=== PATIENT | female | born 1995 | race Caucasian/White ===

== ENCOUNTER 2020-06-03 01:57 | Emergency (ER) | payer MEDICAID, SELFPAY ==
[2020-06-03 01:59] VITALS: BP 132/92; PULSE 113; RESP 16; TEMP 37.1; O2SAT 98; BMI 24.4
[2020-06-03 02:25] LABS: Microscopic, Urine URINE MICROSCOPIC (MICROSCOPIC)
--- NOTE | 2020-06-03 02:26 | ECG_ITS ---
APPROVED REPORT Exam: Resting ECG HR:103 bpm ECG Measurements Heart Rate 103 AXES VA 128 P 81 QRSd 66 QRS 79 QT 334 T 45 QTc 437 <Conclusion> Sinus tachycardia Right atrial enlargement Borderline ECG Electronically signed by : Armand Louis, 06/05/2020 07:05:37
--- NOTE | 2020-06-03 02:27 | HMH.EDGENADL ---
ED Disposition Clinical Impression: Gastroenteritis, Dehydration Disposition: Home, Self-Care Condition on Discharge: Good Instructions: DI for Diarrhea and Traveler's Diarrhea -- Adult, DI for Dehydration -- Adult Additional Instructions: You may continue to take Imodium for diarrhea. Drink plenty of fluids. Follow-up with your primary care provider if not improving in 2 to 3 days. Referrals: Ravi Lynch MD [Primary Care Provider] - - Critical Care Critical Care Time: No Attestation: On 06/03/20, the high probability of a clinically significant, sudden or life threatening deterioration of the following system(s) required my full and direct attention, intervention and personal management. The time I documented below is in addition to time spent performing reported procedures but includes the following listed in this critical care notation. Medical Decision Making - Will Inquiry Pt receiving controlled substance: No Vital Signs: 06/03/20 01:59 06/03/20 02:29 06/03/20 03:34 Temperature 98.7 F Temperature Source Oral Pulse Rate [Left Radial] 113 H 111 H 90 Respiratory Rate 16 18 18 Blood Pressure [Right Arm] 132/92 H 137/92 H 111/76 Blood Pressure Mean [Right Arm] 105 107 87 Blood Pressure Source [Right Arm] Automatic Cuff Blood Pressure Position [Right Arm] Sitting 02 Sat by Pulse Oximetry 98 98 100 Oxygen Delivery Method Room Air Room Air Room Air - Lab Data Lab Results 06/03/20 02:16: Urine Color Yellow, Urine Appearance Clear, Urine pH 6.0, Ur Specific [place] >= 1.030, Urine Protein Negative, Urine Glucose (UA) Negative, Urine Ketones 2+, Urine Blood Negative, Urine Nitrate Negative, Urine Bilirubin Negative, Urine Urobilinogen 0.2, Ur Leukocyte Esterase Negative, Urine RBC 3-5, Urine WBC 5-10, Ur Squamous Epith Cells 5-10, Urine Bacteria 2+ 06/03/20 02:16: Urine HCG, Qual Negative 06/03/20 02:20: WBC 12.6 H, RBC 4.79, Hgb 14.8, Hct 41.1, MCV 85.8, MCH 30.9, MCHC 36.0 H, RDW 12.3, Plt Count 298, MPV 8.0, Neut % (Auto) 64.5, Lymph % (Auto) 30.5, [place] % (Auto) 3.6, Eos % (Auto) 0.9, Baso % (Auto) 0.5, Neut # (Auto) 8.2 H, Lymph # (Auto) 3.9, [place] # (Auto) 0.5, Eos # (Auto) 0.1, Baso # (Auto) 0.1 06/03/20 02:20: Sodium 139, Potassium 3.5, Chloride 105, Carbon Dioxide 20 L, Anion Gap 17.5 H, BUN 10, Creatinine 0.50 L, Estimated Creat Clear 153, Estimated GFR 149, Est GFR ( Amer) 180, Glucose 100, Calcium 9.2, Total Bilirubin 0.5, AST 34, ALT 25, Alkaline Phosphatase 70, Total Protein 8.1, Albumin 4.6, Globulin 3.5 H, Albumin/Globulin Ratio 1.3 Result diagrams: 06/03/20 02:20 06/03/20 02:20 Orders (Tests/Meds): ED MEDICATIONS Discontinued Medications Generic Name Dose Route Start Last Admin Trade Name Freq PRN Reason Stop Dose Admin Sodium Chloride 1,000 ml 06/03/20 02:30 06/03/20 03:16 Sod Chlor 0.9% 1000ml Bag IV 06/03/20 02:31 1,000 ml BOLUS ONE Administration ORDERS Category Date Time Status Urine Culture Stat Micro 06/03/20 02:16 Received - ECG Data Tracing #1 EKG interpreted by Alphonso Dai MD: Rhythm: sinus tachycardia Rate: 103 [place]: normal Ectopy: none Conduction: normal ST Segment Changes: none T Wave Changes: none Q Waves: none No evidence of acute ischemia or injury General Adult HPI - General Chief complaint: Nausea/Vomiting/Diarrhea Stated complaint: Accelerated heart rate Time Seen by Provider: 06/03/20 02:27 Mode of Arrival: Ambulatory Limitations: No Limitations Description of Symptoms (Recalled from ER Triage Doc. by RN): pt stated she has had diarrhea since yesterday as well as an elevated HR greater than 90 throughout the day today. pt denies any chest pain, nausea, vomiting or abd. pain at this time. - History of Present Illness HPI narrative: States she has had diarrhea for 2 days, 4-5 episodes. No blood in diarrhea, vomiting, fever, or abdominal pain. Abdomen just feels a little tight across th
[2020-06-03 02:28] LABS: Appearance,Urine CLEAR (Clear); Bilirubin,Urine Negative (Negative); Blood, Urine Negative (Negative); Color,Urine YELLOW (Yellow); Glucose,Urine (UA) Negative (Negative); Ketones,Urine 2+ (Negative); Leukocyte Esterase,Urine Negative (Negative); Nitrate,Urine Negative (Negative); Protein,Urine Negative (Negative); Specific Gravity, Urine >= 1.030 (1.005-1.030); Urobilinogen,Urine 0.2 EU/dl (0.2)
[2020-06-03 02:29] VITALS: BP 137/92; PULSE 111; RESP 18; O2SAT 98
[2020-06-03 02:30] LABS: Urine Pregnancy, HCG Qual. Negative (Negative)
[2020-06-03 02:36] LABS: Chloride 105 mmol/L (98-107); Sodium 139 mmol/L (136-145)
[2020-06-03 02:37] LABS: Basophils # 0.1 K/mm3 (0-0.2); Basophils % 0.5 % (0.1-2.0); Eosinophils # 0.1 K/mm3 (0.0-0.4); Eosinophils % 0.9 % (0.1-12.0); Hematocrit 41.1 % (37.0-47.0); Hemoglobin 14.8 g/dL (12.2-16.2); Lymphocytes # 3.9 K/mm3 (0.7-4.5); Lymphocytes % 30.5 % (10-50); Mean Corpuscular Hemoglobin 30.9 pg (27.0-31.2); Mean Corpuscular Volume 85.8 fl (81-99); Monocytes # 0.5 K/mm3 (0.1-1.0); Monocytes % 3.6 % (1.7-9.3); Neutrophils # 8.2 K/mm3 (1.8-7.8); Neutrophils % 64.5 % (37.0-80.0); Platelet Count 298 K/mm3 (142-424); Potassium 3.5 mmoL/L (3.5-5.1); Red Blood Count 4.79 M/mm3 (4.20-5.40); Red Cell Distribution Width 12.3 % (11.5-17.5); White Blood Count 12.6 K/mm3 (4.8-10.8)
[2020-06-03 02:39] LABS: Alanine Aminotransferase 25 U/L (12-78); Albumin Level 4.6 g/dl (3.5-5.0); Albumin/Globulin Ratio 1.3 (1.1-1.8); Alkaline Phosphatase 70 U/L (38-126); Anion Gap 17.5 mEq/L (5-15); Aspartate Amino Transferase 34 U/L (14-36); Bilirubin,Total 0.5 mg/dl (0.2-1.3); Blood Urea Nitrogen 10 mg/dl (7-17); Carbon Dioxide 20 mmol/L (22.0-30.0); Creatinine Clearance Estimated 153 mL/min (50-200); Estimated Glomerular Filt Rate 149 ml/min (>60); GFR (African American) 180 ML/MIN (>60); Globulin 3.5 g/dL (1.3-3.2); Total Protein,Serum 8.1 g/dl (6.3-8.2)
[2020-06-03 02:40] LABS: Calcium 9.2 mg/dl (8.4-10.2); Glucose 100 mg/dl (74-100)
[2020-06-03 03:04] LABS: Bacteria,Urine 2+ /lpf
[2020-06-03 03:34] VITALS: BP 111/76; PULSE 90; RESP 18; O2SAT 100
[2020-06-03 04:31] VITALS: BP 127/87; PULSE 90; RESP 14; TEMP 37.1; O2SAT 100
== END 2020-06-03 04:39 | disposition home or self-care (01) ==
PROVIDERS: Emergency Provider Emergency Medicine; PCP Family Medicine
DX: K52.9 Noninfective gastroenteritis and colitis, unspecified (principal); E86.0 Dehydration; R00.2 Palpitations; Z88.0 Allergy status to penicillin; Z79.899 Other long term (current) drug therapy
CPT/HCPCS: 80053; 81001; 81025; 85025; 87086; 87088; 93005; 96365; 99283

== ENCOUNTER → 2020-07-07 12:49 | Outpatient (CLI) | payer MEDICAID, SELFPAY ==
--- NOTE | 2020-07-07 12:49 | US_ITS ---
PROCEDURE: US TRANSVAGINAL CLINICAL INDICATION: US t/v- RLQP COMPARISON: US PTV US PELVIS-TRANSVAGINAL ONLY from 12/31/2015 FINDINGS: UTERUS: 7cm x 6cmx 3cm with a combined endometrial thickness of 10.3mm LEFT OVARY: [id number] with a volume of 6.2ml. RIGHT OVARY: [id number] with a volume of 11.7ml. The uterus is retroverted is bicornuate. Endometrial thickness is upper normal at 10 mm. Right ovary is mildly prominent with several small follicles. There is a small amount fluid in the cul-de-sac. IMPRESSION: Bicornuate retroverted uterus with minimal amount of fluid in the cul-de-sac Dictated by: Jean Pierre Carrillo MD 07/07/2020 15:54 Jean Pierre Carrillo MD in OV 07/07/2020 15:54
== END ==
PROVIDERS: PCP Family Medicine; Visit Provider Obstetrics & Gynecology
DX: R10.2 Pelvic and perineal pain (principal); R10.31 Right lower quadrant pain
CPT/HCPCS: 76830

== ENCOUNTER → 2020-07-26 17:35 | Outpatient (CLI) | payer MEDICAID, SELFPAY ==
[2020-07-28 09:23] LABS: Progesterone 0.3 ng/mL (.)
== END ==
PROVIDERS: Visit Provider Obstetrics & Gynecology
DX: R10.2 Pelvic and perineal pain (principal); N80.9 Endometriosis, unspecified
CPT/HCPCS: 36415; 84144

== ENCOUNTER → 2020-08-18 17:22 | Outpatient (CLI) | payer BC, SELFPAY ==
[2020-08-18 18:57] LABS: Basophils # 0.1 K/mm3 (0-0.2); Basophils % 1.4 % (0.1-2.0); Eosinophils # 0.1 K/mm3 (0.0-0.4); Eosinophils % 2.2 % (0.1-12.0); Hematocrit 42.8 % (37.0-47.0); Hemoglobin 13.8 g/dL (12.2-16.2); Lymphocytes # 2.9 K/mm3 (0.7-4.5); Lymphocytes % 46.5 % (10-50); Mean Corpuscular HGB Conc 32.3 g/dL (31.8-35.4); Mean Corpuscular Hemoglobin 29.6 pg (27.0-31.2); Mean Corpuscular Volume 91.5 fl (81-99); Mean Platelet Volume 7.6 fl (7.4-10.4); Monocytes # 0.3 K/mm3 (0.1-1.0); Monocytes % 4.6 % (1.7-9.3); Neutrophils # 2.8 K/mm3 (1.8-7.8); Neutrophils % 45.2 % (37.0-80.0); Platelet Count 311 K/mm3 (142-424); Red Blood Count 4.68 M/mm3 (4.20-5.40); Red Cell Distribution Width 12.3 % (11.5-17.5); White Blood Count 6.2 K/mm3 (4.8-10.8)
[2020-08-18 20:11] LABS: Barbiturates Screen,Urine Negative ng/ml (<200)
[2020-08-18 20:12] LABS: Cannabinoid Screen,Urine Negative ng/ml (<50)
[2020-08-18 20:14] LABS: Opiate Screen,Urine Negative ng/ml (<300)
[2020-08-18 20:15] LABS: Cocaine Screen,Urine Negative ng/ml (<300)
[2020-08-18 20:16] LABS: Phencyclidine Screen,Urine Negative ng/ml (<25)
[2020-08-18 20:51] LABS: HCG Qualitative, Serum Negative (Negative)
[2020-08-18 21:40] LABS: Chloride 102 mmol/L (98-107); Potassium 3.8 mmoL/L (3.5-5.1); Sodium 140 mmol/L (136-145)
[2020-08-18 21:42] LABS: Alanine Aminotransferase 25 U/L (12-78); Aspartate Amino Transferase 31 U/L (14-36); Blood Urea Nitrogen 9 mg/dl (7-17); Estimated Glomerular Filt Rate 121 ml/min (>60); GFR (African American) 146 ML/MIN (>60)
[2020-08-18 21:43] LABS: Albumin Level 4.9 g/dl (3.5-5.0); Albumin/Globulin Ratio 1.5 (1.1-1.8); Alkaline Phosphatase 62 U/L (38-126); Bilirubin,Total 0.3 mg/dl (0.2-1.3); Calcium 9.4 mg/dl (8.4-10.2); Globulin 3.3 g/dL (1.3-3.2); Glucose 89 mg/dl (74-100); Total Protein,Serum 8.2 g/dl (6.3-8.2)
[2020-08-18 22:17] LABS: Anion Gap 13.8 mEq/L (5-15); Carbon Dioxide 28 mmol/L (22.0-30.0)
[2020-08-18 22:50] LABS: Amphetamine/Metha Screen,Urine Negative ng/ml (<1000); Benzodiazepines Screen,Urine Negative ng/ml (<200); Methadone Screen,Urine Negative ng/ml (<300)
[2020-08-18 23:36] LABS: Coronavirus 19 IgG Antibody Negative (Negative); Coronavirus 19 IgM Antibody Negative (Negative)
== END ==
PROVIDERS: Visit Provider Obstetrics & Gynecology
DX: Z01.818 Encounter for other preprocedural examination (principal); R10.2 Pelvic and perineal pain; N80.9 Endometriosis, unspecified
CPT/HCPCS: 36415; 80053; 80305; 84703; 85025; 86328

== ENCOUNTER 2020-08-20 06:25 | Day surgery (SDC) | payer BC, SELFPAY ==
[2020-08-18 16:24] VITALS: BMI 24.0
[2020-08-20] VITALS (14 sets, daily range): BP systolic 103–123; BP diastolic 61–75; PULSE 77–94; RESP 12–18; TEMP 36.1–43; O2SAT 91–100
--- NOTE | 2020-08-20 07:50 | HMH.ANESCL ---
[facility] Anesthesia Checklist - Patient Identification Patient Identification: Arm Band - Structural Data Admitted From: Home Planned Operative Procedure/s: Diagnostic Laparoscopy with Chromotubation Consent for Planned Operative Procedure(s) Verified: Yes Verified Documents: Surgical Consent, History and Physical - NPO Status Verified Time NPO: 00:00 - Additional verifications Anesthesia Reactions: No Hx Blood Transfusions: No Blood Transfusion Reaction: No - Airway Assessment C-Spine Mobility Assessed: Yes (mp2) TMJ Mobility Assessed: Yes Dentition: Good Dentition - Neurological Assessment Level of Consciousness: Awake, Alert - Anesthesia Plan Anesthesia Risk discussed: Yes Anesthesia Plan: Verified ASA Class: II Anesthesia Type: General [facility] History I have reviewed the patient's past medical history: Yes 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: Reports:: Palpitations Denies:: Cancer, Diabetes Mellitus Type 1, Diabetes Mellitus Type 2, Hypertension, Internal Pacemaker, MRSA, Seizures *Have you ever received a pneumonia vaccine?: No *Have you received a flu vaccine this season?: Yes Other 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: Denies: Blood Transfusion Reaction Anesthesia experience/problems:: nac Other Surgeries: Yes: Diagnostic Lap, Other. No: Pacemaker Amputation: No Fractures: No - *Social History Last grade of school completed: High school graduate Smoking Status: Never smoker Tobacco Type: cigarettes # Packs/Day (cigarettes): 0 Alcohol Intake: never Substance Use Type: denies use *Occupational Status:: employed Housing: house Household Members: spouse *Travel in the last 8 weeks: None Family Hx:: Unable to obtain
--- NOTE | 2020-08-20 09:40 | HMH.ANESI ---
[facility] Anesthesia Record Part I Intake, IV Amount: 1,500 Estimated blood loss (mL): 0 Urine output (mL): 0 Blood Pressure: 109/65 SaO2: 93 Pulse Rate: 92 Respiratory Rate: 12 Temperature: 97.7 F Patient is:: Awake Stable to PACU at:: 09:40
--- NOTE | 2020-08-20 10:18 | P.OP_ITS ---
Date of procedure: 08/20/20 Pre-op Diagnosis:: 1. Pelvic pain 2. Endometriosis 3. Bicornuate uterus 4. Infertility Post-op Diagnosis:: 1. Pelvic pain 2. Endometriosis 3. Bicornuate uterus 4. Infertility 5. Pelvic adhesions 6. Bilateral occluded fallopian tubes Procedure performed:: Diagnostic laparoscopy Fulgaration of endometriosis Lysis of adhesions Chromotubation of fallopian tubes Surgeon:: Yi Christopher MD OFFSET ASSISTANT PRESS OPERATOR:: Gene Varela Anesthesia: GETA Estimated blood loss (mL): 5 Operative findings:: enlarged and wide uterus (previously identified as bicornuate) grossly normal ovaries bilateral occluded fallopian tubes endometriosis cul-de-sac pelvic adhesions Operative note:: The patient was taken to the operating room and general anesthesia was administered. She was prepped/draped in lithotomy position. A [employer] uterine manipulator was placed without difficulty. Gloves were changed and attention was turned to the abdomen. A 5mm skin incision was made in the umbilical fold and the verees needle was inserted through the peritoneum and into the abdominal cavity in standard fashion. The abdomen was insufflated with CO2 gas. A 5mm non-bladed trocar was inserted directly into the abdominal cavity and appropriate placement was confirmed with the laparoscope. No intra-abdominal injuries occurred during entry into the abdominal cavity, as confirmed visually with the laparoscope. The patient was placed in trendelenburg and a 5mm skin incision was made 2cm above the pubic symphysis. A 5mm non-bladed trocar was inserted under direct visualization, without complication. The uterus was elevated out of the pelvis in order to better visualize the anatomy. A survey of the pelvis and abdomen revealed a bulky/enlarged uterus, with an enlarged width. Previous evaluation had identified a bicornuate uterus, and the intra- operative findings today were consistent with that diagnosis. Both ovaries appeared normal, and no cysts or endometriotic lesions were visualized on either ovary. The pelvic sidewalls and anterior wall did not show any endometriotic lesions, but several powder burn lesions were noted in the cul-de-sac, along with some filmy adhesions. The ureters were identified and not of concern with regards to anatomic proximity for fulgaration of endometriosis, and the lesions were all fulgarated using monopolar cautery. The filmy adhesions were also taken down sharply and bluntly, without complication. At this time, a dilute solution of methylene blue was connected to the port of the Humi and 20cc was injected into the uterus. The fallopian tubes appeared anatomically normal, with no adhesions or obvious anatomic distortion. The dye, however, did not pass beyond the middle of either tube. A second syringe of 20cc of dyed fluid was injected with no successful results, and only increasing resistance to continued push of the solution. The abdomen was then evacuated of gas and all trocars removed. The skin incisions were closed with dermabond. All sponge/lap/needle/instrument counts correct for both abdominal and vaginal procedures. Total EBL: 5cc. The patient was taken out of lithotomy position, extubated and taken to the PACU in stable condition. Condition: stable Disposition: PACU Specimens:: none Complications:: none
--- NOTE | 2020-08-20 10:33 | P.PN_ITS ---
[facility] Anesthesia Record Part II Discharge Time: 10:10 Destination: [facility] PACU nurse assessment reviewed?: Yes Patient Condition:: Good Anesthesia Complications:: None Swallowing reflex intact?: Yes Cyanosis?: No Blood Pressure: 103/65 Pulse Rate: 83 Temperature: 97 F Mental Status: Alert & Oriented Pain level:: 0 Nausea and/or vomitting:: None Intake, IV Amount: 1,000
== END 2020-08-20 11:02 | disposition home or self-care (01) ==
LOC: OR 06:27
PROVIDERS: PCP Family Medicine; Visit Provider Obstetrics & Gynecology
PROC: (CPT 49320; principal; 2020-08-20 08:30)
DX: Z30.2 Encounter for sterilization (principal); N80.9 Endometriosis, unspecified; Q51.3 Bicornate uterus; N73.6 Female pelvic peritoneal adhesions (postinfective); N97.1 Female infertility of tubal origin
CPT/HCPCS: 58350; 58662; 96374; J2405; J2710

== ENCOUNTER → 2020-09-21 09:39 | Outpatient (CLI) | payer BC, SELFPAY ==
--- NOTE | 2020-09-21 | US_ITS ---
APPROVED REPORT Exam Type: Ankle to Brachial Index Qc Manager: Yojana Pfeiffer CRT Indications Claudication: Rest Pain: Risk Factors Hypertension Pressures/Indices Right Indices Left Indices Brachial 117.00 mmHg Brachial 107.00 mmHg Low Thigh 129.00 mmHg 1.10 Low Thigh 134.00 mmHg 1.15 Calf 145.00 mmHg 1.24 Calf 143.00 mmHg 1.22 Ankle(PT) 137.00 mmHg 1.17 Ankle(PT) 139.00 mmHg 1.19 Ankle(DP) 131.00 mmHg 1.12 Ankle(DP) 130.00 mmHg 1.11 Digit 99.00 mmHg 0.85 Digit 74.00 mmHg 0.63 Findings R DONG 1.2 L DONG 1.2 R TBI 0.9 L TBI 0.6 NORMAL PULSES NORMAL WAVEFORMS Conclusion R DONG 1.2 L DONG 1.2 R TBI 0.9 L TBI 0.6 NORMAL PULSES NORMAL WAVEFORMS Normal appearing resting noninvasive lower extremity arterial study. Electronically signed by : Jean Pierre Carrillo MD 09/21/2020 16:07:56
== END ==
PROVIDERS: PCP Family Medicine; Visit Provider Family Medicine
DX: M79.605 Pain in left leg (principal); M79.604 Pain in right leg
CPT/HCPCS: 93923

== ENCOUNTER 2020-10-09 12:30 | Emergency (ER) | payer BC, SELFPAY ==
[2020-10-09 13:15] VITALS: BP 126/74; PULSE 99; RESP 20; TEMP 36.7; O2SAT 100; BMI 25.4
--- NOTE | 2020-10-09 13:34 | HMH.EDUTC ---
[facility] [place] Disposition Clinical Impression: UTI (urinary tract infection) Qualifiers: Urinary tract infection type: site unspecified Hematuria presence: with hematuria Qualified Code(s): N39.0 - Urinary tract infection, site not specified Low back pain Qualifiers: Chronicity: unspecified Back pain laterality: right Sciatica presence: without sciatica Qualified Code(s): M54.5 - Low back pain Disposition: Home, Self-Care Condition on Discharge: Good Instructions: Urinary Tract Infection, DI for Urinary Tract Infection (UTI), Phenazopyridine Additional Instructions: Drink plenty of fluids. Take tylenol or ibuprofen for pain or fever. Take the medications as directed. Follow up with your regular doctor. GO TO THE ER FOR ANY WORSENING SYMPTOMS The pyridium will make your urine turn orange, this is an expected side effect. It will stain your clothes if it comes into contact with them. Prescriptions: Sulfamethoxazole/Trimethoprim [Bactrim DS tablet] 1 each PO BID 7 Days #14 tab Transmission Status: Received by [id number] Phenazopyridine HCl [Pyridium 200mg Tablet] 200 pow PO TID #6 tab Transmission Status: Received by [id number] Referrals: Ravi Lynch MD [Primary Care Provider] - Time of Disposition: 13:42 Medical Decision Making - Medical Records Medical records reviewed: No: I reviewed the patient's medical records. - Will Inquiry Pt receiving controlled substance: No Vital Signs: 10/09/20 13:15 10/09/20 13:50 Temperature 98.1 F 98.1 F Temperature Source Oral Pulse Rate 99 H Pulse Rate [Right Brachial] 99 H Respiratory Rate 20 20 Blood Pressure 126/74 Blood Pressure [Right Arm] 126/74 Blood Pressure Mean [Right Arm] 91 Blood Pressure Source [Right Arm] Automatic Cuff Blood Pressure Position [Right Arm] Sitting 02 Sat by Pulse Oximetry 100 Oxygen Delivery Method Room Air - Lab Data Lab results reviewed: Yes: I reviewed the patient's lab results. Lab Results 10/09/20 13:41: Urine Color Yellow, Urine Appearance Clear, Urine pH 6.0, Ur Specific [place] 1.025, Urine Protein Negative, Urine Glucose (UA) Negative, Urine Ketones Negative, Urine Blood 2+, Urine Nitrate Negative, Urine Bilirubin Negative, Urine Urobilinogen 0.2, Ur Leukocyte Esterase Negative Orders (Tests/Meds): ORDERS Category Date Time Status Urine Culture Stat Micro 10/09/20 13:30 Received [facility] [place] HPI - General Stated complaint: lower back and pelvic pain Time Seen by Provider: 10/09/20 13:34 Mode of Arrival: Ambulatory Source of Information: Patient Limitations: No Limitations Description of Symptoms (Recalled from Triage Doc. by RN): PATIENT C/O LEFT FLANK PAIN AND BLOOD IN URINE SINCE YESTERDAY HEENT Symptoms (Recalled from RN notes): No Resp Symptoms (Recalled from RN notes): No Skin Symptoms (Recalled from RN notes): No MS Symptoms (Recalled from RN notes): No Functional Status (Recalled from RN notes): WNL - History of Present Illness Provider Complaint: she c/o low back pain and burning while urinating since yesteday. She rates her pain as a 5/10. - Related Data Home Medications Medication Instructions Recorded Confirmed metoprolol tartrate 25 mg tablet 25 mg PO DAILY tab 02/16/20 08/20/20 clomiPHENE citrate [Clomiphene 50 mg PO DAILY 08/20/20 08/20/20 Citrate] Previous Rx's Medication Instructions Recorded Phenazopyridine HCl [Pyridium 200 pow PO TID #6 tab 10/09/20 200mg Tablet] Sulfamethoxazole/Trimethoprim 1 each PO BID 7 Days #14 tab 10/09/20 [Bactrim DS tablet] Allergies Allergy/AdvReac Type Severity Reaction Status Date / Time Penicillins Allergy Intermediate I-HIVES Verified 08/23/20 13:32 - Worker's Comp Is this a Worker's Comp case?: No [facility] History - Hepatitis A Screen Drug use history?: No High risk sexual behaviors?: No History of sexually transmitted infection?: No Currently employed?: No Childcar
[2020-10-09 13:50] VITALS: BP 126/74; PULSE 99; RESP 20; TEMP 36.7; O2SAT 100
[2020-10-09 16:04] LABS: Apearance,Urine Clear (Clear); Color,Urine Yellow (Yellow)
[2020-10-09 16:05] LABS: Bilirubin,Urine Negative (Negative); Blood, Urine 2+ (Negative); Glucose,Urine (UA) Negative (Negative); Ketones,Urine Negative (Negative); Protein,Urine Negative (Negative); Specific Gravity, Urine 1.025 (1.005-1.030); UTC Leukocyte Esterase,Urine Negative (Negative); UTC Nitrate,Urine Negative (Negative); Urobilinogen,Urine 0.2 EU/dl (0.2)
== END 2020-10-09 13:51 | disposition home or self-care (01) ==
PROVIDERS: Emergency Provider Nurse Practitioner Family; PCP Family Medicine
DX: N30.00 Acute cystitis without hematuria (principal); R00.2 Palpitations
CPT/HCPCS: 81003; 87086; 99202; G0463

== ENCOUNTER 2020-12-03 17:53 | Emergency (ER) | payer BC, SELFPAY ==
[2020-12-03 18:06] VITALS: BP 124/77; PULSE 82; RESP 19; TEMP 36.9; O2SAT 98; BMI 26.2
--- NOTE | 2020-12-03 18:15 | HMH.EDUTC ---
[facility] [place] Clinical Impression: UTI (urinary tract infection) Qualifiers: Urinary tract infection type: acute cystitis Hematuria presence: with hematuria Qualified Code(s): N30.01 - Acute cystitis with hematuria Disposition: Home, Self-Care Condition on Discharge: Good Instructions: DI for Urinary Tract Infection (UTI) Additional Instructions: Follow up with Dr Lynch next week. Your culture is pending. Return to ER if pain significantly worsens. Prescriptions: Ciprofloxacin HCl [Ciprofloxacin 500mg Tab] 500 mg PO BID 5 Days #10 tab Transmission Status: Pending to [id number] Referrals: Ravi Lynch MD [Primary Care Provider] - Time of Disposition: 18:18 Medical Decision Making - Will Inquiry Pt receiving controlled substance: No Vital Signs: 12/03/20 18:06 Temperature 98.4 F Temperature Source Oral Pulse Rate [Right Brachial] 82 Respiratory Rate 19 Blood Pressure [Right Arm] 124/77 Blood Pressure Mean [Right Arm] 92 Blood Pressure Source [Right Arm] Automatic Cuff Blood Pressure Position [Right Arm] Sitting 02 Sat by Pulse Oximetry 98 Oxygen Delivery Method Room Air - Lab Data Lab results reviewed: Yes: I reviewed the patient's lab results. Orders (Tests/Meds): ORDERS Category Date Time Status Urine Culture Stat Micro 12/03/20 18:13 [place]dered [facility] [place] - General Stated complaint: poss UTI Time Seen by Provider: 12/03/20 18:15 Mode of Arrival: Ambulatory Source of Information: Patient Limitations: No Limitations Description of Symptoms (Recalled from Triage Doc. by RN): Pain in back and painful urination x2 days HEENT Symptoms (Recalled from RN notes): No Resp Symptoms (Recalled from RN notes): No Skin Symptoms (Recalled from RN notes): No MS Symptoms (Recalled from RN notes): No Functional Status (Recalled from RN notes): wnl - History of Present Illness Provider Complaint: Dysuria, back pain, hematuria X 2 days. Seems better today than yesterday. No fever. No vomiting. Onset (ago): day(s) (2) Relieving factors: none Exacerbating factors: none Associated symptoms: denies other symptoms Treatments prior to arrival: none - Related Data Home Medications Medication Instructions Recorded Confirmed metoprolol tartrate 25 mg tablet 25 mg PO DAILY tab 02/16/20 08/20/20 clomiPHENE citrate [Clomiphene 50 mg PO DAILY 08/20/20 08/20/20 Citrate] Previous Rx's Medication Instructions Recorded Phenazopyridine HCl [Pyridium 200 pow PO TID #6 tab 10/09/20 200mg Tablet] Sulfamethoxazole/Trimethoprim 1 each PO BID 7 Days #14 tab 10/09/20 [Bactrim DS tablet] Ciprofloxacin HCl [Ciprofloxacin 500 mg PO BID 5 Days #10 tab 12/03/20 500mg Tab] Allergies Allergy/AdvReac Type Severity Reaction Status Date / Time Penicillins Allergy Intermediate I-HIVES Verified 12/03/20 18:09 - Worker's Comp Is this a Worker's Comp case?: No [facility] History - Hepatitis A Screen Drug use history?: No High risk sexual behaviors?: No History of sexually transmitted infection?: No Currently employed?: No Childcare worker?: No Do you have indoor plumbing?: Yes Do you have electricity?: Yes Attestation statement:: This patient has been screened for Hepatitis A risk factors. I have reviewed the patient's past medical history: Yes 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: Reports:: Palpitations Denies:: Cancer, Diabetes Mellitus Type 1, Diabetes Mellitus Type 2, Hypertension, Internal Pacemaker, MRSA, Seizures Other 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: Denies: Blood Transfusion Reaction Comment: Endometriosis. Chronic Heart Palpitations Other Surgeries: Yes: Diagnostic Lap, Other. No: Pacemaker Amputation: No Fractures: No Comment: Tooth Extraction--2008. Dx. LSC, w/ TAMMY--2015 - Social History Smoking Status: Never smoker Tobacco Type: cigarettes # Packs/Day (cigarettes): 0 Alcohol Intake: never Substance Use Type: denies use Occupational Status: other Housing: house Household Members:
[2020-12-03 18:21] VITALS: BP 124/77; PULSE 82; RESP 19; TEMP 36.9; O2SAT 98
[2020-12-03 18:23] LABS: Apearance,Urine Clear (Clear); Color,Urine Yellow (Yellow); PH,Urine 6.5 (5.0-8.5)
[2020-12-03 18:24] LABS: Bilirubin,Urine Negative (Negative); Blood, Urine Trace (Negative); Glucose,Urine (UA) Negative (Negative); Ketones,Urine Negative (Negative); Protein,Urine Negative (Negative); UTC Leukocyte Esterase,Urine Negative (Negative); UTC Nitrate,Urine Negative (Negative); Urobilinogen,Urine 0.2 EU/dl (0.2)
== END 2020-12-03 18:26 | disposition home or self-care (01) ==
PROVIDERS: Emergency Provider Physician Assistant; PCP Family Medicine
DX: N30.01 Acute cystitis with hematuria (principal); R00.2 Palpitations; Z79.899 Other long term (current) drug therapy
CPT/HCPCS: 81003; 87086; 99202; G0463

== ENCOUNTER → 2021-01-24 17:40 | Outpatient (CLI) | payer BC, SELFPAY ==
[2021-01-24 20:52] LABS: HCG,Quantitative 13 mIU/ml (0-5.42)
== END ==
PROVIDERS: Visit Provider Obstetrics & Gynecology
DX: Z34.90 Encounter for supervision of normal pregnancy, unspecified, unspecified trimester (principal)
CPT/HCPCS: 36415; 84702

== ENCOUNTER → 2021-01-26 17:38 | Outpatient (CLI) | payer BC, SELFPAY ==
[2021-01-26 19:47] LABS: HCG,Quantitative 38 mIU/ml (0-5.42)
== END ==
PROVIDERS: Visit Provider Obstetrics & Gynecology
DX: Z34.90 Encounter for supervision of normal pregnancy, unspecified, unspecified trimester (principal)
CPT/HCPCS: 36415; 84702

== ENCOUNTER → 2021-01-27 17:36 | Outpatient (CLI) | payer BC, SELFPAY ==
[2021-01-27 18:15] LABS: HCG,Quantitative 44 mIU/ml (0-5.42)
== END ==
PROVIDERS: Visit Provider Specialist
DX: Z32.00 Encounter for pregnancy test, result unknown (principal)
CPT/HCPCS: 36415; 84702

== ENCOUNTER → 2021-01-31 17:38 | Outpatient (CLI) | payer BC, SELFPAY ==
[2021-01-31 18:16] LABS: HCG,Quantitative 45 mIU/ml (0-5.42)
== END ==
PROVIDERS: Visit Provider Specialist
DX: Z32.00 Encounter for pregnancy test, result unknown (principal)
CPT/HCPCS: 36415; 84702

== ENCOUNTER → 2021-02-03 17:47 | Outpatient (CLI) | payer BC, SELFPAY ==
[2021-02-03 18:31] LABS: HCG,Quantitative 8 mIU/ml (0-5.42)
== END ==
PROVIDERS: Visit Provider Specialist
DX: Z32.00 Encounter for pregnancy test, result unknown (principal)
CPT/HCPCS: 36415; 84702

== ENCOUNTER → 2021-02-15 18:07 | Outpatient (CLI) | payer BC, SELFPAY ==
[2021-02-15 18:57] LABS: HCG,Quantitative < 2 mIU/ml (0-5.42)
== END ==
PROVIDERS: Visit Provider Specialist
DX: Z32.00 Encounter for pregnancy test, result unknown (principal)
CPT/HCPCS: 84702

== ENCOUNTER 2021-07-02 13:25 | Emergency (ER) | payer BC, SELFPAY ==
[2021-07-02 14:20] VITALS: BP 116/72; PULSE 85; RESP 18; TEMP 36.8; O2SAT 100; BMI 26.4
--- NOTE | 2021-07-02 14:36 | HMH.EDUTC ---
[facility] [place] Clinical Impression: Left otitis media Qualifiers: Otitis media type: suppurative Chronicity: acute Recurrence: non-recurrent Spontaneous tympanic membrane rupture: without spontaneous rupture Qualified Code(s): H66.002 - Acute suppurative otitis media without spontaneous rupture of ear drum, left ear Disposition: Home, Self-Care Condition on Discharge: Good Instructions: DI for Otitis Media (Middle Ear Infection)-Child Prescriptions: Cefdinir [Omnicef 300mg Capsule] 300 mg PO BID #20 cap Transmission Status: Pending to [id number] Referrals: Ravi Lynch MD [Primary Care Provider] - Time of Disposition: 14:40 Medical Decision Making - Will Inquiry Pt receiving controlled substance: No [facility] [place] HPI - General Stated complaint: ear pain X 3 days Time Seen by Provider: 07/02/21 14:36 - History of Present Illness Provider Complaint: Right ear pain X 3 days. No fever. Dayquil has helped a little. No runny nose, cough, sore throat. Onset (ago): day(s) (3) Relieving factors: none Exacerbating factors: none Associated symptoms: denies other symptoms Treatments prior to arrival: other (Dayquil) - Related Data Home Medications Medication Instructions Recorded Confirmed metoprolol tartrate 25 mg tablet 25 mg PO DAILY tab 02/16/20 08/20/20 clomiPHENE citrate [Clomiphene 50 mg PO DAILY 08/20/20 08/20/20 Citrate] Previous Rx's Medication Instructions Recorded Phenazopyridine HCl [Pyridium 200 pow PO TID #6 tab 10/09/20 200mg Tablet] Sulfamethoxazole/Trimethoprim 1 each PO BID 7 Days #14 tab 10/09/20 [Bactrim DS tablet] Ciprofloxacin HCl [Ciprofloxacin 500 mg PO BID 5 Days #10 tab 12/03/20 500mg Tab] Cefdinir [Omnicef 300mg Capsule] 300 mg PO BID #20 cap 07/02/21 Allergies Allergy/AdvReac Type Severity Reaction Status Date / Time Penicillins Allergy Intermediate I-HIVES Verified 12/03/20 18:09 [facility] History - Hepatitis A Screen Attestation statement:: This patient has been screened for Hepatitis A risk factors. I have reviewed the patient's past medical history: Yes 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: Reports:: Palpitations Denies:: Cancer, Diabetes Mellitus Type 1, Diabetes Mellitus Type 2, Hypertension, Internal Pacemaker, MRSA, Seizures Other 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: Denies: Blood Transfusion Reaction Comment: Endometriosis. Chronic Heart Palpitations Other Surgeries: Yes: Diagnostic Lap, Other. No: Pacemaker Amputation: No Fractures: No Comment: Tooth Extraction--2008. Dx. LSC, w/ TAMMY--2015 - Social History Smoking Status: Never smoker Tobacco Type: cigarettes # Packs/Day (cigarettes): 0 Alcohol Intake: never Substance Use Type: denies use Occupational Status: other Housing: house Household Members: spouse Family Hx:: Unable to obtain ROS Obtained: Yes All systems reviewed & no additional complaints - ENT Ears, Nose, Mouth, and Throat: Reports otalgia Physical Exam - General General appearance: alert, in no apparent distress - Head Head exam: normocephalic - Eye Eye exam: Present: PERRL - ENT ENT exam: Present: normal oropharynx - Expanded ENT Exam TM/Canal exam: Left TM: erythema, bulging Nose exam: Absent: sinus tenderness Throat exam: Present: normal inspection - Neck Neck exam: Present: normal inspection. Absent: lymphadenopathy - Chest Chest inspection: Present: normal inspection, symmetric chest wall rise - Respiratory Respiratory exam: Present: normal lung sounds bilaterally - Cardiovascular Cardiovascular exam: Present: regular rate, normal rhythm - Neurological Exam Neurological exam: Present: alert, oriented X3 - Psychiatric Psychiatric exam: Present: normal affect, normal mood - Skin Skin exam: Present: warm, dry, intact
[2021-07-02 14:44] VITALS: BP 116/72; PULSE 85; RESP 18; TEMP 36.8; O2SAT 100
== END 2021-07-02 14:50 | disposition home or self-care (01) ==
PROVIDERS: Emergency Provider Physician Assistant; PCP Family Medicine
DX: H66.002 Acute suppurative otitis media without spontaneous rupture of ear drum, left ear (principal); R00.2 Palpitations; Z88.0 Allergy status to penicillin
CPT/HCPCS: 99202; G0463

== ENCOUNTER 2021-10-24 15:42 | Emergency (ER) | payer BC, SELFPAY ==
[2021-10-24 15:45] VITALS: BP 134/88; PULSE 95; RESP 18; TEMP 36.9; O2SAT 96; BMI 26.4
--- NOTE | 2021-10-24 16:25 | HMH.EDUTC ---
[facility] [place]ression: Sinusitis Qualifiers: Sinusitis location: unspecified location Chronicity: unspecified Qualified Code(s): J32.9 - Chronic sinusitis, unspecified Disposition: Home, Self-Care Condition on Discharge: Good Instructions: Sinusitis, DI for Sinusitis Additional Instructions: *Monitor Temp, Over the counter Motrin or Tylenol as directed/as needed Tylenol every 4 hours and Motrin every 6 hours (as long as your family doctor has told you that you can take it) for fever or pain. and straight to ER if unable to lower temp less than 101.0 after medication given *Warm salt water gargles may help to soothe the throat *Throat Lozenges *Warm fluids like tea with honey may help to soothe the throat *Sleep elevated *Humidifier/Vaporizer Your throat swab was sent for culture. Those results are typically sent to your primary care. Be sure to follow up in 2-3 days with your family doctor/primary care physician if no improvement so they can review those result and treat if necessary. If you don?t have a primary care doctor, I recommend you get one but in the mean time, you will have to return to a walk in clinic Follow up IMMEDIATELY for new or worsening symptoms or no Noticeable improvement over the next 48-72 hours. 911 for difficulty breathing or swallowing You were tested for today for COVID19 your test result should be back in the next 24-48 hours, you check your results on the [facility] my health portal if you have trouble logging on you may call for assistance to help you set up an account to see your results You was given a handout with instructions for Self Quarantine and Self isolation for while you wait on test results and what to do if they are positive If you are positive the Health Dept will be contacting you also Make sure to take your Vitamins Vit. C Vit D and Zinc if you can take them Prescriptions: Fluticasone Propionate [Flonase 50mcg nasal spray 16gm] 1 spr NS DAILY #1 each Transmission Status: Pending to [facility] Cefdinir [Omnicef 300mg Capsule] 300 mg PO BID #20 cap Transmission Status: Pending to [facility] Referrals: Irena Driscoll APRN [Primary Care Provider] - As needed Forms: Work/School Release Time of Disposition: 16:37 Medical Decision Making - Will Inquiry Pt receiving controlled substance: No Will was queried for this patient: No Vital Signs: 10/24/21 15:45 10/24/21 16:28 Temperature 98.5 F 98.5 F Temperature Source Oral Pulse Rate 95 H Pulse Rate [Right Brachial] 95 H Respiratory Rate 18 18 Blood Pressure 134/88 Blood Pressure [Right Arm] 134/88 Blood Pressure Mean [Right Arm] 103 Blood Pressure Source [Right Arm] Automatic Cuff Blood Pressure Position [Right Arm] Sitting 02 Sat by Pulse Oximetry 96 Oxygen Delivery Method Room Air - Lab Data Lab results reviewed: Yes: I reviewed the patient's lab results. Lab Results 10/24/21 16:03: Influenza Type A Ag Negative, Influenza Type B Ag Negative 10/24/21 16:04: Group A Strep Rapid Negative Orders (Tests/Meds): ORDERS Category Date Time Status Covid-19 Nasal PCR ([facility]) Routine Lab 10/24/21 16:03 Received Strep Screen Confirmation Stat Micro 10/24/21 16:04 Received Medical Decision Narrative: Patient state that she is allergic to PCN but has taken Cefdinir in the past without reactions or complications Denies states that last menstrual period was 1 week ago [facility] [place] - General Stated complaint: fever,chillsHA,cough,diarrhea,congestion Time Seen by Provider: 10/24/21 16:25 Mode of Arrival: Ambulatory Source of Information: Patient Limitations: No Limitations Description of Symptoms (Recalled from Triage Doc. by RN): PATIENT C/O SINUS CONGESTION, BODY ACHES, SORE THROAT, AND EAR PAIN X 5 DAYS HEENT Symptoms (Recalled from RN notes): Yes Resp Symptoms (Recalled from RN notes): No Skin Symptoms (Recalled from RN notes): No MS Symptoms (Recalled fr
[2021-10-24 16:28] VITALS: BP 134/88; PULSE 95; RESP 18; TEMP 36.9; O2SAT 96
[2021-10-24 16:29] LABS: UTC Influenza A Antigen Negative (Negative); UTC Influenza B Antigen Negative (Negative)
[2021-10-24 16:31] LABS: Strep Scrn Group A (Rapid) Negative (Negative)
== END 2021-10-24 16:46 | disposition home or self-care (01) ==
PROVIDERS: Emergency Provider Nurse Practitioner; PCP Nurse Practitioner
DX: U07.1 COVID-19 (principal); J32.9 Chronic sinusitis, unspecified; R00.2 Palpitations
CPT/HCPCS: 87430; 87804; 99203; C9803; G0463; U0003; U0005

== ENCOUNTER 2022-02-24 17:37 | Emergency (ER) | payer BC, SELFPAY ==
[2022-02-24 18:30] VITALS: BP 111/76; PULSE 90; RESP 20; TEMP 36.7; O2SAT 98; BMI 18.3
--- NOTE | 2022-02-24 19:24 | HMH.EDUTC ---
[facility] [place] Clinical Impression: Left otitis media Qualifiers: Otitis media type: unspecified Qualified Code(s): H66.92 - Otitis media, unspecified, left ear Disposition: Home, Self-Care Condition on Discharge: Good Instructions: Middle Ear Infection, Cefdinir Additional Instructions: Take medications as prescribed Follow up with your Family Doctor if no improvement or any worsening of symptoms Return if needed Straight to ER if any life threatening symptoms Prescriptions: Cefdinir [Omnicef 300mg Capsule] 300 mg PO BID #20 cap Transmission Status: Pending to [id number] Referrals: Ravi Lynch MD [Primary Care Provider] - As needed Time of Disposition: 19:32 Medical Decision Making - Will Inquiry Pt receiving controlled substance: No Will was queried for this patient: No Vital Signs: 02/24/22 18:30 Temperature 98.1 F Temperature Source Oral Pulse Rate [Right Brachial] 90 Respiratory Rate 20 Blood Pressure [Right Arm] 111/76 Blood Pressure Mean [Right Arm] 87 Blood Pressure Source [Right Arm] Automatic Cuff Blood Pressure Position [Right Arm] Sitting 02 Sat by Pulse Oximetry 98 Oxygen Delivery Method Room Air Medical Decision Narrative: Patient states that she is allergic to PCN but has taken Cefdinir in the past without reactions [facility] [place] HPI - General Stated complaint: EAR PAIN Time Seen by Provider: 02/24/22 19:24 Mode of Arrival: Ambulatory Source of Information: Patient Limitations: No Limitations Description of Symptoms (Recalled from Triage Doc. by RN): PATIENT C/O LEFT EAR PAIN WITH SWOLLEN GLAND X 1 WEEK HEENT Symptoms (Recalled from RN notes): Yes Resp Symptoms (Recalled from RN notes): No Skin Symptoms (Recalled from RN notes): No MS Symptoms (Recalled from RN notes): No Functional Status (Recalled from RN notes): WNL - History of Present Illness Provider Complaint: Patient states that she has been having pain in her left ear with swollen lymph nodes that has continued to get worse over the last few days States that tonight the pain was worse in her ear so she came in to get it checked out - Related Data Home Medications Medication Instructions Recorded Confirmed metoprolol tartrate 25 mg tablet 25 mg PO DAILY tab 02/16/20 02/24/22 Previous Rx's Medication Instructions Recorded Cefdinir [Omnicef 300mg Capsule] 300 mg PO BID #20 cap 02/24/22 Allergies Allergy/AdvReac Type Severity Reaction Status Date / Time Penicillins Allergy Intermediate I-HIVES Verified 12/03/20 18:09 - Worker's Comp Is this a Worker's Comp case?: No [facility] History - Hepatitis A Screen Attestation statement:: This patient has been screened for Hepatitis A risk factors. I have reviewed the patient's past medical history: Yes 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: Reports:: Palpitations Denies:: Cancer, Diabetes Mellitus Type 1, Diabetes Mellitus Type 2, Hypertension, Internal Pacemaker, MRSA, Seizures Other 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: Denies: Blood Transfusion Reaction Comment: Endometriosis. Chronic Heart Palpitations Other Surgeries: Yes: Diagnostic Lap, Other. No: Pacemaker Amputation: No Fractures: No Comment: Tooth Extraction--2008. Dx. LSC, w/ TAMMY--2015 - Social History Smoking Status: Never smoker Tobacco Type: cigarettes # Packs/Day (cigarettes): 0 Alcohol Intake: never Substance Use Type: denies use Occupational Status: other Housing: house Household Members: spouse Family Hx:: Unable to obtain ROS Obtained: Yes All systems reviewed & no additional complaints, Yes Systems reviewed as appropriate & no additional complaints - Constitutional Constitutional: Reports system reviewed and no additional complaints, except as docu - ENT Ears, Nose, Mouth, and Throat: Reports system reviewed and no additional complaints, except as docu, Reports otalgia - Cardiovascular Cardiovascular: Reports system reviewed and no additional complaints, except as docu - Respiratory Resp
[2022-02-24 19:35] VITALS: BP 111/76; PULSE 90; RESP 20; TEMP 36.7; O2SAT 98
== END 2022-02-24 19:38 | disposition home or self-care (01) ==
PROVIDERS: Emergency Provider Nurse Practitioner; PCP Family Medicine
DX: H66.92 Otitis media, unspecified, left ear (principal); Z88.0 Allergy status to penicillin; R00.2 Palpitations
CPT/HCPCS: 99212; G0463

== ENCOUNTER 2022-03-25 12:35 | Emergency (ER) | payer BC, SELFPAY ==
[2022-03-25 13:21] VITALS: BP 129/81; PULSE 115; RESP 18; TEMP 37.5; O2SAT 99; BMI 26.4
[2022-03-25 13:24] LABS: UTC Influenza A Antigen Negative (Negative); UTC Influenza B Antigen Negative (Negative)
[2022-03-25 13:34] LABS: Strep Scrn Group A (Rapid) Negative (Negative)
--- NOTE | 2022-03-25 13:35 | HMH.EDUTC ---
[facility] [place] Clinical Impression: Viral syndrome Pharyngitis Qualifiers: Pharyngitis/tonsillitis etiology: unspecified etiology Qualified Code(s): J02.9 - Acute pharyngitis, unspecified Tick bite Qualifiers: Encounter type: initial encounter Site of tick bite: abdominal wall Qualified Code(s): S30.861A - Insect bite (nonvenomous) of abdominal wall, initial encounter Disposition: Home, Self-Care Condition on Discharge: Good Instructions: Protect Yourself from Tickborne Illnesses Additional Instructions: Drink plenty of fluids. Take tylenol or ibuprofen for pain or fever. Take the medications as directed. Follow up with your regular doctor. GO TO THE ER FOR ANY WORSENING SYMPTOMS Prescriptions: Mupirocin [Bactroban 2% Ointment 22gm tube] 1 applicatio TP TID 7 Days #1 gm Transmission Status: Received by [facility] clindamycin HCL [Cleocin HCl] 300 mg PO Q8H 10 Days #30 cap Transmission Status: Received by [facility] predniSONE [Deltasone 10mg tablet] 10 mg PO BID 3 Days #6 tab Transmission Status: Received by [facility] Referrals: Ravi Lynch MD [Primary Care Provider] - Time of Disposition: 13:47 Medical Decision Making - Medical Records Medical records reviewed: No: I reviewed the patient's medical records. - Will Inquiry Pt receiving controlled substance: No Vital Signs: 03/25/22 13:21 03/25/22 13:50 Temperature 99.5 F 99.5 F Temperature Source Oral Pulse Rate 115 H Pulse Rate [Left Radial] 115 H Respiratory Rate 18 18 Blood Pressure 129/81 Blood Pressure [Right Arm] 129/81 Blood Pressure Mean [Right Arm] 97 02 Sat by Pulse Oximetry 99 - Lab Data Lab results reviewed: Yes: I reviewed the patient's lab results. Lab Results 03/25/22 13:08: Chlamy pneumoniae PCR Not detected, Adenovirus (PCR) Not detected, B. pertussis DNA (PCR) Not detected, Coronavirus OC43 (PCR) Not detected, Coronavirus HKU1 (PCR) Not detected, Coronavirus 229E (PCR) Not detected, SARS-CoV-2 (PCR) Not detected, Coronavirus NL63 (PCR) Not detected, Human Metapneumovir PCR Detected A, Influenza A (H1) PCR Not detected, Influ A (H1N1/09) PCR Not detected, Influenza A (H3) PCR Not detected, Influenza Type A (PCR) Not detected, Influenza Type B (PCR) Not detected, M. pneumoniae (PCR) Not detected, Parainfluenza 1 (PCR) Not detected, Parainfluenza 2 (PCR) Not detected, Parainfluenza 3 (PCR) Not detected, Parainfluenza 4 (PCR) Not detected, RSV (PCR) Not detected, Entero/Rhino (PCR) Not detected 03/25/22 13:08: Group A Strep Rapid Negative 03/25/22 13:10: Influenza Type A Ag Negative, Influenza Type B Ag Negative Orders (Tests/Meds): ORDERS Category Date Time Status Strep Screen Confirmation Stat Micro 03/25/22 13:08 Received [facility] [place] - General Stated complaint: sore throat, cough Time Seen by Provider: 03/25/22 13:35 Description of Symptoms (Recalled from Triage Doc. by RN): patient comes in for cough, sore throat, congestion. symptoms have been going on since sunday. patient was also showering this morning and noticed a small tick on her abdomen. HEENT Symptoms (Recalled from RN notes): Yes Resp Symptoms (Recalled from RN notes): Yes Skin Symptoms (Recalled from RN notes): Yes MS Symptoms (Recalled from RN notes): No Functional Status (Recalled from RN notes): wnl - History of Present Illness Provider Complaint: She has had a sore throat and sinus congestion for the past 2 days. She also states that she found a small tick embedded in her skin on lower abdomen 2 days ago. It was removed easily, but she would like to have the site looked at too. - Related Data Home Medications Medication Instructions Recorded Confirmed metoprolol tartrate 25 mg tablet 25 mg PO DAILY tab 02/16/20 02/24/22 Previous Rx's Medication Instructions Recorded Cefdinir [Omnicef 300mg Capsule] 300 mg PO BID #20 cap 02/24/22 Mupirocin [Bactroba
[2022-03-25 13:50] VITALS: BP 129/81; PULSE 115; RESP 18; TEMP 37.5
[2022-03-25 13:53] LABS: Adenovirus,PCR Not Detected (NotDetected); Bordetella Pertussis Not Detected (NotDetected); Chlamydophila Pneumoniae, PCR Not Detected (NotDetected); Coronavirus 19, PCR Not Detected (NotDetected); Coronavirus 229E Not Detected (NotDetected); Coronavirus NL63 Not Detected (NotDetected); Coronavirus OC43 Not Detected (NotDetected); Coronovirus HKU1,PCR Not Detected (NotDetected); Influenza A, PCR Not Detected (NotDetected); Influenza AH1, 2009 Not Detected (NotDetected); Influenza AH1, PCR Not Detected (NotDetected); Influenza AH3,PCR Not Detected (NotDetected); Influenza B, PCR Not Detected (NotDetected); Mycoplasma Pneumoniae, PCR Not Detected (NotDetected); Parainfluenza 1, PCR Not Detected (NotDetected); Parainfluenza 2, PCR Not Detected (NotDetected); Parainfluenza 3, PCR Not Detected (NotDetected); Parainfluenza 4, PCR Not Detected (NotDetected); Respiratory Syncytial Virus Not Detected (NotDetected); Rhinovirus/Enterovirus Not Detected (NotDetected)
[2022-03-25 16:19] LABS: Human Metapneumovirus Detected (NotDetected)
== END 2022-03-25 13:51 | disposition home or self-care (01) ==
PROVIDERS: Emergency Provider Nurse Practitioner Family; PCP Family Medicine
DX: S30.861A Insect bite (nonvenomous) of abdominal wall, initial encounter (principal); J02.9 Acute pharyngitis, unspecified; B97.81 Human metapneumovirus as the cause of diseases classified elsewhere; R00.2 Palpitations; Z20.822 Contact with and (suspected) exposure to COVID-19; Z79.52 Long term (current) use of systemic steroids; Z88.0 Allergy status to penicillin; Z23 Encounter for immunization
CPT/HCPCS: 87430; 87581; 87632; 87798; 87804; 99213; C9803; G0463; U0003; U0005

== ENCOUNTER → 2022-11-11 11:35 | Outpatient (CLI) | payer BC, SELFPAY ==
[2022-11-17 21:05] LABS: Anti Mullerian Hormone (AMH) 6.04
== END ==
PROVIDERS: PCP Family Medicine; Visit Provider Obstetrics & Gynecology Reproductive Endocrinology
DX: Z31.69 Encounter for other general counseling and advice on procreation (principal)
CPT/HCPCS: 36415; 82397

== ENCOUNTER 2022-11-30 18:17 | Emergency (ER) | payer BC, SELFPAY ==
[2022-11-30 18:35] VITALS: BP 112/67; PULSE 90; RESP 20; TEMP 37.1; O2SAT 98; BMI 26.4
[2022-11-30 19:10] VITALS: BP 112/67; PULSE 90; RESP 20; TEMP 37.1; O2SAT 98
--- NOTE | 2022-11-30 19:23 | EXP.UTC ---
Discharge Plan Disposition Patient Disposition: Home, Self-Care Condition: Good Prescriptions Prescriptions: New cefdinir 300 mg capsule 300 mg PO BID Qty: 20 0RF No Action metoprolol tartrate 25 mg tablet 25 mg PO DAILY mupirocin 22 GM ointment 1 applicatio TP TID 7 Days Qty: 1 0RF prednisone 10 MG tablet 10 mg PO BID 3 Days Qty: 6 0RF clindamycin HCl 300 MG capsule 300 mg PO Q8H 10 Days Qty: 30 0RF cefdinir 300 MG capsule 300 mg PO BID Qty: 20 0RF Referrals Follow up/Referrals: Ravi Lynch MD [Primary Care Provider] - See instructions Activity Restrictions/Add. Instructions Additional Instructions/Restrictions: *Monitor Temp, Over the counter Motrin or Tylenol as directed/as needed Tylenol every 4 hours and Motrin every 6 hours (as long as your family doctor has told you that you can take it) for fever or pain. and straight to ER if unable to lower temp less than 101.0 after medication given *Warm salt water gargles may help to soothe the throat *Throat Lozenges? *Warm fluids like tea with honey may help to soothe the throat? *Sleep elevated *Humidifier/Vaporizer Take medication as presribed Follow up IMMEDIATELY for new or worsening symptoms or no Noticeable improvement over the next 48-72 hours. 911 for difficulty breathing or swallowing Clinical Impressions Clinical Impression: Left otitis media Instructions Patient Instructions: Cefdinir, Middle Ear Infection Discharge ED Provider: Irena Driscoll [facility] [place] General Stated complaint: earache Mode of Arrival: Ambulatory Source of Information: Patient Limitations: No Limitations Time Seen by Provider: 11/30/22 19:23 Description of Symptoms (Recalled from Triage Doc. by RN): PATIENT C/O EAR ACHE HEENT Symptoms (Recalled from RN notes): Yes Resp Symptoms (Recalled from RN notes): No Skin Symptoms (Recalled from RN notes): No MS Symptoms (Recalled from RN notes): No Functional Status (Recalled from RN notes): WNL History of Present Illness Provider Complaint: Patient states that she has been having pain in both ears for several days that has continued to get worse States that today her ear was throbbing so she came in to get it checked Related Data Home Medications Medication Instructions Recorded Confirmed metoprolol tartrate 25 mg tablet 25 mg PO DAILY tachycardia 02/16/20 02/24/22 Previous Rx's Medication Instructions Recorded cefdinir 300 mg capsule 300 mg PO BID #20 caps 02/24/22 clindamycin HCl 300 mg capsule 300 mg PO Q8H 10 days #30 caps 03/25/22 mupirocin 2 % topical ointment 1 applicatio topical TID 7 days ##1 03/25/22 prednisone 10 mg tablet 10 mg PO BID 3 days #6 tabs 03/25/22 cefdinir 300 mg capsule 300 mg PO BID #20 caps 11/30/22 Allergies Allergy/AdvReac Type Severity Reaction Status Date / Time Penicillins Allergy Intermediate I-HIVES Verified 03/25/22 13:24 Worker's Comp Is this a Worker's Comp case?: [facility] Disclaimer: The information contained in this section may have been updated after the patient was seen, as this information can be updated by other users. 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
== END 2022-11-30 19:45 | disposition home or self-care (01) ==
PROVIDERS: Emergency Provider Nurse Practitioner; PCP Family Medicine
DX: H66.92 Otitis media, unspecified, left ear (principal)
CPT/HCPCS: 99212; 99213; G0463

== ENCOUNTER → 2023-02-19 16:35 | Outpatient (CLI) | payer BC, SELFPAY ==
[2023-02-19 18:37] LABS: HCG,Quantitative 91 mIU/ml (0-5.42)
[2023-02-21 13:58] LABS: Progesterone 14.8 ng/mL (.)
== END ==
PROVIDERS: PCP Family Medicine; Visit Provider Obstetrics & Gynecology
DX: Z34.90 Encounter for supervision of normal pregnancy, unspecified, unspecified trimester (principal)
CPT/HCPCS: 36415; 84144; 84702

== ENCOUNTER → 2023-02-22 08:53 | Outpatient (CLI) | payer BC, SELFPAY ==
[2023-02-22 09:51] LABS: HCG,Quantitative 324 mIU/ml (0-5.42)
[2023-02-23 15:04] LABS: Progesterone 27.1 ng/mL (.)
== END ==
PROVIDERS: Obstetrics & Gynecology Reproductive Endocrinology; PCP Family Medicine
DX: Z32.00 Encounter for pregnancy test, result unknown (principal)
CPT/HCPCS: 36415; 84144; 84702

== ENCOUNTER → 2023-02-24 08:10 | Outpatient (CLI) | payer BC, SELFPAY ==
[2023-02-24 08:53] LABS: HCG,Quantitative 665 mIU/ml (0-5.42)
[2023-02-25 08:12] LABS: Progesterone 36.2 ng/mL (.)
== END ==
PROVIDERS: PCP Family Medicine; Visit Provider Obstetrics & Gynecology Reproductive Endocrinology
DX: Z32.01 Encounter for pregnancy test, result positive (principal)
CPT/HCPCS: 36415; 84144; 84702

== ENCOUNTER 2023-02-25 12:29 | Emergency (ER) | payer BC, SELFPAY ==
[2023-02-25 12:30] VITALS: BP 130/80; PULSE 103; RESP 18; TEMP 36.8; O2SAT 100; BMI 28.1
--- NOTE | 2023-02-25 12:42 | EXP.UTC ---
Discharge Plan Disposition Patient Disposition: Home, Self-Care Condition: Good Prescriptions Prescriptions: New cephalexin 500 mg capsule 500 mg PO QID Qty: 40 0RF No Action metoprolol tartrate 25 mg tablet 25 mg PO DAILY 1 mg Tablet 1 tab PO DAILY estradiol 2 mg tablet 2 mg PO DAILY Referrals Follow up/Referrals: Ravi Lynch MD [Primary Care Provider] - See instructions Activity Restrictions/Add. Instructions Additional Instructions/Restrictions: Drink plenty of fluids. Take tylenol or ibuprofen for pain or fever. Take the medications as directed. Follow up with your regular doctor. GO TO THE ER FOR ANY WORSENING SYMPTOMS We will culture the urine. That will tell what bacteria is causing your infection and which antibiotics will treat it best. Sometimes the first antibiotic we prescribe turns out to not work against different bacteria. So, make sure you follow up within 3 days if you are not getting better. Clinical Impressions Clinical Impression: UTI (urinary tract infection), Instructions Patient Instructions: Urinary Tract Infection, Urine Culture, DI for Urinary Tract Infection (UTI) Discharge ED Provider: Dre Rubi [facility] General Stated complaint: possible UTI Time Seen by Provider: 02/25/23 12:41 History of Present Illness Provider Complaint: She states that for the past 1 day she has had urinary frequency, dysuria and urgency. She denies any abdominal pain. She is apprx 4 weeks . She denies any vaginal bleeding and back pain also. Related Data Home Medications Medication Instructions Recorded Confirmed metoprolol tartrate 25 mg tablet 25 mg PO DAILY tachycardia 02/16/20 02/25/23 estradiol 2 mg tablet 2 mg PO DAILY . 02/25/23 02/25/23 [id number] 1 mg 1 tab PO DAILY 02/25/23 02/25/23 tablet Previous Rx's Medication Instructions Recorded cephalexin 500 mg capsule 500 mg PO QID #40 caps 02/25/23 Allergies Allergy/AdvReac Type Severity Reaction Status Date / Time Penicillins Allergy Intermediate I-HIVES Verified 02/25/23 12:50 [facility] Disclaimer: The information contained in this section may have been updated after the patient was seen, as this information can be updated by other users. 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 [employer] caffeine: No ROS Obtained: Yes All systems reviewed & no additional complaints except as documented Constitutional Constitutional: Reports system reviewed and no additional complaints, except as documented, Denies chills and Denies fever(s) Eyes Eyes: Denies eye discharge ENT Ears, Nose, Mouth, and Throat: Denies dysphagia, Denies sore throat and Denies throat swelling Cardiovascular Cardiovascular: Denies chest pain and Denies dyspnea Respiratory Respiratory: Denies chest congestion, Denies cough and Denies dyspnea Gastrointestinal Gastrointestingal: Denies abdominal pain, constipation, diarrhea, dysphagia, nausea or vomiting Genitourinary Female Genitourinary: Reports as per HPI, Reports dysuria, Reports urinary frequency, Denies urinary incontinence, Reports urinary hesitancy and Reports urinary urgency Musculoskeletal Musculoskeletal: Denies arthralgias and Reports back pain Integumentary/Breasts Skin/Breast: Denies rash Neurologic Neurologic: Denies paresthesias Allergic/Immunologic Allergic/Immunologic: Denies throat swelling Physical Exam General General appearance: alert and in no apparent distress Head Head exam: atraumatic and normocephalic Eye Eye exam: Present normal appearance, PERRL and EOMI ENT ENT exam: Present normal exam, mucous membran
[2023-02-25 12:59] LABS: Apearance,Urine Turbid (Clear); Bilirubin,Urine Negative (Negative); Blood, Urine 3+ (Negative); Color,Urine Dark Yellow (Yellow); Glucose,Urine (UA) Negative (Negative); Ketones,Urine TRACE (Negative); Protein,Urine 3+ (Negative); Urobilinogen,Urine 0.2 EU/dl (0.2)
[2023-02-25 13:00] LABS: UTC Leukocyte Esterase,Urine Negative (Negative); UTC Nitrate,Urine Negative (Negative)
[2023-02-25 13:14] VITALS: BP 130/80; PULSE 103; RESP 18; TEMP 36.8; O2SAT 100
== END 2023-02-25 13:14 | disposition home or self-care (01) ==
PROVIDERS: Emergency Provider Nurse Practitioner Family; PCP Family Medicine
DX: O26.891 Other specified pregnancy related conditions, first trimester (principal); O23.41 Unspecified infection of urinary tract in pregnancy, first trimester; Z3A.01 Less than 8 weeks gestation of pregnancy
CPT/HCPCS: 81003; 87086; 99212; 99214; G0463

== ENCOUNTER → 2023-03-02 12:44 | Outpatient (CLI) | payer BC, SELFPAY ==
--- NOTE | 2023-03-02 13:06 | US_ITS ---
FINAL REPORT TECHNIQUE: Ultrasound imaging of the kidneys was obtained. CLINICAL HISTORY: RENAL PAIN-- rt flank FINDINGS: The right kidney measures 10.6 cm in length. The left kidney measures 10.5 cm in length. There is no hydronephrosis or renal mass identified. The spleen is normal. IMPRESSION: Unremarkable exam. Reviewed, Interpreted and Dictated by Ervin Hsu III, MD Transcribed by Lyn Andre Authenticated and [facility]
== END ==
LOC: RAD 12:44
PROVIDERS: PCP Family Medicine; Visit Provider Family Medicine
DX: N23 Unspecified renal colic (principal)
CPT/HCPCS: 76770

== ENCOUNTER 2023-03-27 08:45 | Emergency (ER) | payer BC, SELFPAY ==
[2023-03-27 08:46] VITALS: BP 138/78; PULSE 105; RESP 20; TEMP 36.8; O2SAT 98; BMI 28.6
--- NOTE | 2023-03-27 09:05 | EXP.UTC ---
Discharge Plan Disposition Patient Disposition: Home, Self-Care Condition: Good Prescriptions Prescriptions: New azithromycin [Zithromax Z-Wilfrid] 250 mg tablet See Rx Instructions .ROUTE .COMPLEX 5 Days Qty: 6 0RF Rx Instructions: For 250 mg dose pack: take 500 mg today (day 1), then 250 mg for 4 days (days 2-5) fluticasone propionate [Flonase Allergy Relief] 50 mcg/actuation spray,suspension 1 - 2 spray intranasal DAILY Qty: 16 0RF Rx Instructions: administer into each nostril No Action metoprolol tartrate 25 mg tablet 25 mg PO DAILY 1 mg Tablet 1 tab PO DAILY estradiol 2 mg tablet 2 mg PO DAILY cephalexin 500 mg capsule 500 mg PO QID Qty: 40 0RF Referrals Follow up/Referrals: Ravi Lynch MD [Primary Care Provider] - See instructions Activity Restrictions/Add. Instructions Additional Instructions/Restrictions: *Monitor Temp, Over the counter Motrin or Tylenol as directed/as needed Tylenol every 4 hours and Motrin every 6 hours (as long as your family doctor has told you that you can take it) for fever or pain. and straight to ER if unable to lower temp less than 101.0 after medication given *Warm salt water gargles may help to soothe the throat *Throat Lozenges? *Warm fluids like tea with honey may help to soothe the throat? *Sleep elevated *Humidifier/Vaporizer *Flonase 2 sprays in each nostril daily but be aware that it may take 2-3 days before you notice improvement Follow up IMMEDIATELY for new or worsening symptoms or no Noticeable improvement over the next 48-72 hours. 911 for difficulty breathing or swallowing Clinical Impressions Clinical Impression: Sinusitis Qualifiers: Sinusitis location: unspecified location Chronicity: unspecified Qualified Code(s): J32.9 - Chronic sinusitis, unspecified Instructions Patient Instructions: Sinus Headache, DI for Sinusitis Discharge ED Provider: Irena Driscoll [facility] [place] General Stated complaint: Congestion facial pain Mode of Arrival: Ambulatory Source of Information: Patient Limitations: No Limitations Time Seen by Provider: 03/27/23 09:05 Description of Symptoms (Recalled from Triage Doc. by RN): Patient reports sinus congestion, pain in the right side of face, unable to breath through nose at night for approx 5 days. HEENT Symptoms (Recalled from RN notes): Yes Resp Symptoms (Recalled from RN notes): No Skin Symptoms (Recalled from RN notes): No MS Symptoms (Recalled from RN notes): No Functional Status (Recalled from RN notes): wnl History of Present Illness Provider Complaint: Patient states for about a week she has been having sinus pain and pressure that is worse on the right side States that she feels pressure behind her right eye States that she is 8wks OB and wasnt sure what she can take Related Data Home Medications Medication Instructions Recorded Confirmed metoprolol tartrate 25 mg tablet 25 mg PO DAILY tachycardia 02/16/20 02/25/23 estradiol 2 mg tablet 2 mg PO DAILY . 02/25/23 02/25/23 [id number] 1 mg 1 tab PO DAILY 02/25/23 02/25/23 tablet Previous Rx's Medication Instructions Recorded cephalexin 500 mg capsule 500 mg PO QID #40 caps 02/25/23 azithromycin 250 mg tablet See Rx Instructions PO .COMPLEX 5 03/27/23 (Zithromax Z-Wilfrid) days #6 tabs fluticasone propionate 50 1 - 2 spray intranasal DAILY #16 03/27/23 mcg/actuation nasal grams spray,suspension (Flonase Allergy Relief) Allergies Allergy/AdvReac Type Severity Reaction Status Date / Time Penicillins Allergy Intermediate I-HIVES Verified 02/25/23 12:50 Worker's Comp Is this a Worker's Comp case?: [facility] Disclaimer: The information contained in this section may have been updated after the patient was seen, as this information can be updated by other users. Social History Smoking Status: Ne
[2023-03-27 09:27] VITALS: BP 138/78; PULSE 105; RESP 20; TEMP 36.8; O2SAT 98
== END 2023-03-27 09:28 | disposition home or self-care (01) ==
PROVIDERS: Emergency Provider Nurse Practitioner; PCP Family Medicine
DX: O99.511 Diseases of the respiratory system complicating pregnancy, first trimester (principal); J01.90 Acute sinusitis, unspecified; Z3A.08 8 weeks gestation of pregnancy; O26.891 Other specified pregnancy related conditions, first trimester
CPT/HCPCS: 99212; 99214; G0463

== ENCOUNTER 2023-04-28 17:02 | Emergency (ER) | payer BC, SELFPAY ==
[2023-04-28 17:20] VITALS: BP 116/71; PULSE 85; RESP 18; TEMP 37; O2SAT 98; BMI 28.1
--- NOTE | 2023-04-28 18:00 | EXP.UTC ---
Discharge Plan Disposition Patient Disposition: Home, Self-Care Condition: Good Prescriptions Prescriptions: New cephalexin [cephalexin] 500 mg tablet 500 mg PO BID 10 Days Qty: 20 0RF No Action metoprolol tartrate 25 mg tablet 25 mg PO DAILY azithromycin [Zithromax Z-Wilfrid] 250 mg tablet See Rx Instructions .ROUTE .COMPLEX 5 Days Qty: 6 0RF Rx Instructions: For 250 mg dose pack: take 500 mg today (day 1), then 250 mg for 4 days (days 2-5) fluticasone propionate [Flonase Allergy Relief] 50 mcg/actuation spray,suspension 1 - 2 spray intranasal DAILY Qty: 16 0RF Rx Instructions: administer into each nostril 1 mg Tablet 1 tab PO DAILY estradiol 2 mg tablet 2 mg PO DAILY cephalexin 500 mg capsule 500 mg PO QID Qty: 40 0RF Referrals Follow up/Referrals: Ravi Lynch MD [Primary Care Provider] - See instructions Activity Restrictions/Add. Instructions Additional Instructions/Restrictions: Start antibiotic as soon as possible and be sure to take as ordered for full length of time even though he should start feeling better in 24-48 hours. Tylenol or Motrin as needed for pain or fever Encourage fluids, water, Gatorade, Powerade, Pedialyte if /toddler/child Warm compresses often helps when placed over ear Return immediately for new or worsening symptoms no noticeable improvement in 48-72 hours and in 10-14 days to ensure the ears are return to baseline. Follow-up with primary care Clinical Impressions Clinical Impression: Left otitis media Instructions Patient Instructions: Middle Ear Infection Discharge ED [facility] [place] HPI General Stated complaint: left ear pain Mode of Arrival: Ambulatory Source of Information: Patient Limitations: No Limitations Time Seen by Provider: 04/28/23 18:00 Description of Symptoms (Recalled from Triage Doc. by RN): PATIENT C/O LEFT EAR PAIN WHEN SLEEPING X 3 DAYS HEENT Symptoms (Recalled from RN notes): Yes Resp Symptoms (Recalled from RN notes): No Skin Symptoms (Recalled from RN notes): No MS Symptoms (Recalled from RN notes): No Functional Status (Recalled from RN notes): WNL History of Present Illness Provider Complaint: 27 yr old female presents for left ear pain for 3 days Related Data Home Medications Medication Instructions Recorded Confirmed metoprolol tartrate 25 mg tablet 25 mg PO DAILY tachycardia 02/16/20 02/25/23 estradiol 2 mg tablet 2 mg PO DAILY . 02/25/23 02/25/23 [id number] 1 mg 1 tab PO DAILY 02/25/23 02/25/23 tablet Previous Rx's Medication Instructions Recorded cephalexin 500 mg capsule 500 mg PO QID #40 caps 02/25/23 azithromycin 250 mg tablet See Rx Instructions PO .COMPLEX 5 03/27/23 (Zithromax Z-Wilfrid) days #6 tabs fluticasone propionate 50 1 - 2 spray intranasal DAILY #16 03/27/23 mcg/actuation nasal grams spray,suspension (Flonase Allergy Relief) cephalexin 500 mg tablet 500 mg PO BID 10 days #20 tabs 04/28/23 Allergies Allergy/AdvReac Type Severity Reaction Status Date / Time Penicillins Allergy Intermediate I-HIVES Verified 02/25/23 12:50 Worker's Comp Is this a Worker's Comp case?: No [facility] Disclaimer: The information contained in this section may have been updated after the patient was seen, as this information can be updated by other users. 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
[2023-04-28 18:17] VITALS: BP 116/71; PULSE 85; RESP 18; TEMP 37; O2SAT 98
== END 2023-04-28 18:21 | disposition home or self-care (01) ==
PROVIDERS: Emergency Provider Nurse Practitioner Family; PCP Family Medicine
DX: H66.92 Otitis media, unspecified, left ear (principal)
CPT/HCPCS: 99212; 99214; G0463

== ENCOUNTER 2023-07-10 17:45 | Emergency (ER) | payer BC, SELFPAY ==
[2023-07-10 17:46] VITALS: BP 114/74; PULSE 93; RESP 18; TEMP 36.6; O2SAT 100; BMI 29.2
--- NOTE | 2023-07-10 17:59 | EXP.UTC ---
Discharge Plan Disposition Patient Disposition: Home, Self-Care Condition: Good Prescriptions Prescriptions: New cephalexin 500 mg capsule 500 mg PO QID 7 Days Qty: 28 0RF No Action metoprolol tartrate 25 mg tablet 25 mg PO DAILY fluticasone propionate [Flonase Allergy Relief] 50 mcg/actuation spray,suspension 1 - 2 spray intranasal DAILY Qty: 16 0RF Rx Instructions: administer into each nostril 1 mg Tablet 1 tab PO DAILY Referrals Follow up/Referrals: Darryl Lynch MD [Primary Care Provider] - See instructions Activity Restrictions/Add. Instructions Additional Instructions/Restrictions: Drink plenty of fluids. Take tylenol or ibuprofen for pain or fever. Take the medications as directed. Follow up with your regular doctor. GO TO THE ER FOR ANY WORSENING SYMPTOMS We will culture the urine. That will tell what bacteria is causing your infection and which antibiotics will treat it best. Sometimes the first antibiotic we prescribe turns out to not work against different bacteria. So, make sure you follow up within 3 days if you are not getting better. Clinical Impressions Clinical Impression: UTI (urinary tract infection) Instructions Patient Instructions: Urinary Tract Infection, DI for Urinary Tract Infection (UTI) Discharge ED Provider: Dre Rubi [facility] General Stated complaint: burning,back pain,cloudy urine Mode of Arrival: Ambulatory Source of Information: Patient Limitations: No Limitations Time Seen by Provider: 07/10/23 17:59 Description of Symptoms (Recalled from Triage Doc. by RN): back pain, cloudy urine, and buring with urination HEENT Symptoms (Recalled from RN notes): No Resp Symptoms (Recalled from RN notes): No Skin Symptoms (Recalled from RN notes): No MS Symptoms (Recalled from RN notes): No Functional Status (Recalled from RN notes): n/a History of Present Illness Provider Complaint: She states that for the past 1 day she has had dysuria and urinary frequency. She has also had some mild right sided low back pain at times. She denies any vaginal bleeding and abdominal pain. She is 23 weeks . Related Data Home Medications Medication Instructions Recorded Confirmed metoprolol tartrate 25 mg tablet 25 mg PO DAILY tachycardia 02/16/20 07/10/23 [id number] 1 mg 1 tab PO DAILY 02/25/23 07/10/23 tablet Previous Rx's Medication Instructions Recorded fluticasone propionate 50 1 - 2 spray intranasal DAILY #16 03/27/23 mcg/actuation nasal grams spray,suspension (Flonase Allergy Relief) cephalexin 500 mg capsule 500 mg PO QID 7 days #28 caps 07/10/23 Allergies Allergy/AdvReac Type Severity Reaction Status Date / Time Penicillins Allergy Intermediate I-HIVES Verified 07/10/23 17:59 Worker's Comp Is this a Worker's Comp case?: No [facility] Disclaimer: The information contained in this section may have been updated after the patient was seen, as this information can be updated by other users. 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
[2023-07-10 18:24] VITALS: BP 114/74; PULSE 93; RESP 18; TEMP 36.6; O2SAT 100
[2023-07-10 19:18] LABS: Microscopic, Urine URINE MICROSCOPIC (MICROSCOPIC)
[2023-07-10 19:38] LABS: Appearance,Urine CLEAR (Clear); Bilirubin,Urine Negative (Negative); Blood, Urine Negative (Negative); Color,Urine YELLOW (Yellow); Glucose,Urine (UA) Negative (Negative); Ketones,Urine Negative (Negative); Leukocyte Esterase,Urine Negative (Negative); Nitrate,Urine Negative (Negative); PH,Urine 6.5 (5.0-8.5); Protein,Urine Negative (Negative); Specific Gravity, Urine 1.015 (1.005-1.030); Urobilinogen,Urine 0.2 EU/dl (0.2)
[2023-07-10 19:51] LABS: Bacteria,Urine Trace /lpf; WBC,Urine Occasional #/hpf (0-3)
== END 2023-07-10 18:24 | disposition home or self-care (01) ==
PROVIDERS: Emergency Provider Nurse Practitioner Family; PCP Psychiatry & Neurology Sleep Medicine
DX: O23.42 Unspecified infection of urinary tract in pregnancy, second trimester (principal); Z3A.23 23 weeks gestation of pregnancy; M54.59 Other low back pain
CPT/HCPCS: 81001; 87086; 99212; 99214; G0463

== ENCOUNTER 2023-08-27 18:45 | Emergency (ER) | payer BC, SELFPAY ==
[2023-08-27 20:15] VITALS: BP 128/80; PULSE 87; RESP 18; TEMP 36.5; O2SAT 99; BMI 27.6
--- NOTE | 2023-08-27 20:39 | EXP.UTC ---
Discharge Plan Disposition Patient Disposition: Home, Self-Care Condition: Good Prescriptions Prescriptions: No Action metoprolol tartrate 25 mg tablet 25 mg PO DAILY omeprazole 20 mg Capsule,Delayed Release(Dr/Ec) 20 mg PO DAILY 1 mg Tablet 1 tab PO DAILY Referrals Follow up/Referrals: Ravi Lynch MD [Primary Care Provider] - See instructions Activity Restrictions/Add. Instructions Additional Instructions/Restrictions: Get your labs drawn that was ordered by the OBGYN as soon as possible Go straight to [facility] ER if any life threatening symptoms Call your OB and further instructions per the OBGYN Return if needed Clinical Impressions Clinical Impression: Itching Stand Alone Forms Stand Alone Forms: Work/School Release Instructions Patient Instructions: DI for Itching Discharge ED Provider: Irena Driscoll [facility] General Stated complaint: itchy alll over , no rash Mode of Arrival: Ambulatory Source of Information: Patient Limitations: No Limitations Time Seen by Provider: 08/27/23 20:39 Description of Symptoms (Recalled from Triage Doc. by RN): PATIENT C/O ITCHING TO HANDS AND FEET X 1 WEEK HEENT Symptoms (Recalled from RN notes): No Resp Symptoms (Recalled from RN notes): No Skin Symptoms (Recalled from RN notes): Yes MS Symptoms (Recalled from RN notes): No Functional Status (Recalled from RN notes): WNL History of Present Illness Provider Complaint: Patient states that she has been having itching all over states she has spoken with her OBGYN and he was ordering some labs due to her having the itching with no rash for the last week to check for ICP but she couldnt make it in time before the lab closed so she came in hoping to get a note for work so she can go get the tests done or see if they could be done here but she doesnt have the order with her Denies any abdominal pain and denies feeling ill patient 28wks OB Related Data Home Medications Medication Instructions Recorded Confirmed metoprolol tartrate 25 mg tablet 25 mg PO DAILY tachycardia 02/16/20 08/27/23 [id number] 1 mg 1 tab PO DAILY 02/25/23 08/27/23 tablet omeprazole 20 mg capsule,delayed 20 mg PO DAILY 08/27/23 08/27/23 release Allergies Allergy/AdvReac Type Severity Reaction Status Date / Time Penicillins Allergy Intermediate I-HIVES Verified 07/10/23 17:59 Worker's Comp Is this a Worker's Comp case?: No [facility] Disclaimer: The information contained in this section may have been updated after the patient was seen, as this information can be updated by other users. 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 [employer] caffeine: No ROS Obtained: Yes All systems reviewed & no additional complaints except as documented and Yes Systems reviewed as appropriate & no additional complaints except as documented Constitutional Constitutional: Reports system reviewed and no additional complaints, except as documented and Reports as per HPI ENT Ears, Nose, Mouth, and Throat: Reports system reviewed and no additional complaints, except as documented and Reports as per HPI Cardiovascular Cardiovascular: Reports system reviewed and no additional complaints, except as documented and Reports as per HPI Respiratory Respiratory: Reports system reviewed and no additional complaints, except as documented and Reports as per HPI Gastrointestinal Gastrointestingal: Reports system reviewed and no additional complaints, except as documented and as per HPI Genitourinar
[2023-08-27 20:50] VITALS: BP 128/80; PULSE 87; RESP 18; TEMP 36.5; O2SAT 99
== END 2023-08-27 21:03 | disposition home or self-care (01) ==
PROVIDERS: Emergency Provider Nurse Practitioner; PCP Family Medicine
DX: O26.893 Other specified pregnancy related conditions, third trimester (principal); L29.9 Pruritus, unspecified; Z3A.30 30 weeks gestation of pregnancy; K21.9 Gastro-esophageal reflux disease without esophagitis
CPT/HCPCS: 99212; 99213; G0463

== ENCOUNTER 2023-10-12 03:46 | Emergency (ER) | payer BC, SELFPAY ==
[2023-10-12 03:41] VITALS: BMI 25.2
[2023-10-12 03:42] VITALS: BP 148/86; PULSE 114; RESP 20; TEMP 37; O2SAT 95; BMI 25.2
[2023-10-12 03:46] VITALS: BP 148/86; PULSE 114; RESP 20; TEMP 37; O2SAT 95; BMI 25.2
[2023-10-12 03:57] LABS: Coronavirus 19, PCR Not Detected (NotDetected); Influenza A, PCR Not Detected (NotDetected); Influenza B, PCR Not Detected (NotDetected)
--- NOTE | 2023-10-12 03:59 | HMH.EDGENADL ---
Discharge Plan Disposition Patient Disposition: Home, Self-Care Condition: Good Prescriptions Prescriptions: New clindamycin HCl 300 mg capsule 300 mg PO Q8H 10 Days Qty: 30 0RF No Action metoprolol tartrate 25 mg tablet 25 mg PO DAILY omeprazole 20 mg Capsule,Delayed Release(Dr/Ec) 20 mg PO DAILY 1 mg Tablet 1 tab PO DAILY Referrals Follow up/Referrals: Ravi Lynch MD [Primary Care Provider] - See instructions Activity Restrictions/Add. Instructions Additional Instructions/Restrictions: You were evaluated in the emergency department today. 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 Take Tylenol and Motrin at home as needed for pain and fever. You may continue breast-feeding if you are breast-feeding. maintenance supervisor electrical your prescription for antibiotics and take the full course as prescribed. Return to the emergency department for new or worsening symptoms. Clinical Impressions Clinical Impression: Mastitis Instructions Patient Instructions: DI for Mastitis Discharge ED Provider: Leanne Goode General Adult HPI General Chief complaint: Weakness Stated complaint: Fever, Chills Time Seen by Provider: 10/12/23 03:53 Mode of Arrival: EMS Source of Information: Patient Limitations: No Limitations Description of Symptoms (Recalled from ER Triage Doc. by RN): Patient arrived to ED from EMS and reports fever, chills, nausea, and body aches that started around 18:00. Patient gave last Sunday with no complications at [facility]. [ End ] History of Present Illness HPI narrative: This patient is a 27-year-old female with history of recent vaginal delivery 1 week ago presenting to the emergency department for evaluation with concern for fevers and chills that started around 6:00 PM. She states that she keeps getting repeatedly hot and cold and cannot get warm. She notes that she has had some mild nausea and bodyaches, but she denies any other symptoms, such as significant abdominal pain, abnormal vaginal discharge, dysuria, or other concerns. She has otherwise been well. She notes her vaginal delivery was uncomplicated at term at [facility]. She denies any prolonged hospital stay. No other concerns. Related Data Home Medications Medication Instructions Recorded Confirmed metoprolol tartrate 25 mg tablet 25 mg PO DAILY tachycardia 02/16/20 08/27/23 [id number] 1 mg 1 tab PO DAILY 02/25/23 08/27/23 tablet omeprazole 20 mg capsule,delayed 20 mg PO DAILY 08/27/23 08/27/23 release Previous Rx's Medication Instructions Recorded clindamycin HCl 300 mg capsule 300 mg PO Q8H 10 days #30 caps 10/12/23 Allergies Allergy/AdvReac Type Severity Reaction Status Date / Time Penicillins Allergy Intermediate I-HIVES Verified 07/10/23 17:59 [facility] Disclaimer: The information contained in this section may have been updated after the patient was seen, as this information can be updated by other users. 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 [employer] caffeine: No ROS Obtained: Yes All systems reviewed & no additional complaints except as documented Physical Exam General General appearance: alert and in no apparent distress Head Head exam: atraumatic and normocephalic Eye Eye exam: Present normal appearance, PERRL and EOMI ENT ENT exam: Present normal exam, normal oropharynx, mucous membranes moist and normal external ear exam Neck Neck exam: Present normal inspection, full ROM and trachea midline; Absent tenderness Chest Chest inspection: Present symmetric chest wall rise and other; Absent tenderness Expanded Chest Exam Breast: bilateral: erythema, swelling and tenderness Comment: no obvious abscess/fluctuance Respiratory Respiratory exam: Present normal lung sounds bilaterally; Absent respiratory distress, wheezes, stridor or accessory muscle use Cardiovascular Cardiovascular exam: Present normal rhythm and tachycardia Abdominal Exam Abdominal exam: Present soft and normal bowel sounds; Absent distention, tenderness, guarding, rebound or rigidity Extremities Exam Extremities exam: Present normal inspection, full ROM and normal capillary refill; Absent tenderness or edema Back Exam Back exam: Present normal inspection and full ROM; Absent tenderness Neurological Exam Neurological exam: Present alert, oriented X3, CN II-XII intact and normal gait; Absent motor sensory deficit Psychiatric Psychiatric exam: Present normal affect and normal mood Skin Skin exam: Present warm and dry Medical Decision Making Medical Records Medical records reviewed: Yes I reviewed the patient's medical records. Will Inquiry Pt receiving controlled substance: No Vital Signs: 10/12/23 03:42 10/12/23 03:46 10/12/23 05:28 Temperature 98.6 F 98.6 F 98.8 F Temperature Source Oral Oral Oral Pulse Rate 110 H Pulse Rate [Right Brachial] 114 H 114 H Respiratory Rate 20 20 20 Blood Pressure 138/64 Blood Pressure [Right Arm] 148/86 H 148/86 H Blood Pressure Mean [Right Arm] 106 106 Blood Pressure Source Automatic Cuff Blood Pressure Source [Right Arm] Automatic Cuff Automatic Cuff Blood Pressure Position Sitting Blood Pressure Position [Right Arm] Sitting Sitting 02 Sat by Pulse Oximetry 95 95 Oxygen Delivery Method Room Air Room Air Room Air Lab Data Lab results reviewed: Yes I reviewed the patient's lab results. Lab Results 10/12/23 03:54: SARS-CoV-2 (PCR) Not detected, Influenza A Untype (PCR) Not detected, Influenza Type B (PCR) Not detected 10/12/23 04:12: WBC 12.7 H, RBC 3.66 L, Hgb 11.6 L, Hct 34.3 L, MCV 93.7, MCH 31.7 H, MCHC 33.9, RDW 13.6, Plt Count 301, MPV 8.0, Neut % (Auto) 90.9 H, Lymph % (Auto) 4.7 L, [place] % (Auto) 3.4, Eos % (Auto) 0.8, Baso % (Auto) 0.2, Neut # (Auto) 11.5 H, Lymph # (Auto) 0.6 L, [place] # (Auto) 0.4, Eos # (Auto) 0.1, Baso # (Auto) 0.0, Total Counted 100, Neutrophils % (Manual) 89 H, Lymphocytes % (Manual) 8 L, Monocytes % (Manual) 3, Platelet Estimate Normal, RBC Morphology Normal, Sodium 134 L, Potassium 3.1 L, Chloride 105, Carbon Dioxide 23, Anion Gap 9.1, BUN 13, Creatinine 0.50 L, Estimated Creat Clear 175, Estimated GFR 146, Est GFR ( Amer) 177, Glucose 165 H, Lactate 2.1, Calcium 8.3 L, Total Bilirubin 0.4, AST 49 H, ALT 57, Alkaline Phosphatase 144 H, C-Reactive Protein 41.8 H, Total Protein 6.7, Albumin 3.6, Globulin 3.1, Albumin/Globulin Ratio 1.2, Procalcitonin 0.196 10/12/23 04:31: Urine Color Yellow, Urine Appearance Clear, Urine pH 6.0, Ur Specific [place] 1.015, Urine Protein Negative, Urine Glucose (UA) Negative, Urine Ketones Negative, Urine Blood 3+, Urine Nitrate Negative, Urine Bilirubin Negative, Urine Urobilinogen 0.2, Ur Leukocyte Esterase 1+ A, Urine RBC 5-10, Urine WBC 5-10, Ur Squamous Epith Cells 5-10, Urine Bacteria 1+, Urine Mucus 1+ 10/12/23 04:12 10/12/23 04:12 Orders (Tests/Meds): ED MEDICATIONS Discontinued Medications Generic Name Dose Route Start Last Admin Trade Name Freq PRN Reason Stop Dose Admin Acetaminophen 1,000 mg 10/12/23 04:02 10/12/23 04:27 Acetaminophen 1,000mg/100ml Vial IV 10/12/23 04:03 1,000 mg ONCE ONE Administration Clindamycin HCl 450 mg 10/12/23 05:22 10/12/23 05:25 Clindamycin 150mg Capsule PO 10/12/23 05:23 450 mg ONCE ONE Administration Lactated Ringer's 1,640 mls @ 820 mls/hr 10/12/23 04:02 10/12/23 04:27 Lactated Ringer's 1000 Ml Bag 30 ml/kg infuse over 2 hr (1640 ml) 10/12/23 06:01 820 mls/hr IV Administration .Q2H ONE Ketorolac Tromethamine 15 mg 10/12/23 04:02 10/12/23 04:27 Ketorolac 30mg/Ml Vial IV 10/12/23 04:03 15 mg ONCE ONE Administration ORDERS Category Date Time Status C-Reactive Protein Stat Lab 10/12/23 04:12 Completed Complete Blood Count Auto Diff Stat Lab 10/12/23 04:12 Completed Comprehensive Metabolic Panel Stat Lab 10/12/23 04:12 Completed Lactic Acid Stat Lab 10/12/23 04:12 Completed Procalcitonin Stat Lab 10/12/23 04:12 Completed Rapid PCR Covid and Flu A/B Stat Lab 10/12/23 03:54 Completed Urinalysis and Microscopic Stat Lab 10/12/23 04:31 Completed Urine Culture Stat Micro 10/12/23 04:31 Received ECG Data Tracing #1: I reviewed this ECG and interpreted as documented below: Sinus tachycardia with a ventricular rate of [address] changes concerning for ischemia. Normal axis and intervals. ECG initial impression date: 10/12/23 ECG initial impression time: 04:23 Medical Decision Narrative: In summary, this patient is a 27-year-old female presenting to the Emergency Department for evaluation of fevers, chills, body aches, and nausea that started this evening. She notes vaginal delivery approximately 1 week ago. Differential diagnoses considered include but are not limited to viral syndrome, urinary trimester, pneumonia, endometritis, sepsis. Ruling out the most morbid conditions drove assessment. On exam, the patient is well-appearing. She is mildly tachycardic, but otherwise vitals are reassuring. She does have findings concerning for bilateral mastitis without abscess on clinical exam. Her abdominal exam is benign, and she has had no vaginal discharge or other concerns. Workup included CBC, CMP, lactic acid, CRP, procalcitonin, urinalysis, and viral swab. She was given sepsis bolus as well as Toradol and Tylenol. On reassessment, the patient is resting comfortably with improved symptoms. Labs demonstrate mild leukocytosis, mildly elevated CRP, and borderline lactic acid. I called and had an interactive discussion with Dr. Gregorio with OBGYN who advised this is to be expected with recent vaginal delivery. Based on the fact that the patient is well-appearing without concern for abscess, it is recommended the patient be discharged home with oral antibiotics. She has a penicillin allergy, so she was given clindamycin. I instructed her to follow-up with her OB over the next 3 days for reassessment. I gave her very strict return precautions and she was discharged in stable condition after all questions were answered. Critical Care Critical Care Time Critical Care Time: No
--- NOTE | 2023-10-12 04:19 | ECG_ITS ---
APPROVED REPORT Exam: Resting ECG HR:103 bpm ECG Measurements Heart Rate 103 AXES UT 131 P 69 QRSd 78 QRS 77 QT 333 T 29 QTc 392 Conclusion SINUS TACHYCARDIA SEPTAL MYOCARDIAL INFARCTION , OF INDETERMINATE AGE [40+ ms Q WAVE IN V1/V2] ABNORMAL ECG UNCONFIRMED REPORT Electronically signed by : Armand Louis MD 10/13/2023 10:07:51
[2023-10-12 04:21] LABS: Basophils % 0.2 % (0.1-2.0); Eosinophils # 0.1 K/mm3 (0.0-0.4); Eosinophils % 0.8 % (0.1-12.0); Hematocrit 34.3 % (37.0-47.0); Hemoglobin 11.6 g/dL (12.2-16.2); Lymphocytes # 0.6 K/mm3 (0.7-4.5); Lymphocytes % 4.7 % (10-50); Mean Corpuscular HGB Conc 33.9 g/dL (31.8-35.4); Mean Corpuscular Hemoglobin 31.7 pg (27.0-31.2); Mean Corpuscular Volume 93.7 fl (81-99); Monocytes # 0.4 K/mm3 (0.1-1.0); Monocytes % 3.4 % (1.7-9.3); Neutrophils # 11.5 K/mm3 (1.8-7.8); Neutrophils % 90.9 % (37.0-80.0); Platelet Count 301 K/mm3 (142-424); Red Blood Count 3.66 M/mm3 (4.20-5.40); Red Cell Distribution Width 13.6 % (11.5-17.5); White Blood Count 12.7 K/mm3 (4.8-10.8)
[2023-10-12 04:23] LABS: MANUAL DIFFERENTIAL MANUAL DIFFERENTIAL (MANUAL DIFF)
[2023-10-12] MEDS: LACTATED RINGERS 1000ML 1,640 ML 820 ML IV (04:27)
[2023-10-12] MEDS: ACETAMINOPHEN 1,000MG/100ML VIAL 1000 MG IV (04:27)
[2023-10-12] MEDS: KETOROLAC 30MG/ML VIAL 15 MG IV (04:27)
[2023-10-12 04:41] LABS: Microscopic, Urine URINE MICROSCOPIC (MICROSCOPIC)
[2023-10-12 04:43] LABS: Appearance,Urine CLEAR (Clear); Bilirubin,Urine Negative (Negative); Blood, Urine 3+ (Negative); Color,Urine YELLOW (Yellow); Glucose,Urine (UA) Negative (Negative); Ketones,Urine Negative (Negative); Leukocyte Esterase,Urine 1+ (Negative); Nitrate,Urine Negative (Negative); Protein,Urine Negative (Negative); Specific Gravity, Urine 1.015 (1.005-1.030); Urobilinogen,Urine 0.2 EU/dl (0.2)
[2023-10-12 04:57] LABS: Alanine Aminotransferase 57 U/L (12-78); Albumin Level 3.6 g/dl (3.5-5.0); Albumin/Globulin Ratio 1.2 (1.1-1.8); Alkaline Phosphatase 144 U/L (38-126); Anion Gap 9.1 mEq/L (5-15); Aspartate Amino Transferase 49 U/L (14-36); Bilirubin,Total 0.4 mg/dl (0.2-1.3); Blood Urea Nitrogen 13 mg/dl (7-17); Calcium 8.3 mg/dl (8.4-10.2); Carbon Dioxide 23 mmol/L (22.0-30.0); Chloride 105 mmol/L (98-107); Creatinine Clearance Estimated 175 mL/min (50-200); Estimated Glomerular Filt Rate 146 ml/min (>60); GFR (African American) 177 ML/MIN (>60); Globulin 3.1 g/dL (1.3-3.2); Glucose 165 mg/dl (74-100); Potassium 3.1 mmoL/L (3.5-5.1); Sodium 134 mmol/L (136-145); Total Protein,Serum 6.7 g/dl (6.3-8.2)
[2023-10-12 04:59] LABS: Lymphocytes % 8 % (10-50); Monocytes % 3 % (2-9); Neutrophils % 89 % (42-76); Platelet Estimate Normal; RBC Morphology Normal; Total Cells Counted 100
[2023-10-12 05:00] LABS: Lactic Acid 2.1 mmol/L (0.7-2.1)
[2023-10-12 05:02] LABS: C-Reactive Protein 41.8 mg/L (0-4)
[2023-10-12 05:08] LABS: Bacteria,Urine 1+ /lpf; Mucus,Urine 1+ /lpf
[2023-10-12 05:13] LABS: Procalcitonin 0.196 ng/mL (0.0-2.0)
[2023-10-12] MEDS: CLINDAMYCIN 150MG CAPSULE 450 MG PO (05:25)
[2023-10-12 05:28] VITALS: BP 138/64; PULSE 110; RESP 20; TEMP 37.1; O2SAT 97
[2023-10-12 08:49] LABS: Reflex Lactic Add Lactic Reflex
--- NOTE | 2023-10-16 18:12 | PC.NURSE ---
urine culture shows gram - rods, wanted to contact pt to see how she is, feels that this is a contaminate. Pt has no voicemail available with no answer when called. aware.
== END 2023-10-12 05:36 | disposition home or self-care (01) ==
PROVIDERS: Emergency Provider Emergency Medicine; PCP Family Medicine
DX: O91.23 Nonpurulent mastitis associated with lactation (principal); O99.43 Diseases of the circulatory system complicating the puerperium; O90.89 Other complications of the puerperium, not elsewhere classified; R00.0 Tachycardia, unspecified; R50.9 Fever, unspecified; R11.0 Nausea
CPT/HCPCS: 80053; 81001; 83605; 84145; 85007; 85025; 86140; 87086; 87636; 93005; 96361; 96374; 96375; 99285; J0131

== ENCOUNTER 2023-10-14 11:34 | Observation (INO) | payer BC, SELFPAY ==
[2023-10-14] VITALS (15 sets, daily range): BP systolic 120–164; BP diastolic 68–105; PULSE 68–90; RESP 15–18; TEMP 36.6–36.8; O2SAT 97–100; BMI 28.3
--- NOTE | 2023-10-14 12:01 | HMH.EDGENADL ---
Discharge Plan Disposition Patient Disposition: Admitted Clinical Impressions Clinical Impression: Pre-eclampsia, Discharge ED Provider: Gerber Molina General Adult HPI General Chief complaint: Headache Stated complaint: high BP Time Seen by Provider: 10/14/23 11:45 Mode of Arrival: Ambulatory Source of Information: Patient Limitations: No Limitations Description of Symptoms (Recalled from ER Triage Doc. by RN): 27 yo F presents to ED with c/o high blood pressure. pt reports she had a baby october 05. pt was started on labetalol 200mg twice a day. pt states that she did take that medication this am around 1000. pt reports she checked her bp at home and it was similar to the reading we got with triage. pt reports headache and weakness. History of Present Illness HPI narrative: Patient is a 27-year-old female via at approximately 36 weeks on October 05 who presents to the emergency department for evaluation of high blood pressure. Patient was previously on metoprolol and labetalol with good control. However since then she has developed bitemporal headache and elevated blood pressure with systolic in the 150s causing her to present here for continued evaluation. No other acute complaints at this time. Related Data Home Medications Medication Instructions Recorded Confirmed metoprolol tartrate 25 mg tablet 25 mg PO DAILY tachycardia 02/16/20 08/27/23 [id number] 1 mg 1 tab PO DAILY 02/25/23 08/27/23 tablet omeprazole 20 mg capsule,delayed 20 mg PO DAILY 08/27/23 08/27/23 release Previous Rx's Medication Instructions Recorded clindamycin HCl 300 mg capsule 300 mg PO Q8H 10 days #30 caps 10/12/23 Allergies Allergy/AdvReac Type Severity Reaction Status Date / Time Penicillins Allergy Intermediate I-HIVES Verified 07/10/23 17:59 [facility] Disclaimer: The information contained in this section may have been updated after the patient was seen, as this information can be updated by other users. 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 [employer] caffeine: No ROS Obtained: Yes Systems reviewed as appropriate & no additional complaints except as documented Physical Exam General General appearance: alert and in no apparent distress Head Head exam: atraumatic and normocephalic Eye Eye exam: Present PERRL and EOMI ENT ENT exam: Present mucous membranes moist Neck Neck exam: Present normal inspection Chest Chest inspection: Present normal inspection and symmetric chest wall rise Respiratory Respiratory exam: Present normal lung sounds bilaterally; Absent respiratory distress Cardiovascular Cardiovascular exam: Present regular rate and normal rhythm Abdominal Exam Abdominal exam: Present soft; Absent tenderness Extremities Exam Extremities exam: Present normal inspection Neurological Exam Neurological exam: Present alert and CN II-XII intact; Absent motor sensory deficit Psychiatric Psychiatric exam: Present normal affect Skin Skin exam: Present warm and dry Medical Decision Making Will Inquiry Pt receiving controlled substance: No Vital Signs: 10/14/23 11:35 10/14/23 11:41 10/14/23 11:44 Temperature 97.9 F Temperature Source Oral Pulse Rate 89 83 Pulse Rate [Left Radial] 90 Respiratory Rate 15 Blood Pressure 152/99 H 164/102 H Blood Pressure [Right Arm] 152/99 H Blood Pressure Mean Blood Pressure Mean [Right Arm] 116 02 Sat by Pulse Oximetry 98 99 97 Oxygen Delivery Method Room Air 10/14/23 11:46 10/14/23 12:00 Temperature Temperature Source Pulse Rate 83 80 Pulse Rate [Left Radial] Respiratory Rate Blood Pressure 150/105 H 146/99 H Blood Pressure [Right Arm] Blood Pressure Mean 125 Blood Pressure Mean [Right Arm] 02 Sat by Pulse Oximetry 100 98 Oxygen Delivery Method Lab Data Lab Results 10/14/23 11:43: WBC 6.3 D, RBC 3.82 L, Hgb 12.2, Hct 35.6 L, MCV 93.2, MCH 31.8 H, MCHC 34.1, RDW 13.4, Plt Count 299, MPV 7.5, Neut % (Auto) 68.2, Lymph % (Auto) 21.6, [place] % (Auto) 9.2, Eos % (Auto) 0.6, Baso % (Auto) 0.4, Neut # (Auto) 4.3, Lymph # (Auto) 1.4, [place] # (Auto) 0.6, Eos # (Auto) 0.0, Baso # (Auto) 0.0, Sodium 139, Potassium 3.7, Chloride 105, Carbon Dioxide 24, Anion Gap 13.7, BUN 13, Creatinine 0.60, Estimated Creat Clear 144, Estimated GFR 118, Est GFR ( Amer) 143, Glucose 90, Calcium 8.2 L, Total Bilirubin 0.6, AST 47 H, ALT 52, Alkaline Phosphatase 145 H, Total Protein 7.0, Albumin 3.6, Globulin 3.4 H, Albumin/Globulin Ratio 1.1 10/14/23 11:43 10/14/23 11:43 Orders (Tests/Meds): ED MEDICATIONS Generic Name Dose Route Start Last Admin Trade Name Freq PRN Reason Stop Dose Admin Clindamycin HCl 300 mg 10/14/23 13:00 Clindamycin 150mg Capsule PO 10/21/23 12:59 TID JACOB Magnesium Sulfate 20 gm in 500 mls @ 50 mls/hr 10/14/23 12:15 Magnesium Sulfate 20gm/500ml Premix (Ob Only) IV 11/13/23 12:14 .Q10H JACOB 2 GM/HR Labetalol HCl 200 mg 10/14/23 21:00 Labetalol 100mg Tablet PO 11/13/23 20:59 BID JACOB Discontinued Medications Generic Name Dose Route Start Last Admin Trade Name Freq PRN Reason Stop Dose Admin Acetaminophen 1,000 mg 10/14/23 12:00 10/14/23 12:08 Acetaminophen 1,000mg/100ml Vial IV 10/14/23 12:01 1,000 mg ONCE ONE Administration Magnesium Sulfate 4 gm in 50 mls @ 150 mls/hr 10/14/23 12:15 10/14/23 12:21 Magnesium Sulfate 4gm/50ml Premix IV 10/14/23 12:34 150 mls/hr ONCE ONE Administration ORDERS Category Date Time Status CBC w/Auto Diff [Complete Blood Count Auto Diff] Stat Lab 10/14/23 11:43 Completed CMP [Comprehensive Metabolic Panel] Stat Lab 10/14/23 11:43 Completed Medical Decision Narrative: In summary patient is a 27-year-old female with past medical history described above who presents emergency department for evaluation of headache and elevated blood pressure in the setting of recent . Patient is hemodynamically stable nontoxic-appearing upon arrival, afebrile, systolic in the 150s. The case was discussed with obstetrics on-call as my concern for preeclampsia is high. Patient has a nonfocal neurologic exam that would warrant emergent intracranial imaging. For headache IV Tylenol will be administered. Hematologic labs to be obtained and patient will be started on IV magnesium will be admitted to their service for continued evaluation at this time. Interval update: I was contacted by labor and delivery nursing and at their request I am initiating labetalol 200 mg twice daily, first dose tonight at 2100. Patient was also prescribed clindamycin for mastitis which patient did not complain of in the emergency department, however her course will be continued with clindamycin 300 mg every 8 hours. Critical Care Critical Care Time Critical Care Time: No
[2023-10-14] MEDS: ACETAMINOPHEN 1,000MG/100ML VIAL 1000 MG IV (12:08)
[2023-10-14 12:09] LABS: Basophils % 0.4 % (0.1-2.0); Eosinophils % 0.6 % (0.1-12.0); Hematocrit 35.6 % (37.0-47.0); Hemoglobin 12.2 g/dL (12.2-16.2); Lymphocytes # 1.4 K/mm3 (0.7-4.5); Lymphocytes % 21.6 % (10-50); Mean Corpuscular HGB Conc 34.1 g/dL (31.8-35.4); Mean Corpuscular Hemoglobin 31.8 pg (27.0-31.2); Mean Corpuscular Volume 93.2 fl (81-99); Mean Platelet Volume 7.5 fl (7.4-10.4); Monocytes # 0.6 K/mm3 (0.1-1.0); Monocytes % 9.2 % (1.7-9.3); Neutrophils # 4.3 K/mm3 (1.8-7.8); Neutrophils % 68.2 % (37.0-80.0); Platelet Count 299 K/mm3 (142-424); Red Blood Count 3.82 M/mm3 (4.20-5.40); Red Cell Distribution Width 13.4 % (11.5-17.5); White Blood Count 6.3 K/mm3 (4.8-10.8)
[2023-10-14 12:10] LABS: Chloride 105 mmol/L (98-107); Potassium 3.7 mmoL/L (3.5-5.1); Sodium 139 mmol/L (136-145)
[2023-10-14 12:13] LABS: Alanine Aminotransferase 52 U/L (12-78); Albumin Level 3.6 g/dl (3.5-5.0); Albumin/Globulin Ratio 1.1 (1.1-1.8); Alkaline Phosphatase 145 U/L (38-126); Anion Gap 13.7 mEq/L (5-15); Aspartate Amino Transferase 47 U/L (14-36); Bilirubin,Total 0.6 mg/dl (0.2-1.3); Blood Urea Nitrogen 13 mg/dl (7-17); Calcium 8.2 mg/dl (8.4-10.2); Carbon Dioxide 24 mmol/L (22.0-30.0); Creatinine Clearance Estimated 144 mL/min (50-200); Estimated Glomerular Filt Rate 118 ml/min (>60); GFR (African American) 143 ML/MIN (>60); Globulin 3.4 g/dL (1.3-3.2); Glucose 90 mg/dl (74-100)
[2023-10-14] MEDS: MAGNESIUM SULFATE IN WATER 4 GM/50 ML PIGGYBACK IV (12:21)
[2023-10-14 12:53] LABS: Magnesium 1.8 mg/dl (1.6-2.3)
[2023-10-14] MEDS: MAGNESIUM SULFATE IN WATER 20 GM/500 ML IV.SOLN IV ×2 (13:09→23:02)
[2023-10-14] MEDS: IBUPROFEN 400 MG TABLET 800 MG PO ×2 (13:47→21:25)
[2023-10-14] MEDS: CLINDAMYCIN 150MG CAPSULE 300 MG PO ×2 (13:47→20:42)
--- NOTE | 2023-10-14 14:27 | PC.NURSE ---
1300: Patellar Reflexes 2+ bilaterally. Bilateral breasts are leaking milk, non tender per patient, and no redness noted. Pt diagnosed with bilateral mastitis two days ago and has been on antibiotic therapy. Denies fever, chills, or body aches. Hand pump given until pt's daughter arrives to nurse. Nipple shield also given per pt request. Seizure pads in place. Pt currently denies epigastric pain, headache, or blurred vision. She does admit to some blurred vision with headache yesterday.
--- NOTE | 2023-10-14 14:48 | HMH.PHAINT1 ---
Pharmacy Intervention Comments: MEDICATION RECONCILIATION COMPLETED ON PATIENT USING EXTERNAL FILL HISTORY FROM PHARMACY AND LIST FROM EXCELLENCE MANAGER. -NAVIN BAH, BARTOLOMED
--- NOTE | 2023-10-14 16:59 | EXP.HP ---
History of Present Illness *Admission Date: 10/14/23 *Reason for visit:: elevated blood pressure and headache *History of present illness: Mrs Vesna Murry is a 27 yo P1001, 1 week 2 days s/p at 36 weeks, who presented to [facility] ED with complaint of elevated blood pressure. She was induced at 36 weeks secondary to ICP and IUGR. She states after delivery BP was elevated and she was started on Labetalol 200mg PO BID. BP upon arrival to [facility] ED was 152/99, 152/99 and 164/102. She reports headache with some blurred vision and weakness. She denies knowing if she was diagnosed with GHTN or preeclampsia. She is breast feeding. Two days ago she was diagnosed with mastitis and started on Clindamycin. She was also taking Ibuprofen and Tylenol. She states breasts look and feel much better now. She reports very light vaginal bleeding, almost none. [facility] Disclaimer: The information contained in this section may have been updated after the patient was seen, as this information can be updated by other users. 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 [employer] caffeine: No Review of Systems Review of Systems Review of systems:: pertinent systems reviewed and negative unless documented below Constitutional Constitutional: Reports headache(s) and Reports weakness ENT Ears, Nose, Mouth, and Throat: Reports headache(s) *Neurologic Neurologic: Reports headache(s) and Reports weakness Meds Home Medications and Allergies Home Medications Medication Instructions Recorded Confirmed Type clindamycin HCl 300 mg capsule 300 mg PO Q8H 10 days #30 caps 10/12/23 10/14/23 Rx labetalol 200 mg tablet 200 mg PO BID High Blood Pressure 10/14/23 10/14/23 History vit no.95-ferrous 1 tab PO DAILY Supplement 10/14/23 10/14/23 History fumarate 28 mg-folic acid 800 mcg tablet () New Prescriptions to Start Prescriptions: Allergies Allergy/AdvReac Type Severity Reaction Status Date / Time Penicillins Allergy Intermediate I-HIVES Verified 07/10/23 17:59 Exam Data for Last 24 hours Vital signs and Labs for Last 24 Hours: Temp Pulse Resp BP Pulse Ox O2 Del Method 98.0 F 89 18 131/83 100 Room Air 10/14/23 13:00 10/14/23 13:00 10/14/23 13:00 10/14/23 14:00 10/14/23 13:00 10/14/23 13:00 Laboratory Results - last 24 hr 10/14/23 11:43: WBC 6.3 D, RBC 3.82 L, Hgb 12.2, Hct 35.6 L, MCV 93.2, MCH 31.8 H, MCHC 34.1, RDW 13.4, Plt Count 299, MPV 7.5, Neut % (Auto) 68.2, Lymph % (Auto) 21.6, [place] % (Auto) 9.2, Eos % (Auto) 0.6, Baso % (Auto) 0.4, Neut # (Auto) 4.3, Lymph # (Auto) 1.4, [place] # (Auto) 0.6, Eos # (Auto) 0.0, Baso # (Auto) 0.0, Sodium 139, Potassium 3.7, Chloride 105, Carbon Dioxide 24, Anion Gap 13.7, BUN 13, Creatinine 0.60, Estimated Creat Clear 144, Estimated GFR 118, Est GFR ( Amer) 143, Glucose 90, Calcium 8.2 L, Magnesium 1.8, Total Bilirubin 0.6, AST 47 H, ALT 52, Alkaline Phosphatase 145 H, Total Protein 7.0, Albumin 3.6, Globulin 3.4 H, Albumin/Globulin Ratio 1.1 I & O for Last 24 hours: Intake & Output 10/11/23 10/12/23 10/13/23 10/14/23 23:59 23:59 23:59 23:59 Intake Total 525 / 525 Output Total 600 / 600 Balance -75 / -75 Weight 145 lb Constitutional Constitutional: no acute distress and cooperative *Routine HEENT Exam Head: Present normocephalic and atraumatic Eye: Absent conjunctivae pink ENT: Present mucous membranes moist *Routine Neck Exam Neck: Present full ROM *Routine Respiratory Exam Respiratory: Present CTA bilaterally and normal respiratory effort *Routine Cardiovascular Exam Cardiovascular: Present RRR *Routine Abdominal Exam Abdominal: Present soft; Absent tenderness or distended *Routine Rectal Exam Rectal:: deferred *Routine Genitalia Exam Genitalia:: deferred *Routine Extremities Exam Extremities: Present edema (trace bilateral lower extremity edema) and full ROM; Absent calf tenderness *Routine Neurological Exam Neurological: Present alert, oriented X3 and moving all extremities Routine Psychiatric Exam Psychiatric: Present normal affect and cooperative Assessment and Plan *Assessment and plan (1) Severe pre-eclampsia, : Status: Acute Category: Medical Code(s): O14.15 - Severe pre-eclampsia, complicating the puerperium (2) Status post vaginal delivery: Status: Acute Category: Surgical (3) Mastitis: Status: Acute Category: Medical Code(s): N61.0 - Mastitis without abscess Plan Admit to [facility] L&D Start mag sulfate and continue for 24 hours. Mag level 4 hours after bolus Continue Labetalol 200 mg PO BID Continue Clindamycin for mastitis Headache improved with Tylenol and starting mag sulfate [facility] labs within normal limits Tylenol and Ibuprofen PRN Regular diet Bedside commode Plan d/c home tomorrow after completing 24 hours of mag sulfate
--- NOTE | 2023-10-14 17:06 | PC.NURSE ---
1700: Bilateral patellar reflexes 2+. No acute changes. Pt continues to deny blurred vision, headache, and RUQ pain. IV continues to be patent with no s.sx of infection or infiltration. Bilateral lungs are clear to auscultation.
[2023-10-14 17:42] LABS: Magnesium 5.7 mg/dl (1.6-2.3)
--- NOTE | 2023-10-14 19:06 | PC.NURSE ---
1400-2+ DTR 1500-2+DTR 1600-2+ DTR 1800-2+ DTR
[2023-10-14] MEDS: LABETALOL 100MG TABLET 200 MG PO (20:42)
--- NOTE | 2023-10-14 21:15 | PC.WOUNDNOTE ---
1949 DTRs 2+, no clonus, no edema, no c/o headache, blurred vision, spots, epigastric pain. 2046 DTRs 2+, no clonus, no edema, no c/o headache, blurred vision, spots, epigastric pain.
[2023-10-14] MEDS: LACTATED RINGERS 1000ML 1,000 ML 75 ML IV (21:28)
[2023-10-15 00:21] VITALS: BP 108/56; PULSE 73; RESP 16; TEMP 36.4; O2SAT 98
--- NOTE | 2023-10-15 00:31 | PC.NURSE ---
0021 2+ DTRs, no edema, no c/o headache, blurred vision, spots, epigastric pain. Pt is tolerating mag therapy well. Bed locked and in lowest position with side rails up x2, call light within reach. No needs voiced.
[2023-10-15 04:54] VITALS: BP 106/63; PULSE 80; RESP 18; TEMP 36.5; O2SAT 97
--- NOTE | 2023-10-15 05:04 | PC.NURSE ---
0454 RN reassessment completed. Pt has rested in intervals this shift and is tolerating mag therapy well. 2+ DTRs, no edema, no c/o headache, blurred vision, spots, epigastric pain. Pt has been up to BR several times throughout the shift to void, denies any difficulty. Pt is s/p vaginal delivery and reports scant vaginal bleeding. Lung sounds CTA, no c/o SOA. Pt observed using breast pump through the night, denies any breast discomfort. Abd soft and nontender with BS active in all quads, tolerating regular diet well. VSS. No c/o pain at this time. Bed locked and in lowest position with side rails up x2, seizure pads in place, call light within reach.
[2023-10-15 05:32] LABS: Magnesium 6.5 mg/dl (1.6-2.3)
[2023-10-15 05:43] LABS: Chloride 105 mmol/L (98-107); Potassium 3.6 mmoL/L (3.5-5.1); Sodium 136 mmol/L (136-145)
[2023-10-15 05:46] LABS: Alanine Aminotransferase 45 U/L (12-78); Albumin/Globulin Ratio 1.1 (1.1-1.8); Alkaline Phosphatase 150 U/L (38-126); Anion Gap 11.6 mEq/L (5-15); Aspartate Amino Transferase 47 U/L (14-36); Bilirubin,Total 0.4 mg/dl (0.2-1.3); Blood Urea Nitrogen 12 mg/dl (7-17); Carbon Dioxide 23 mmol/L (22.0-30.0); Creatinine Clearance Estimated 215 mL/min (50-200); Estimated Glomerular Filt Rate 189 ml/min (>60); GFR (African American) 228 ML/MIN (>60); Globulin 2.7 g/dL (1.3-3.2); Total Protein,Serum 5.7 g/dl (6.3-8.2)
[2023-10-15 05:47] LABS: Calcium 5.6 mg/dl (8.4-10.2); Glucose 127 mg/dl (74-100)
[2023-10-15 08:00] VITALS: BP 116/78; PULSE 80; RESP 16; TEMP 36.6; O2SAT 98
--- NOTE | 2023-10-15 08:35 | P.DS_ITS ---
General Admission date:: 10/14/23 Discharge date: 10/15/23 HPI HPI HPI: She is receiving mag sulfate. Feeling okay on mag sulfate. She admits to mild headache but she thinks it is secondary to lack of sleep. She is breast feeding. No chest pain or shortness of breath. No vision changes. Admits to mild lower extremity swelling since delivery. No calf pain. No complaints or concers. Hospital Course Hospital Course Hospital Course: Mrs Vesna Murry is a 27 yo P1001, 1 week 2 days s/p at 36 weeks at [facility], who presented to [facility] ED with complaint of elevated blood pressure. She was induced at 36 weeks secondary to ICP and IUGR. (She received care with [facility]) She states after delivery BP was elevated and she was started on Labetalol 200mg PO BID. BP upon arrival to [facility] ED was 152/99, 152/99 and 164/102. She reports headache with some blurred vision and weakness. She denies knowing if she was diagnosed with GHTN or preeclampsia. She is breast feeding. Two days ago she was diagnosed with mastitis and started on Clindamycin. She was also taking Ibuprofen and Tylenol. She states breasts look and feel much better now. She reports very light vaginal bleeding, almost none. She received 24 hours of mag sulfate. Mag level 4 hours after bolus was 5.7 and 6.5 this morning. Mild headache but feeling okay overall. Denies lightheadedness/dizziness and vision changes. Breast feeding. BP has been normotensive with two on the lower side since starting mag sulfate and continuing Labetalol. Discharge home today with instructions to follow-up on Sunday for BP check. Exam Data for Last 24 hours Vital signs and Labs for Last 24 Hours: Temp Pulse Resp BP Pulse Ox O2 Del Method 97.7 F 80 18 106/63 L 97 Room Air 10/15/23 04:54 10/15/23 04:54 10/15/23 04:54 10/15/23 04:54 10/15/23 04:54 10/15/23 06:15 Laboratory Results - last 24 hr 10/14/23 11:43: WBC 6.3 D, RBC 3.82 L, Hgb 12.2, Hct 35.6 L, MCV 93.2, MCH 31.8 H, MCHC 34.1, RDW 13.4, Plt Count 299, MPV 7.5, Neut % (Auto) 68.2, Lymph % (Auto) 21.6, [place] % (Auto) 9.2, Eos % (Auto) 0.6, Baso % (Auto) 0.4, Neut # (Auto) 4.3, Lymph # (Auto) 1.4, [place] # (Auto) 0.6, Eos # (Auto) 0.0, Baso # (Auto) 0.0, Sodium 139, Potassium 3.7, Chloride 105, Carbon Dioxide 24, Anion Gap 13.7, BUN 13, Creatinine 0.60, Estimated Creat Clear 144, Estimated GFR 118, Est GFR ( Amer) 143, Glucose 90, Calcium 8.2 L, Magnesium 1.8, Total Bilirubin 0.6, AST 47 H, ALT 52, Alkaline Phosphatase 145 H, Total Protein 7.0, Albumin 3.6, Globulin 3.4 H, Albumin/Globulin Ratio 1.1 10/14/23 17:15: Magnesium 5.7 H D 10/15/23 05:17: Sodium 136, Potassium 3.6, Chloride 105, Carbon Dioxide 23, Anion Gap 11.6, BUN 12, Creatinine 0.40 L D, Estimated Creat Clear 215, Estimated GFR 189, Est GFR ( Amer) 228 D, Glucose 127 H D, Calcium 5.6 L , Magnesium 6.5 H D, Total Bilirubin 0.4, AST 47 H, ALT 45, Alkaline Phosphatase 150 H, Total Protein 5.7 L, Albumin 3.0 L D, Globulin 2.7, Albumin/Globulin Ratio 1.1 I & O for Last 24 hours: Intake & Output 10/12/23 10/13/23 10/14/23 10/15/23 23:59 23:59 23:59 23:59 Intake Total 1105 / 1105 Output Total 1200 / 1200 1150 / 1150 Balance -95 / -95 -1150 / -1150 Weight 145 lb Constitutional Constitutional: no acute distress and cooperative *Routine HEENT Exam Head: Present normocephalic and atraumatic Eye: Absent conjunctivae pink ENT: Present mucous membranes moist *Routine Neck Exam Neck: Present full ROM *Routine Respiratory Exam Respiratory: Present CTA bilaterally and normal respiratory effort *Routine Cardiovascular Exam Cardiovascular: Present RRR *Routine Abdominal Exam Abdominal: Present soft; Absent tenderness or distended *Routine Rectal Exam Patient deferred: visual exam *Routine Exam Patient deferred: external exam *Routine Extremities Exam Extremities: Present edema (trace bilateral lower extremity edema ) and full ROM; Absent calf tenderness *Routine Neurological Exam Neurological: Present alert, oriented X3 and moving all extremities Routine Psychiatric Exam Psychiatric: Present normal affect and cooperative Results Data Completed and Pending Labs on day of discharge: Labs from last 24 hours 10/15/23 10/14/23 10/14/23 05:17 17:15 11:43 WBC 6.3 D RBC 3.82 L Hgb 12.2 Hct 35.6 L MCV 93.2 MCH 31.8 H MCHC 34.1 RDW 13.4 Plt Count 299 MPV 7.5 Neut % (Auto) 68.2 Lymph % (Auto) 21.6 [place] % (Auto) 9.2 Eos % (Auto) 0.6 Baso % (Auto) 0.4 Neut # (Auto) 4.3 Lymph # (Auto) 1.4 [place] # (Auto) 0.6 Eos # (Auto) 0.0 Baso # (Auto) 0.0 Sodium 136 139 Potassium 3.6 3.7 Chloride 105 105 Carbon Dioxide 23 24 Anion Gap 11.6 13.7 BUN 12 13 Creatinine 0.40 L D 0.60 Estimated Creat Clear 215 144 Estimated GFR 189 118 Est GFR ( Amer) 228 D 143 Glucose 127 H D 90 Calcium 5.6 L 8.2 L Magnesium 6.5 H D 5.7 H D 1.8 Total Bilirubin 0.4 0.6 AST 47 H 47 H ALT 45 52 Alkaline Phosphatase 150 H 145 H Total Protein 5.7 L 7.0 Albumin 3.0 L D 3.6 Globulin 2.7 3.4 H Albumin/Globulin Ratio 1.1 1.1 DS: Diagnosis Discharge Diagnosis (1) Severe pre-eclampsia, : Status: Acute Code(s): O14.15 - Severe pre-eclampsia, complicating the puerperium (2) Status post vaginal delivery: Status: Acute (3) Mastitis: Status: Acute Code(s): N61.0 - Mastitis without abscess Meds Home Medications and Allergies Home Medications Medication Instructions Recorded Confirmed Type clindamycin HCl 300 mg capsule 300 mg PO Q8H 10 days #30 caps 10/12/23 10/14/23 Rx labetalol 200 mg tablet 200 mg PO BID High Blood Pressure 10/14/23 10/14/23 History vit no.95-ferrous 1 tab PO DAILY Supplement 10/14/23 10/14/23 History fumarate 28 mg-folic acid 800 mcg tablet () New Prescriptions to Start Prescriptions: Allergies Allergy/AdvReac Type Severity Reaction Status Date / Time Penicillins Allergy Intermediate I-HIVES Verified 07/10/23 17:59 Discharge Plan Disposition Patient Disposition: Home, Self-Care Condition: Good Follow up Plan Follow up with: Azra Trevino DO [Staff Physician] - 10/19/23 Prescriptions/Medication Reconciliation: Continued clindamycin HCl 300 mg capsule 300 mg PO Q8H 10 Days Qty: 30 0RF PNV cmb#95-ferrous fumarate-FA [] 28 mg iron- 800 mcg Tablet 1 tab PO DAILY No Action labetalol 200 mg tablet 200 mg PO BID Problem Reconciliation Problems Reviewed?: Yes Patient Discharge Instructions ACTIVITY: Limited activity DIET: continue same diet and regular diet Providers Primary Care Provider: Ravi Lynch Admit Provider: Azra Trevino Attending Provider: Azra Trevino
[2023-10-15] MEDS: LABETALOL 100MG TABLET 200 MG PO (08:46)
[2023-10-15] MEDS: CLINDAMYCIN 150MG CAPSULE 300 MG PO ×2 (08:46→14:53)
[2023-10-15] MEDS: IBUPROFEN 400 MG TABLET 800 MG PO (08:49)
[2023-10-15] MEDS: MAGNESIUM SULFATE IN WATER 20 GM/500 ML IV.SOLN IV (09:52)
[2023-10-15 12:50] VITALS: BP 105/67; PULSE 77; RESP 16
== END 2023-10-15 16:00 | disposition home or self-care (01) ==
LOC: ER 12:06 → OB 12:11
PROVIDERS: Admitting Provider Obstetrics & Gynecology; Emergency Provider Emergency Medicine; PCP Family Medicine; Visit Provider Obstetrics & Gynecology
DX: O14.15 Severe pre-eclampsia, complicating the puerperium (principal); O91.22 Nonpurulent mastitis associated with the puerperium
CPT/HCPCS: 36415; 80053; 83735; 85025; G0378; J0131

== ENCOUNTER 2023-12-10 10:31 | Emergency (ER) | payer BC, SELFPAY ==
[2023-12-10 11:00] VITALS: BP 116/69; PULSE 100; RESP 18; TEMP 36.6; O2SAT 99; BMI 25.4
--- NOTE | 2023-12-10 11:04 | ED_ITS ---
Discharge Plan Disposition Patient Disposition: Home, Self-Care Condition: Good Prescriptions Prescriptions: New cephalexin 500 mg capsule 500 mg PO QID 7 Days Qty: 28 0RF No Action lisinopril 10 mg tablet 10 mg PO DAILY Qty: 30 2RF PNV cmb#95-ferrous fumarate-FA [] 28 mg iron- 800 mcg Tablet 1 tab PO DAILY Referrals Follow up/Referrals: Ravi Lynch MD [Primary Care Provider] - See instructions Activity Restrictions/Add. Instructions Additional Instructions/Restrictions: Drink plenty of fluids. Take tylenol or ibuprofen for pain or fever. Take the medications as directed. Follow up with your regular doctor. GO TO THE ER FOR ANY WORSENING SYMPTOMS We will culture the urine. That will tell what bacteria is causing your infection and which antibiotics will treat it best. Sometimes the first antibiotic we prescribe turns out to not work against different bacteria. So, make sure you follow up within 3 days if you are not getting better. Instructions Patient Instructions: Urine Culture, DI for Urinary Tract Infection (UTI), Cephalexin Discharge ED Provider: Dre Rubi [facility] General Stated complaint: pain in lower back, burning while urinating Time Seen by Provider: 12/10/23 11:03 History of Present Illness Provider Complaint: She states that for the past 2 days she has had low back pain and dysuria. Related Data Home Medications Medication Instructions Recorded Confirmed vit no.95-ferrous 1 tab PO DAILY Supplement 10/14/23 12/10/23 fumarate 28 mg-folic acid 800 mcg tablet () Previous Rx's Medication Instructions Recorded lisinopril 10 mg tablet 10 mg PO DAILY #30 tabs 10/16/23 cephalexin 500 mg capsule 500 mg PO QID 7 days #28 caps 12/10/23 Allergies Allergy/AdvReac Type Severity Reaction Status Date / Time Penicillins Allergy Intermediate I-HIVES Verified 12/10/23 11:25 [facility] Disclaimer: The information contained in this section may have been updated after the patient was seen, as this information can be updated by other users. 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 [employer] caffeine: No ROS Obtained: Yes All systems reviewed & no additional complaints except as documented Constitutional Constitutional: Reports system reviewed and no additional complaints, except as documented, Denies chills and Denies fever(s) Eyes Eyes: Denies eye discharge ENT Ears, Nose, Mouth, and Throat: Denies dysphagia, Denies sore throat and Denies throat swelling Cardiovascular Cardiovascular: Denies chest pain and Denies dyspnea Respiratory Respiratory: Denies chest congestion, Denies cough and Denies dyspnea Gastrointestinal Gastrointestingal: Denies abdominal pain, constipation, diarrhea, dysphagia, nausea or vomiting Genitourinary Female Genitourinary: Reports as per HPI, Reports dysuria, Reports urinary frequency, Denies urinary incontinence, Reports urinary hesitancy and Reports urinary urgency Musculoskeletal Musculoskeletal: Denies arthralgias and Reports back pain Integumentary/Breasts Skin/Breast: Denies rash Neurologic Neurologic: Denies paresthesias Allergic/Immunologic Allergic/Immunologic: Denies throat swelling Physical Exam General General appearance: alert and in no apparent distress Head Head exam: atraumatic and normocephalic Eye Eye exam: Present normal appearance, PERRL and EOMI ENT ENT exam: Present normal exam, mucous membranes moist, TM's normal bilaterally and normal external ear exam Neck Neck exam: Present normal inspection, full ROM and trachea midline; Absent tenderness, meningismus or lymphadenopathy Chest Chest inspection: Present normal inspection and symmetric chest wall rise; Absent tenderness Respiratory Respiratory exam: Present normal lung sounds bilaterally; Absent respiratory distress, wheezes or stridor Cardiovascular Cardiovascular exam: Present regular rate, normal rhythm and normal heart sounds Abdominal Exam Abdominal exam: Present soft and normal bowel sounds; Absent distention, tenderness, guarding, rebound, rigidity, incision, psoas sign, obturator sign, heel tap sign, Perez's sign, Rovsing's sign or tenderness at McBurney's Point Extremities Exam Extremities exam: Present normal inspection, full ROM and normal capillary refill; Absent tenderness, edema, joint swelling, calf tenderness or cyanosis Back Exam Back exam: Present normal inspection and full ROM; Absent tenderness, CVA tenderness (R) or CVA tenderness (L) Neurological Exam Neurological exam: Present alert, oriented X3 and normal gait Psychiatric Psychiatric exam: Present normal affect and normal mood Skin Skin exam: Present warm, dry, intact and normal color Lymphatic Lymphatic Findings: no adenopathy Medical Decision Making Medical Records Medical records reviewed: No I reviewed the patient's medical records. Will Inquiry Pt receiving controlled substance: No Lab Data Lab results reviewed: Yes I reviewed the patient's lab results.
[2023-12-10 11:29] LABS: Apearance,Urine Clear (Clear); Bilirubin,Urine Negative (Negative); Blood, Urine Trace (Negative); Color,Urine Amber (Yellow); Glucose,Urine (UA) Negative (Negative); Ketones,Urine Negative (Negative); Protein,Urine Trace (Negative); UTC Leukocyte Esterase,Urine Trace (Negative); UTC Nitrate,Urine Positive (Negative); Urobilinogen,Urine 0.2 EU/dl (0.2)
[2023-12-10 11:50] VITALS: BP 116/69; PULSE 100; RESP 18; TEMP 36.6; O2SAT 99
== END 2023-12-10 11:50 | disposition home or self-care (01) ==
PROVIDERS: Emergency Provider Nurse Practitioner Family; PCP Family Medicine
DX: N39.0 Urinary tract infection, site not specified (principal); B96.29 Other Escherichia coli [E. coli] as the cause of diseases classified elsewhere; M54.59 Other low back pain; R30.0 Dysuria
CPT/HCPCS: 81003; 87086; 99212; 99214; G0463

== ENCOUNTER 2024-01-19 18:12 | Emergency (ER) | payer BC, SELFPAY ==
[2024-01-19 18:20] VITALS: BP 122/69; PULSE 81; RESP 18; TEMP 36.6; O2SAT 99; BMI 23.3
[2024-01-19 18:33] LABS: Apearance,Urine Clear (Clear); Color,Urine Yellow (Yellow); Glucose,Urine (UA) Negative (Negative); Ketones,Urine Negative (Negative); PH,Urine 5.5 (5.0-8.5); Protein,Urine Trace (Negative)
[2024-01-19 18:34] LABS: Bilirubin,Urine Negative (Negative); Blood, Urine Trace (Negative); UTC Leukocyte Esterase,Urine Negative (Negative); UTC Nitrate,Urine Negative (Negative); Urobilinogen,Urine 0.2 EU/dl (0.2)
--- NOTE | 2024-01-19 18:34 | EXP.UTC ---
Discharge Plan Disposition Patient Disposition: Home, Self-Care Condition: Good Prescriptions Prescriptions: New cephalexin 500 mg tablet 500 mg PO BID 7 Days Qty: 14 0RF No Action fluticasone propionate 50 mcg/actuation spray,suspension 2 spray INTRANASAL DAILY Patient Comments: 2 SPRAYS INTO THE NOSTRIL(S) DIRECTED BY PROVIDER DAILY FOR 10 DAYS. metoprolol tartrate 25 mg Tablet 25 mg PO DAILY Referrals Follow up/Referrals: Ravi Lynch MD [Primary Care Provider] - See instructions Activity Restrictions/Add. Instructions Additional Instructions/Restrictions: Increase fluids, water and not soda or tea. Can drink cranberry juice or cranberry extract. Wipe front to back Wear cotton underwear Empty bladder after intercourse Start antibiotics immediately and make sure you take the full course although you may start to see improvement over the next 48 hours. You can eat yogurt or take probiotics to decrease diarrhea or yeast infection caused by the antibiotic Be sure to follow-up anytime for new or worsening symptoms in 48 hours for wound urine culture results be sure to let you PCP no recent urine for culture so they can request records and ensure that you have appropriate antibiotic if you are not getting better or getting worse. If symptoms worsen or do not improve return or be seen in the ER. Follow-up with primary care this week. Clinical Impressions Clinical Impression: UTI (urinary tract infection) Instructions Patient Instructions: DI for Urinary Tract Infection (UTI) Discharge ED Provider: Aspen Marie [facility] General Stated complaint: Burning,back pain Mode of Arrival: Ambulatory Source of Information: Patient Limitations: No Limitations Time Seen by Provider: 01/19/24 18:34 Description of Symptoms (Recalled from Triage Doc. by RN): PATIENT C/O BURNING WITH URINATION AND BACK PAIN X 3 DAYS HEENT Symptoms (Recalled from RN notes): No Resp Symptoms (Recalled from RN notes): No Skin Symptoms (Recalled from RN notes): No MS Symptoms (Recalled from RN notes): No Functional Status (Recalled from RN notes): WNL History of Present Illness Provider Complaint: 28 yr old female presents for low back pain, freq, and burning with urination for 2 days Related Data Home Medications Medication Instructions Recorded Confirmed fluticasone propionate 50 2 spray intranasal DAILY 01/19/24 01/19/24 mcg/actuation nasal spray,suspension metoprolol tartrate 25 mg tablet 25 mg PO DAILY 01/19/24 01/19/24 Previous Rx's Medication Instructions Recorded cephalexin 500 mg tablet 500 mg PO BID 7 days #14 tabs 01/19/24 Allergies Allergy/AdvReac Type Severity Reaction Status Date / Time Penicillins Allergy Intermediate I-HIVES Verified 12/10/23 11:25 Worker's Comp Is this a Worker's Comp case?: No [facility] Disclaimer: The information contained in this section may have been updated after the patient was seen, as this information can be updated by other users. 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 [employer] caffeine: No ROS Obtained: Yes All systems reviewed & no additional complaints except as documented Constitutional Constitutional: Reports system reviewed and no additional complaints, except as documented Eyes Eyes: Reports system reviewed and no additional complaints, except as documented ENT Ears, Nose, Mouth, and Throat: Reports system reviewed and no additional complaints, except as documented Cardiovascular Cardiovascular: Reports system reviewed and no additional complaints, except as documented Respiratory Respiratory: Reports system reviewed and no additional complaints, except as documented Gastrointestinal Gastrointestingal: Reports system reviewed and no additional complaints, except as documented Genitourinary Female Genitourinary: Reports system reviewed and no additional complaints, except as documented, Reports as per HPI, Reports dysuria, Reports urinary frequency, Reports urinary hesitancy and Reports urinary urgency Musculoskeletal Musculoskeletal: Reports system reviewed and no additional complaints, except as documented Endocrine Endocrine: Reports system reviewed and no additional complaints, except as documented Allergic/Immunologic Allergic/Immunologic: Reports system reviewed and no additional complaints, except as documented Physical Exam General General appearance: alert and in no apparent distress Head Head exam: atraumatic Eye Eye exam: Present normal appearance and PERRL ENT ENT exam: Present normal exam Respiratory Respiratory exam: Present normal lung sounds bilaterally Cardiovascular Cardiovascular exam: Present regular rate and normal rhythm Back Exam Back exam: Present tenderness Back 1 view image: 1. report pain Neurological Exam Neurological exam: Present alert and oriented X3 Skin Skin exam: Present warm and intact Medical Decision Making Medical Records Medical records reviewed: Yes I reviewed the patient's medical records. Will Inquiry Pt receiving controlled substance: No Will was queried for this patient: No Vital Signs: 01/19/24 18:20 Temperature 97.8 F Temperature Source Oral Pulse Rate [Left Brachial] 81 Respiratory Rate 18 Blood Pressure [Left Arm] 122/69 Blood Pressure Mean [Left Arm] 86 Blood Pressure Source [Left Arm] Automatic Cuff Blood Pressure Position [Left Arm] Sitting 02 Sat by Pulse Oximetry 99 Oxygen Delivery Method Room Air Lab Data Lab results reviewed: Yes I reviewed the patient's lab results. Lab Results 01/19/24 18:18: Urine Color Yellow, Urine Appearance Clear, Urine pH 5.5, Ur Specific [place] 1.030, Urine Protein Trace, Urine Glucose (UA) Negative, Urine Ketones Negative, Urine Blood Trace, Urine Nitrate Negative, Urine Bilirubin Negative, Urine Urobilinogen 0.2, Ur Leukocyte Esterase Negative
[2024-01-19 18:35] VITALS: BP 122/69; PULSE 81; RESP 18; TEMP 36.6; O2SAT 99
== END 2024-01-19 18:42 | disposition home or self-care (01) ==
PROVIDERS: Emergency Provider Nurse Practitioner Family; PCP Family Medicine
DX: N39.0 Urinary tract infection, site not specified (principal); B96.29 Other Escherichia coli [E. coli] as the cause of diseases classified elsewhere; M54.59 Other low back pain
CPT/HCPCS: 81003; 87086; 99212; 99214; G0463

== ENCOUNTER 2024-02-04 13:42 | Emergency (ER) | payer BC, SELFPAY ==
[2024-02-04 14:10] VITALS: BP 118/75; PULSE 74; RESP 18; TEMP 36.8; O2SAT 100; BMI 25.4
--- NOTE | 2024-02-04 14:30 | EXP.UTC ---
Discharge Plan Disposition Patient Disposition: Home, Self-Care Condition: Good Prescriptions Prescriptions: New phenazopyridine [Pyridium] 200 mg tablet 200 mg PO Q8H 2 Days Qty: 6 0RF nitrofurantoin monohyd/m-cryst [Macrobid] 100 mg Capsule 100 mg PO BID Qty: 10 0RF Rx Instructions: must administer with a meal/food ondansetron 4 mg Tablet,Disintegrating 4 mg PO Q8H PRN (Reason: Nausea) Qty: 9 0RF No Action fluticasone propionate 50 mcg/actuation spray,suspension 2 spray INTRANASAL DAILY Patient Comments: 2 SPRAYS INTO THE NOSTRIL(S) DIRECTED BY PROVIDER DAILY FOR 10 DAYS. metoprolol tartrate 25 mg Tablet 25 mg PO DAILY Referrals Follow up/Referrals: Ravi Lynch MD [Primary Care Provider] - See instructions Activity Restrictions/Add. Instructions Additional Instructions/Restrictions: Drink plenty of fluids. Take tylenol or ibuprofen for pain or fever. Take the medications as directed. Follow up with your regular doctor. Keep the appointment that you already have. GO TO THE ER FOR ANY WORSENING SYMPTOMS The pyridium will make your urine turn orange, this is an expected side effect. It will stain your clothes if it comes into contact with them. We will culture the urine. That will tell what bacteria is causing your infection and which antibiotics will treat it best. Sometimes the first antibiotic we prescribe turns out to not work against different bacteria. So, make sure you follow up within 3 days if you are not getting better. Clinical Impressions Clinical Impression: UTI (urinary tract infection) Instructions Patient Instructions: Urinary Tract Infection, Urine Culture, DI for Urinary Tract Infection (UTI), Phenazopyridine Discharge ED Provider: Dre Rubi [facility] General Stated complaint: lower back pain, pain while urinating Time Seen by Provider: 02/04/24 14:30 History of Present Illness Provider Complaint: She states that she has had low back pain and dysuria for the past 2 days. Related Data Home Medications Medication Instructions Recorded Confirmed fluticasone propionate 50 2 spray intranasal DAILY 01/19/24 02/04/24 mcg/actuation nasal spray,suspension metoprolol tartrate 25 mg tablet 25 mg PO DAILY 01/19/24 02/04/24 Previous Rx's Medication Instructions Recorded nitrofurantoin 100 mg PO BID #10 caps 04/29/24 monohydrate/macrocrystals 100 mg capsule (Macrobid) ondansetron 4 mg disintegrating 4 mg PO Q8H PRN Nausea #9 tabs 02/04/24 tablet phenazopyridine 200 mg tablet 200 mg PO Q8H 2 days #6 tabs 02/04/24 (Pyridium) Allergies Allergy/AdvReac Type Severity Reaction Status Date / Time Penicillins Allergy Intermediate I-HIVES [facility]04[facility]24 [facility] Disclaimer: The information contained in this section may have been updated after the patient was seen, as this information can be updated by other users. 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 [employer] caffeine: No ROS Obtained: Yes All systems reviewed & no additional complaints except as documented Constitutional Constitutional: Reports system reviewed and no additional complaints, except as documented, Denies chills and Denies fever(s) Eyes Eyes: Denies eye discharge ENT Ears, Nose, Mouth, and Throat: Denies dysphagia, Denies sore throat and Denies throat swelling Cardiovascular Cardiovascular: Denies chest pain and Denies dyspnea Respiratory Respiratory: Denies chest congestion, Denies cough and Denies dyspnea Gastrointestinal Gastrointestingal: Denies abdominal pain, constipation, diarrhea, dysphagia, nausea or vomiting Genitourinary Female Genitourinary: Reports as per HPI, Reports dysuria, Reports urinary frequency, Denies urinary incontinence, Reports urinary hesitancy and Reports urinary urgency Musculoskeletal Musculoskeletal: Denies arthralgias and Reports back pain Integumentary/Breasts Skin/Breast: Denies rash Neurologic Neurologic: Denies paresthesias Allergic/Immunologic Allergic/Immunologic: Denies throat swelling Physical Exam General General appearance: alert and in no apparent distress Head Head exam: atraumatic and normocephalic Eye Eye exam: Present normal appearance, PERRL and EOMI ENT ENT exam: Present normal exam, mucous membranes moist, TM's normal bilaterally and normal external ear exam Neck Neck exam: Present normal inspection, full ROM and trachea midline; Absent tenderness, meningismus or lymphadenopathy Chest Chest inspection: Present normal inspection and symmetric chest wall rise; Absent tenderness Respiratory Respiratory exam: Present normal lung sounds bilaterally; Absent respiratory distress, wheezes or stridor Cardiovascular Cardiovascular exam: Present regular rate, normal rhythm and normal heart sounds Abdominal Exam Abdominal exam: Present soft and normal bowel sounds; Absent distention, tenderness, guarding, rebound, rigidity, incision, psoas sign, obturator sign, heel tap sign, Perez's sign, Rovsing's sign or tenderness at McBurney's Point Extremities Exam Extremities exam: Present normal inspection, full ROM and normal capillary refill; Absent tenderness, edema, joint swelling, calf tenderness or cyanosis Back Exam Back exam: Present normal inspection and full ROM; Absent tenderness, CVA tenderness (R) or CVA tenderness (L) Neurological Exam Neurological exam: Present alert, oriented X3 and normal gait Psychiatric Psychiatric exam: Present normal affect and normal mood Skin Skin exam: Present warm, dry, intact and normal color Lymphatic Lymphatic Findings: no adenopathy Medical Decision Making Medical Records Medical records reviewed: No I reviewed the patient's medical records. Will Inquiry Pt receiving controlled substance: No Lab Data Lab results reviewed: Yes I reviewed the patient's lab results.
[2024-02-04 14:49] LABS: Apearance,Urine Clear (Clear); Color,Urine Yellow (Yellow); Glucose,Urine (UA) Negative (Negative); Ketones,Urine Negative (Negative); PH,Urine 5.5 (5.0-8.5); Protein,Urine Negative (Negative)
[2024-02-04 14:50] LABS: Bilirubin,Urine Negative (Negative); Blood, Urine Trace (Negative); UTC Leukocyte Esterase,Urine Trace (Negative); UTC Nitrate,Urine Negative (Negative); Urobilinogen,Urine 0.2 EU/dl (0.2)
[2024-02-04 15:12] VITALS: BP 118/75; PULSE 74; RESP 18; TEMP 36.8; O2SAT 100
== END 2024-02-04 15:12 | disposition home or self-care (01) ==
PROVIDERS: Emergency Provider Nurse Practitioner Family; PCP Family Medicine
DX: N39.0 Urinary tract infection, site not specified (principal); B96.29 Other Escherichia coli [E. coli] as the cause of diseases classified elsewhere; M54.59 Other low back pain
CPT/HCPCS: 81003; 87086; 99212; 99214; G0463

== ENCOUNTER 2024-02-06 17:37 | Emergency (ER) | payer BC, SELFPAY ==
[2024-02-06 17:38] VITALS: BP 112/75; PULSE 89; RESP 20; TEMP 36.6; O2SAT 100; BMI 25.4
--- NOTE | 2024-02-06 18:00 | HMH.EDGENADL ---
Discharge Plan Disposition Patient Disposition: Home, Self-Care Condition: Good Prescriptions Prescriptions: New tamsulosin 0.4 mg capsule 0.4 mg PO HS Qty: 10 0RF sulfamethoxazole-trimethoprim [Bactrim DS] 800-160 mg tablet 1 tab PO BID 10 Days Qty: 20 0RF No Action phenazopyridine [Pyridium] 200 mg tablet 200 mg PO Q8H 2 Days Qty: 6 0RF nitrofurantoin monohyd/m-cryst [Macrobid] 100 mg Capsule 100 mg PO BID Qty: 10 0RF Rx Instructions: must administer with a meal/food ondansetron 4 mg Tablet,Disintegrating 4 mg PO Q8H PRN (Reason: Nausea) Qty: 9 0RF fluticasone propionate 50 mcg/actuation spray,suspension 2 spray INTRANASAL DAILY Patient Comments: 2 SPRAYS INTO THE NOSTRIL(S) DIRECTED BY PROVIDER DAILY FOR 10 DAYS. metoprolol tartrate 25 mg Tablet 25 mg PO DAILY Referrals Follow up/Referrals: Ravi Lynch MD [Primary Care Provider] - See instructions Activity Restrictions/Add. Instructions Additional Instructions/Restrictions: Stay hydrated. May take Tylenol alternating with Motrin as needed for pain. Follow-up with PCP or return to emergency department for any increasing pains or change in your signs or symptoms as needed. Clinical Impressions Clinical Impression: Pyelonephritis Discharge ED Provider: Brannon Nelson General Adult HPI <CHALO Irene - Last Filed: 02/06/24 20:03> General Chief complaint: PAIN Stated complaint: possible uti, headache, chills Time Seen by Provider: 02/06/24 18:00 History of Present Illness HPI narrative: Patient presents for evaluation of left flank pain, fever chills and headache. Patient reports a 3-day history of increasingly left-sided flank pain with associated subjective fever last evening and chilling. Patient denies dysuria but does report hematuria. Patient also reports a headache that is nonfocal and did respond to Tylenol briefly. Patient denies chest Related Data Home Medications Medication Instructions Recorded Confirmed fluticasone propionate 50 2 spray intranasal DAILY 01/19/24 02/04/24 mcg/actuation nasal spray,suspension metoprolol tartrate 25 mg tablet 25 mg PO DAILY 01/19/24 02/04/24 Previous Rx's Medication Instructions Recorded nitrofurantoin 100 mg PO BID #10 caps 02/04/24 monohydrate/macrocrystals 100 mg capsule (Macrobid) ondansetron 4 mg disintegrating 4 mg PO Q8H PRN Nausea #9 tabs 02/04/24 tablet phenazopyridine 200 mg tablet 200 mg PO Q8H 2 days #6 tabs 02/04/24 (Pyridium) sulfamethoxazole 800 1 tab PO BID 10 days #20 tabs 02/06/24 mg-trimethoprim 160 mg tablet (Bactrim DS) tamsulosin 0.4 mg capsule 0.4 mg PO HS #10 caps 02/06/24 Allergies Allergy/AdvReac Type Severity Reaction Status Date / Time Penicillins Allergy Intermediate I-HIVES Verified 02/04/24 14:44 PFS <CHALO Irene - Last Filed: 02/06/24 20:03> PFS Disclaimer: The information contained in this section may have been updated after the patient was seen, as this information can be updated by other users. 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 [employer] caffeine: No <CHALO Irene - Last Filed: 02/06/24 20:03> ROS Obtained: Yes Systems reviewed as appropriate & no additional complaints except as documented Physical Exam <CHALO Irene - Last Filed: 02/06/24 20:03> General General appearance: alert and in no apparent distress Head Head exam: atraumatic and normal inspection Eye Eye exam: Present normal appearance, PERRL and EOMI ENT ENT exam: Present normal exam and normal oropharynx Chest Chest inspection: Present normal inspection and symmetric chest wall rise Respiratory Respiratory exam: Present normal lung sounds bilaterally; Absent respiratory distress Cardiovascular Cardiovascular exam: Present regular rate and normal rhythm Abdominal Exam Abdominal exam: Present soft, tenderness (Positive left-sided abdominal pain without rebound rigidity. Bowel sounds normoactive) and normal bowel sounds; Absent guarding, rebound or rigidity Extremities Exam Extremities exam: Present normal inspection and full ROM Back Exam Back exam: Present normal inspection, full ROM and CVA tenderness (L); Absent CVA tenderness (R) Neurological Exam Neurological exam: Present alert and oriented X3 Skin Skin exam: Present warm, dry and normal color Medical Decision Making <CHALO Irene - Last Filed: 02/06/24 20:03> Medical Records Medical records reviewed: Yes I reviewed the patient's medical records. Will Inquiry Pt receiving controlled substance: No Vital Signs: 02/06/24 17:38 02/06/24 18:30 Temperature 97.9 F Temperature Source Oral Pulse Rate 87 Pulse Rate [Right Radial] 89 Respiratory Rate 20 Blood Pressure [Right Arm] 112/75 Blood Pressure Mean [Right Arm] 87 Blood Pressure Source [Right Arm] Automatic Cuff Blood Pressure Position [Right Arm] Sitting 02 Sat by Pulse Oximetry 100 99 Oxygen Delivery Method Room Air Lab Data Lab results reviewed: Yes I reviewed the patient's lab results. Lab Results 02/06/24 18:23: WBC 10.0, RBC 4.37, Hgb 12.3, Hct 38.7, MCV 88.6, MCH 28.1, MCHC 31.8, RDW 15.4, Plt Count 200, MPV 8.4, Neut % (Auto) 82.8 H, Lymph % (Auto) 10.3, Craig % (Auto) 5.8, Eos % (Auto) 0.5, Baso % (Auto) 0.7, Neut # (Auto) 8.3 H, Lymph # (Auto) 1.0, Craig # (Auto) 0.6, Eos # (Auto) 0.1, Baso # (Auto) 0.1, Sodium 139, Potassium 3.4 L, Chloride 105, Carbon Dioxide 25, Anion Gap 12.4, BUN 10, Creatinine 0.60, Estimated Creat Clear 128, Estimated GFR 117, Est GFR ( Amer) 142, Glucose 136 H, Calcium 9.3, Total Bilirubin 0.7, AST 59 H, ALT 74, Alkaline Phosphatase 103, Total Protein 8.1 D, Albumin 4.4, Globulin 3.7 H, Albumin/Globulin Ratio 1.2, Serum HCG, Qual Negative 02/06/24 18:30: Urine Color Leanne, Urine Appearance Clear, Urine pH 6.0, Ur Specific Cable 1.020, Urine Protein 2+, Urine Glucose (UA) 1+, Urine Ketones Negative, Urine Blood 3+, Urine Nitrate Negative, Urine Bilirubin Negative, Urine Urobilinogen 1.0, Ur Leukocyte Esterase Negative, Urine RBC 20-50, Urine WBC Occasional, Ur Squamous Epith Cells 3-5, Urine Bacteria None 02/06/24 18:23 02/06/24 18:23 Orders (Tests/Meds): ED MEDICATIONS Generic Name Dose Route Start Last Admin Trade Name Freq PRN Reason Stop Dose Admin Sodium Chloride 10 ml 02/06/24 19:13 02/06/24 19:14 Sodium Chloride 0.9% 10ml Syr (Rad Only) IV 03/07/24 19:12 10 ml NEEDED PRN Administration Maintain IV Site Discontinued Medications Generic Name Dose Route Start Last Admin Trade Name Freq PRN Reason Stop Dose Admin Acetaminophen 1,000 mg 02/06/24 18:07 02/06/24 18:29 Acetaminophen 1,000mg/100ml Vial IV 02/06/24 18:08 1,000 mg ONCE ONE Administration Lactated Ringer's 1,000 mls @ 999 mls/hr 02/06/24 18:07 02/06/24 18:29 Lactated Ringer's 1000 Ml Bag IV 02/06/24 19:07 999 mls/hr .Q1H1M ONE Administration Iopamidol 75 ml 02/06/24 19:13 02/06/24 19:14 Iopamidol-370 (76%);100ml Bottle IV 02/06/24 19:14 75 ml ONCE ONE Administration Ketorolac Tromethamine 15 mg 02/06/24 18:07 02/06/24 18:29 Ketorolac 30mg/Ml Vial IV 02/06/24 18:08 15 mg ONCE ONE Administration Trimethoprim/Sulfamethoxazole 1 each 02/06/24 20:00 Sulfa/Trimethoprim 1 Tablet PO 02/06/24 20:01 ONCE ONE ORDERS Category Date Time Status CT abdomen pelvis w con Stat Cat Scan 02/06/24 18:08 Completed CBC w/Auto Diff [Complete Blood Count Auto Diff] Stat Lab 02/06/24 18:23 Completed CMP [Comprehensive Metabolic Panel] Stat Lab 02/06/24 18:23 Completed HCG Qualitative, Serum Stat Lab 02/06/24 18:23 Completed UA [Urinalysis and Microscopic] Stat Lab 02/06/24 18:30 Completed Medical Decision Narrative: In summary patient is a 28-year-old female who presents to the emergency department for evaluation of left flank pain fever headache. Patient is hemodynamically stable upon arrival, afebrile. Physical exam is remarkable for tenderness to percussion in the left flank and left-sided mild abdominal pain with no rebound or guarding or rigidity and normal bowel sounds.. Differential diagnosis includes kidney stone versus pyelonephritis versus complicated urinary tract infection versus pelvic inflammatory disease although patient has not had colitis since October of this year, constipation colitis etc. Initial workup will be conducted with hematologic labs, urines, CT scan of the abdomen pelvis with contrast. Initial interventions include Toradol Tylenol IV fluid bolus. Initial workup reviewed by me shows a white count of 10 but a left shift and her urinalysis shows blood microscopic exam shows white blood cells no bacteria. My informal interpretation of her CT scan her abdomen pelvis shows a possible stone on the left below the UPJ. Radiology does not comment but reports that she has left pole pyelonephritis. Upon repeat evaluation patient has mild improvement in her discomfort however will start the patient on broad-spectrum antibiotics and send her home if she is tolerating p.o. Patient given strict return instructions to return for any increasing pain fever dysuria. <Brannon Nelson MD - Last Filed: 02/06/24 20:27> Vital Signs: 02/06/24 17:38 02/06/24 18:30 Temperature 97.9 F Temperature Source Oral Pulse Rate 87 Pulse Rate [Right Radial] 89 Respiratory Rate 20 Blood Pressure [Right Arm] 112/75 Blood Pressure Mean [Right Arm] 87 Blood Pressure Source [Right Arm] Automatic Cuff Blood Pressure Position [Right Arm] Sitting 02 Sat by Pulse Oximetry 100 99 Oxygen Delivery Method Room Air Lab Data Lab Results 02/06/24 18:23: WBC 10.0, RBC 4.37, Hgb 12.3, Hct 38.7, MCV 88.6, MCH 28.1, MCHC 31.8, RDW 15.4, Plt Count 200, MPV 8.4, Neut % (Auto) 82.8 H, Lymph % (Auto) 10.3, Craig % (Auto) 5.8, Eos % (Auto) 0.5, Baso % (Auto) 0.7, Neut # (Auto) 8.3 H, Lymph # (Auto) 1.0, Craig # (Auto) 0.6, Eos # (Auto) 0.1, Baso # (Auto) 0.1, Sodium 139, Potassium 3.4 L, Chloride 105, Carbon Dioxide 25, Anion Gap 12.4, BUN 10, Creatinine 0.60, Estimated Creat Clear 128, Estimated GFR 117, Est GFR ( Amer) 142, Glucose 136 H, Calcium 9.3, Total Bilirubin 0.7, AST 59 H, ALT 74, Alkaline Phosphatase 103, Total Protein 8.1 D, Albumin 4.4, Globulin 3.7 H, Albumin/Globulin Ratio 1.2, Serum HCG, Qual Negative 02/06/24 18:30: Urine Color Leanne, Urine Appearance Clear, Urine pH 6.0, Ur Specific Cable 1.020, Urine Protein 2+, Urine Glucose (UA) 1+, Urine Ketones Negative, Urine Blood 3+, Urine Nitrate Negative, Urine Bilirubin Negative, Urine Urobilinogen 1.0, Ur Leukocyte Esterase Negative, Urine RBC 20-50, Urine WBC Occasional, Ur Squamous Epith Cells 3-5, Urine Bacteria None Orders (Tests/Meds): ED MEDICATIONS Generic Name Dose Route Start Last Admin Trade Name Freq PRN Reason Stop Dose Admin Sodium Chloride 10 ml 02/06/24 19:13 02/06/24 19:14 Sodium Chloride 0.9% 10ml Syr (Rad Only) IV 03/07/24 19:12 10 ml NEEDED PRN Administration Maintain IV Site Discontinued Medications Generic Name Dose Route Start Last Admin Trade Name Freq PRN Reason Stop Dose Admin Acetaminophen 1,000 mg 02/06/24 18:07 02/06/24 18:29 Acetaminophen 1,000mg/100ml Vial IV 02/06/24 18:08 1,000 mg ONCE ONE Administration Lactated Ringer's 1,000 mls @ 999 mls/hr 02/06/24 18:07 02/06/24 18:29 Lactated Ringer's 1000 Ml Bag IV 02/06/24 19:07 999 mls/hr .Q1H1M ONE Administration Iopamidol 75 ml 02/06/24 19:13 02/06/24 19:14 Iopamidol-370 (76%);100ml Bottle IV 02/06/24 19:14 75 ml ONCE ONE Administration Ketorolac Tromethamine 15 mg 02/06/24 18:07 02/06/24 18:29 Ketorolac 30mg/Ml Vial IV 02/06/24 18:08 15 mg ONCE ONE Administration Trimethoprim/Sulfamethoxazole 1 each 02/06/24 20:00 Sulfa/Trimethoprim 1 Tablet PO 02/06/24 20:01 ONCE ONE ORDERS Category Date Time Status CT abdomen pelvis w con Stat Cat Scan 02/06/24 18:08 Completed CBC w/Auto Diff [Complete Blood Count Auto Diff] Stat Lab 02/06/24 18:23 Completed CMP [Comprehensive Metabolic Panel] Stat Lab 02/06/24 18:23 Completed HCG Qualitative, Serum Stat Lab 02/06/24 18:23 Completed UA [Urinalysis and Microscopic] Stat Lab 02/06/24 18:30 Completed Medical Decision Narrative: In summary patient is a 28-year-old female who presents to the emergency department for evaluation of left flank pain fever headache. Patient is hemodynamically stable upon arrival, afebrile. Physical exam is remarkable for tenderness to percussion in the left flank and left-sided mild abdominal pain with no rebound or guarding or rigidity and normal bowel sounds.. Differential diagnosis includes kidney stone versus pyelonephritis versus complicated urinary tract infection versus pelvic inflammatory disease although patient has not had colitis since October of this year, constipation colitis etc. Initial workup will be conducted with hematologic labs, urines, CT scan of the abdomen pelvis with contrast. Initial interventions include Toradol Tylenol IV fluid bolus. Initial workup reviewed by me shows a white count of 10 but a left shift and her urinalysis shows blood microscopic exam shows white blood cells no bacteria. My informal interpretation of her CT scan her abdomen pelvis shows a possible stone on the left below the UPJ. Radiology does not comment but reports that she has left pole pyelonephritis. Upon repeat evaluation patient has mild improvement in her discomfort however will start the patient on broad-spectrum antibiotics and send her home if she is tolerating p.o. Patient given strict return instructions to return for any increasing pain fever dysuria. Because patient at baseline without signs or symptoms of clinical decompensation, deemed appropriate for discharge. Results were relayed to patient[] who voiced understanding and were agreeable to outpatient management and follow up. I discussed my clinical impression with patient[] and answered all questions. At this time, the evidence for any other entities in the differential is insufficient to warrant any further testing or ED observation. This was explained as well. Advisory was given that persistent or worsening symptoms require further evaluation. I confirmed the understanding of this discussion. I was consulted by the JULIA, and we discussed the complexity of the problems being addressed. I approved the treatment and management plan for this patient?s care in the Emergency Department, thus performing a substantive portion of the medical decision making. Brannon Nelson MD Critical Care <CHALO Irene - Last Filed: 02/06/24 20:03> Critical Care Time Critical Care Time: No
--- NOTE | 2024-02-06 18:08 | CT_ITS ---
PROCEDURE INFORMATION: Exam: CT Abdomen And Pelvis With Contrast Exam date and time: 02/06/2024 7:12 PM Age: 28 years old Clinical indication: Abdominal pain; Flank; Left; Additional info: Left flank pain TECHNIQUE: Imaging protocol: Computed tomography of the abdomen and pelvis with contrast. Radiation optimization: All CT scans at this facility use at least one of these dose optimization techniques: automated exposure control; mA and/or kV adjustment per patient size (includes targeted exams where dose is matched to clinical indication); or iterative reconstruction. Contrast material: ISOVUE; Contrast volume: 75 ml; Contrast route: IV; COMPARISON: US KIDNEY 03/02/2023 1:11 PM FINDINGS: Lungs: Mild atelectasis in the lung bases. Heart: Heart size normal. Esophagus: The visualized distal esophagus is largely contracted without gross abnormality. Liver: Normal contour. No mass lesions. No intrahepatic biliary ductal dilatation. Gallbladder and bile ducts: Normal. No calcified stones. No ductal dilation. Pancreas: Normal. No inflammatory changes or ductal dilation. Spleen: Normal. No splenomegaly. Adrenal glands: Normal. No adrenal mass. Kidneys and ureters: Multifocal cortical under enhancement in the upper pole of the left kidney with adjacent perinephric stranding consistent with pyelonephritis. No renal abscess. No hydronephrosis or hydroureter. No urinary tract stones are identified. The right kidney and right collecting system are unremarkable. Stomach and bowel: The stomach is unremarkable. The small bowel is nondilated with no gross abnormality. No acute colonic abnormalities. Appendix: The appendix is normal in caliber and demonstrates no evidence of appendicitis. Intraperitoneal space: Minimal amount of intrapelvic free fluid, within physiologic range. No free air. Vasculature: No acute process. No abdominal aortic aneurysm. Lymph nodes: Mildly enlarged left periaortic nodes near the left kidney. Urinary bladder: Unremarkable as visualized. Reproductive: Unremarkable as visualized. Bones/joints: No acute osseous abnormalities. Soft tissues: Very small fatty umbilical hernia . No evidence of associated bowel herniation or strangulation. Probable small injection granulomata in the upper gluteal subcutaneous fat bilaterally. IMPRESSION: 1. Evidence of pyelonephritis involving the upper pole of the left kidney. No renal abscess. No hydronephrosis. 2. Mildly enlarged left periaortic nodes near the left kidney. 3. Additional nonemergent findings detailed above.
[2024-02-06] MEDS: LACTATED RINGERS 1000ML 1,000 ML 999 ML IV (18:29)
[2024-02-06] MEDS: ACETAMINOPHEN 1,000MG/100ML VIAL 1000 MG IV (18:29)
[2024-02-06] MEDS: KETOROLAC 30MG/ML VIAL 15 MG IV (18:29)
[2024-02-06 18:30] VITALS: PULSE 87; O2SAT 99
[2024-02-06 18:36] LABS: Basophils # 0.1 K/mm3 (0-0.2); Basophils % 0.7 % (0.1-2.0); Eosinophils # 0.1 K/mm3 (0.0-0.4); Eosinophils % 0.5 % (0.1-12.0); Hematocrit 38.7 % (37.0-47.0); Hemoglobin 12.3 g/dL (12.2-16.2); Lymphocytes % 10.3 % (10-50); Mean Corpuscular HGB Conc 31.8 g/dL (31.8-35.4); Mean Corpuscular Hemoglobin 28.1 pg (27.0-31.2); Mean Corpuscular Volume 88.6 fl (81-99); Mean Platelet Volume 8.4 fl (7.4-10.4); Monocytes # 0.6 K/mm3 (0.1-1.0); Monocytes % 5.8 % (1.7-9.3); Neutrophils # 8.3 K/mm3 (1.8-7.8); Neutrophils % 82.8 % (37.0-80.0); Platelet Count 200 K/mm3 (142-424); Red Blood Count 4.37 M/mm3 (4.20-5.40); Red Cell Distribution Width 15.4 % (11.5-17.5)
[2024-02-06 18:38] LABS: Microscopic, Urine URINE MICROSCOPIC (MICROSCOPIC)
[2024-02-06 18:43] LABS: HCG Qualitative, Serum Negative (Negative)
[2024-02-06 18:46] LABS: Alanine Aminotransferase 74 U/L (12-78); Albumin Level 4.4 g/dl (3.5-5.0); Albumin/Globulin Ratio 1.2 (1.1-1.8); Alkaline Phosphatase 103 U/L (38-126); Anion Gap 12.4 mEq/L (5-15); Aspartate Amino Transferase 59 U/L (14-36); Bilirubin,Total 0.7 mg/dl (0.2-1.3); Blood Urea Nitrogen 10 mg/dl (7-17); Calcium 9.3 mg/dl (8.4-10.2); Carbon Dioxide 25 mmol/L (22.0-30.0); Chloride 105 mmol/L (98-107); Creatinine Clearance Estimated 128 mL/min (50-200); Estimated Glomerular Filt Rate 117 ml/min (>60); GFR (African American) 142 ML/MIN (>60); Globulin 3.7 g/dL (1.3-3.2); Glucose 136 mg/dl (74-100); Potassium 3.4 mmoL/L (3.5-5.1); Sodium 139 mmol/L (136-145); Total Protein,Serum 8.1 g/dl (6.3-8.2)
[2024-02-06 18:52] LABS: Appearance,Urine CLEAR (Clear); Bilirubin,Urine Negative (Negative); Blood, Urine 3+ (Negative); Color,Urine AMBER (Yellow); Glucose,Urine (UA) 1+ (Negative); Ketones,Urine Negative (Negative); Leukocyte Esterase,Urine Negative (Negative); Nitrate,Urine Negative (Negative); Protein,Urine 2+ (Negative)
--- NOTE | 2024-02-06 19:10 | PC.NURSE ---
PT TO CT
[2024-02-06] MEDS: IOPAMIDOL-370 (76%);100ML BOTTLE 75 ML IV (19:14)
[2024-02-06] MEDS: SODIUM CHLORIDE 0.9% 10ML SYR (RAD ONLY) 10 ML IV (19:14)
[2024-02-06 19:30] LABS: RBC,Urine 20-50 #/hpf (0-3); WBC,Urine Occasional #/hpf (0-3)
[2024-02-06 20:26] VITALS: BP 135/62; PULSE 70; RESP 16; TEMP 36.8; O2SAT 98
== END 2024-02-06 20:34 | disposition home or self-care (01) ==
PROVIDERS: Physician Assistant; Emergency Provider Emergency Medicine; PCP Family Medicine
DX: N10 Acute pyelonephritis (principal); R10.32 Left lower quadrant pain; R50.9 Fever, unspecified; R51.9 Headache, unspecified
CPT/HCPCS: 74177; 80053; 81001; 84703; 85025; 96361; 96374; 96375; 99284; J0131; Q9967

== ENCOUNTER 2024-09-24 22:33 | Emergency (ER) | payer BC, SELFPAY ==
[2024-09-24 22:36] VITALS: BP 137/79; PULSE 110; RESP 18; TEMP 36.8; O2SAT 100; BMI 26.2
--- NOTE | 2024-09-24 22:51 | HMH.EDGENADL ---
Discharge Plan Disposition Patient Disposition: Home, Self-Care Prescriptions Prescriptions: New cephalexin 500 mg capsule 500 mg PO QID 5 Days Qty: 20 0RF No Action phenazopyridine [Pyridium] 200 mg tablet 200 mg PO Q8H 2 Days Qty: 6 0RF nitrofurantoin monohyd/m-cryst [Macrobid] 100 mg Capsule 100 mg PO BID Qty: 10 0RF Rx Instructions: must administer with a meal/food ondansetron 4 mg Tablet,Disintegrating 4 mg PO Q8H PRN (Reason: Nausea) Qty: 9 0RF tamsulosin 0.4 mg capsule 0.4 mg PO HS Qty: 10 0RF sulfamethoxazole-trimethoprim [Bactrim DS] 800-160 mg tablet 1 tab PO BID 10 Days Qty: 20 0RF fluticasone propionate 50 mcg/actuation spray,suspension 2 spray INTRANASAL DAILY Patient Comments: 2 SPRAYS INTO THE NOSTRIL(S) DIRECTED BY PROVIDER DAILY FOR 10 DAYS. metoprolol tartrate 25 mg Tablet 25 mg PO DAILY Referrals Follow up/Referrals: Ravi Lynch MD [Primary Care Provider] - See instructions Activity Restrictions/Add. Instructions Additional Instructions/Restrictions: Please follow-up with CHIROPRACTIC TEACHER. Please take antibiotics as prescribed for asymptomatic bacteriuria in . Please follow-up with your primary care provider. Please return to the emergency department if you develop any new or worsening symptoms or become concerned for your health. Clinical Impressions Clinical Impression: Intrauterine , Asymptomatic bacteriuria during in first trimester Instructions Patient Instructions: DI for Acute Abdominal Pain Print Language Print Language: Hong Konger Discharge ED Provider: Lenny Nair General Adult HPI <Davian Garvin MD - Last Filed: 09/24/24 23:21> General Chief complaint: Abdominal Pain Stated complaint: pain LT ovary Time Seen by Provider: 09/24/24 22:45 Mode of Arrival: Ambulatory Source of Information: Patient Limitations: No Limitations Description of Symptoms (Recalled from ER Triage Doc. by RN): Patient presents to ED with left ovary pain that has been intermittent for 2 weeks. Patient states her menstrual cycles have never been regular, with her last one early August. Patient reports she took a test tonight that was positive, but she was told she has endometriosis and could not conceive. Her only pregancy was IVF and she delivered last September. Patient denies any vaginal bleeding. History of Present Illness HPI narrative: This is a 28-year-old female G3, P1 who presents with a positive test and left lower quadrant abdominal pain for the last week. Reports that it was somewhat constant for the last 4 to 5 days and then resolved and then recurred today. States that she has a history of endometriosis and 2 prior IVF pregnancies. States that her last menstrual period was during the last week of July. Denies any nausea or vomiting. Denies dysuria. Denies vaginal bleeding. Related Data Home Medications ?Medication ?Instructions ?Recorded ?Confirmed fluticasone propionate 50 2 spray intranasal DAILY 01/19/24 02/04/24 mcg/actuation nasal spray,suspension metoprolol tartrate 25 mg tablet 25 mg PO DAILY 01/19/24 02/04/24 Previous Rx's ?Medication ?Instructions ?Recorded nitrofurantoin 100 mg PO BID #10 caps 02/04/24 monohydrate/macrocrystals 100 mg capsule (Macrobid) ondansetron 4 mg disintegrating 4 mg PO Q8H PRN Nausea #9 tabs 02/04/24 tablet phenazopyridine 200 mg tablet 200 mg PO Q8H 2 days #6 tabs 02/04/24 (Pyridium) sulfamethoxazole 800 1 tab PO BID 10 days #20 tabs 02/06/24 mg-trimethoprim 160 mg tablet (Bactrim DS) tamsulosin 0.4 mg capsule 0.4 mg PO HS #10 caps 02/06/24 cephalexin 500 mg capsule 500 mg PO QID 5 days #20 caps 09/25/24 Allergies Allergy/AdvReac Type Severity Reaction Status Date / Time Penicillins Allergy Intermediate I-HIVES Verified 02/04/24 14:44 PFS <Davian Garvin MD - Last Filed: 09/24/24 23:21> PFS Disclaimer: The information contained in this section may have been updated after the patient was seen, as this information can be updated by other users. 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 [employer] caffeine: No Have you lived/traveled outside US in past 30 days?: No Contact w/someone who lives/traveled outside US past 30 days?: No Exposure to someone with infectious disease in past 14 days?: No Do you have a fever (greater than 100.4 F or 38 C)?: No Have you tested positive for COVID-19: No Exposed to someone with COVID-19 in past 14 days?: No Do you have a sore throat?: No Do you have a cough?: No Do you have any weakness?: No Do you have any diarrhea?: No Are you experiencing any unusual bleeding?: No Do you have any muscle aches/pain?: No Do you have any abdominal pain?: No Are you experiencing loss of taste or smell?: No Other 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 Have you received the Flu Vaccine for this season: No Have you received the Pneumonia Vaccine: No <Davian Garvin MD - Last Filed: 09/24/24 23:21> ROS Obtained: Yes All systems reviewed & no additional complaints except as documented Physical Exam <Davian Garvin MD - Last Filed: 09/24/24 23:21> General General appearance: alert and in no apparent distress Eye Eye exam: Present normal appearance, PERRL and EOMI Respiratory Respiratory exam: Present normal lung sounds bilaterally; Absent respiratory distress Cardiovascular Cardiovascular exam: Present regular rate and normal rhythm Abdominal Exam Abdominal exam: Present soft and distention; Absent tenderness, guarding or rebound Extremities Exam Extremities exam: Present normal inspection Neurological Exam Neurological exam: Present alert and oriented X3 Skin Skin exam: Present warm and dry Medical Decision Making <Davian Garvin MD - Last Filed: 09/24/24 23:21> Medical Records Medical records reviewed: Yes I reviewed the patient's medical records. Screening: Per USPSTF and CDC recommendations, given the prevalence of disease in our region, it is our hospital?s policy to screen for HIV and viral Hepatitis for all patients aged 18 and over and those with ongoing risk factors. Will Inquiry Pt receiving controlled substance: No Vital Signs: 09/24/24 22:36 09/25/24 00:21 Temperature 98.2 F 98.2 F Temperature Source Oral Oral Pulse Rate 90 Pulse Rate [Right Brachial] 110 H Respiratory Rate 18 18 Blood Pressure 118/74 Blood Pressure [Right Arm] 137/79 Blood Pressure Mean [Right Arm] 98 Blood Pressure Source Automatic Cuff Blood Pressure Source [Right Arm] Automatic Cuff Blood Pressure Position Sitting Blood Pressure Position [Right Arm] Supine 02 Sat by Pulse Oximetry 100 Oxygen Delivery Method Room Air Room Air Lab Data Lab Results 09/24/24 22:38: Urine Color Yellow, Urine Appearance Clear, Urine pH 6.0, Ur Specific [place] 1.010, Urine Protein Negative, Urine Glucose (UA) Negative, Urine Ketones Negative, Urine Blood Negative, Urine Nitrate Negative, Urine Bilirubin Negative, Urine Urobilinogen 0.2, Ur Leukocyte Esterase Negative, Urine WBC 3-5, Ur Squamous Epith Cells 5-10, Urine Bacteria 1+ 09/24/24 22:49: WBC 8.0, RBC 4.54, Hgb 13.0, Hct 37.7, MCV 83.0, MCH 28.6, MCHC 34.5, RDW 12.1, Plt Count 270, MPV 10.1, Neut % (Auto) 50.0, Lymph % (Auto) 39.8, [place] % (Auto) 7.9, Eos % (Auto) 1.2, Baso % (Auto) 0.7, Neut # (Auto) 4.0, Lymph # (Auto) 3.2, [place] # (Auto) 0.6, Eos # (Auto) 0.1, Baso # (Auto) 0.1, Sodium 138, Potassium 3.4 L, Chloride 103, Carbon Dioxide 26, Anion Gap 12.4, BUN 14, Creatinine 0.70, Estimated Creat Clear 109, Estimated GFR 98, Est GFR ( Amer) 119, Glucose 102 H, Calcium 8.7, Total Bilirubin 0.3, AST 38 H, ALT 30, Alkaline Phosphatase 53, Total Protein 7.6, Albumin 4.6, Globulin 3.0, Albumin/Globulin Ratio 1.5, Lipase 155, HCG, Quant [id number] H 09/24/24 22:49 12 22:49 Orders (Tests/Meds): ED MEDICATIONS Generic Name Dose Route Start Last Admin Trade Name Luca PRN Reason Stop Dose Admin Cephalexin HCl 500 mg 09/25/24 00:18 12 00:21 Cephalexin 500mg Capsule PO 09/25/24 00:19 500 mg ONCE ONE Administration ORDERS Category Date Time Status Beta HCG, Quant [HCG,Quantitative] Stat Lab 09/24/24 22:49 Completed CBC w/Auto Diff [Complete Blood Count Auto Diff] Stat Lab 09/24/24 22:49 Completed CMP [Comprehensive Metabolic Panel] Stat Lab 09/24/24 22:49 Completed HIV Combo Stat Lab 09/24/24 22:49 Received Hep C Ab with Reflex to RNA Stat Lab 09/24/24 22:49 Received Lipase Stat Lab 09/24/24 22:49 Completed Urinalysis and Microscopic Stat Lab 09/24/24 22:38 Completed US OB transvaginal Stat Ultrasound 09/24/24 22:52 Taken Medical Decision Narrative: In summary, this 28-year-old female G3, P1 presents to the emergency department today with positive home test and left lower quadrant abdominal pain for the last week. On initial evaluation patient is afebrile, hemodynamically stable, nontoxic-appearing. Differential diagnosis includes but is not limited to ectopic , intrauterine , ovarian torsion. Based on these concerns, I ordered CBC, CMP, lipase, UA, quantitative beta-hCG, transvaginal ultrasound. Labs personally reviewed demonstrate no evidence of UTI, unremarkable CBC and CMP, normal lipase. At the time of shift change, beta-hCG and transvaginal ultrasound were pending. Care handed off to Dr. Nair at approximately 11:15 PM. See below for ultimate dispo and impression. <Lenny Nair MD - Last Filed: 09/25/24 00:25> Vital Signs: 09/24/24 22:36 09/25/24 00:21 Temperature 98.2 F 98.2 F Temperature Source Oral Oral Pulse Rate 90 Pulse Rate [Right Brachial] 110 H Respiratory Rate 18 18 Blood Pressure 118/74 Blood Pressure [Right Arm] 137/79 Blood Pressure Mean [Right Arm] 98 Blood Pressure Source Automatic Cuff Blood Pressure Source [Right Arm] Automatic Cuff Blood Pressure Position Sitting Blood Pressure Position [Right Arm] Supine 02 Sat by Pulse Oximetry 100 Oxygen Delivery Method Room Air Room Air Lab Data Lab Results 09/24/24 22:38: Urine Color Yellow, Urine Appearance Clear, Urine pH 6.0, Ur Specific [place] 1.010, Urine Protein Negative, Urine Glucose (UA) Negative, Urine Ketones Negative, Urine Blood Negative, Urine Nitrate Negative, Urine Bilirubin Negative, Urine Urobilinogen 0.2, Ur Leukocyte Esterase Negative, Urine WBC 3-5, Ur Squamous Epith Cells 5-10, Urine Bacteria 1+ 09/24/24 22:49: WBC 8.0, RBC 4.54, Hgb 13.0, Hct 37.7, MCV 83.0, MCH 28.6, MCHC 34.5, RDW 12.1, Plt Count 270, MPV 10.1, Neut % (Auto) 50.0, Lymph % (Auto) 39.8, [place] % (Auto) 7.9, Eos % (Auto) 1.2, Baso % (Auto) 0.7, Neut # (Auto) 4.0, Lymph # (Auto) 3.2, [place] # (Auto) 0.6, Eos # (Auto) 0.1, Baso # (Auto) 0.1, Sodium 138, Potassium 3.4 L, Chloride 103, Carbon Dioxide 26, Anion Gap 12.4, BUN 14, Creatinine 0.70, Estimated Creat Clear 109, Estimated GFR 98, Est GFR ( Amer) 119, Glucose 102 H, Calcium 8.7, Total Bilirubin 0.3, AST 38 H, ALT 30, Alkaline Phosphatase 53, Total Protein 7.6, Albumin 4.6, Globulin 3.0, Albumin/Globulin Ratio 1.5, Lipase 155, HCG, Quant [id number] H Orders (Tests/Meds): ED MEDICATIONS Generic Name Dose Route Start Last Admin Trade Name Freq PRN Reason Stop Dose Admin Cephalexin HCl 500 mg 09/25/24 00:18 09/25/24 00:21 Cephalexin 500mg Capsule PO 09/25/24 00:19 500 mg ONCE ONE Administration ORDERS Category Date Time Status Beta HCG, Quant [HCG,Quantitative] Stat Lab 09/24/24 22:49 Completed CBC w/Auto Diff [Complete Blood Count Auto Diff] Stat Lab 09/24/24 22:49 Completed CMP [Comprehensive Metabolic Panel] Stat Lab 09/24/24 22:49 Completed HIV Combo Stat Lab 09/24/24 22:49 Received Hep C Ab with Reflex to RNA Stat Lab 09/24/24 22:49 Received Lipase Stat Lab 09/24/24 22:49 Completed Urinalysis and Microscopic Stat Lab 09/24/24 22:38 Completed US OB transvaginal Stat Ultrasound 09/24/24 22:52 Taken Medical Decision Narrative: In summary, this 28-year-old female G3, P1 presents to the emergency department today with positive home test and left lower quadrant abdominal pain for the last week. On initial evaluation patient is afebrile, hemodynamically stable, nontoxic-appearing. Differential diagnosis includes but is not limited to ectopic , intrauterine , ovarian torsion. Based on these concerns, I ordered CBC, CMP, lipase, UA, quantitative beta-hCG, transvaginal ultrasound. Labs personally reviewed demonstrate no evidence of UTI, unremarkable CBC and CMP, normal lipase. At the time of shift change, beta-hCG and transvaginal ultrasound were pending. Care handed off to Dr. Nair at approximately 11:15 PM. See below for ultimate dispo and impression. Korey ZAFAR: I assumed care of the patient at the time of handoff from the prior provider. On reassessment patient remains hemodynamically stable. Beta-hCG is positive at 17,000. Transvaginal ultrasound interpreted by me and radiology, shows bicornuate uterus with villagomez intrauterine estimated gestational age of 6 to 7 weeks with heart rate 134. She also has 1+ bacteria in her urine. These findings were communicated to the patient. She was treated for asymptomatic bacteriuria and discharged in stable condition with instructions to follow-up with PCP. Critical Care <Davian Garvin MD - Last Filed: 09/24/24 23:21> Critical Care Time Critical Care Time: No
--- NOTE | 2024-09-24 22:52 | US_ITS ---
PROCEDURE INFORMATION: Exam: US , Transvaginal Exam date and time: 09/24/2024 11:29 PM Age: 28 years old Clinical indication: complicated by abdominal or pelvic pain; Lower; First trimester (<14 weeks 0 days); Gestational age or lmp: Lmp unknown 6w6d by US; ; Additional info: + test, llq abd pain TECHNIQUE: Imaging protocol: Real-time transvaginal obstetrical ultrasound of the maternal pelvis with image documentation. Transvaginal imaging was used for better evaluation of the fetus, adnexa, and/or cervix. COMPARISON: US TRANSVAGINAL 07/07/2020 1:11 PM FINDINGS: Gestation: Yolk sac measures 4.8 mm. heart rate: 134 bpm BIOMETRY: Gestational age (AUA): 6 w 6 d Estimated due date (AUA): 05/14/2025 [place] rump length (CRL): 8.02 mm. EGA (CRL) is 6 w 5 d MATERNAL: Right ovary/adnexa: Right ovary measures 3.72 cm x 2.58 cm x 2.08 cm. Right ovarian volume is 10.45 mL. There is a 6 mm corpus luteum cyst. Left ovary/adnexa: Left ovary measures 2.6 cm x 2.23 cm x 1.16 cm. Left ovarian volume is 3.52 mL. IMPRESSION: Single live intrauterine of gestational age 6 weeks 6 days.
[2024-09-24 22:57] LABS: Microscopic, Urine URINE MICROSCOPIC (MICROSCOPIC)
[2024-09-24 23:03] LABS: Red Blood Count 4.54 M/mm3 (4.20-5.40)
--- NOTE | 2024-09-24 23:03 | PC.NURSE ---
Ultrasound called in for transvaginal study
[2024-09-24 23:04] LABS: Alanine Aminotransferase 30 U/L (12-78); Albumin Level 4.6 g/dl (3.5-5.0); Albumin/Globulin Ratio 1.5 (1.1-1.8); Alkaline Phosphatase 53 U/L (38-126); Anion Gap 12.4 mEq/L (5-15); Aspartate Amino Transferase 38 U/L (14-36); Basophils # 0.1 K/mm3 (0-0.2); Basophils % 0.7 % (0.1-2.0); Bilirubin,Total 0.3 mg/dl (0.2-1.3); Blood Urea Nitrogen 14 mg/dl (7-17); Calcium 8.7 mg/dl (8.4-10.2); Carbon Dioxide 26 mmol/L (22.0-30.0); Chloride 103 mmol/L (98-107); Creatinine Clearance Estimated 109 mL/min (50-200); Eosinophils # 0.1 K/mm3 (0.0-0.4); Eosinophils % 1.2 % (0.1-12.0); Estimated Glomerular Filt Rate 98 ml/min (>60); GFR (African American) 119 ML/MIN (>60); Glucose 102 mg/dl (74-100); Hematocrit 37.7 % (37.0-47.0); Lipase 155 U/L (23-300); Lymphocytes # 3.2 K/mm3 (0.7-4.5); Lymphocytes % 39.8 % (10-50); Mean Corpuscular HGB Conc 34.5 g/dL (31.8-35.4); Mean Corpuscular Hemoglobin 28.6 pg (27.0-31.2); Mean Platelet Volume 10.1 fl (7.4-10.4); Monocytes # 0.6 K/mm3 (0.1-1.0); Monocytes % 7.9 % (1.7-9.3); Platelet Count 270 K/mm3 (142-424); Potassium 3.4 mmoL/L (3.5-5.1); Red Cell Distribution Width 12.1 % (11.5-17.5); Sodium 138 mmol/L (136-145); Total Protein,Serum 7.6 g/dl (6.3-8.2)
[2024-09-24 23:14] LABS: Appearance,Urine CLEAR (Clear); Bilirubin,Urine Negative (Negative); Blood, Urine Negative (Negative); Color,Urine YELLOW (Yellow); Glucose,Urine (UA) Negative (Negative); Ketones,Urine Negative (Negative); Leukocyte Esterase,Urine Negative (Negative); Nitrate,Urine Negative (Negative); Protein,Urine Negative (Negative); Urobilinogen,Urine 0.2 EU/dl (0.2)
--- NOTE | 2024-09-24 23:32 | PC.NURSE ---
Pt to ultrasound via wheelchair
[2024-09-24 23:52] LABS: HCG,Quantitative 17515 mIU/ml (0-5.42)
--- NOTE | 2024-09-24 23:59 | PC.NURSE ---
Pt back from ultrasound
[2024-09-25 00:01] LABS: Bacteria,Urine 1+ /lpf
[2024-09-25 00:21] VITALS: BP 118/74; PULSE 90; RESP 18; TEMP 36.8; O2SAT 97
[2024-09-25] MEDS: cephALEXin 500MG CAPSULE 500 MG PO (00:21)
[2024-09-25 04:19] LABS: HIV Combo NEGATIVE (Negative)
[2024-09-27 06:23] LABS: HCV Ab Non Reactive (Non Reactive)
== END 2024-09-25 00:25 | disposition home or self-care (01) ==
PROVIDERS: Student in an Organized Health Care Education/Training Program; Emergency Provider Emergency Medicine; PCP Family Medicine
DX: O99.891 Other specified diseases and conditions complicating pregnancy (principal); R10.32 Left lower quadrant pain
CPT/HCPCS: 76817; 80053; 81001; 83690; 84702; 85025; 86803; 87389; 99283

== ENCOUNTER 2024-09-27 10:30 | Outpatient (CLI) | payer BC, SELFPAY ==
[2024-09-27 12:42] LABS: HCG,Quantitative 25034 mIU/ml (0-5.42)
[2024-09-29 11:23] LABS: Progesterone 7.5 ng/mL (.)
== END 2024-09-27 23:59 | disposition home or self-care (01) ==
LOC: LAB 10:31
PROVIDERS: PCP Family Medicine; Visit Provider Student in an Organized Health Care Education/Training Program
DX: Z32.01 Encounter for pregnancy test, result positive (principal)
CPT/HCPCS: 36415; 84144; 84702

== ENCOUNTER 2025-02-08 18:11 | Emergency (ER) | payer BC, SELFPAY ==
--- NOTE | 2025-02-08 19:31 | PC.NURSE ---
Severe Tooth ache and Left eye redness 5ft 140lb 6 months 136/88 BP 99O2 90HR
[2025-02-08 20:24] VITALS: BP 118/77; PULSE 88; RESP 16; TEMP 36.6; O2SAT 99; BMI 28.3
--- NOTE | 2025-02-08 20:38 | ED_ITS ---
Discharge Plan Disposition Patient Disposition: Home, Self-Care Prescriptions Prescriptions: New clindamycin HCl 150 mg capsule 450 mg PO Q8H 7 Days Qty: 63 0RF No Action phenazopyridine [Pyridium] 200 mg tablet 200 mg PO Q8H 2 Days Qty: 6 0RF nitrofurantoin monohyd/m-cryst [Macrobid] 100 mg Capsule 100 mg PO BID Qty: 10 0RF Rx Instructions: must administer with a meal/food ondansetron 4 mg Tablet,Disintegrating 4 mg PO Q8H PRN (Reason: Nausea) Qty: 9 0RF tamsulosin 0.4 mg capsule 0.4 mg PO HS Qty: 10 0RF sulfamethoxazole-trimethoprim [Bactrim DS] 800-160 mg tablet 1 tab PO BID 10 Days Qty: 20 0RF fluticasone propionate 50 mcg/actuation spray,suspension 2 spray INTRANASAL DAILY Patient Comments: 2 SPRAYS INTO THE NOSTRIL(S) DIRECTED BY PROVIDER DAILY FOR 10 DAYS. metoprolol tartrate 25 mg Tablet 25 mg PO DAILY cephalexin 500 mg capsule 500 mg PO QID 5 Days Qty: 20 0RF Referrals Follow up/Referrals: Ravi Lynch MD [Primary Care Provider] - See instructions Activity Restrictions/Add. Instructions Additional Instructions/Restrictions: Please follow-up with your dentist to have your tooth which is the source of the infection removed. Regarding your left conjunctivitis this is unlikely to be related to the infected caries and is likely viral in nature please use cool compresses as discussed. Clinical Impressions Clinical Impression: Infected dental caries, Acute conjunctivitis of left eye Print Language Print Language: Malay Discharge ED Provider: Uriah Christopher General Adult HPI General Chief complaint: Dental/Oral Stated complaint: mouth pain, left eye red Time Seen by Provider: 02/08/25 20:31 Mode of Arrival: Ambulatory Source of Information: Patient Description of Symptoms (Recalled from ER Triage Doc. by RN): Patient has a toothache on the left top area of the mouth- is seeing a dentist- was on abx around 3 weeks ago- has not taken anything for pain; thinks she has another tooth infection History of Present Illness HPI narrative: Patient is a 29-year-old female presenting today with dental pain. This been ongoing for several weeks and she is closely followed by a dentist who has 2 maxillary molars that are scheduled to have root canals later this month. One of them is what is causing the pain which is now extending into her soft tissues in her cheek she also has a red left eye which she was concerned was related. Of note she is 6 months which complicates all aspects of care. She denies any abdominal pain loss of fluid bleeding contractions etc. Lastly she has a penicillin allergy. Related Data Home Medications ?Medication ?Instructions ?Recorded ?Confirmed fluticasone propionate 50 2 spray intranasal DAILY 01/19/24 02/04/24 mcg/actuation nasal spray,suspension metoprolol tartrate 25 mg tablet 25 mg PO DAILY 01/19/24 02/04/24 Previous Rx's ?Medication ?Instructions ?Recorded nitrofurantoin 100 mg PO BID #10 caps 02/04/24 monohydrate/macrocrystals 100 mg capsule (Macrobid) ondansetron 4 mg disintegrating 4 mg PO Q8H PRN Nausea #9 tabs 02/04/24 tablet phenazopyridine 200 mg tablet 200 mg PO Q8H 2 days #6 tabs 02/04/24 (Pyridium) sulfamethoxazole 800 1 tab PO BID 10 days #20 tabs 02/06/24 mg-trimethoprim 160 mg tablet (Bactrim DS) tamsulosin 0.4 mg capsule 0.4 mg PO HS #10 caps 02/06/24 cephalexin 500 mg capsule 500 mg PO QID 5 days #20 caps 09/25/24 clindamycin HCl 150 mg capsule 450 mg (3 x 150 mg) PO Q8H 7 days 02/08/25 #63 caps Allergies Allergy/AdvReac Type Severity Reaction Status Date / Time Penicillins Allergy Intermediate I-HIVES Verified 02/04/24 14:44 [facility] Disclaimer: The information contained in this section may have been updated after the patient was seen, as this information can be updated by other users. 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 [employer] caffeine: No Have you lived/traveled outside [place] in past 30 days?: No Contact w/someone who lives/traveled outside US past 30 days?: No Exposure to someone with infectious disease in past 14 days?: No Do you have a fever (greater than 100.4 F or 38 C)?: No Have you tested positive for COVID-19?: No Exposed to someone with COVID-19 in past 14 days?: No Do you have a sore throat?: No Do you have a cough?: No Do you have any weakness?: No Do you have any diarrhea?: No Are you experiencing any unusual bleeding?: No Do you have any muscle aches/pain?: No Do you have any abdominal pain?: No Are you experiencing loss of taste or smell?: No Other 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 Have you received the Flu Vaccine for this season: No Have you received the Pneumonia Vaccine: No ROS Obtained: Yes All systems reviewed & no additional complaints except as documented Physical Exam General General appearance: alert Eye Eye exam: Present conjunctival redness (On the left no drainage) ENT ENT exam: Present other (Patient has mild tenderness in the left cheek area also has obvious dental caries in the left maxillary molars with surrounding tenderness no significant or purulent soft tissue drainage or fluctuance noted) Respiratory Respiratory exam: Present normal lung sounds bilaterally Cardiovascular Cardiovascular exam: Present regular rate Neurological Exam Neurological exam: Present alert and oriented X3 Medical Decision Making Medical Records Screening: Per USPSTF and CDC recommendations, given the prevalence of disease in our region, it is our hospital?s policy to screen for HIV and viral Hepatitis for all patients aged 18 and over and those with ongoing risk factors. Will Inquiry Pt receiving controlled substance: No Vital Signs: 02/08/25 20:24 Temperature 97.9 F Temperature Source Oral Pulse Rate [Right Radial] 88 Respiratory Rate 16 Blood Pressure [Right Arm] 118/77 Blood Pressure Mean [Right Arm] 90 Blood Pressure Source [Right Arm] Automatic Cuff Blood Pressure Position [Right Arm] Supine 02 Sat by Pulse Oximetry 99 Oxygen Delivery Method Room Air Orders (Tests/Meds): ED MEDICATIONS Generic Name Dose Route Start Last Admin Trade Name Luca PRN Reason Stop Dose Admin Clindamycin HCl 450 mg 02/08/25 20:35 Clindamycin 150mg Capsule PO 02/08/25 20:36 ONCE ONE Medical Decision Narrative: Patient has evidence of extensive dental caries in the left maxillary molars that she is scheduled to have root canals later this month for appear to be infected with the tenderness and pain that she is having in the surrounding soft tissue's in the cheek. She has a penicillin allergy therefore clindamycin has been given first dose in the emergency department prescription sent to her pharmacy. Unrelated she has left conjunctivitis which appears to be viral in nature no evidence that this is bacterial she has been advised to use cool compresses for this. She will follow-up closely with her dentist to have further infection control to get her tooth either excised or root canal after this infection is calm down. Critical Care Critical Care Time Critical Care Time: No
[2025-02-08 20:43] VITALS: BP 124/70; PULSE 88; RESP 16; TEMP 36.6; O2SAT 96
[2025-02-08] MEDS: CLINDAMYCIN 150MG CAPSULE 450 MG PO (20:47)
== END 2025-02-08 20:48 | disposition home or self-care (01) ==
PROVIDERS: Emergency Provider Student in an Organized Health Care Education/Training Program; PCP Family Medicine
DX: O26.892 Other specified pregnancy related conditions, second trimester (principal); H10.32 Unspecified acute conjunctivitis, left eye; K08.89 Other specified disorders of teeth and supporting structures; Z3A.24 24 weeks gestation of pregnancy
CPT/HCPCS: 99283

== ENCOUNTER 2025-05-30 05:01 | Emergency (ER) | payer BC, SELFPAY ==
--- OUTSIDE RECORDS SUMMARY | 2023-05-29 11:00 | XMS_ITS | Encounter Summary ---
Author Organization [facility] Address [address] [place] [address] Care Team Providers Care Welfare Interviewer Name Role Phone Provider, No Known Primary Care Provider Unavail able Reason for Referral * Diagnostic Imaging (Routine) - Closed Specialty Diagnoses / Procedures Referred By Contac t Referred To Contact Radiology Diagnoses Supervision of normal intrauterine in multigravida in second trimester Procedures US OB Gender Scan John Bolton MD [address] [place] [address] Phone: tel: fax: [facility] Phone: tel: Referral ID Status Reason Start Date Expiration Date Visits Re quested Visits Authorized [id number] Closed 04/24/2023 04/23/2024 1 1 Reason for Visit * Diagnostic Imaging (Routine) - Closed Specialty Diagnoses / Procedures Referred By Contac t Referred To Contact Radiology Diagnoses Supervision of normal intrauterine in multigravida in second trimester Procedures US OB Gender Scan John Bolton MD [address] [place] [address] Phone: tel: fax: [facility] Phone: tel: Referral ID Status Reason Start Date Expiration Date Visits Re quested Visits Authorized [id number] Closed 04/24/2023 04/23/2024 1 1 Encounter Details Date Type Department Care Team (Latest Contact Info) Description 05/29/2023 11:00 AM EDT Hospital Encounter [facility] [place] [phone] Supervision of normal intrauterine in multigravida in second trimester Social History Tobacco Use Types Packs/Day Years Used Date Smoking Tobacco: Never Smokeless Tobacco: Never Alcohol Use Standard Drinks/Week Comments Not Currently 0 (1 standard drink = 0.6 oz pur e alcohol) [facility] Utilities Answer Date Recorded In the past 12 months has th e electric, gas, oil, or water company threatened to shut off services in your home? No 04/24/2025 AUDIT-C Answer Date Recorded Q1: How often do you have a drink containing alcohol? Never 04/24/2025 Q2: How many drinks containi ng alcohol do you have on a typical day when you are drinking? Patient does not drink Q3: How often do you have si x or more drinks on one occasion? Never 04/24/2025 Overall Financial Resource Strain (CARDIA) Answe r Date Recorded How hard is it for you to pa y for the very basics like food, housing, medical care, and heating? Not hard at all 04/24/2025 [facility] Occupat ional Health - Occupational Stress Questionnaire Answer Date Recorded Do you feel stress - tense, restless, nervous, or anxious, or unable to sleep at night because your mind is troubled all the time - these days? Not at all 04/24/2025 Exercise Vital Sign Answer Date Recorde d On average, how many days pe r week do you engage in moderate to strenuous exercise (like a brisk walk)? 3 days 04/24/2025 On average, how many minutes do you engage in exercise at this level? 30 min 04/24/2025 Hunger Vital Sign Answer Date Recorded Within the past 12 months, y ou worried that your food would run out before you got the money to buy more. Never true 04/24/20 25 Within the past 12 months, t he food you bought just didn't last and you didn't have money to get more. Never true 04/24/2025 PRAPARE - Transportation Answer Date Re corded In the past 12 months, has l ack of transportation kept you from medical appointments or from getting medications? No 04/07 In the past 12 months, has l ack of transportation kept you from meetings, work, or from getting things needed for daily living? No 04/24/2025 [place] Depression Scale Answer Date Recorded [place] Depression Scale Total 0 05/05/2025 The thought of harming myself has occurred to me . Never 05/05/2025 Abuse Screen Answer Date Recorded Feels Unsafe at Home or Work/School no 04/24/2025 Feels Threatened by Someone no 04/07 Does Anyone Try to Keep You From Having Contact with Others or Doing Things Outside Your Home? no 04/24/2025 Physical Signs of Abuse Present no 04/24/2025 Housing Stability Answer Date Recorded Current Living Arrangements home 04/07 Potentially Unsafe Housing Conditions none 04/24/2025 Family and Community Support Answer Sven e Recorded If for any reason you need h elp with day-to-day activities such as bathing, preparing meals, shopping, managing finances, etc., do you get the help you need? I don't need any help 04/24/2025 How often do you feel lonely or isolated from those around you? Never 04/24/2025 Employment Answer Date Recorded Do you want help finding or keeping work or a job? I do not need or want help 04/24/2025 Disabilities Answer Date Recorded Difficulty Concentrating, Remembering or Making Decisions no 04/24/2025 Difficulty Managing Errands Independently no 04/24/2025 Education Answer Date Recorded Do you want help with school or training? For example, starting or completing job training or getting a high school diploma, GED or equivalent No 04/24/2025 Preferred Language Czech 04/24/2025 PHQ-2 Answer Date Recorded Patient Health Questionnaire-2 Score 0 04/24/2025 Comments No Sex and Gender Information Value Date Recorded Sex Assigned at Female 02/02/2025 12:05 PM EDT Legal Sex Female 1:00 PM EST Gender Identity Not on file Sexual Orientation Straight 02/02/2025 12 :05 PM EDT documented as of this encounter Functional Status * Audit-C Score Answer Date of Assessment Author 0 04/24/2025 1:36 AM EDT Casi Stephen RN * Question Answer Date of Assessment Author Q1: How often do you have a drink containing alcohol? Never 04/24/2025 1:36 AM EDT Casi Stephen R N Q2: How many drinks containing alcohol do you have on a typical day when you are drinking? Patient does not drink 04/24/2025 1:36 AM TRINITYT Casi Stephen RN Q3: How often do you have six or more drinks on one occasion? Never 04/24/2025 1:36 AM EDT Casi Stephen R N * Over the past 2 weeks, how often have you been bothered by any of the following problems? Question Answer Date of Assessment Author Patient Health Questionnaire-2 Score 0 04/07 1:36 AM TRINITYT Casi Stephen RN * Question Answer Date of Assessment Author 1. Wish to be (Past 1 Month) No 025 9:57 PM TRINITYT Casi Stephen RN 2. Non-Specific Active Suici doe Thoughts (Past 1 Month) No 04/23/2025 9:57 PM EDT Cinda Stephen RN * Calculated C-SSRS Risk Score (Lifetime/Recent) Answer Date of Assessment Author No Risk Indicated 04/23/2025 9:57 PM TRINITYT Casi Stephen RN * [place] Suicide Severity Rating Scale (Screener/Recent Self-Report) Question Answer Date of Assessment Author 6. Suicidal Behavior (Lifetime) No 9:57 PM TRINITYT Casi Stephen RN * Question Answer Date of Assessment Author Little interest or pleasure in doing things Not at all 04/24/2025 1:36 AM TRINITYT Casi Stephen R N Feeling down, depressed, or hopeless Not at all 04/24/2025 1:36 AM EDT Casi Stephen R N documented as of this encounter Plan of Treatment Upcoming Encounters Date Type Department Care Team (Late st Contact Info) Description 06/09/2025 1:40 PM EDT Visit [facility] [address] [place] [address] John Bolton MD [address] [facility] [address] [place] [id number] documented as of this encounter Procedures Procedure Name Priority Date/Time Associated Diagnosis Comments US OB GENDER SCAN Routine 05/29/2023 11: 19 AM EDT Supervision of normal intrauterine in multigravida in second trimester documented in this encounter Results * US OB Gender Scan (05/29/2023 11:19 AM EDT) Narrative SYSTEMGENERATED, DOCUMENTATION - 05/29/2023 11:19 AM EDT This procedure was auto-finalized with no dictation required. us John Bolton MD IMG US ORDERABLES Final Re sult documented in this encounter Visit Diagnoses Diagnosis Supervision of normal intrauterine in multigravida in second trimester documented in this encounter Care Teams Welfare Interviewer Relationship Specialty Start Date End Date Provider, No Known [facility] [place] [address] PCP - General 11/14/20 07/08/23 documented as of this encounter
--- OUTSIDE RECORDS SUMMARY | 2023-09-04 11:30 | XMS_ITS | Encounter Summary ---
Author Organization [facility] Address [address] [place] [address] Care Team Providers Care Macaroni Maker Name Role Phone Gabriel Lynch MD Primary Care Provider [phone] Reason for Referral * Diagnostic Imaging (Routine) - Closed Specialty Diagnoses / Procedures Referred By Contac t Referred To Contact Radiology Diagnoses Intrahepatic cholestasis of in third trimester Procedures US Biophysical Profile Without Non Stress Testing Moise Knowles MD [address] [place] [address] Phone: tel: fax: [facility] Phone: tel: Referral ID Status Reason Start Date Expiration Date Visits Re quested Visits Authorized [id number] Closed 09/04/2023 09/03/2024 1 1 * Diagnostic Imaging (Routine) - Closed Specialty Diagnoses / Procedures Referred By Contac t Referred To Contact Radiology Diagnoses Intrahepatic cholestasis of in third trimester Procedures US Ob Follow Up Transabdominal Approach Moise Knowles MD [address] [place] [address] Phone: tel: fax: [facility] Phone: tel: Referral ID Status Reason Start Date Expiration Date Visits Re quested Visits Authorized [id number] Closed 08/28/2023 08/27/2024 1 1 Reason for Visit * Diagnostic Imaging (Routine) - Closed Specialty Diagnoses / Procedures Referred By Contophelia t Referred To Contact Radiology Diagnoses Intrahepatic cholestasis of in third trimester Procedures Ob Follow Up Transabdominal Approach Moise Knowles MD [address] [facility] [address] [place] [address] Phone: tel: fax: [facility] Phone: tel: Referral ID Status Reason Start Date Expiration Date Visits Re quested Visits Authorized [id number] Closed 08/28/2023 08/27/2024 1 1 Encounter Details Date Type Department Care Team (Latest Contact Info) Description 09/04/2023 10:30 AM EST Hospital Encounter [facility] [phone] Intrahepatic cholestasis of in third trimester Social History Tobacco Use Types Packs/Day Years Used Date Smoking Tobacco: Never Smokeless Tobacco: Never Alcohol Use Standard Drinks/Week Comments Not Currently 0 (1 standard drink = 0.6 oz pur e alcohol) [facility] Utilities Answer Date Recorded In the past 12 months has e electric, gas, oil, or water company [...] and heating? Not hard at all 04/24/2025 [facility] [place] of Occupat ional Health - Occupational Stress [...] things needed for daily living? No 04/24/2025 [place] Depression Scale Answer Date Recorded [place] Depression Scale Total 0 05/05/2025 The thought [...] GED or equivalent No 04/24/2025 Preferred Language Icelandic 04/24/2025 PHQ-2 Answer Date Recorded Patient Health [...] of Assessment Author 0 04/24/2025 1:36 AM Casi Woody RN * Question Answer Date of Assessment Author Q1: How often do you have a drink containing alcohol? Never 04/24/2025 1:36 AM Casi Woody R N Q2: How many drinks containing alcohol do you have on a typical day when you are drinking? Patient does not drink 04/24/2025 1:36 AM Casi Woody RN Q3: How often do you have six or more drinks on one occasion? Never 04/24/2025 1:36 AM Casi Woody R N * Over the past 2 weeks, how often have you been bothered by any of the following problems? Question Answer Date of Assessment Author Patient Health Questionnaire-2 Score 0 04/07 1:36 AM Casi Woody RN * Question Answer Date of Assessment Author 1. Wish to be (Past 1 Month) No 025 9:57 PM Casi Woody RN 2. Non-Specific Active Suici doe Thoughts (Past 1 Month) No 04/23/2025 9:57 PM Cinda Woody RN * Calculated C-SSRS Risk Score (Lifetime/Recent) Answer Date of Assessment Author No Risk Indicated 04/23/2025 9:57 PM Casi Woody RN * [place] Suicide Severity Rating Scale (Screener/Recent Self-Report) Question Answer Date of Assessment Author 6. Suicidal Behavior (Lifetime) No 9:57 PM EDT Casi Stephen, RN * Question Answer Date of Assessment Author Little interest or pleasure in doing things Not at all 04/24/2025 1:36 AM EDT Casi Stephen R N Feeling down, depressed, or hopeless Not at all 04/24/2025 1:36 AM EDT Casi Stephen R N documented as of this encounter Plan of Treatment Upcoming Encounters Date Type Department Care Team (Late st Contact Info) Description 06/09/2025 1:40 PM EDT Visit [facility] O[facility]YN [address] [facility] [address] [place] [address] Moise Knowles MD [address] [facility] [address] [place] [id number] documented as of this encounter Procedures Procedure Name Priority Date/Time Associated Diagnosis Comments US BIOPHYSICAL PROFILE;WITHOUT NON-STRESS TESTING Routine 09/04/2023 11:28 AM EST Intrahepatic cholestasis of in third trimester US OB FOLLOW UP TRANSABDOMINAL APPROACH Routine 09/04/2023 11:28 AM EST Intrahepatic cholestasis of in third trimester documented in this encounter Results * US Biophysical Profile;Without Non-Stress Testing (09/04/2023 11:28 AM EST) Anatomical Region Laterality Modality Body Ultrasound 09/04/2023 11:0 0 AM EST Narrative 09/06/2023 9:09 AM EST PAT NAME: ADILENE IGNACIO MED REC#: [id number] DA: 1995 PAT GEND: F PAT TYPE: O EXAM SVEN: <OBR.7.1>[id number]</OBR.7.1><OBR.7.1>[id number]</OBR.7.1> REF PHYS MOISE KNOWLES Indication ======== Needs EFW and BPP Dx: Intrahepatic cholestasis of in third trimester [O26.643 (ICD-10-CM)] Comparison Studies There are no relevant prior studies to which this study is being compared History ====== General History Height 152 cm Height (ft) 5 ft Height (in) 0 in Method ======= Voluson E6, Transabdominal ultrasound examination ========= Nava . Number of fetuses: 1 Dating ====== GA by prior assessment 31 w + 6 d EHNNA by prior assessment: 10/31/2023 Ultrasound examination on: 09/04/2023 GA by U/S based upon: AC, BPD, Femur, HC GA by U/S 30 w + 3 d HENNA by U/S: 11/10/2023 Method of dating: Restore dating from previous exam Previous dating: based on stated HENNA, selected on 06/21/2023 Agreed HENNA of previous datin10/31/2023 Assigned: based on stated HENNA, selected on 06/21/2023 Assigned GA 31 w + 6 d Assigned HENNA: 10/31/2023 length 280 d General Evaluation Cardiac activity present. FHR 143 bpm. movements visualized. Presentation cephalic. Placenta Placental site: posterior. Amniotic fluid Amount of AF: normal. MVP 2.9 cm. TG 7.0 cm. Q1 2.8 cm, Q2 1.3 cm, Q3 2.9 cm, Q4 0.0 cm. Biophysical Profile 0: breathing movements 2: Gross body movements 2: tone 2: Amniotic fluid volume 8 Biophysical profile score Biometry Standard BPD 79.0 mm 31w 5d 36% Hadlock HC 280.2 mm 30w 5d 3% Hadlock AC 246.8 mm 28w 6d <1% Hadlock Femur 58.2 mm 30w 3d 8% Hadlock HC / AC 1.14 EFW 1,454 g 19% Behzad EFW (lb) 3 lb EFW (oz) 3 oz EFW by: Hadlock ([id number]-FL) Other: An ultrasound for weight has a margin of error of up to twenty percent. Extremities / Bony Struc FL / BPD 0.74 FL / HC 0.21 FL / AC 0.24 Other Structures FHR 143 bpm Anatomy Lateral ventricles: Appears normal 4-chamber view: Appears normal Stomach: Appears normal Kidneys: Appears normal Bladder: Appears normal Gender: female Wants to know gender: yes Impression ========= Intrauterine growth restriction (IUGR) is present. is < 10% 'ile for growth by AC measurement. Probably normal BPP. Recommendation NST is recommended today. Consideration of umbilical artery dopplers if not already performed. Indication ======== Needs EFW and BPP Dx: Intrahepatic cholestasis of in third trimester [O26.643 (ICD-10-CM)] Comparison Studies There are no relevant prior studies to which this study is being compared History ====== General History Height 152 cm Height (ft) 5 ft Height (in) 0 in Method ======= Voluson E6, Transabdominal ultrasound examination ========= Nava . Number of fetuses: 1 Dating ====== GA by prior assessment 31 w + 6 d HENNA by prior assessment: 10/31/2023 Ultrasound examination on: 09/04/2023 GA by U/S based upon: AC, BPD, Femur, HC GA by U/S 30 w + 3 d HENNA by U/S: 11/10/2023 Method of dating: Restore dating from previous exam Previous dating: based on stated HENNA, selected on 06/21/2023 Agreed HENNA of previous datin10/31/2023 Assigned: based on stated HENNA, selected on 06/21/2023 Assigned GA 31 w + 6 d Assigned HENNA: 10/31/2023 length 280 d General Evaluation Cardiac activity present. FHR 143 bpm. movements visualized. Presentation cephalic. Placenta Placental site: posterior. Amniotic fluid Amount of AF: normal. MVP 2.9 cm. TG 7.0 cm. Q1 2.8 cm, Q2 1.3 cm, Q3 2.9 cm, Q4 0.0 cm. Biophysical Profile 0: breathing movements 2: Gross body movements 2: tone 2: Amniotic fluid volume 03/15 Biophysical profile score Biometry Standard BPD 79.0 mm 31w 5d 36% Hadlock HC 280.2 mm 30w 5d 3% Hadlock AC 246.8 mm 28w 6d <1% Hadlock Femur 58.2 mm 30w 3d 8% Hadlock HC / AC 1.14 EFW 1,454 g 19% Behzad EFW (lb) 3 lb EFW (oz) 3 oz EFW by: Hadlock ([id number]-FL) Other: An ultrasound for weight has a margin of error of up to twenty percent. Extremities / Bony Struc FL / BPD 0.74 FL / HC 0.21 FL / AC 0.24 Other Structures FHR 143 bpm Anatomy Lateral ventricles: Appears normal 4-chamber view: Appears normal Stomach: Appears normal Kidneys: Appears normal Bladder: Appears normal Gender: female Wants to know gender: yes Impression ========= Intrauterine growth restriction (IUGR) is present. Infant is < 10% 'ile for growth by AC measurement. Probably normal BPP. Recommendation NST is recommended today. Consideration of umbilical artery dopplers if not already performed. Senior Software Developer: Alba Urbina RDNJ Physician: Irena Murillo MD Electronically signed by: Irena Murillo MD at: 09:09 Procedure Note Irena Murillo MD - 09/06/2023 PAT NAME: ADILENE IGNACIO MED REC#: [id number] DA: 1995 PAT GEND: F PAT TYPE: O EXAM SVEN:<OBR.7.1>[id number]</OBR.7.1><OBR.7.1>[id number]</OBR.7.1> REF PHYS MOISE KNOWLES Indication ======== Needs EFW and BPP Dx: Intrahepatic cholestasis of in third trimester [O26.643(ICD-10-CM)] Comparison Studies There are no relevant prior studies to which this study is beingcompared History ====== General History [id number] cm Height (ft)5 ft Height (in)0 in Method ======= Voluson E6, Transabdominal ultrasound examination ========= Nava . Number of fetuses: 1 Dating ====== GA by prior [id number] w + 6 d HENNA by prior assessment:10/31/2023 Ultrasound examination on:09/04/2023 GA by U/S based upon:AC, BPD, Femur, HC GA by U/S30 w + 3 d HENNA by U/S:11/10/2023 Method of dating:Restore dating from previous exam Previous dating:based on stated HENNA, selected on 06/21/2023 Agreed HENNA of previous datin10/31/2023 Assigned:based on stated HENNA, selected on 06/21/2023 Assigned GA31 w + 6 d Assigned HENNA:10/31/2023 [id number] d General Evaluation Cardiac activity present. FHR 143 bpm. movements visualized. Presentation cephalic. Placenta Placental site: posterior. Amniotic fluid Amount of AF: normal. MVP 2.9 cm. TG 7.0 cm. Q1 2.8 cm, Q21.3 cm, Q3 2.9 cm, Q4 0.0 cm. Biophysical Profile 0: breathing movements 2: Gross body movements 2: tone 2: Amniotic fluid volume /8 Biophysical profile score Biometry Standard BPD79.0 mm 31w 5d 36% Hadlock HC280.2 mm 30w 5d 3% Hadlock AC246.8 mm 28w 6d <1% Hadlock Femur58.2 mm 30w 3d 8% Hadlock HC / AC1.14 EFW1,454 g 19% Behzad EFW (lb)3 lb EFW (oz)3 oz EFW by:Hadlock ([id number]-FL) Other:An ultrasound for weight has a margin of error of up totwenty percent. Extremities / Bony Struc FL / BPD0.74 FL / HC0.21 FL / AC0.24 Other Structures [id number] bpm Anatomy Lateral ventricles:Appears normal 4-chamber view:Appears normal Stomach:Appears normal Kidneys:Appears normal Bladder:Appears normal Gender:female Wants to know gender:yes Impression ========= Intrauterine growth restriction (IUGR) is present. is < 10% 'ilefor growth by AC measurement. Probably normal BPP. Recommendation NST is recommended today. Consideration of umbilical artery dopplers if not already performed. Indication ======== Needs EFW and BPP Dx: Intrahepatic cholestasis of in third trimester [O26.643(ICD-10-CM)] Comparison Studies There are no relevant prior studies to which this study is beingcompared History ====== General History [id number] cm Height (ft)5 ft Height (in)0 in Method ======= Voluson E6, Transabdominal ultrasound examination ========= Nava . Number of fetuses: 1 Dating ====== GA by prior [id number] w + 6 d HENNA by prior assessment:10/31/2023 Ultrasound examination on:09/04/2023 GA by U/S based upon:AC, BPD, Femur, HC GA by U/S30 w + 3 d HENNA by U/S:11/10/2023 Method of dating:Restore dating from previous exam Previous dating:based on stated HENNA, selected on 06/21/2023 Agreed HENNA of previous datin10/31/2023 Assigned:based on stated HENNA, selected on 06/21/2023 Assigned GA31 w + 6 d Assigned HENNA:10/31/2023 [id number] d General Evaluation Cardiac activity present. FHR 143 bpm. movements visualized. Presentation cephalic. Placenta Placental site: posterior. Amniotic fluid Amount of AF: normal. MVP 2.9 cm. TG 7.0 cm. Q1 2.8 cm, Q21.3 cm, Q3 2.9 cm, Q4 0.0 cm. Biophysical Profile 0: breathing movements 2: Gross body movements 2: tone 2: Amniotic fluid volume 03/15 Biophysical profile score Biometry Standard BPD79.0 mm 31w 5d 36% Hadlock HC280.2 mm 30w 5d 3% Hadlock AC246.8 mm 28w 6d <1% Hadlock Femur58.2 mm 30w 3d 8% Hadlock HC / AC1.14 EFW1,454 g 19% Behzad EFW (lb)3 lb EFW (oz)3 oz EFW by:Hadlock (CQK-QI-UT-FL) Other:An ultrasound for weight has a margin of error of up totwenty percent. Extremities / Bony Struc FL / BPD0.74 FL / HC0.21 FL / AC0.24 Other Structures [id number] bpm Anatomy Lateral ventricles:Appears normal 4-chamber view:Appears normal Stomach:Appears normal Kidneys:Appears normal Bladder:Appears normal Gender:female Wants to know gender:yes Impression ========= Intrauterine growth restriction (IUGR) is present. is < 10% 'ilefor growth by AC measurement. Probably normal BPP. Recommendation NST is recommended today. Consideration of umbilical artery dopplers if not already performed. Senior Software Developer: Alba Urbina RDMS Physician: Irena Murillo MD Electronically signed by: Irena Murillo MD at: 09:09 us Moise Knowles MD IMG US ORDERABLES Final Re sult * US Ob Follow Up Transabdominal Approach (09/04/2023 11:28 AM EST) Anatomical Region Laterality Modality Body Ultrasound 09/04/2023 11:0 0 AM EST Narrative 09/06/2023 9:09 AM EST PAT NAME: ADILENE IGNACIO MED REC#: [id number] DA: 1995 PAT GEND: F PAT TYPE: O EXAM SVEN: <OBR.7.1>[id number]</OBR.7.1><OBR.7.1>[id number]</OBR.7.1> REF PHYS MOISE KNOWLES Indication ======== Needs EFW and BPP Dx: Intrahepatic cholestasis of in third trimester [O26.643 (ICD-10-CM)] Comparison Studies There are no relevant prior studies to which this study is being compared History ====== General History Height 152 cm Height (ft) 5 ft Height (in) 0 in Method ======= Voluson E6, Transabdominal ultrasound examination ========= Nava . Number of fetuses: 1 Dating ====== GA by prior assessment 31 w + 6 d HENNA by prior assessment: 10/31/2023 Ultrasound examination on: 09/04/2023 GA by U/S based upon: AC, BPD, Femur, HC GA by U/S 30 w + 3 d HENNA by U/S: 11/10/2023 Method of dating: Restore dating from previous exam Previous dating: based on stated HENNA, selected on 06/21/2023 Agreed HENNA of previous datin10/31/2023 Assigned: based on stated HENNA, selected on 06/21/2023 Assigned GA 31 w + 6 d Assigned HENNA: 10/31/2023 length 280 d General Evaluation Cardiac activity present. FHR 143 bpm. movements visualized. Presentation cephalic. Placenta Placental site: posterior. Amniotic fluid Amount of AF: normal. MVP 2.9 cm. TG 7.0 cm. Q1 2.8 cm, Q2 1.3 cm, Q3 2.9 cm, Q4 0.0 cm. Biophysical Profile 0: breathing movements 2: Gross body movements 2: tone 2: Amniotic fluid volume /8 Biophysical profile score Biometry Standard BPD 79.0 mm 31w 5d 36% Hadlock HC 280.2 mm 30w 5d 3% Hadlock AC 246.8 mm 28w 6d <1% Hadlock Femur 58.2 mm 30w 3d 8% Hadlock HC / AC 1.14 EFW 1,454 g 19% Behzad EFW (lb) 3 lb EFW (oz) 3 oz EFW by: Hadlock ([id number]-FL) Other: An ultrasound for weight has a margin of error of up to twenty percent. Extremities / Bony Struc FL / BPD 0.74 FL / HC 0.21 FL / AC 0.24 Other Structures FHR 143 bpm Anatomy Lateral ventricles: Appears normal 4-chamber view: Appears normal Stomach: Appears normal Kidneys: Appears normal Bladder: Appears normal Gender: female Wants to know gender: yes Impression ========= Intrauterine growth restriction (IUGR) is present. Infant is < 10% 'ile for growth by AC measurement. Probably normal BPP. Recommendation NST is recommended today. Consideration of umbilical artery dopplers if not already performed. Indication ======== Needs EFW and BPP Dx: Intrahepatic cholestasis of in third trimester [O26.643 (ICD-10-CM)] Comparison Studies There are no relevant prior studies to which this study is being compared History ====== General History Height 152 cm Height (ft) 5 ft Height (in) 0 in Method ======= Voluson E6, Transabdominal ultrasound examination ========= Nava . Number of fetuses: 1 Dating ====== GA by prior assessment 31 w + 6 d HENNA by prior assessment: 10/31/2023 Ultrasound examination on: 09/04/2023 GA by U/S based upon: AC, BPD, Femur, HC GA by U/S 30 w + 3 d HENNA by U/S: 11/10/2023 Method of dating: Restore dating from previous exam Previous dating: based on stated HENNA, selected on 06/21/2023 Agreed HENNA of previous datin10/31/2023 Assigned: based on stated HENNA, selected on 06/21/2023 Assigned GA 31 w + 6 d Assigned HENNA: 10/31/2023 length 280 d General Evaluation Cardiac activity present. FHR 143 bpm. movements visualized. Presentation cephalic. Placenta Placental site: posterior. Amniotic fluid Amount of AF: normal. MVP 2.9 cm. TG 7.0 cm. Q1 2.8 cm, Q2 1.3 cm, Q3 2.9 cm, Q4 0.0 cm. Biophysical Profile 0: breathing movements 2: Gross body movements 2: tone 2: Amniotic fluid volume 03/15 Biophysical profile score Biometry Standard BPD 79.0 mm 31w 5d 36% Hadlock HC 280.2 mm 30w 5d 3% Hadlock AC 246.8 mm 28w 6d <1% Hadlock Femur 58.2 mm 30w 3d 8% Hadlock HC / AC 1.14 EFW 1,454 g 19% Behzad EFW (lb) 3 lb EFW (oz) 3 oz EFW by: Hadlock ([id number]-FL) Other: An ultrasound for weight has a margin of error of up to twenty percent. Extremities / Bony Struc FL / BPD 0.74 FL / HC 0.21 FL / AC 0.24 Other Structures FHR 143 bpm Anatomy Lateral ventricles: Appears normal 4-chamber view: Appears normal Stomach: Appears normal Kidneys: Appears normal Bladder: Appears normal Gender: female Wants to know gender: yes Impression ========= Intrauterine growth restriction (IUGR) is present. Infant is < 10% 'ile for growth by AC measurement. Probably normal BPP. Recommendation NST is recommended today. Consideration of umbilical artery dopplers if not already performed. Senior Software Developer: Alba Urbina RDMS Physician: Irena Murillo MD Electronically signed by: Irena Murillo MD at: 09:09 Procedure Note Irena Murillo MD - 09/06/2023 PAT NAME: ADILENE IGNACIO MED REC#: [id number] DA: 1995 PAT GEND: F PAT TYPE: O EXAM SVEN:<OBR.7.1>[id number]</OBR.7.1><OBR.7.1>[id number]</OBR.7.1> REF PHYS MOISE KNOWLES Indication ======== Needs EFW and BPP Dx: Intrahepatic cholestasis of in third trimester [O26.643(ICD-10-CM)] Comparison Studies There are no relevant prior studies to which this study is beingcompared History ====== General History Msxhcw076 cm Height (ft)5 ft Height (in)0 in Method ======= Voluson E6, Transabdominal ultrasound examination ========= Nava . Number of fetuses: 1 Dating ====== GA by prior [id number] w + 6 d HENNA by prior assessment:10/31/2023 Ultrasound examination on:09/04/2023 GA by U/S based upon:AC, BPD, Femur, HC GA by U/S30 w + 3 d HENNA by U/S:11/10/2023 Method of dating:Restore dating from previous exam Previous dating:based on stated HENNA, selected on 06/21/2023 Agreed HENNA of previous datin10/31/2023 Assigned:based on stated HENNA, selected on 06/21/2023 Assigned GA31 w + 6 d Assigned HENNA:10/31/2023 [id number] d General Evaluation Cardiac activity present. FHR 143 bpm. movements visualized. Presentation cephalic. Placenta Placental site: posterior. Amniotic fluid Amount of AF: normal. MVP 2.9 cm. TG 7.0 cm. Q1 2.8 cm, Q21.3 cm, Q3 2.9 cm, Q4 0.0 cm. Biophysical Profile 0: breathing movements 2: Gross body movements 2: tone 2: Amniotic fluid volume 03/15 Biophysical profile score Biometry Standard BPD79.0 mm 31w 5d 36% Hadlock HC280.2 mm 30w 5d 3% Hadlock AC246.8 mm 28w 6d <1% Hadlock Femur58.2 mm 30w 3d 8% Hadlock HC / AC1.14 EFW1,454 g 19% Behzad EFW (lb)3 lb EFW (oz)3 oz EFW by:Hadlock ([id number]-ZG-[id number]-FL) Other:An ultrasound for weight has a margin of error of up totwenty percent. Extremities / Bony Struc FL / BPD0.74 FL / HC0.21 FL / AC0.24 Other Structures [id number] bpm Anatomy Lateral ventricles:Appears normal 4-chamber view:Appears normal Stomach:Appears normal Kidneys:Appears normal Bladder:Appears normal Gender:female Wants to know gender:yes Impression ========= Intrauterine growth restriction (IUGR) is present. Infant is < 10% 'ilefor growth by AC measurement. Probably normal BPP. Recommendation NST is recommended today. Consideration of umbilical artery dopplers if not already performed. Indication ======== Needs EFW and BPP Dx: Intrahepatic cholestasis of in third trimester [O26.643(ICD-10-CM)] Comparison Studies There are no relevant prior studies to which this study is beingcompared History ====== General History Ewbgsd118 cm Height (ft)5 ft Height (in)0 in Method ======= Voluson E6, Transabdominal ultrasound examination ========= Nava . Number of fetuses: 1 Dating ====== GA by prior [id number] w + 6 d HENNA by prior assessment:10/31/2023 Ultrasound examination on:09/04/2023 GA by U/S based upon:AC, BPD, Femur, HC GA by U/S30 w + 3 d HENNA by U/S:11/10/2023 Method of dating:Restore dating from previous exam Previous dating:based on stated HENNA, selected on 06/21/2023 Agreed HENNA of previous datin10/31/2023 Assigned:based on stated HENNA, selected on 06/21/2023 Assigned GA31 w + 6 d Assigned HENNA:10/31/2023 [id number] d General Evaluation Cardiac activity present. FHR 143 bpm. movements visualized. Presentation cephalic. Placenta Placental site: posterior. Amniotic fluid Amount of AF: normal. MVP 2.9 cm. TG 7.0 cm. Q1 2.8 cm, Q21.3 cm, Q3 2.9 cm, Q4 0.0 cm. Biophysical Profile 0: breathing movements 2: Gross body movements 2: tone 2: Amniotic fluid volume /8 Biophysical profile score Biometry Standard BPD79.0 mm 31w 5d 36% Hadlock HC280.2 mm 30w 5d 3% Hadlock AC246.8 mm 28w 6d <1% Hadlock Femur58.2 mm 30w 3d 8% Hadlock HC / AC1.14 EFW1,454 g 19% Behzad EFW (lb)3 lb EFW (oz)3 oz EFW by:Hadlock ([id number]-HG-FL) Other:An ultrasound for weight has a margin of error of up totwenty percent. Extremities / Bony Struc FL / BPD0.74 FL / HC0.21 FL / AC0.24 Other Structures [id number] bpm Anatomy Lateral ventricles:Appears normal 4-chamber view:Appears normal Stomach:Appears normal Kidneys:Appears normal Bladder:Appears normal Gender:female Wants to know gender:yes Impression ========= Intrauterine growth restriction (IUGR) is present. Infant is < 10% 'ilefor growth by AC measurement. Probably normal BPP. Recommendation NST is recommended today. Consideration of umbilical artery dopplers if not already performed. Senior Software Developer: Alba Urbina RDNJ Physician: Irena Murillo MD Electronically signed by: Irena Murillo MD at: 09:09 us Moise Knowles MD IMG US ORDERABLES Final Re sult documented in this encounter Visit Diagnoses Diagnosis Intrahepatic cholestasis of in third trimester documented in this encounter Care Teams Macaroni Maker Relationship Specialty Start Date End Date Gabriel Lynch MD [facility] [address] [place] [id number] PCP - General Family Medicine 07/09/23 documented as of this encounter
--- OUTSIDE RECORDS SUMMARY | 2023-09-10 09:30 | XMS_ITS | Encounter Summary ---
Author Organization [facility] Address [address] [place] [address] Care Team Providers Care Mainframe Applications Developer Name Role Phone Gabriel Lynch MD Primary Care Provider [phone] Reason for Referral * Diagnostic Imaging (Routine) - Closed Specialty Diagnoses / Procedures Referred By Contac Referred To Contact Radiology Diagnoses IUGR (intrauterine growth retardation) affecting mother, third trimester, not applicable or unspecified fetus Procedures US Biophysical Profile;Without Non-Stress Testing Moise Knowles MD [address] [place] [address] Phone: tel: fax: [facility] Phone: tel: Referral ID Status Reason Start Date Expiration Date Visits Re quested Visits Authorized [id number] Closed 09/07/2023 09/06/2024 5 5 Reason for Visit * Diagnostic Imaging (Routine) - Closed Specialty Diagnoses / Procedures Referred By Contac Referred To Contact Radiology Diagnoses IUGR (intrauterine growth retardation) affecting mother, third trimester, not applicable or unspecified fetus Procedures US Biophysical Profile;Without Non-Stress Testing Moise Knowles MD [address] [facility] [address] Phone: tel: fax: [facility] [place] Phone: tel: Referral ID Status Reason Start Date Expiration Date Visits Re quested Visits Authorized [id number] Closed 09/07/2023 09/06/2024 5 5 Encounter Details Date Type Department Care Team (Late st Contact Info) Description 09/10/2023 8:30 AM EST Hospital Encounter [facility] [place] [phone] IUGR (AC < 1%) Social History Tobacco Use Types Packs/Day Years Used Date Smoking Tobacco: Never Smokeless Tobacco: Never Alcohol Use Standard Drinks/Week Comments Not Currently 0 (1 standard drink = 0.6 oz pur e alcohol) [facility] Utilities Answer Date Recorded In the [...] and heating? Not hard at all 04/24/2025 [facility] [place] of Occupat ional Health - Occupational Stress [...] things needed for daily living? No 04/24/2025 [place] Depression Scale Answer Date Recorded [place] Depression Scale Total 0 05/05/2025 The thought [...] GED or equivalent No 04/24/2025 Preferred Language Tunisian 04/24/2025 PHQ-2 Answer Date Recorded Patient Health [...] Patient does not drink 04/24/2025 1:36 AM EDT Casi Stephen RN Q3: How often do you have six or more drinks on one occasion? Never 04/24/2025 1:36 AM EDT Casi Stephen R N * Over the past 2 weeks, how often have you been bothered by any of the following problems? Question Answer Date of Assessment Author Patient Health Questionnaire-2 Score 0 04/07 1:36 AM EDT Casi Stephen RN * Question Answer Date of Assessment Author 1. Wish to be (Past 1 Month) No 025 9:57 PM EDT Casi Stephen RN 2. Non-Specific Active Suici doe Thoughts (Past 1 Month) No 04/23/2025 9:57 PM EDT Cinda Stephen RN * Calculated C-SSRS Risk Score (Lifetime/Recent) Answer Date of Assessment Author No Risk Indicated 04/23/2025 9:57 PM EDT Casi Stephen RN * [place] Suicide Severity Rating Scale (Screener/Recent Self-Report) Question Answer Date of Assessment Author 6. Suicidal Behavior (Lifetime) No 9:57 PM EDT Casi Stephen RN * Question Answer [...] Info) Description 06/09/2025 1:40 PM EDT Visit [facility] OBGYN [address] [place] [id number] Moise Knowles MD [address] [facility] [address] [place] [address] documented as of this encounter Procedures Procedure Name Priority Date/Time Associated Diagnosis Comments US BIOPHYSICAL PROFILE;WITHOUT NON-STRESS TESTING Routine 09/10/2023 8:50 AM EST IUGR (AC < 1%) documented in this encounter Results * US Biophysical Profile;Without Non-Stress Testing (09/10/2023 8:50 AM EST) Anatomical Region Laterality Modality Body Ultrasound 09/10/2023 8:44 AM EST Narrative 09/10/2023 4:55 PM EST PAT NAME: ADILENE IGNACIO MED REC#: [id number] DA: 1995 PAT GEND: F PAT TYPE: O EXAM SVEN: [id number] REF PHYS MOISE KNOWLES Indication ======== BPP, IUGR with AC < 1% Dx: IUGR (AC < 1%) [O36.5930 (ICD-10-CM)] Comparison Studies There are no relevant prior studies to which this study is being compared Method ======= [place]on E6, Transabdominal ultrasound examination. View: Sufficient ========= Nava . Number of fetuses: 1 Dating ====== GA by prior assessment 32 w + 5 d HENNA by prior assessment: 10/31/2023 Method of dating: Restore dating from previous exam Previous dating: based on stated HENNA, selected on 06/21/2023 Agreed HENNA of previous datin10/31/2023 Assigned: based on stated HENNA, selected on 06/21/2023 Assigned GA 32 w + 5 d Assigned HENNA: 10/31/2023 length 280 d General Evaluation Cardiac activity present. FHR 139 bpm. movements visualized. Presentation cephalic. Placenta Placental site: posterior, fundal. Amniotic Fluid Assessment Amount of AF: normal TG 10.9 cm. Q1 3.9 cm, Q2 2.8 cm, Q3 4.2 cm Biophysical Profile 2: breathing movements 2: Gross body movements 2: tone 2: Amniotic fluid volume 05/15 Biophysical profile score Anatomy Gender: female. Impression ========= Normal BPP Recommendation Continue the routine schedule of testing for the condition being monitored. Pressure Steamer Tender: Alba Urbina RDMS Physician: Moise Knowles MD Electronically signed by: Moise Knowles MD at: 16:55 Procedure Note Moise Knowles MD - 09/10/2023 PAT NAME: ADILENE IGNACIO MED REC#: [id number] DA: 1995 PAT GEND: F PAT TYPE: O EXAM SVEN: [id number] REF PHYS MOISE KNOWLES Indication ======== BPP, IUGR with AC < 1% Dx: IUGR (AC < 1%) [O36.5930 (ICD-10-CM)] Comparison Studies There are no relevant prior studies to which this study is beingcompared Method ======= Vol[place]on E6, Transabdominal ultrasound examination. View: Sufficient ========= Nava . Number of fetuses: 1 Dating ====== GA by prior [id number] w + 5 d HENNA by prior assessment:10/31/2023 Method of dating:Restore dating from previous exam Previous dating:based on stated HENNA, selected on 06/21/2023 Agreed HENNA of previous datin10/31/2023 Assigned:based on stated HENNA, selected on 06/21/2023 Assigned GA32 w + 5 d Assigned HENNA:10/31/2023 [id number] d General Evaluation Cardiac activity present. FHR 139 bpm. movements visualized. Presentation cephalic. Placenta Placental site: posterior, fundal. Amniotic Fluid Assessment Amount of AF: normal TG 10.9 cm. Q1 3.9 cm, Q2 2.8 cm, Q3 4.2 cm Biophysical Profile 2: breathing movements 2: Gross body movements 2: tone 2: Amniotic fluid volume 05/15 Biophysical profile score Anatomy Gender: female. Impression ========= Normal BPP Recommendation Continue the routine schedule of testing for the condition beingmonitored. Pressure Steamer Tender: Alba Urbina RDMS Physician: Moise Knowles MD Electronically signed by: Moise Knowles MD at: 16:55 us Moise Knowles MD IMG US ORDERABLES Final Re sult documented in this encounter Visit Diagnoses Diagnosis IUGR (AC < 1%) documented in this encounter Care Teams Mainframe Applications Developer Relationship Specialty Start Date End Date Gabriel Lynch MD [facility] [address] [place] [id number] PCP - General Family Medicine 07/09/23 documented as of this encounter
--- OUTSIDE RECORDS SUMMARY | 2024-10-23 09:00 | XMS_ITS | Encounter Summary ---
Author Organization [facility] Address [address] [place] [address] Care Team Providers Care Diamond Wheel Edger Name Role Phone Gabriel Lynch MD Primary Care Provider [phone] Reason for Referral * Diagnostic Imaging (Routine) - Closed Specialty Diagnoses / Procedures Referred By Contac t Referred To Contact Radiology Diagnoses Encounter to determine viability of , single or unspecified fetus Procedures US OB Transvaginal Moise Knowles MD [address] [place] [address] Phone: tel: fax: [facility] Phone: tel: Referral ID Status Reason Start Date Expiration Date Visits Re quested Visits Authorized [id number] Closed 10/21/2024 10/21/2025 1 1 Reason for Visit * Diagnostic Imaging (Routine) - Closed Specialty Diagnoses / Procedures Referred By Contac t Referred To Contact Radiology Diagnoses Encounter to determine viability of , single or unspecified fetus Procedures US OB [facility]ag[facility] [place] [address] Phone: tel: fax: [facility] Phone: tel: Referral ID Status Reason Start Date Expiration Date Visits Re quested Visits Authorized [id number] Closed 10/21/2024 10/21/2025 1 1 Encounter Details Date Type Department Care Team (Latest Contact Info) Description 10/23/2024 8:00 AM EST Hospital Encounter [facility] [place] [phone] Encounter to determine viability of , single or unspecified fetus Social History Tobacco Use Types Packs/Day Years Used Date Smoking Tobacco: Never Smokeless Tobacco: Never Alcohol Use Standard Drinks/Week Comments Not Currently 0 (1 standard drink = 0.6 oz pur e alcohol) [facility] Utilities Answer Date Recorded In the past 12 months has [employer] electric, gas, oil, or water company [...] and heating? Not hard at all 04/24/2025 [facility] [facility] Occupat ional [facility] - Occupational Stress [...] things needed for daily living? No 04/24/2025 [place] Depression Scale Answer Date Recorded [place] Depression Scale Total 0 05/05/2025 The thought [...] GED or equivalent No 04/24/2025 Preferred Language Slovenian 04/24/2025 PHQ-2 Answer Date Recorded Patient Health [...] of Assessment Author 0 04/24/2025 1:36 AM TRINITYT Casi Stephen RN * [...] 9:57 PM TRINITYT Casi Stephen RN * [place] Suicide Severity Rating Scale (Screener/Recent Self-Report) Question [...] Info) Description 06/09/2025 1:40 PM EDT Visit [facility] O[facility]YN [address] [facility] [address] [place] [id number] Moise Knowles MD [address] [facility] [address] [place] [id number] documented as of this encounter Procedures Procedure Name Priority Date/Time Associated Diagnosis Comments US OB TRANSVAGINAL Routine 10/23/2024 8: 27 AM EST Encounter to determine viability of , single or unspecified fetus documented in this encounter Results * US Ob Transvaginal (10/23/2024 8:27 AM EST) Anatomical Region Laterality Modality Body Ultrasound 10/23/2024 8:21 AM EST Narrative 10/28/2024 7:00 AM EST PAT NAME: ADILENE IGNACIO MED REC#: [id number] DA: 1995 PAT GEND: F PAT TYPE: O EXAM SVEN: [id number] REF PHYS MOISE KNOWLES Indication ======== viability Comparison Studies There are no relevant prior studies to which this study is being compared History ====== General History Height 152 cm Height (ft) 5 ft Height (in) 0 in Previous Outcomes 2 Para 1 Method ======= Transvaginal ultrasound examination, [place] E6. View: Adequate view ========= Nava . Number of fetuses: 1 Single intrauterine present Dating ====== Method of dating: based on ultrasound Ultrasound examination on: 10/23/2024 GA by U/S based upon: CRL GA by U/S 11 w + 1 d HENNA by U/S: 05/13/2025 Assigned: based on ultrasound (CRL), selected on 10/23/2024 Assigned GA 11 w + 1 d Assigned HENNA: 05/13/2025 length 280 d Assessment Gestational sac: visualized Location: intrauterine Yolk sac: visualized YS 2.5 mm <1% [place] Embryo: visualized CRL 42.2 mm 11w 1d 22% [place] Cardiac activity: present FHR 167 bpm 52% Nicolaides Placenta: Too early to evaluate Maternal Structures Uterus / Cervix Uterus: Visualized Cervix: Visualized Ovaries / Tubes / Adnexa Rt ovary: Visualized Rt ovarian corpus luteum: visualized Lt ovary: Visualized Impression ========= Single viable intrauterine with normal cardiac activity Recommendation Follow-up as clinically indicated. Floor Sanding Machine Operator: Azra Bridges RDMS Physician: Moise Knowles MD Electronically signed by: Moise Knowles MD at: 07:00 Procedure Note Moise Knowles MD - 10/28/2024 PAT NAME: ADILENE IGNACIO MED REC#: [id number] DA: 1995 PAT GEND: F PAT TYPE: O EXAM SVEN: [id number] REF PHYS MOISE KNOWLES Indication ======== viability Comparison Studies There are no relevant prior studies to which this study is beingcompared History ====== General History [id number] cm Height (ft)5 ft Height (in)0 in Previous Outcomes Gravida2 Para1 Method ======= Transvaginal ultrasound examination, [place] E6. View: Adequate view ========= Nava . Number of fetuses: 1 Single intrauterine present Dating ====== Method of dating:based on ultrasound Ultrasound examination on:10/23/2024 GA by U/S based upon:CRL GA by U/S11 w + 1 d HENNA by U/S:05/13/2025 Assigned:based on ultrasound (CRL), selected on 10/23/2024 Assigned GA11 w + 1 d Assigned HENNA:05/13/2025 d Assessment Gestational sac:visualized Location:intrauterine Yolk sac:visualized YS2.5 mm <1% [place] Embryo:visualized CRL42.2 mm 11w 1d 22% [place] Cardiac activity:present [id number] bpm 52% Nicolaides Placenta:Too early to evaluate Maternal Structures Uterus / Cervix Uterus:Visualized Cervix:Visualized Ovaries / Tubes / Adnexa Rt ovary:Visualized Rt ovarian corpus luteum:visualized Lt ovary:Visualized Impression ========= Single viable intrauterine with normal cardiac activity Recommendation Follow-up as clinically indicated. Floor Sanding Machine Operator: Azra Bridges RDUT Physician: Moise Knowles MD Electronically signed by: Moise Knowles MD at: 07:00 us Moise Knowles MD IMG US ORDERABLES Final Re sult documented in this encounter Visit Diagnoses Diagnosis Encounter to determine viability of , single or unspecified fetus documented in this encounter Care Teams Diamond Wheel Edger Relationship Specialty Start Date End Date Gabriel Lynch MD [facility] [address] [place] [address] PCP - General Family Medicine 07/09/23 documented as of this encounter
--- OUTSIDE RECORDS SUMMARY | 2024-11-24 10:25 | XMS_ITS | Encounter Summary ---
Author Organization [facility] Address [address] [place] [address] Care Team Providers Care Primer Expeditor And Drier Name Role Phone Gabriel Lynch MD Primary Care Provider [phone] Reason for Referral * Diagnostic Imaging (Routine) - Closed Specialty Diagnoses / Procedures Referred By Contact Referred To Contact Obstetrics and Gynecology Diagnoses 16 weeks gestation of Procedures US OB Gender Scan Racheal Tse CNM [address] [place] [address] Phone: tel: fax: [facility] OBGYN [address] [place] [phone] Phone: tel: fax: Referral ID Status Reason Start Date Expiration Date Visits Re quested Visits Authorized [id number] Closed 11/11/2024 11/11/2025 1 1 Reason for Visit * Diagnostic Imaging (Routine) - Closed Specialty Diagnoses / Procedures Referred By Contact Referred To Contact Obstetrics and Gynecology Diagnoses 16 weeks gestation of Procedures US OB Gender Scan Racheal Tse CNM [address] [address] Phone: tel: fax: [facility]YN [address] [facility] [address] [place] [address] Phone: tel: fax: Referral ID Status Reason Start Date Expiration Date Visits Re quested Visits Authorized [id number] Closed 11/11/2024 11/11/2025 1 1 Encounter Details Date Type Department Care Team (Latest Contact Info) Description 11/24/2024 9:25 AM EST Hospital Encounter [facility] [phone] 16 weeks gestation of Social History Tobacco Use Types Packs/Day Years Used Date Smoking Tobacco: Never Smokeless Tobacco: Never Alcohol Use Standard Drinks/Week Comments Not Currently 0 (1 standard drink = 0.6 oz pur e alcohol) [facility] Utilities Answer Date Recorded In the [...] and heating? Not hard at all 04/24/2025 [facility] [place] of Occupat ional Health - Occupational Stress [...] things needed for daily living? No 04/24/2025 [place] Depression Scale Answer Date Recorded [place] Depression Scale Total 0 05/05/2025 The thought [...] GED or equivalent No 04/24/2025 Preferred Language Prydeinig 04/24/2025 PHQ-2 Answer Date Recorded Patient Health [...] 9:57 PM TRINITYT Casi Stephen RN * [place] Suicide Severity Rating Scale (Screener/Recent Self-Report) Question [...] Info) Description 06/09/2025 1:40 PM EDT Visit [facility] OBGYN [address] [facility] [address] [place] [id number] John Bolton MD [address] [facility] [address] [place] [address] documented as of this encounter Procedures Procedure Name Priority Date/Time Associated Diagnosis Comments US OB GENDER SCAN Routine 11/24/2024 10: 16 AM EST 16 weeks gestation of documented in this encounter Results * US OB Gender Scan (11/24/2024 10:16 AM EST) Narrative SYSTEMGENERATED, DOCUMENTATION - 11/24/2024 10:16 AM EST This procedure was auto-finalized with no dictation required. Racheal Tse [facility] US ORDERABLES Final Resul t documented in this encounter Visit Diagnoses Diagnosis 16 weeks gestation of documented in this encounter Care Teams Primer Expeditor And Drier Relationship Specialty Start Date End Date Gabriel Lynch MD [address] [facility] [address] [place] [address] PCP - General Family Medicine 07/09/23 documented as of this encounter
--- OUTSIDE RECORDS SUMMARY | 2024-12-05 10:30 | XMS_ITS ---
Author Organization [facility] Address [address] [facility] [address] [place] [id number] Care Team Providers Care Claim Auditor Name Role Phone Uriah Lynch Primary Care Provider [phone] Selma Khan [phone] Allergies Allergen (clinical drug ingredient) Drug/Non Drug Allergy documented on EMR Reaction Allergy Type Onset Date Status Penicillin Unknown Drug Allergy Active REASON FOR VISIT ckup & refills Medications Medication SIG (Take, Route, Frequency, Duration) Notes Start Date End Date Status Metoprolol Succinate ER 25 MG 1 tablet orally once daily; Duration: 90 days Active Vital Signs Blood pressure systolic 110 mm Hg 12/05/19 25 Blood pressure diastolic 68 mm Hg 025 Heart Rate 98 /min 12/05/2024 Height 59.50 in 12/05/2024 Weight 135.4 lbs 12/05/2024 BMI 26.89 kg/m2 12/05/2024 Encounters Encounter Location Date Provider Diagnosis [facility] [address] [place] [id number] 12/05/2024 Selma Khan Palpitations R00.2 a nd TMJ dysfunction M26.609 Assessments Encounter Date Diagnosis (ICD Code) Assessment Notes Treatment Notes Treatment Clinical Notes Section Notes 12/05/2024 Palpitations (ICD-10 - R00.2) 12/05/2024 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 She can avoid chewing gum and wear a mouth guard at night. Can take tylenol. Plan Of Treatment Medication Medication Name Sig Start Date Stop Date Notes Metoprolol Succinate ER 25 MG 1 tablet o rally once daily; Duration: 90 days Treatment Notes Assessment Notes TMJ dysfunction Patient is 4 weeks p regnant so we cannot give steroids or NSAIDS. She can avoid chewing gum and wear a mouth guard at night. Can take tylenol. Next Appt Details Follow Up: prn, Reason: Progress Notes * ADILENE IGNACIODOB: 4 (29 yo F)Acc No.[id number]:12/05/2024 Progress Notes Patient: ADILENE RAY Provider: CHALO Doan :1995 A ge:29 Y S ex:Female Date:12/05/2024 Address:[facility] [address] [id number] Pcp:Uriah Lynch Subjective: * Chief Complaints: * 1 . Ckup & refills. * HPI: H PI: 29 year old female presents with c/o Patient is here today for?Pt is here for a check up and refills on her Metoprolol medication. Pt sts she has been having some jaw pain for 3 days that she would like to discuss today as well. * ROS: D ERMATOLOGY: no R flakito. n o H nata. G ASTROENTEROLOGY: no N ausea. n o V omiting. n o D iarrhea.? U ROLOGY: no D ifficulty urinating. n o B lood in urine. * 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: V itamin D deficiency, Abnormal IHSAN 2011, repeat normal, seen at [facility], Hypoglycemia, Holter 2010, Echo 2010. * Surgical History: t ooth extraction 2008, laparoscopy - Dr. Thomas 01/2016, laparoscopy, endometriosis- Dr. Christopher 08/2020, Laproscopy and septal excision - Dr. Av Watkins Nov 15, 2020. * Hospitalization/Major Diagno stic Procedure: H ER- Dehydration 06/03/2020. * Family History: F ather: alive 63 yrs. M other: , hypertension, diabetes. 2 brother(s) - healthy. . * Social History: C URRENT TOBACCO USE S moking Status: Patient does NOT smoke. C affeine: yes, frequency:. Home smoke detector use: yes. Marital Status: Single. 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 Past smoking status: no, Smoking status: Does not smoke. Recreational drug use: no. Alcohol: no. * Medications: T aking Metoprolol Succinate ER 25 MG Tablet Extended Release 24 Hour 1 tablet orally once daily , Medication List reviewed and reconciled with the patient * Allergies: P enicillin. Objective: * Vitals: W t:135.4, Temp:98.6, BP:110/68, HR:98, O2 Sat:98% on RA, Nurse:[facility], Ht: 59.50, BMI:26.89. * Examination: G eneral Examination: General Appearance: N AD. O ral cavity: mucosa moist and WNL, no erythema, ttp along bilateral TMJ joints and clicking when opening and closing mouth. C hest: n ormal shape and expansion. H eart: R SR. L ungs: c lear to auscultation. A bdomen: bowel sounds present, soft and nontender, no organomegaly or masses, no guarding or rigidity. Assessment: * Assessment: 1. P alpitations - R00.2 (Primary) 2 . T MJ dysfunction - M26.609 ? Plan: * Treatment: 2. T MJ dysfunction Notes: Patient is 4 weeks so we cannot give steroids or NSAIDS. She can avoid chewing gum and wear a mouth guard at night. Can take tylenol. * Procedure Codes: 9 4760 PULSE OX, 3074F SYST BP LT 130 MM HG, 3078F DIAST BP < 80 MM HG * Follow Up: p rn * Images: Billing Information: * Visit Code: 23890 Office Visit, Est Pt., Level 3. * Procedure Codes: 89397 PULSE OX. 3074F SYST BP LT 130 MM HG. 3078F DIAST BP < 80 MM HG. * Electronic signature of CHALO Tolliver on 05/30/2025 at 05:06 AM EDT Sign off status: Pending * Provider: CHALO Doan Date: 0 12/05/2024 Generated for Ananya cruz/Lew/eTransmitting on: 0 05/30/2025 05:06 AM EDT History and Physical Notes * HPI (History of Present Illness) Category Sub-Category Detail Notes Category Not es HPI Patient is here today for Pt is here for a check up and refills on her Metoprolol medication. Pt sts she has been having some jaw pain for 3 days that she would like to discuss today as well Examination Category Sub-Category Detail Notes Category Not es General Examination Heart: RSR Lungs: clear to auscultatio n Abdomen: bowel sounds present , soft and nontender, no organomegaly or masses, no guarding or rigidity General Appearance: NAD Oral cavity: mucosa moist and WNL , no erythema, ttp along bilateral TMJ joints and clicking when opening and closing mouth Chest: normal shape and exp ansion
--- OUTSIDE RECORDS SUMMARY | 2024-12-23 14:00 | XMS_ITS | Encounter Summary ---
Author Organization [facility] Address [address] [place] [address] Care Team Providers Care Justowriter Operator Name Role Phone Gabriel Lynch MD Primary Care Provider [phone] Reason for Referral * Diagnostic Imaging (Routine) - Closed Specialty Diagnoses / Procedures Referred By Contac t Referred To Contact Radiology Diagnoses care, subsequent in second trimester Procedures US Ob 14 + Weeks Single or First Gestation Moise Knowles MD [address] [place] [address] Phone: tel: fax: [facility] Phone: tel: Referral ID Status Reason Start Date Expiration Date Visits Re quested Visits Authorized [id number] Closed 11/24/2024 11/24/2025 1 1 Reason for Visit * Diagnostic Imaging (Routine) - Closed Specialty Diagnoses / Procedures Referred By Contac t Referred To Contact Radiology Diagnoses care, subsequent in second trimester Procedures US Ob 14 + Weeks Single or First Gestation Moise Knowles MD [address] [place] [address] Phone: tel: fax: [facility] Phone: tel: Referral ID Status Reason Start Date Expiration Date Visits Re quested Visits Authorized [id number] Closed 11/24/2024 11/24/2025 1 1 Encounter Details Date Type Department Care Team (Latest Contact Info) Description 12/23/2024 2:00 PM EDT Hospital Encounter [facility] [place] [phone] care, subsequent in second trimester Social History Tobacco Use Types Packs/Day Years Used Date Smoking Tobacco: Never Smokeless Tobacco: Never Alcohol Use Standard Drinks/Week Comments Not Currently 0 (1 standard drink = 0.6 oz pur e alcohol) [facility] Utilities Answer Date Recorded In the [...] and heating? Not hard at all 04/24/2025 [facility] [place] of Occupat ional Health - Occupational Stress [...] things needed for daily living? No 04/24/2025 [place] Depression Scale Answer Date Recorded [place] Depression Scale Total 0 05/05/2025 The thought [...] GED or equivalent No 04/24/2025 Preferred Language Ethiopian 04/24/2025 PHQ-2 Answer Date Recorded Patient Health [...] (Past 1 Month) No 04/23/2025 9:57 PM TRINITYT Cinda Stephen RN * Calculated C-SSRS Risk Score (Lifetime/Recent) Answer Date of Assessment Author No Risk Indicated 04/23/2025 9:57 PM Casi Woody RN * [place] Suicide Severity Rating Scale (Screener/Recent Self-Report) Question Answer Date of Assessment Author 6. Suicidal Behavior (Lifetime) No 9:57 PM Casi Woody RN * Question Answer Date of Assessment Author Little interest or pleasure in doing things Not at all 04/24/2025 1:36 AM Casi Woody R N Feeling down, depressed, or hopeless Not at all 04/24/2025 1:36 AM TRINITYT Casi Stephen R N documented as of this encounter Plan of Treatment Upcoming Encounters Date Type Department Care Team (Late st Contact Info) Description 06/09/2025 1:40 PM EDT Visit [facility] OBGYN [address] [facility] [address] [place] [address] Moise Knowles MD [address] [place] [address] documented as of this encounter Procedures Procedure Name Priority Date/Time Associated Diagnosis Comments US OB 14 + WEEKS SINGLE OR FIRST GESTATION Routine 12/23/2024 2:36 PM EDT care, subsequent in second trimester documented in this encounter Results * US Ob 14 + Weeks Single or First Gestation (12/23/2024 2:36 PM EDT) Anatomical Region Laterality Modality Body Ultrasound 12/23/2024 2:07 PM EDT Narrative 12/28/2024 8:04 AM EDT PAT NAME: ADILENE IGNACIO MED REC#: [id number] DA: 1995 PAT GEND: F PAT TYPE: O EXAM SVEN: [id number] REF PHYS MOISE KNOWLES Indication ======== anatomy survey Comparison Studies There are no relevant prior studies to which this study is being compared History ====== General History Height 152 cm Height (ft) 5 ft Height (in) 0 in Previous Outcomes 2 Para 1 Method ======= Voluson E6, Transabdominal ultrasound examination. View: Sufficient view ========= Nava . Number of fetuses: 1 Dating ====== GA by prior assessment 19 w + 6 d HENNA by prior assessment: 05/13/2025 Ultrasound examination on: 12/23/2024 GA by U/S based upon: AC, BPD, Femur, HC GA by U/S 20 w + 1 d HENNA by U/S: 05/11/2025 Method of dating: Restore dating from previous exam Previous dating: based on ultrasound (CRL), selected on 10/23/2024 Agreed HENNA of previous datin05/13/2025 Assigned: based on ultrasound (CRL), selected on 10/23/2024 Assigned GA 19 w + 6 d Assigned HENNA: 05/13/2025 length 280 d General Evaluation Cardiac activity present. FHR 153 bpm. movements present. Presentation cephalic. Placenta Placental site: anterior, left. Umbilical cord Cord vessels: 3 vessel cord. Amniotic fluid Amount of AF: normal. Biometry Standard BPD 47.2 mm 20w 2d 68% Hadlock OFD 61.3 mm 21w 1d 87% Amarilis HC 174.0 mm 20w 0d 46% Hadlock Cerebellum tr 21.3 mm 20w 1d 82% Hill AC 144.4 mm 19w 5d 41% Hadlock Femur 33.0 mm 20w 2d 59% Hadlock HC / AC 1.20 73% Hadlock EFW 327 g EFW (lb) 0 lb EFW (oz) 12 oz EFW by: Hadlock ([id number]-FL) Head / Face / Neck Cephalic index 0.77 30% Nicolaides Extremities / Bony Struc FL / BPD 0.70 52% Hadlock FL / HC 0.19 68% Hadlock FL / AC 0.23 82% Hadlock Other Structures FHR 153 bpm Anatomy Cranium: Appears normal Lateral ventricles: Appears normal Choroid plexus: Appears normal Midline falx: Appears normal Cavum septi pellucidi: Appears normal Cerebellum: Appears normal Cisterna magna: Appears normal Lips: Appear normal Profile: Appears normal Nose: Appears normal 4-chamber view: Appears normal RVOT view: Appears normal LVOT view: Appears normal Heart / Thorax 3-vessel view: Appears normal 9-cpuiej-iuccbac view: Appears normal Diaphragm: Appears normal Diaphragm: Intact Cord insertion: Appears normal Stomach: Appears normal Kidneys: Appears normal Bladder: Appears normal Abdomen Abdom. wall: Abdominal wall is intact Stomach: left-sided Cervical spine: Appears normal Thoracic spine: Appears normal Lumbar spine: Appears normal Sacral spine: Appears normal Arms: Appears normal Legs: Appears normal Rt arm: Appears normal Lt arm: Appears normal Rt hand: Appears normal Lt hand: Appears normal Rt leg: Appears normal Lt leg: Appears normal Rt foot: Appears normal Lt foot: Appears normal Gender: male Wants to know gender: yes Maternal Structures Uterus / Cervix Uterus: Visualized Cervix: Visualized Ovaries / Tubes / Adnexa Rt ovary: Not visualized Lt ovary: Not visualized Impression ========= Single viable intrauterine with normal cardiac activity and biometry consistent with clinical dates. No structural abnormalities are seen on today's scan. Anatomic survey is now complete. Recommendation Follow-up scan as clinically indicated. Labour Market Economist: Azra Bridges RDMS Physician: Moise Knowles MD Electronically signed by: Moise Knowles MD at: 08:04 Procedure Note Moise Knowles MD - 12/28/2024 PAT NAME: ADILENE IGNACIO MED REC#: [id number] DA: 1995 PAT GEND: F PAT TYPE: O EXAM SVEN: [id number] REF PHYS MOISE KNOWLES Indication ======== anatomy survey Comparison Studies There are no relevant prior studies to which this study is beingcompared History ====== General History Jygdfr209 cm Height (ft)5 ft Height (in)0 in Previous Outcomes Gravida2 Para1 Method ======= Voluson E6, Transabdominal ultrasound examination. View: Sufficient view ========= Nava . Number of fetuses: 1 Dating ====== GA by prior [id number] w + 6 d HENNA by prior assessment:05/13/2025 Ultrasound examination on:12/23/2024 GA by U/S based upon:AC, BPD, Femur, HC GA by U/S20 w + 1 d HENNA by U/S:05/11/2025 Method of dating:Restore dating from previous exam Previous dating:based on ultrasound (CRL), selected on 10/23/2024 Agreed HENNA of previous datin05/13/2025 Assigned:based on ultrasound (CRL), selected on 10/23/2024 Assigned GA19 w + 6 d Assigned HENNA:05/13/2025 [id number] d General Evaluation Cardiac activity present. FHR 153 bpm. movements present. Presentation cephalic. Placenta Placental site: anterior, left. Umbilical cord Cord vessels: 3 vessel cord. Amniotic fluid Amount of AF: normal. Biometry Standard BPD47.2 mm 20w 2d 68% Hadlock OFD61.3 mm 21w 1d 87% Amarilis HC174.0 mm 20w 0d 46% Hadlock Cerebellum tr21.3 mm 20w 1d 82% Hill AC144.4 mm 19w 5d 41% Hadlock Femur33.0 mm 20w 2d 59% Hadlock HC / AC1.20 73% Hadlock BVZ945 g EFW (lb)0 lb EFW (oz)12 oz EFW by:Hadlock (TMS-RL-BR-FL) Head / Face / Neck Cephalic index0.77 30% Nicolaides Extremities / Bony Struc FL / BPD0.70 52% Hadlock FL / HC0.19 68% Hadlock FL / AC0.23 82% Hadlock Other Structures OFP520 bpm Anatomy Cranium:Appears normal Lateral ventricles:Appears normal Choroid plexus:Appears normal Midline falx:Appears normal Cavum septi pellucidi:Appears normal Cerebellum:Appears normal Cisterna magna:Appears normal Lips:Appear normal Profile:Appears normal Nose:Appears normal 4-chamber view:Appears normal RVOT view:Appears normal LVOT view:Appears normal Heart / Thorax 3-vessel view:Appears normal 6-[id number]-[id number] view:Appears normal Diaphragm:Appears normal Diaphragm:Intact Cord insertion:Appears normal Stomach:Appears normal Kidneys:Appears normal Bladder:Appears normal Abdomen Abdom. wall:Abdominal wall is intact Stomach:left-sided Cervical spine:Appears normal Thoracic spine:Appears normal Lumbar spine:Appears normal Sacral spine:Appears normal Arms:Appears normal Legs:Appears normal Rt arm:Appears normal Lt arm:Appears normal Rt hand:Appears normal Lt hand:Appears normal Rt leg:Appears normal Lt leg:Appears normal Rt foot:Appears normal Lt foot:Appears normal Gender:male Wants to know gender:yes Maternal Structures Uterus / Cervix Uterus:Visualized Cervix:Visualized Ovaries / Tubes / Adnexa Rt ovary:Not visualized Lt ovary:Not visualized Impression ========= Single viable intrauterine with normal cardiac activity andbiometry consistent with clinical dates. No structural abnormalities are seen on today's scan. Anatomicsurvey is now complete. Recommendation Follow-up scan as clinically indicated. Labour Market Economist: Azra Bridges RDMS Physician: Moise Knowles MD Electronically signed by: Moise Knowles MD at: 08:04 us Moise Knowles MD IMG US ORDERABLES Final Re sult documented in this encounter Visit Diagnoses Diagnosis care, subsequent in second trimester documented in this encounter Care Teams Justowriter Operator Relationship Specialty Start Date End Date Gabriel Lynch MD [address] [facility] [address] [facility] [address] [place] [address] PCP - General Family Medicine 07/09/23 documented as of this encounter
--- OUTSIDE RECORDS SUMMARY | 2025-01-12 10:00 | XMS_ITS ---
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 Role Phone Uriah Lynch Primary Care Provider Gavi Robert Unavailable [phone] Allergies Allergen (clinical drug ingredient) Drug/Non Drug Allergy documented on EMR Reaction Allergy Type Onset Date Status Penicillin Unknown Drug Allergy Active Results Component Value Reference Range Notes P-CBC with Diff plus Absolut e Counts Reviewed date:01/13/2025 09:00:08 AM Interpretation: Performing Lab: Notes/Report: Test performed by [facility], [address] , [address], [place] [address] Paras Yanes MD, Cardiology Nurse CLIA: [id number] WBC 8.0 3.8-11.5 K/uL Red Blood Cell Count (RBC) 3.91 3.60-5.30 M/mm 3 Hemoglobin (Hgb) 12.1 11.5-15.5 gm/dL Hematocrit (HCT) 35.1 35.2-46.4 % MCV 89.8 79.0-99.0 fL MCH 30.9 26.9-35.0 pg MCHC 34.5 30.4-34.8 g/dL RDW 43.5 38.6-53.8 fL Platelet Count 273 137-397 K/cumm Neutrophils Automated 69.5 41.0-77.0 % Lymphocytes Automated 22.0 14.0-48.0 % Monocytes Automated 6.3 4.0-13.0 % Eosinophils Automated 1.5 0.0-8.0 % Basophils Automated 0.4 0.0-1.5 % Immature Granulocyte Automated 0.3 0.0-1.0 % Absolute Neutrophil Count 5.6 2.0-8.2 K/uL Absolute Lymphocyte Count 1.8 0.9-3.6 K/uL Absolute Monocyte Count 0.5 0.3-1.0 K/uL Absolute Eosinophil Count 0.1 0.0-0.6 K/uL Absolute Basophil Count 0.0 0.0-0.1 K/uL Absolute Immature Granulocyte 0.02 0.00-0.03 K /uL P-Comprehensive Metabolic Pa marie (CMP) Reviewed date:01/13/2025 09:00:46 AM Interpretation: Performing Lab: Notes/Report: Test performed by [facility], [address] , [address], [place] [address] Paras Yanes MD, Cardiology Nurse CLIA: [id number] Sodium 138 135-145 mmol/L Potassium 3.9 3.5-5.3 mmol/L Chloride 104 97-108 mmol/L CO2 20 22-32 mmol/L Glucose 105 65-99 mg/dL BUN 8 6-20 mg/dL Creatinine 0.41 0.50-1.00 mg/dL Calcium 9.0 8.6-10.4 mg/dL eGFR by Creatinine 135 >59 mL/min/1.73m2 Protein 6.5 6.0-8.3 g/dL Albumin 3.9 3.5-5.3 g/dL Alkaline Phosphatase 70 35-121 IU/L ALT (SGPT) 22 <5-47 IU/L AST (SGOT) 16 <5-40 IU/L Bilirubin, Total 0.2 <0.2-1.2 mg/dL A/G Ratio 1.5 1.1-2.5 REASON FOR VISIT itching Medications Medication SIG (Take, Route, Frequency, Duration) Notes Start Date End Date Status Metoprolol Succinate ER 25 MG 1 tablet orally once daily; Duration: 90 days Active Vital Signs Blood pressure systolic 110 mm Hg 01/13/20 25 Blood pressure diastolic 68 mm Hg 025 Heart Rate 111 /min 01/12/2025 Height 59.50 in 01/12/2025 Weight 138.6 lbs 01/12/2025 BMI 27.52 kg/m2 01/12/2025 Encounters Encounter Location Date Provider Diagnosis [facility] [address] [place] [id number] 01/12/2025 Gavi Robert Itching L29.9 and IU P (intrauterine ), incidental Z34.90 Assessments Encounter Date Diagnosis (ICD Code) Assessment Notes Treatment Notes Treatment Clinical Notes Section Notes 01/12/2025 Itching (ICD-10 - L29.9) OTC antihistamine of choice which she has; also bile acids were drawn today 01/12/2025 IUP (intrauterine ), incidental (ICD-10 - Z34.90) 01/12/2025 Other she is worried about her bile acid #; she sees her OB next week and will need a copy of lab results drawn today to take with her Plan Of Treatment Treatment Notes Assessment Notes Itching OTC antihistamine of choice which she has; also bile acids were drawn today Other she is worried about her bile acid #; she sees her OB next week and will need a copy of lab results drawn today to take with her Next Appt Details Follow Up: will notify of te st results, Reason: Progress Notes * ADILENE IGNACIODOB: 4 (29 yo F)Acc No.[id number]:01/12/2025 Progress Notes Patient: ADILENE RAY Provider: LAYA Bender :1995 A ge:29 Y S ex:Female Date:01/12/2025 Address:[address] [place] [address] [phone] Pcp:Uriah Lynch Subjective: * Chief Complaints: * 1 . Itching. * HPI: D ermatology: 29 year old female presents with c/o itching P t sts she is here today for itching mostly on the soles of her feet. Pt sts they have been itching for about a week. Pt sts there is no redness or rash. * ROS: D ERMATOLOGY: no R flakito. n o H nata. G ASTROENTEROLOGY: no N ausea. n o V omiting. n o D iarrhea.? U ROLOGY: no D ifficulty urinating. n o B lood in urine. * 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: V itamin D deficiency, Abnormal IHSAN 2011, repeat normal, seen at [facility], Hypoglycemia, Holter 2010, Echo 2010, history of Cholestasis ICP with last . * Surgical History: t ooth extraction 2008, laparoscopy - Dr. Thomas 01/2016, laparoscopy, endometriosis- Dr. Christopher 08/2020, Laproscopy and septal excision - Dr. Ley - [place] Nov 15, 2020. * Hospitalization/Major Diagno stic Procedure: [facility]- Dehydration 06/03/2020. * Family History: F ather: alive 63 yrs. M other: , hypertension, diabetes. 2 brother(s) - healthy. . * Social History: C URRENT TOBACCO USE S moking Status: Patient does NOT smoke. C affeine: yes, frequency:. Home smoke detector use: yes. Marital Status: Single. 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 Past smoking status: no, Smoking status: Does not smoke. Recreational drug use: no. Alcohol: no. * Medications: T amandag Metoprolol Succinate ER 25 MG Tablet Extended Release 24 Hour 1 tablet orally once daily , Medication List reviewed and reconciled with the patient * Allergies: P enicillin. Objective: * Vitals: W t: 138.6, Temp: 98.7, BP: 110/68, HR: 111, Nurse: [facility], Ht: 59.50, BMI:27.52. * Examination: G eneral Examination: General Appearance: NAD, appears healthy, alert, pleasant, Color good. H eart: RRR. L ungs: CTAB A&P. N eurologic Exam: alert and oriented. S kin: normal, no rash. E xtremities: no leg edema; no foot rash. Assessment: * Assessment: 1. I tching - L29.9 (Primary) S pecify :bilateral soles of feet 2 . I UP (intrauterine ), incidental - Z34.90 S pecify :23 weeks Plan: * Treatment: Value Reference Range A bsolute Basophil Count 0.0 0.0-0.1 - K/uL * A bsolute Eosinophil Count 0.1 0.0-0.6 - K/uL * A bsolute Immature Granulocyte 0.02 0.00-0.03 - K/uL * A bsolute Lymphocyte Count 1.8 0.9-3.6 - K/uL * A bsolute Monocyte Count 0.5 0.3-1.0 - K/uL * A bsolute Neutrophil Count 5.6 2.0-8.2 - K/uL * B asophils Automated 0.4 0.0-1.5 - % * E osinophils Automated 1.5 0.0-8.0 - % * H ematocrit (HCT) 35.1 L 35.2-46.4 - % * H emoglobin (Hgb) 12.1 11.5-15.5 - gm/dL * I mmature Granulocyte Automated 0.3 0.0-1.0 - % * L ymphocytes Automated 22.0 14.0-48.0 - % * M CH 30.9 26.9-35.0 - pg * M CHC 34.5 30.4-34.8 - g/dL * M CV 89.8 79.0-99.0 - fL * M onocytes Automated 6.3 4.0-13.0 - % * P latelet Count 273 137-397 - K/cumm * R ed Blood Cell Count (RBC) 3.91 3.60-5.30 - M/ mm3 * R DW 43.5 38.6-53.8 - fL * N eutrophils Automated 69.5 41.0-77.0 - % * W BC 8.0 3.8-11.5 - K/uL * Gavi Robert 01/13/2025 8 :59:56 AM > I spoke with pt and reported results ?LAB: P-Comprehensive Metabolic Panel (CMP) (Collection Date & Time - 01/12/2025 02:21 PM)* Value Reference Range A /G Ratio 1.5 1.1-2.5 - * A lbumin 3.9 3.5-5.3 - g/dL * A lkaline Phosphatase 70 35-121 - IU/L * A LT (SGPT) 22 <5-47 - IU/L * A ST (SGOT) 16 <5-40 - IU/L * B ilirubin, Total 0.2 <0.2-1.2 - mg/dL * B UN 8 6-20 - mg/dL * C alcium 9.0 8.6-10.4 - mg/dL * C hloride 104 97-108 - mmol/L * C O2 20 L 22-32 - mmol/L * C reatinine 0.41 L 0.50-1.00 - mg/dL * G lucose 105 H 65-99 - mg/dL * P otassium 3.9 3.5-5.3 - mmol/L * S odium 138 135-145 - mmol/L * P rotein 6.5 6.0-8.3 - g/dL * e GFR by Creatinine 135 >59 - mL/min/1.73m2 * Gavi Robert 01/13/2025 9 :00:32 AM > I spoke with pt and reported results Notes: OTC antihistamine of choice which she has; also bile acids were drawn today??2.?Others? Notes: she is worried about her bile acid #; she sees her OB next week and will need a copy of lab results drawn today to take with her?? * Procedure Codes: 3 074F SYST BP LT 130 MM HG, 3078F DIAST BP < 80 MM HG * Follow Up: w ill notify of test results * Images: Billing Information: * Visit Code: 99260 Office Visit, Est Pt., Level 3. * Procedure Codes: 3074F SYST BP LT 130 MM HG. 3078F DIAST BP < 80 MM HG. * Electronic signature of Lilian Robert APRN on 05/30/2025 at 05:09 AM EDT Sign off status: Pending * Provider: LAYA Bender Date: 0 01/12/2025 Generated for Ananya cruz/Lew/Latoya on: 0 05/30/2025 05:09 AM EDT History and Physical Notes * HPI (History of Present Illness) Category Sub-Category Detail Notes Category Not es Dermatology itching Pt sts she is he re today for itching mostly on the soles of her feet. Pt sts they have been itching for about a week. Pt sts there is no redness or rash Examination Category Sub-Category Detail Notes Category Not es General Examination Heart: RRR Lungs: CTAB A&P Extremities: no leg edema; no viri t rash General Appearance: NAD, appears healthy , alert, pleasant, Color good Skin: normal, no rash Neurologic Exam: alert and oriented
--- OUTSIDE RECORDS SUMMARY | 2025-03-09 11:00 | XMS_ITS | Encounter Summary ---
Author Organization [facility] Address [address] [place] [address] Care Team Providers Care Health Administration Teacher Name Role Phone Gabriel Lynch MD Primary Care Provider [phone] Reason for Referral * Diagnostic Imaging (Routine) - Closed Specialty Diagnoses / Procedures [facility] Referred To Contact Obstetrics and Gynecology Diagnoses H/O intrauterine growth restriction in prior , currently Procedures US Ob Follow Up Transabdominal Approach Moise Knowles MD [address] [address] Phone: tel: fax: [facility] [address] [address] Phone: tel: fax: Referral ID Status Reason Start Date Expiration Date Visits Re quested Visits Authorized [id number] Closed 02/23/2025 05/25/2026 1 1 Reason for Visit * Diagnostic Imaging (Routine) - Closed Specialty Diagnoses / Procedures Referred By Contac t Referred To Contact Obstetrics and Gynecology Diagnoses H/O intrauterine growth restriction in prior , currently Procedures US Ob Follow Up Transabdominal Approach Moise Knowles MD [address] [place] [address] Phone: tel: fax: [facility] [address] [place] [address] Phone: tel: fax: Referral ID Status Reason Start Date Expiration Date Visits Re quested Visits Authorized [id number] Closed 02/23/2025 05/25/2026 1 1 Encounter Details Date Type Department Care Team (Late st Contact Info) Description 03/09/2025 11:00 AM EDT Hospital Encounter [facility] [phone] Prior IUGR Social History Tobacco Use Types Packs/Day Years Used Date Smoking Tobacco: Never Smokeless Tobacco: Never Alcohol Use Standard Drinks/Week Comments Not Currently 0 (1 standard drink = 0.6 oz pur e alcohol) [facility] Utilities Answer Date Recorded In the past 12 months has e [employer], gas, oil, or water [employer] threatened to shut off services in your [...] and heating? Not hard at all 04/24/2025 [facility] Occupat ional Health - Occupational Stress [...] things needed for daily living? No 04/24/2025 [place] Depression Scale Answer Date Recorded [place] Depression Scale Total 0 05/05/2025 The thought [...] GED or equivalent No 04/24/2025 Preferred Language Central African 04/24/2025 PHQ-2 Answer Date Recorded Patient Health [...] drink containing alcohol? Never 04/24/2025 1:36 AM TRINITYT Casi Stephen R N Q2: How many [...] 04/23/2025 9:57 PM Casi Woody RN * [place] Suicide Severity Rating Scale (Screener/Recent Self-Report) Question Answer Date of Assessment Author 6. Suicidal Behavior (Lifetime) No 9:57 PM Casi Woody RN * Question Answer Date of Assessment Author Little interest or pleasure in doing things Not at all 04/24/2025 1:36 AM Casi Woody R N Feeling down, depressed, or hopeless Not at all 04/24/2025 1:36 AM Casi Woody R N documented as of this encounter Plan of Treatment Upcoming Encounters Date Type Department Care Team (Late st Contact Info) Description 06/09/2025 1:40 PM EDT Visit [facility] [address] [facility] [address] [place] [address] Moise Knowles MD [address] [facility] [address] [place] [id number] documented as of this encounter Procedures Procedure Name Priority Date/Time Associated Diagnosis Comments US OB FOLLOW UP TRANSABDOMINAL APPROACH Routine 03/09/2025 11:32 AM EDT Prior IUGR documented in this encounter Results * US Ob Follow Up Transabdominal Approach (03/09/2025 11:32 AM EDT) Anatomical Region Laterality Modality Body Ultrasound 03/09/2025 11:1 8 AM EDT Narrative 03/24/2025 9:55 PM EDT PAT NAME: ADILENE IGNACIO MED REC#: [id number] DA: 1995 PAT GEND: F PAT TYPE: O EXAM SVEN: [id number] REF PHYS MOISE KNOWLES Indication ======== check EFW Dx: Prior IUGR [O09.299 (ICD-10-CM)] Comparison Studies There are no relevant prior studies to which this study is being compared History ====== General History Height 152 cm Height (ft) 5 ft Height (in) 0 in Previous Outcomes 2 Para 1 Method ======= Voluson E6, Transabdominal ultrasound examination ========= Nava . Number of fetuses: 1 Dating ====== GA by prior assessment 30 w + 5 d HENNA by prior assessment: 05/13/2025 Ultrasound examination on: 03/09/2025 GA by U/S based upon: AC, BPD, Femur, HC GA by U/S 31 w + 1 d HENNA by U/S: 05/10/2025 Method of dating: Restore dating from previous exam Previous dating: based on ultrasound (CRL), selected on 10/23/2024 Agreed HENNA of previous datin05/13/2025 Assigned: based on ultrasound (CRL), selected on 10/23/2024 Assigned GA 30 w + 5 d Assigned HENNA: 05/13/2025 length 280 d General Evaluation Cardiac activity present. FHR 142 bpm. movements visualized. Presentation breech. Placenta Placental site: anterior. Amniotic fluid Amount of AF: normal. Biometry Standard BPD 80.3 mm 32w 2d 83% Hadlock OFD 102.9 mm 33w 3d 97% Amarilis HC 293.0 mm 32w 2d 60% Hadlock AC 258.1 mm 30w 0d 24% Hadlock Femur 57.7 mm 30w 1d 22% Hadlock HC / AC 1.14 EFW 1,574 g 30w 1d 29% Hadlock EFW (lb) 3 lb EFW (oz) 8 oz EFW by: Hadlock ([id number]) Other: An ultrasound for weight has a margin of error of up to twenty percent. Head / Face / Neck Cephalic index 0.78 35% Nicolaides Extremities / Bony Struc FL / BPD 0.72 FL / HC 0.20 FL / AC 0.22 Other Structures FHR 142 bpm Anatomy Lateral ventricles: Appears normal 4-chamber view: Appears normal Stomach: Appears normal Kidneys: Appears normal Bladder: Appears normal Gender: male Wants to know gender: yes Impression ========= There is appropriate interval growth & normal amniotic fluid quantity Recommendation Follow-up ultrasound scan for further assessment of growth as clinically indicated. Materials Director: Azra Bridges RDMS Physician: Moise Knowles MD Electronically signed by: Moise Knowles MD at: 21:55 Procedure Note Moise Knowles MD - 03/24/2025 PAT NAME: ADILENE IGNACIO MED REC#: [id number] DA: 1995 PAT GEND: F PAT TYPE: O EXAM SVEN: [id number] REF PHYS TIFFANY KNOWLESLEY Indication ======== check EFW Dx: Prior IUGR [O09.299 (ICD-10-CM)] Comparison Studies There are no relevant prior studies to which this study is beingcompared History ====== General History [id number] cm Height (ft)5 ft Height (in)0 in Previous Outcomes Gravida2 Para1 Method ======= Voluson E6, Transabdominal ultrasound examination ========= Nava . Number of fetuses: 1 Dating ====== GA by prior [id number] w + 5 d HENNA by prior assessment:05/13/2025 Ultrasound examination on:03/09/2025 GA by U/S based upon:AC, BPD, Femur, HC GA by U/S31 w + 1 d HENNA by U/S:05/10/2025 Method of dating:Restore dating from previous exam Previous dating:based on ultrasound (CRL), selected on 10/23/2024 Agreed HENNA of previous datin05/13/2025 Assigned:based on ultrasound (CRL), selected on 10/23/2024 Assigned GA30 w + 5 d Assigned HENNA:05/13/2025 [id number] d General Evaluation Cardiac activity present. FHR 142 bpm. movements visualized. Presentation breech. Placenta Placental site: anterior. Amniotic fluid Amount of AF: normal. Biometry Standard BPD80.3 mm 32w 2d 83% Hadlock OUD840.9 mm 33w 3d 97% Amarilis HC293.0 mm 32w 2d 60% Hadlock AC258.1 mm 30w 0d 24% Hadlock Femur57.7 mm 30w 1d 22% Hadlock HC / AC1.14 EFW1,574 g 30w 1d 29% Hadlock EFW (lb)3 lb EFW (oz)8 oz EFW by:Hadlock ([id number]-FL) Other:An ultrasound for weight has a margin of error of up totwenty percent. Head / Face / Neck Cephalic index0.78 35% Nicolaides Extremities / Bony Struc FL / BPD0.72 FL / HC0.20 FL / AC0.22 Other Structures [id number] bpm Anatomy Lateral ventricles:Appears normal 4-chamber view:Appears normal Stomach:Appears normal Kidneys:Appears normal Bladder:Appears normal Gender:male Wants to know gender:yes Impression ========= There is appropriate interval growth & normal amniotic fluidquantity Recommendation Follow-up ultrasound scan for further assessment of growth as clinicallyindicated. Materials Director: Azra Bridges RDMS Physician: Moise Knowles MD Electronically signed by: Moise Knowles MD at: 21:55 us Moise Knowles MD IMG US ORDERABLES Final Re sult documented in this encounter Visit Diagnoses Diagnosis Prior IUGR documented in this encounter Care Teams Health Administration Teacher Relationship Specialty Start Date End Date Gabriel Lynch MD [address] [place] [address] [address] [facility] [address] [place] [address] PCP - General Family Medicine 07/09/23 documented as of this encounter
--- OUTSIDE RECORDS SUMMARY | 2025-03-26 10:56 | XMS_ITS | Encounter Summary ---
Author Organization [facility] Address [address] [place] [address] Care Team Providers Care Air Traffic Controller Name Role Phone Gabriel Lynch MD Primary Care Provider [phone] Reason for Visit * Diagnostic Imaging (Routine) - Canceled Specialty Diagnoses / Procedures Referred By Contact Referred To Contact Obstetrics and Gynecology Diagnoses Intrahepatic cholestasis of , third trimester Procedures US Biophysical Profile;Without Non-Stress Testing Moise Knowles MD [address] [address] Phone: tel: fax: [facility] [address] [address] Phone: tel: fax: Referral ID Status Reason Start Date Expiration Date V isits Requested Visits Authorized [id number] Canceled 03/06/2025 06/05/2026 10 10 Encounter Details Date Type Department Care Team (Late st Contact Info) Description 03/26/2025 10:56 AM EDT Hospital Encounter [facility] [phone] Social History Tobacco Use Types Packs/Day Years Used Date Smoking Tobacco: Never Smokeless Tobacco: Never Alcohol Use Standard Drinks/Week Comments Not Currently 0 (1 standard drink = 0.6 oz pur e alcohol) [facility] Utilities Answer Date Recorded In the past 12 months has e [employer], gas, oil, or water company threatened to [...] and heating? Not hard at all 04/24/2025 [facility] Occupat ional Health - Occupational Stress [...] things needed for daily living? No 04/24/2025 [place] Depression Scale Answer Date Recorded [place] Depression Scale Total 0 05/05/2025 The thought [...] none 04/24/2025 Family and Community Support Answer Yamileth e Recorded If for any reason you [...] GED or equivalent No 04/24/2025 Preferred Language Arabic 04/24/2025 PHQ-2 Answer Date Recorded Patient Health [...] 9:57 PM EDT Casi Stephen RN * [place] Suicide Severity Rating Scale (Screener/Recent Self-Report) Question [...] Info) Description 06/09/2025 1:40 PM EDT Visit [facility] [address] [address] Moise Knowles MD [address] [facility] [address] [place] [address] documented as of this encounter Procedures Procedure Name Priority Date/Time Associated Diagnosis Comments US BIOPHYSICAL PROFILE;WITHOUT NON-STRESS TESTING Routine 03/26/2025 11:24 AM EDT Intrahepatic cholestasis of , third trimester documented in this encounter Results * US Biophysical Profile;Without Non-Stress Testing (03/26/2025 11:24 AM EDT) Anatomical Region Laterality Modality Body Ultrasound 03/26/2025 11:1 1 AM EDT Narrative 03/28/2025 9:52 AM EDT PAT NAME: ADILENE IGNACIO MED REC#: [id number] DA: [id number] PAT GEND: F PAT TYPE: O EXAM YAMILETH: [id number] REF PHYS MOISE KNOWLES Indication ======== BPP, Intrahepatic cholestasis of Dx: Intrahepatic cholestasis of , third trimester [O26.643 (ICD-10-CM)] Comparison Studies There are no relevant prior studies to which this study is being compared Method ======= Voluson E6, Transabdominal ultrasound examination. View: Sufficient ========= Nava . Number of fetuses: 1 Dating ====== GA by prior assessment 33 w + 1 d HENNA by prior assessment: 05/13/2025 Method of dating: Restore dating from previous exam Previous dating: based on ultrasound (CRL), selected on 10/23/2024 Agreed HENNA of previous datin05/13/2025 Assigned: based on ultrasound (CRL), selected on 10/23/2024 Assigned GA 33 w + 1 d Assigned HENNA: 05/13/2025 length 280 d General Evaluation Cardiac activity present. FHR 152 bpm. movements visualized. Presentation cephalic. Placenta Placental site: anterior. Amniotic Fluid Assessment Amount of AF: normal MVP 5.4 cm. TG 12.3 cm. Q1 2.3 cm, Q2 5.4 cm, Q3 3.5 cm, Q4 1.0 cm Biophysical Profile 2: breathing movements 2: Gross body movements 2: tone 2: Amniotic fluid volume 05/15 Biophysical profile score Anatomy Gender: male. Impression ========= Normal BPP Recommendation Continue the routine schedule of testing for the condition being monitored. Corrugated Fastener Driver: Alba Urbina RDMS Physician: Moise Knowles MD Electronically signed by: Moise Knowles MD at: 09:52 Procedure Note Moise Knowles MD - 03/28/2025 PAT NAME: ADILENE IGNACIO MED REC#: [id number] DA: 1995 PAT GEND: F PAT TYPE: O EXAM YAMILETH: [id number] REF PHYS MOISE KNOWLES Indication ======== BPP, Intrahepatic cholestasis of Dx: Intrahepatic cholestasis of , third trimester [O26.643(ICD-10-CM)] Comparison Studies There are no relevant prior studies to which this study is beingcompared Method ======= Voluson E6, Transabdominal ultrasound examination. View: Sufficient ========= Nava . Number of fetuses: 1 Dating ====== GA by prior [id number] w + 1 d HENNA by prior assessment:05/13/2025 Method of dating:Restore dating from previous exam Previous dating:based on ultrasound (CRL), selected on 10/23/2024 Agreed HENNA of previous datin05/13/2025 Assigned:based on ultrasound (CRL), selected on 10/23/2024 Assigned GA33 w + 1 d Assigned HENNA:05/13/2025 [id number] d General Evaluation Cardiac activity present. FHR 152 bpm. movements visualized. Presentation cephalic. Placenta Placental site: anterior. Amniotic Fluid Assessment Amount of AF: normal MVP 5.4 cm. TG 12.3 cm. Q1 2.3 cm, Q2 5.4 cm, Q3 3.5 cm, Q4 1.0 cm Biophysical Profile 2: breathing movements 2: Gross body movements 2: tone 2: Amniotic fluid volume 05/15 Biophysical profile score Anatomy Gender: male. Impression ========= Normal BPP Recommendation Continue the routine schedule of testing for the condition beingmonitored. Corrugated Fastener Driver: Alba Urbina RDAL Physician: Moise Knowles MD Electronically signed by: Moise Knowles MD at: 09:52 us Moise Knowles MD IMG US ORDERABLES Final Re sult documented in this encounter Visit Diagnoses Not on filedocumented in this encounter Care Teams Air Traffic Controller Relationship Specialty Start Date End Date Gabriel Lynch MD [facility] [address] [place] [address] PCP - General Family Medicine 07/09/23 documented as of this encounter
--- OUTSIDE RECORDS SUMMARY | 2025-04-02 10:16 | XMS_ITS | Encounter Summary ---
Author Organization [facility] Address [address] [place] [address] Care Team Providers Care Medical Collector Name Role Phone Gabriel Lynch MD Primary Care Provider [phone] [phone] Reason for Referral * Diagnostic Imaging (Routine) - Closed Specialty Diagnoses / Procedures [facility] To Contact Obstetrics and Gynecology Diagnoses H/O intrauterine growth restriction in prior , currently Intrahepatic cholestasis of , third trimester Procedures US Ob Follow Up Transabdominal Approach Moise Knowles MD [address] [facility] [address] [place] [phone] Phone: tel: fax: [facility]YN [address] [facility] [address] [place] [phone] Phone: tel: fax: Referral ID Status Reason Start Date Expiration Date Visits Re quested Visits Authorized [id number] Closed 03/26/2025 06/25/2026 1 1 Reason for Visit * Diagnostic Imaging (Routine) - Closed Specialty Diagnoses / Procedures Referred By [facility]ac t Referred To Contact Obstetrics and Gynecology Diagnoses H/O intrauterine growth restriction in prior , currently Intrahepatic cholestasis of , third trimester Procedures US Ob Follow Up Transabdominal Approach Moise Knowles MD [address] [facility] [address] [place] [address] Phone: tel: fax: [facility] OBGYN [address] [facility] [address] [place] [address] Phone: tel: fax: Referral ID Status Reason Start Date Expiration Date Visits Re quested Visits Authorized [id number] Closed 03/26/2025 06/25/2026 1 1 Encounter Details Date Type Department Care Team (Latest Contact Info) Description 04/02/2025 10:16 AM EDT Hospital Encounter [facility] [phone] Prior IUGR; Intrahepatic cholestasis of , third trimester Social History Tobacco Use Types Packs/Day Years Used Date Smoking Tobacco: Never Smokeless Tobacco: Never Alcohol Use Standard Drinks/Week Comments Not Currently 0 (1 standard drink = 0.6 oz pur e alcohol) [facility] Utilities Answer Date Recorded In the past 12 months has [employer], gas, oil, or water [employer] threatened to shut off services in your [...] and heating? Not hard at all 04/24/2025 [facility] [place] [facility] - Occupational [...] things needed for daily living? No 04/24/2025 [place] Depression Scale Answer Date Recorded [place] Depression Scale Total 0 05/05/2025 The thought [...] GED or equivalent No 04/24/2025 Preferred Language Welsh 04/24/2025 PHQ-2 Answer Date Recorded Patient Health [...] 04/23/2025 9:57 PM Casi Woody RN * [place] Suicide Severity Rating Scale (Screener/Recent Self-Report) Question [...] EDT Visit [facility] [address] [facility] [address] [place] [id number] Moise Knowles MD [address] [facility] [address] [place] [phone] documented as of this encounter Procedures Procedure Name Priority Date/Time Associated Diagnosis Comments US BIOPHYSICAL PROFILE;WITHOUT NON-STRESS TESTING Routine 04/02/2025 10:45 AM EDT Intrahepatic cholestasis of , third trimester US OB FOLLOW UP TRANSABDOMINAL APPROACH Routine 04/02/2025 10:45 AM EDT Prior IUGR Intrahepatic cholestasis of , third trimester documented in this encounter Results * US Ob Follow Up Transabdominal Approach (04/02/2025 10:45 AM EDT) Anatomical Region Laterality Modality Body Ultrasound 04/02/2025 10:2 9 AM EDT Narrative 04/06/2025 11:08 PM EDT PAT NAME: ADILENE IGNACIO MED REC#: [id number] DA: 1995 PAT GEND: F PAT TYPE: O EXAM SVEN: <OBR.7.1>[id number]</OBR.7.1><OBR.7.1>[id number]</OBR.7.1> REF PHYS MOISE KNOWLES Indication ======== Intrahepatic cholestasis of Dx: Intrahepatic cholestasis of [...] 1 Dating ====== GA by prior assessment 34 w + 1 d HENNA by prior assessment: 05/13/2025 Ultrasound examination on: 04/02/2025 GA by U/S based upon: AC, BPD, Femur, HC GA by U/S 34 w + 4 d HENNA by U/S: 05/10/2025 Method of dating: Restore dating from previous exam Previous dating: based on ultrasound (CRL), selected on 10/23/2024 Agreed HENNA of previous datin05/13/2025 Assigned: based on ultrasound (CRL), selected on 10/23/2024 Assigned GA 34 w + 1 d Assigned HENNA: 05/13/2025 length 280 d General Evaluation Cardiac activity present. FHR 131 bpm. movements visualized. Presentation cephalic. Placenta Placental site: anterior, left. Amniotic fluid Amount of AF: normal. MVP 6.4 cm. TG 10.5 cm. Q1 0.0 cm, Q2 6.4 cm, Q3 1.0 cm, Q4 3.1 cm. Biophysical Profile 2: breathing movements 2: Gross body movements 2: tone 2: Amniotic fluid volume 05/15 Biophysical profile score Biometry Standard BPD 86.8 mm 35w 0d 74% Hadlock OFD 111.3 mm 37w 2d 95% Amarilis HC 315.8 mm 35w 3d 48% Hadlock AC 296.7 mm 33w 5d 39% Hadlock Femur 66.3 mm 34w 1d 40% Hadlock HC / AC 1.06 EFW 2,350 g 33w 6d 43% Hadlock EFW (lb) 5 lb EFW (oz) 3 oz EFW by: Hadlock ([id number]-[id number]-FL) Other: An ultrasound for weight has a margin of error of up to twenty percent. Head / Face / Neck Cephalic index 0.78 24% Nicolaides Extremities / Bony Struc FL / BPD 0.76 FL / HC 0.21 FL / AC 0.22 Other Structures FHR 131 bpm Anatomy Lateral ventricles: Appears normal 4-chamber view: Appears normal Stomach: Appears normal Bladder: Appears normal Gender: male Wants to know gender: yes Impression ========= Normal BPP Recommendation Continue the routine schedule of testing for the condition being monitored. Indication ======== Intrahepatic cholestasis of Dx: Intrahepatic cholestasis of [...] 1 Dating ====== GA by prior assessment 34 w + 1 d HENNA by prior assessment: 05/13/2025 Ultrasound examination on: 04/02/2025 GA by U/S based upon: AC, BPD, Femur, HC GA by U/S 34 w + 4 d HENNA by U/S: 05/10/2025 Method of dating: Restore dating from previous exam Previous dating: based on ultrasound (CRL), selected on 10/23/2024 Agreed HENNA of previous datin05/13/2025 Assigned: based on ultrasound (CRL), selected on 10/23/2024 Assigned GA 34 w + 1 d Assigned HENNA: 05/13/2025 length 280 d General Evaluation Cardiac activity present. FHR 131 bpm. movements visualized. Presentation cephalic. Placenta Placental site: anterior, left. Amniotic fluid Amount of AF: normal. MVP 6.4 cm. TG 10.5 cm. Q1 0.0 cm, Q2 6.4 cm, Q3 1.0 cm, Q4 3.1 cm. Biophysical Profile 2: breathing movements 2: Gross body movements 2: tone 2: Amniotic fluid volume 05/15 Biophysical profile score Biometry Standard BPD 86.8 mm 35w 0d 74% Hadlock OFD 111.3 mm 37w 2d 95% Amarilis HC 315.8 mm 35w 3d 48% Hadlock AC 296.7 mm 33w 5d 39% Hadlock Femur 66.3 mm 34w 1d 40% Hadlock HC / AC 1.06 EFW 2,350 g 33w 6d 43% Hadlock EFW (lb) 5 lb EFW (oz) 3 oz EFW by: Hadlock (BLB-ZO-SR-FL) Other: An ultrasound for weight has a margin of error of up to twenty percent. Head / Face / Neck Cephalic index 0.78 24% Nicolaides Extremities / Bony Struc FL / BPD 0.76 FL / HC 0.21 FL / AC 0.22 Other Structures FHR 131 bpm Anatomy Lateral ventricles: Appears normal 4-chamber view: Appears normal Stomach: Appears normal Bladder: Appears normal Gender: male Wants to know gender: yes Impression ========= Normal BPP Recommendation Continue the routine schedule of testing for the condition being monitored. Project Management Consultant: Azra Bridges RDMS Physician: Moise Knowles MD Electronically signed by: Moise Knowles MD at: 23:08 Procedure Note Moise Knowles MD - 04/06/2025 PAT NAME: ADILENE IGNACIO MED REC#: [id number] DA: 1995 PAT GEND: F PAT TYPE: O EXAM SVEN:<OBR.7.1>[id number]</OBR.7.1><OBR.7.1>[id number]</OBR.7.1> REF PHYS MOISE KNOWLES Indication ======== Intrahepatic cholestasis of Dx: Intrahepatic cholestasis of , third trimester [O26.643(ICD-10-CM)] Comparison Studies There are no relevant prior studies to which this study is beingcompared History ====== General History [id number] cm Height (ft)5 ft Height (in)0 in Previous Outcomes Gravida2 Para1 Method ======= Voluson E6, Transabdominal ultrasound examination ========= Nava . Number of fetuses: 1 Dating ====== GA by prior [id number] w + 1 d HENNA by prior assessment:05/13/2025 Ultrasound examination on:04/02/2025 GA by U/S based upon:AC, BPD, Femur, HC GA by U/S34 w + 4 d HENNA by U/S:05/10/2025 Method of dating:Restore dating from previous exam Previous dating:based on ultrasound (CRL), selected on 10/23/2024 Agreed HENNA of previous datin05/13/2025 Assigned:based on ultrasound (CRL), selected on 10/23/2024 Assigned GA34 w + 1 d Assigned HENNA:05/13/2025 [id number] d General Evaluation Cardiac activity present. FHR 131 bpm. movements visualized. Presentation cephalic. Placenta Placental site: anterior, left. Amniotic fluid Amount of AF: normal. MVP 6.4 cm. TG 10.5 cm. Q1 0.0 cm,Q2 6.4 cm, Q3 1.0 cm, Q4 3.1 cm. Biophysical Profile 2: breathing movements 2: Gross body movements 2: tone 2: Amniotic fluid volume 05/15 Biophysical profile score Biometry Standard BPD86.8 mm 35w 0d 74% Hadlock ICG415.3 mm 37w 2d 95% Amarilis HC315.8 mm 35w 3d 48% Hadlock AC296.7 mm 33w 5d 39% Hadlock Femur66.3 mm 34w 1d 40% Hadlock HC / AC1.06 EFW2,350 g 33w 6d 43% Hadlock EFW (lb)5 lb EFW (oz)3 oz EFW by:Hadlock (FKA-GR-RT-FL) Other:An ultrasound for weight has a margin of error of up totwenty percent. Head / Face / Neck Cephalic index0.78 24% Nicolaides Extremities / Bony Struc FL / BPD0.76 FL / HC0.21 FL / AC0.22 Other Structures [id number] bpm Anatomy Lateral ventricles:Appears normal 4-chamber view:Appears normal Stomach:Appears normal Bladder:Appears normal Gender:male Wants to know gender:yes Impression ========= Normal BPP Recommendation Continue the routine schedule of testing for the condition beingmonitored. Indication ======== Intrahepatic cholestasis of Dx: Intrahepatic cholestasis of , third trimester [O26.643(ICD-10-CM)] Comparison Studies There are no relevant prior studies to which this study is beingcompared History ====== General History Zapjae677 cm Height (ft)5 ft Height (in)0 in Previous Outcomes Gravida2 Para1 Method ======= Voluson E6, Transabdominal ultrasound examination ========= Nava . Number of fetuses: 1 Dating ====== GA by prior [id number] w + 1 d HENNA by prior assessment:05/13/2025 Ultrasound examination on:04/02/2025 GA by U/S based upon:AC, BPD, Femur, HC GA by U/S34 w + 4 d HENNA by U/S:05/10/2025 Method of dating:Restore dating from previous exam Previous dating:based on ultrasound (CRL), selected on 10/23/2024 Agreed HENNA of previous datin05/13/2025 Assigned:based on ultrasound (CRL), selected on 10/23/2024 Assigned GA34 w + 1 d Assigned HENNA:05/13/2025 [id number] d General Evaluation Cardiac activity present. FHR 131 bpm. movements visualized. Presentation cephalic. Placenta Placental site: anterior, left. Amniotic fluid Amount of AF: normal. MVP 6.4 cm. TG 10.5 cm. Q1 0.0 cm,Q2 6.4 cm, Q3 1.0 cm, Q4 3.1 cm. Biophysical Profile 2: breathing movements 2: Gross body movements 2: tone 2: Amniotic fluid volume 05/15 Biophysical profile score Biometry Standard BPD86.8 mm 35w 0d 74% Hadlock UQD927.3 mm 37w 2d 95% Amarilis HC315.8 mm 35w 3d 48% Hadlock AC296.7 mm 33w 5d 39% Hadlock Femur66.3 mm 34w 1d 40% Hadlock HC / AC1.06 EFW2,350 g 33w 6d 43% Hadlock EFW (lb)5 lb EFW (oz)3 oz EFW by:Hadlock (DSY-YT-VW-FL) Other:An ultrasound for weight has a margin of error of up totwenty percent. Head / Face / Neck Cephalic index0.78 24% Nicolaides Extremities / Bony Struc FL / BPD0.76 FL / HC0.21 FL / AC0.22 Other Structures [id number] bpm Anatomy Lateral ventricles:Appears normal 4-chamber view:Appears normal Stomach:Appears normal Bladder:Appears normal Gender:male Wants to know gender:yes Impression ========= Normal BPP Recommendation Continue the routine schedule of testing for the condition beingmonitored. Project Management Consultant: Azra Bridges RDMS Physician: Moise Knowles MD Electronically signed by: Moise Knowles MD at: 23:08 us Moise Knowles MD G US ORDERABLES Final Re sult documented in this encounter Visit Diagnoses Diagnosis Prior IUGR Intrahepatic cholestasis of , third trimester documented in this encounter Care Teams Medical Collector Relationship Specialty Start Date End Date Gabriel Lynch MD [address] [facility] [address] [facility] [address] [place] [address] PCP - General Family Medicine 07/09/23 documented as of this encounter
--- OUTSIDE RECORDS SUMMARY | 2025-04-02 11:10 | XMS_ITS | Encounter Summary ---
Author Organization [facility] Address [address] [place] [address] Care Team Providers Care Rough Rounder Name Role Phone Gabriel Lynch MD Primary Care Provider [phone] [phone] Reason for Visit * Reason Comments Routine Visit Encounter Details Date Type Department Care Team (Late st Contact Info) Description 04/02/2025 11:10 AM EDT Routine [facility] OBGYN [address] [place] [phone] Moise Knowles MD [address] [place] [address] GA: 34w1d Social History Tobacco Use Types Packs/Day Years Used Date Smoking Tobacco: Never Smokeless Tobacco: Never Alcohol Use Standard Drinks/Week Comments Not Currently 0 (1 standard drink = 0.6 oz pur e alcohol) [facility] Utilities Answer Date Recorded In the past 12 months has [employer], gas, oil, or water company threatened to shut off services in your home? No 10/03/2023 AUDIT-C Answer Date Recorded Q1: How often do you have a drink containing alcohol? Never 10/03/2023 Q2: How many drinks containi ng alcohol do you have on a typical day when you are drinking? Patient does not drink Q3: How often do you have si x or more drinks on one occasion? Never 10/03/2023 Overall Financial Resource Strain (CARDIA) Answe r Date Recorded How hard is it for you to pa y for the very basics like food, housing, medical care, and heating? Not hard at all 10/03/2023 [facility] - Occupational Stress Questionnaire Answer Date Recorded Do you feel stress - tense, restless, nervous, or anxious, or unable to sleep at night because your mind is troubled all the time - these days? Not at all 10/03/2023 Exercise Vital Sign Answer Date Recorde d On average, how many days pe r week do you engage in moderate to strenuous exercise (like a brisk walk)? 3 days 10/03/2023 On average, how many minutes do you engage in exercise at this level? 30 min 10/03/2023 Hunger Vital Sign Answer Date Recorded Within the past 12 months, y ou worried that your food would run out before you got the money to buy more. Never true 10/03/20 23 Within the past 12 months, t he food you bought just didn't last and you didn't have money to get more. Never true 10/03/2023 PRAPARE - Transportation Answer Date Re corded In the past 12 months, has l ack of transportation kept you from medical appointments or from getting medications? No 09/08 In the past 12 months, has l ack of transportation kept you from meetings, work, or from getting things needed for daily living? No 10/03/2023 [place] Depression Scale Answer Date Recorded Retired [place] Depression Score 2 10/06/2023 Retired EPD Scale: Thought of Harming Self Unrec ognized value 10/06/2023 Abuse Screen Answer Date Recorded Feels Unsafe at Home or Work/School no 10/03/2023 Feels Threatened by Someone no 09/08 Does Anyone Try to Keep You From Having Contact with Others or Doing Things Outside Your Home? no 10/03/2023 Physical Signs of Abuse Present no 10/03/2023 Housing Stability Answer Date Recorded Current Living Arrangements home 09/08 Potentially Unsafe Housing Conditions none 10/03/2023 Family and Community Support Answer Yamileth e Recorded If for any reason you need h elp with day-to-day activities such as bathing, preparing meals, shopping, managing finances, etc., do you get the help you need? I don't need any help 10/03/2023 How often do you feel lonely or isolated from those around you? Never 10/03/2023 Employment Answer Date Recorded Do you want help finding or keeping work or a job? I do not need or want help 10/03/2023 Disabilities Answer Date Recorded Difficulty Concentrating, Remembering or Making Decisions no 10/03/2023 Difficulty Managing Errands Independently no 10/03/2023 Education Answer Date Recorded Do you want help with school or training? For example, starting or completing job training or getting a high school diploma, GED or equivalent No 10/03/2023 Preferred Language Maori 10/03/2023 PHQ-2 Answer Date Recorded Retired PHQ-9: Brief Depression Severity Measure Score 0 10/03/2023 Comments Yes Sex and Gender Information Value Date Recorded Sex Assigned at Female 02/02/2025 12:05 PM EDT Legal Sex Female 1:00 PM EST Gender Identity Not on file Sexual Orientation Straight 02/02/2025 12 :05 PM EDT documented as of this encounter Last Filed Vital Signs Vital Sign Reading Time Taken Comments Blood Pressure 124/70 04/02/2025 11:12 AM EDT Pulse - - Temperature - - Respiratory Rate - - Oxygen Saturation - - Inhaled Oxygen Concentration - - Weight 66.7 kg (147 lb) 04/02/2025 11:12 AM EDT Height - - Body Mass Index 28.71 10/05/2023 7:43 PM EST documented in this encounter Progress Notes * Moise Knowles MD - 04/02/2025 11:10 AM EDT Chief Complaint Patient presents with Routine Visit HPI: Adilene is a currently at 34w1d who today reports the following: Contractions - No; Leaking - No; Vaginal bleeding - No; Swelling of extremities - No. ROS: GI: Nausea - No; Constipation - No; Diarrhea - No Neuro: Headache - No; Visual change - No Respiratory: Cough - No; SOB - No; fever - No EXAM: Vitals: See flowsheet Abdomen: See flowsheet Urine glucose/protein: See flowsheet Pelvic: See flowsheet MDM: Impression: Supervision of high risk Prior history of preeclampsia on baby aspirin prophylaxis with no signs of recurrence Prior history of IUGR with normal growth today Intrahepatic cholestasis of stable with medication Tests done today: Urine dip for protein and glucose BPP - 8 / 8 U/S for EFW - S=D Topics discussed: labs reviewed Continue with baby aspirin, iron, metoprolol, vitamins and Actigall. Tests scheduled today for her next visit: BPP documented in this encounter Plan of Treatment Upcoming Encounters Date Type Department Care Team (Late st Contact Info) Description 06/09/2025 1:40 PM EDT Visit [facility] OBGYN [address] [phone] Moise Knowles MD [address] [address] documented as of this encounter Procedures Procedure Name Priority Date/Time Associated Diagnosis Comments US BIOPHYSICAL PROFILE;WITHOUT NON-STRESS TESTING Routine 04/07/2025 2:01 PM EDT Intrahepatic cholestasis of , third trimester documented in this encounter Results * US Biophysical Profile;Without Non-Stress Testing (04/07/2025 2:01 PM EDT) Anatomical Region Laterality Modality Body Ultrasound 04/07/2025 1:48 PM EDT Narrative 04/12/2025 9:49 AM EDT PAT NAME: ADILENE IGNACIO MED REC#: [id number] DA: 1995 PAT GEND: F PAT TYPE: O EXAM YAMILETH: [id number] REF PHYS MOISE KNOWLES Indication ======== BPP, Intrahepatic cholestasis of Dx: Intrahepatic cholestasis of , third trimester [O26.643 (ICD-10-CM) Comparison Studies There are no relevant prior studies to which this study is being compared Method ======= Voluson E6, Transabdominal ultrasound examination. View: Sufficient ========= Nava . Number of fetuses: 1 Dating ====== GA by prior assessment 34 w + 6 d HENNA by prior assessment: 05/13/2025 Method of dating: Restore dating from previous exam Previous dating: based on ultrasound (CRL), selected on 10/23/2024 Agreed HENNA of previous datin05/13/2025 Assigned: based on ultrasound (CRL), selected on 10/23/2024 Assigned GA 34 w + 6 d Assigned HENNA: 05/13/2025 length 280 d General Evaluation Cardiac activity present. FHR 138 bpm. movements visualized. Presentation cephalic. Placenta Placental site: anterior. Amniotic Fluid Assessment Amount of AF: normal MVP 4.9 cm. TG 13.5 cm. Q1 1.8 cm, Q2 4.9 cm, Q3 3.4 cm, Q4 3.4 cm Biophysical Profile 2: breathing movements 2: Gross body movements 2: tone 2: Amniotic fluid volume 05/15 Biophysical profile score Anatomy Gender: male. Impression ========= Normal BPP Recommendation Follow-up scan as clinically indicated. Foundation Coordinator: Alba Urbina RDMS Physician: Moise Knowles MD Electronically signed by: Moise Knowles MD at: 09:49 Procedure Note Moise Knowles MD - 04/12/2025 PAT NAME: ADILENE IGNACIO MED REC#: [id number] DA: 1995 PAT GEND: F PAT TYPE: O EXAM YAMILETH: [id number] REF PHYS MOISE KNOWLES Indication ======== BPP, Intrahepatic cholestasis of Dx: Intrahepatic cholestasis of , third trimester [O26.643(ICD-10-CM) Comparison Studies There are no relevant prior studies to which this study is beingcompared Method ======= Voluson E6, Transabdominal ultrasound examination. View: Sufficient ========= Nava . Number of fetuses: 1 Dating ====== GA by prior [id number] w + 6 d HENNA by prior assessment:05/13/2025 Method of dating:Restore dating from previous exam Previous dating:based on ultrasound (CRL), selected on 10/23/2024 Agreed HENNA of previous datin05/13/2025 Assigned:based on ultrasound (CRL), selected on 10/23/2024 Assigned GA34 w + 6 d Assigned HENNA:05/13/2025 [id number] d General Evaluation Cardiac activity present. FHR 138 bpm. movements visualized. Presentation cephalic. Placenta Placental site: anterior. Amniotic Fluid Assessment Amount of AF: normal MVP 4.9 cm. TG 13.5 cm. Q1 1.8 cm, Q2 4.9 cm, Q3 3.4 cm, Q4 3.4 cm Biophysical Profile 2: breathing movements 2: Gross body movements 2: tone 2: Amniotic fluid volume 05/15 Biophysical profile score Anatomy Gender: male. Impression ========= Normal BPP Recommendation Follow-up scan as clinically indicated. Foundation Coordinator: Alba Urbina RDMS Physician: Moise Knowles MD Electronically signed by: Moise Knowles MD at: 09:49 us Moise Knowles MD IMG US ORDERABLES Final Re sult documented in this encounter Visit Diagnoses Diagnosis care, subsequent in third trimester- Primary Hx of preeclampsia, prior , currently with other poor obstetric history Intrahepatic cholestasis of , third trimester documented in this encounter Care Teams Rough Rounder Relationship Specialty Start Date End Date Gabriel Lynch MD [address] [facility] [address] [facility] [address] [place] [address] PCP - General Family Medicine 07/09/23 documented as of this encounter
--- OUTSIDE RECORDS SUMMARY | 2025-04-07 13:27 | XMS_ITS | Encounter Summary ---
Author Organization [facility] Address [address] [place] [address] Care Team Providers Care Transition Lead Name Role Phone Gabriel Lynch MD Primary Care Provider [phone] [phone] Reason for Visit * Diagnostic Imaging (Routine) - Canceled Specialty Diagnoses / Procedures Referred By Contact Referred To Contact Obstetrics and Gynecology Diagnoses Intrahepatic cholestasis of , third trimester Procedures US Biophysical Profile;Without Non-Stress Testing Moise Knowles MD [address] [address] Phone: tel: fax: [facility] [address] [address] Phone: tel: fax: Referral ID Status Reason Start Date Expiration Date V isits Requested Visits Authorized [id number] Canceled 03/06/2025 06/05/2026 10 10 Encounter Details Date Type Department Care Team (Late st Contact Info) Description 04/07/2025 1:27 PM EDT Hospital Encounter [facility] [phone] Social History Tobacco Use Types Packs/Day Years Used Date Smoking Tobacco: Never Smokeless Tobacco: Never Alcohol Use Standard Drinks/Week Comments Not Currently 0 (1 standard drink = 0.6 oz pur e alcohol) [facility] Utilities Answer Date Recorded In the past 12 months has e [employer], gas, oil, or water company threatened to [...] and heating? Not hard at all 04/24/2025 [facility] of Occupat ional Health - Occupational Stress [...] things needed for daily living? No 04/24/2025 [place] Depression Scale Answer Date Recorded [place] Depression Scale Total 0 05/05/2025 The thought [...] GED or equivalent No 04/24/2025 Preferred Language Trinidadian 04/24/2025 PHQ-2 Answer Date Recorded Patient Health [...] 9:57 PM EDT Casi Stephen RN * [place] Suicide Severity Rating Scale (Screener/Recent Self-Report) Question [...] Info) Description 06/09/2025 1:40 PM EDT Visit [facility]BG[facility] [address] [address] Moise Knowles MD 1700 [facility] [address] [place] [address] documented as of this encounter Procedures Procedure [...] EDT PAT NAME: ADILENE IGNACIO MED REC#: [id number] DA: [id number] PAT GEND: F PAT TYPE: O EXAM YAMILETH: [id number] REF PHYS MOISE KNOWLES Indication ======== BPP, [...] BPP Recommendation Follow-up scan as clinically indicated. Director Veterinary: Alba Urbina RDMS Physician: Moise Knowles MD Electronically signed by: Moise Knowles MD at: 09:49 Procedure Note Moise Knowles MD - 04/12/2025 PAT NAME: ADILENE IGNACIO MED REC#: [id number] DA: 1995 PAT GEND: F PAT TYPE: O EXAM YAMILETH: [id number] REF PHYS MOISE KNOWLES Indication ======== BPP, Intrahepatic cholestasis of Dx: Intrahepatic cholestasis of , third trimester [O26.643(ICD-10-CM) Comparison Studies There are no relevant prior studies to which this study is beingcompared Method ======= Voluson E6, Transabdominal ultrasound examination. View: Sufficient ========= Nava . Number of fetuses: 1 Dating ====== GA by prior [id number] w + 6 d HENNA by prior assessment:05/13/2025 Method of dating:Restore dating from previous exam Previous dating:based on ultrasound (CRL), selected on 10/23/2024 Agreed HENNA of previous datin05/13/2025 Assigned:based on ultrasound (CRL), selected on 10/23/2024 Assigned GA34 w + 6 d Assigned HENNA:05/13/2025 [id number] d General Evaluation Cardiac activity present. FHR [...] BPP Recommendation Follow-up scan as clinically indicated. Director Veterinary: Alba Urbina RDMS Physician: Moise Knowles MD Electronically signed by: Moise Knowles MD at: 09:49 us Moise Knowles MD IMG US ORDERABLES Final Re sult documented in this encounter Visit Diagnoses Not on filedocumented in this encounter Care Teams Transition Lead Relationship Specialty Start Date End Date Gabriel Lynch MD [facility] [address] [place] [address] PCP - General Family Medicine 07/09/23 documented as of this encounter
--- OUTSIDE RECORDS SUMMARY | 2025-04-07 14:20 | XMS_ITS | Encounter Summary ---
Author Organization [facility] Address [address] [place] [address] Care Team Providers Care Inside Sales Professional Name Role Phone Gabriel Lynch MD Primary Care Provider [phone] Reason for Visit * Reason Comments Routine Visit Encounter Details Date Type Department Care Team (Late st Contact Info) Description 04/07/2025 2:20 PM EDT Routine [facility] [address] [place] [phone] Moise Knowles MD [address] [place] [address] GA: 34w6d Social History Tobacco Use Types Packs/Day Years Used Date Smoking Tobacco: Never Smokeless Tobacco: Never Alcohol Use Standard Drinks/Week Comments Not Currently 0 (1 standard drink = 0.6 oz pur e alcohol) [facility] Utilities Answer Date Recorded In the past 12 months has [employer], gas, oil, or water [employer] threatened to shut off services in your [...] and heating? Not hard at all 10/03/2023 [facility] [place] of Occupat ional Health - Occupational Stress [...] things needed for daily living? No 10/03/2023 [place] Depression Scale Answer Date Recorded Retired [place] Depression Score 2 10/06/2023 Retired EPD Scale: [...] GED or equivalent No 10/03/2023 Preferred Language Belarusian 10/03/2023 PHQ-2 Answer Date Recorded Retired PHQ-9: [...] Sign Reading Time Taken Comments Blood Pressure 120/74 04/07/2025 2:57 PM EDT Pulse - - Temperature - - Respiratory Rate - - Oxygen Saturation - - Inhaled Oxygen Concentration - - Weight 67.6 kg (149 lb) 04/07/2025 2:57 PM EDT Height - - Body Mass Index 29.1 10/05/2023 7:43 PM EST documented in this encounter Progress Notes * Moise Knowles MD - 04/07/2025 2:20 PM EDT Chief Complaint Patient presents with Routine Visit HPI: Adilene is a currently at 34w6d who today reports the following: Contractions - No; Leaking - No; Vaginal bleeding - No; Swelling of extremities - No. Induction of labor has been scheduled for April 26 ROS: GI: Nausea - No; Constipation - No; Diarrhea - No Neuro: Headache - No; Visual change - No Respiratory: Cough - No; SOB - No; fever - No EXAM: Vitals: See flowsheet Abdomen: See flowsheet Urine glucose/protein: See flowsheet Pelvic: See flowsheet MDM: Impression: Supervision of high risk Intrahepatic cholestasis of Prior preeclampsia on baby aspirin prophylaxis without signs of recurrence Tests done today: Urine dip for protein and glucose BPP - 8 / 8 Topics discussed: labs reviewed Continue with vitamins, iron, baby aspirin, Actigall. No additional counseling given - she has no specific complaints or concerns Tests scheduled today for her next visit: BPP documented in this encounter Plan of Treatment Upcoming Encounters Date Type Department Care Team (Late st Contact Info) Description 06/09/2025 1:40 PM EDT Visit [facility] 1700 [facility] [address] [place] [phone] Moise Knowles MD [address] [facility] [address] [place] [id number] documented as of this encounter Procedures Procedure Name Priority Date/Time Associated Diagnosis Comments US BIOPHYSICAL PROFILE;WITHOUT NON-STRESS TESTING Routine 04/16/2025 10:34 AM EDT Intrahepatic cholestasis of , third trimester documented in this encounter Results * US Biophysical Profile;Without Non-Stress Testing (04/16/2025 10:34 AM EDT) Anatomical Region Laterality Modality Body Radiographic Neelima ging 04/16/2025 10:3 7 AM EDT Narrative 04/23/2025 7:55 PM EDT PAT NAME: ADILENE IGNACIO MED REC#: [id number] DA: 1995 PAT GEND: F PAT TYPE: O EXAM YAMILETH: [id number] REF PHYS MOISE KNOWLES Indication ======== Intrahepatic cholestasis of Dx: Intrahepatic cholestasis of , third trimester [O26.643 (ICD-10-CM)] Comparison Studies There are no relevant prior studies to which this study is being compared Method ======= Voluson E6, Transabdominal ultrasound examination. View: Sufficient ========= Nava . Number of fetuses: 1 Dating ====== GA by prior assessment 36 w + 1 d HENNA by prior assessment: 05/13/2025 Method of dating: Restore dating from previous exam Previous dating: based on ultrasound (CRL), selected on 10/23/2024 Agreed HENNA of previous datin05/13/2025 Assigned: based on ultrasound (CRL), selected on 10/23/2024 Assigned GA 36 w + 1 d Assigned HENNA: 05/13/2025 length 280 d General Evaluation Cardiac activity present. FHR 142 bpm. movements visualized. Presentation cephalic. Placenta Placental site: anterior. Amniotic Fluid Assessment Amount of AF: normal MVP 6.5 cm. TG 20.0 cm. Q1 6.5 cm, Q2 4.7 cm, Q3 5.2 cm, Q4 3.6 cm Biophysical Profile 2: breathing movements 2: Gross body movements 2: tone 2: Amniotic fluid volume 05/15 Biophysical profile score Anatomy Gender: male. Impression ========= Normal BPP Recommendation Continue the routine schedule of testing for the condition being monitored. Political Research Scientist: MIHAELA Martin Physician: Moise Knowles MD Electronically signed by: Moise Knowles MD at: 19:55 Procedure Note Moise Knowles MD - 04/23/2025 PAT NAME: ADILENE IGNACIO MED REC#: [id number] DA: 1995 PAT GEND: F PAT TYPE: O EXAM YAMILETH: [id number] REF PHYS MOISE KNOWLES Indication ======== Intrahepatic cholestasis of Dx: Intrahepatic cholestasis of , third trimester [O26.643(ICD-10-CM)] Comparison Studies There are no relevant prior studies to which this study is beingcompared Method ======= Voluson E6, Transabdominal ultrasound examination. View: Sufficient ========= Nvaa . Number of fetuses: 1 Dating ====== GA by prior [id number] w + 1 d HENNA by prior assessment:05/13/2025 Method of dating:Restore dating from previous exam Previous dating:based on ultrasound (CRL), selected on 10/23/2024 Agreed HENNA of previous datin05/13/2025 Assigned:based on ultrasound (CRL), selected on 10/23/2024 Assigned GA36 w + 1 d Assigned HENNA:05/13/2025 [id number] d General Evaluation Cardiac activity present. FHR 142 bpm. movements visualized. Presentation cephalic. Placenta Placental site: anterior. Amniotic Fluid Assessment Amount of AF: normal MVP 6.5 cm. TG 20.0 cm. Q1 6.5 cm, Q2 4.7 cm, Q3 5.2 cm, Q4 3.6 cm Biophysical Profile 2: breathing movements 2: Gross body movements 2: tone 2: Amniotic fluid volume 05/15 Biophysical profile score Anatomy Gender: male. Impression ========= Normal BPP Recommendation Continue the routine schedule of testing for the condition beingmonitored. Political Research Scientist: MIHAELA Martin Physician: Moise Knowles MD Electronically signed by: Moise Knowles MD at: 19:55 us Moise Knowles MD IMG US ORDERABLES Final Re sult documented in this encounter Visit Diagnoses Diagnosis care, subsequent in third trimester- Primary Hx of preeclampsia, prior , currently with other poor obstetric history Intrahepatic cholestasis of , third trimester documented in this encounter Care Teams Inside Sales Professional Relationship Specialty Start Date End Date Gabriel Lynch MD 1210 [facility] [address] [facility] [address] [place] [address] PCP - General Family Medicine 07/09/23 documented as of this encounter
--- OUTSIDE RECORDS SUMMARY | 2025-04-16 11:00 | XMS_ITS | Encounter Summary ---
Author Organization [facility] Address [address] [place] [address] Care Team Providers Care Garment Worker Name Role Phone Gabriel Lynch MD Primary Care Provider [phone] Reason for Visit * Reason Comments Routine Visit Encounter Details Date Type Department Care Team (Late st Contact Info) Description 04/16/2025 11:00 AM EDT Routine [facility] OBGYN [address] [phone] John Bolton MD [address] [place] [address] GA: 36w1d Social History Tobacco Use Types Packs/Day Years Used Date Smoking Tobacco: Never Smokeless Tobacco: Never Alcohol Use Standard Drinks/Week Comments Not Currently 0 (1 standard drink = 0.6 oz pur e alcohol) [facility] Utilities Answer Date Recorded In the past 12 months has [employer] electric, gas, oil, or water company threatened [...] and heating? Not hard at all 10/03/2023 [facility] - Occupational Stress Questionnaire Answer Date [...] things needed for daily living? No 10/03/2023 [place] Depression Scale Answer Date Recorded Retired [place] Depression Score 2 10/06/2023 Retired EPD Scale: [...] none 10/03/2023 Family and Community Support Answer Sven e [...] GED or equivalent No 10/03/2023 Preferred Language Macedonian 10/03/2023 PHQ-2 Answer Date Recorded Retired PHQ-9: [...] Sign Reading Time Taken Comments Blood Pressure 126/86 04/16/2025 11:49 AM EDT Pulse - - Temperature - - Respiratory Rate - - Oxygen Saturation - - Inhaled Oxygen Concentration - - Weight 68.1 kg (150 lb 3.2 oz) 04/16/2025 11:49 AM EDT Height - - Body Mass Index 29.33 10/05/2023 7:43 PM EST documented in this encounter Progress Notes * John Bolton MD - 04/16/2025 11:00 AM EDT Chief Complaint Patient presents with Routine Visit HPI: Vesna is a currently at 36w1d who today reports the following: Contractions - [...] high risk Intrahepatic cholestasis of Prior preeclampsia currently on baby aspirin prophylaxis Tests done today: Urine dip for protein and glucose BPP - 8 / 8 GBS testing Topics discussed: labs reviewed Continue with vitamins, iron and Actigall. Okay to discontinue baby aspirin at this point Tests scheduled today for her next visit: No more follow-up needed documented in this encounter Plan of Treatment Upcoming Encounters Date Type Department Care Team (Late st Contact Info) Description 06/09/2025 1:40 PM EDT Visit [facility] OBGYN 1700 [facility] [address] [place] [phone] John Bolton MD 1700 [facility] [address] [place], [place] [id number] documented as of this encounter Procedures Procedure Name Priority Date/Time Associated Diagnosis Comments POCT URINALYSIS DIPSTICK, MANUAL Routine 04/16/2025 2:37 PM EDT GROUP B STREP, PCR (DOMINIC) Routine 04/16/2025 care, subsequent in third trimester documented in this encounter Results * (ABNORMAL) POC Urinalysis Dipstick (04/16/2025 2:37 PM EDT) Color Yellow Yellow, Straw, Dark Yellow, Leanne Clarity, UA Clear Clear Glucose, UA Negative Negative mg/dL Protein, POC Trace(A) Negative mg/dL Leukocytes Negative Negative Nitrite, UA Negative Negative Urine 04/16/2025 2:37 PM EDT John Bolton MD POINT OF CARE TEST ORDERAB LES Final Result * Strep B Screen - Swab, Vagina (04/16/2025) Swab Vaginal structure / Unknown John Bolton MD MICROBIOLOGY - GENERAL ORD ERABLES Final Result [facility] [address] [place] [address] documented in this encounter Visit Diagnoses Diagnosis care, subsequent in third trimester- Primary Hx of preeclampsia, prior , currently with other poor obstetric history Intrahepatic cholestasis of , third trimester Maternal anemia in , antepartum documented in this encounter Care Teams Garment Worker Relationship Specialty Start Date End Date Gabriel Lynch MD [facility] [address] [facility] [place] [address] PCP - General Family Medicine 07/09/23 documented as of this encounter
--- OUTSIDE RECORDS SUMMARY | 2025-04-23 20:00 | XMS_ITS | Encounter Summary ---
Author Organization [facility] Address [address] [place] [address] Care Team Providers Care Senior Financial Accountant Name Role Phone Gabriel Lynch MD Primary Care Provider [phone] Reason for Visit * Auth/Cert (Routine) Specialty Diagnoses / Procedures Referred By Opal t Referred To Contact Diagnoses Encounter for elective induction of labor Referral ID Status Reason Start Date Expiration Date Visits Re quested Visits Authorized 1 1 Encounter Details Date Type Department Care Team (Latest Contact Info) Description 04/23/2025 8:00 PM EDT - 04/23/2025 11:59 PM EDT Hospital Encounter [facility] [address] [place] [phone] Discharge Disposition: Home or Self Care Social History Tobacco Use Types Packs/Day Years Used Date Smoking Tobacco: Never Smokeless Tobacco: Never Alcohol Use Standard Drinks/Week Comments Not Currently 0 (1 standard drink = 0.6 oz pur e alcohol) [facility] Utilities Answer Date Recorded In the past 12 months has [employer] electric, gas, oil, or water company threatened [...] and heating? Not hard at all 04/24/2025 [facility] [place] of Occupat ional Health - Occupational Stress [...] things needed for daily living? No 04/24/2025 [place] Depression Scale Answer Date Recorded [place] Depression Scale Total 0 04/24/2025 The thought of harming myself has occurred to me . Never 04/24/2025 Abuse Screen Answer Date Recorded Feels Unsafe [...] GED or equivalent No 04/24/2025 Preferred Language Japanese 04/24/2025 PHQ-2 Answer Date Recorded Patient Health Questionnaire-2 Score 0 04/24/2025 Comments Yes Sex and Gender Information Value Date Recorded Sex Assigned at Female 02/02/2025 12:05 PM EDT Legal Sex Female 1:00 PM EST Gender Identity Not on file Sexual Orientation Straight 02/02/2025 12 :05 PM EDT documented as of this encounter Functional Status * Question Answer Date of Assessment Author 1. Wish to be (Past 1 Month) No 025 9:57 PM EDT Casi Stephen RN 2. Non-Specific Active Suici doe Thoughts (Past 1 Month) No 04/23/2025 9:57 PM EDT Cinda Stephen RN * Calculated C-SSRS Risk Score (Lifetime/Recent) Answer Date of Assessment Author No Risk Indicated 04/23/2025 9:57 PM EDT Casi Stephen RN * [place] Suicide Severity Rating Scale (Screener/Recent Self-Report) Question Answer Date of Assessment Author 6. Suicidal Behavior (Lifetime) No 9:57 PM EDT Casi Stephen, BG documented as of this encounter Medications at Time of Discharge ibuprofen (ADVIL,MOTRIN) 600 MG tablet Take 1 tablet by mouth Every 6 (Six) Hours As Needed for Mild Pain 30 tablet 04/26/2025 10:22 AM EDT 04/26/2025 Sodium Fluoride 5000 PPM 1.1 % paste USE 1 TO 2 TIMES A DAY DIRECTED. DO NOT EAT OR DRINK FOR 30 MINUTES AFTER USE 04/23/2025 aspirin 81 MG EC tablet Take 1 tablet by mouth Daily. 10/23/2024 04/24/2025 ferrous sulfate 325 (65 FE) MG tablet Take 1 tablet by mouth 2 (Two) Times a Day Before Meals for 150 days. 60 tablet 4 02/23/2025 04/26/2025 fluticasone (FLONASE) 50 MCG/ACT nasal spray 2 sprays into the nostril(s) as directed by provider Daily for 10 days. 16 g 01/14/2024 04/26/2025 metoprolol succinate XL (TOPROL-XL) 25 MG 24 hr tablet Take 1 tablet by mouth Daily. 10/13/2024 04/26/2025 Vit-Fe Fumarate-FA ( 27-1) 27-1 MG tablet tablet 10/22/2024 05/30/2025 ursodiol (ACTIGALL) 300 MG capsule Take 1 capsule by mouth 2 (Two) Times a Day. 60 capsule 2 03/07/2025 04/24/2025 documented as of this encounter Plan of Treatment Upcoming Encounters Date Type Department Care Team (Late st Contact Info) Description 06/09/2025 1:40 PM EDT Visit [facility] [address] [phone] John Bolton MD [address] [address] documented as of this encounter Visit Diagnoses Not on filedocumented in this encounter Care Teams Senior Financial Accountant Relationship Specialty Start Date End Date Gabriel Lynch MD 1210 [facility] [address] [place] [address] PCP - General Family Medicine 07/09/23 documented as of this encounter
--- OUTSIDE RECORDS SUMMARY | 2025-04-23 21:19 | XMS_ITS | Encounter Summary ---
Author Organization [facility] Address [address] [place] [address] Care Team Providers Care Type Photography Supervisor Name Role Phone Gabriel Lynch MD Primary Care Provider [phone] Reason for Visit * Auth/Cert (Routine) Specialty Diagnoses / Procedures Referred By Contac t Referred To Contact Diagnoses Encounter for elective induction of labor Referral ID Status Reason Start Date Expiration Date Visits Re quested Visits Authorized 1 1 Encounter Details Date Type Department Care Team (Late st Contact Info) Description 04/23/2025 9:19 PM EDT - 04/26/2025 12:50 PM EDT Hospital Encounter [facility] [address] [place] [id number] John Bolton MD [address] [facility] [address] [place] [address] Discharge Disposition: Home or Self Care Social History Tobacco Use Types Packs/Day Years Used Date Smoking Tobacco: Never Smokeless Tobacco: Never Alcohol Use Standard Drinks/Week Comments Not Currently 0 (1 standard drink = 0.6 oz pur e alcohol) [facility] Utilities Answer Date Recorded In the past [...] and heating? Not hard at all 04/24/2025 [facility] - Occupational Stress Questionnaire Answer Date Recorded [...] things needed for daily living? No 04/24/2025 Marfa Depression Scale Answer Date Recorded Marfa Depression Scale Total 0 04/24/2025 The thought [...] GED or equivalent No 04/24/2025 Preferred Language Angolan 04/24/2025 PHQ-2 Answer Date Recorded Patient Health [...] Sign Reading Time Taken Comments Blood Pressure 107/62 04/26/2025 7:42 AM EDT Pulse 74 04/26/2025 7:42 AM EDT Temperature 36.6 C (97.9 F) 04/26/2025 7:42 AM EDT Respiratory Rate 18 04/26/2025 7:42 AM EDT Oxygen Saturation - - Inhaled Oxygen Concentration - - Weight - - Height - - Body Mass Index - - documented in this encounter Functional Status * Audit-C Score [...] Patient does not drink 04/24/2025 1:36 AM EDCasi Pruitt RN Q3: How often do you have [...] 9:57 PM EDT Casi Stephen RN * Dickens Suicide Severity Rating Scale (Screener/Recent Self-Report) Question [...] R N documented as of this encounter Discharge Summaries * Caryn Mccoy APRN - 04/26/2025 9:54 AM EDT Discharge Summary Date of Admission: 04/23/2025 Date of Discharge: 04/26/2025 Patient: Vesna Murry MR#:[id number] Delivery Provider: John Bolton Presenting Problem/History of Present Illness Encounter for elective induction of labor [Z34.90] care following 04/24/2025 - Mazin Discharge Diagnosis: Vaginal delivery at 37w2d Procedures: Vaginal, Spontaneous 04/24/2025 5:30 PM Hospital Course Patient is a 29 y.o. female at 37w2d with cholestasis of status post vaginal delivery without complication. the patient did well. She remained afebrile, with vital signs stable. She was ready for discharge on day 2. : male fetus 2760 g (6 lb 1.4 oz) with scores of 5 , 8 at five minutes. Condition on Discharge: Stable Vital Signs Temp: [97.5 ??F (36.4 ??C)-97.9 ??F (36.6 ??C)] 97.9 ??F (36.6 ??C) Heart Rate: [74-82] 74 Resp: [16-18] 18 BP: (107-119)/(62-83) 107/62 Lab Results Component Value Date WBC 3.77 04/23/2025 HGB 12.8 04/25/2025 HCT 37.2 04/25/2025 MCV 88.3 04/23/2025 PLT 138 (L) 04/23/2025 Discharge Disposition Home or Self Care Discharge Medications Discharge Medications New Medications Instructions Start Date ibuprofen 600 MG tablet Commonly known as: ADVIL,MOTRIN 600 mg, Oral, Every 6 Hours PRN Continue These Medications Instructions Start Date 27-1 27-1 MG tablet tablet Stop These Medications ferrous sulfate 325 (65 FE) MG tablet fluticasone 50 MCG/ACT nasal spray Commonly known as: FLONASE metoprolol succinate XL 25 MG 24 hr tablet Commonly known as: TOPROL-XL Follow-up Appointments Future Appointments Date Time Provider Department Center 06/09/2025 1:40 PM John Bolton MD [facility] Additional Instructions for the Follow-ups that You Need to Schedule Discharge Follow-up with Specified Provider: mika; 6 Weeks As directed To: mika Follow Up: 6 Weeks Caryn Mccoy APRN 04/26/25 09:54 EDT Csd Cosigned by Pj Latham MD at 04/27/2025 8:05 AM EDT Associated attestation - Pj Latham MD - 04/27/2025 8:05 AM EDT I have reviewed this documentation and agree. documented in this encounter Medications at Time of Discharge ibuprofen (ADVIL,MOTRIN) 600 MG tablet Take 1 tablet by mouth Every 6 (Six) Hours As Needed for Mild Pain 30 tablet 04/26/2025 10:22 AM EDT 04/26/2025 Sodium Fluoride 5000 PPM 1.1 % paste USE 1 TO 2 TIMES A DAY DIRECTED. DO NOT EAT OR DRINK FOR 30 MINUTES AFTER USE 04/23/2025 Vit-Fe Fumarate-FA ( 27-1) 27-1 MG tablet tablet 10/22/2024 05/30/2025 documented as of this encounter Progress Notes * Caryn Mccoy APRN - 04/25/2025 12:23 PM EDT 04/25/2025 PPD #1 Subjective Vesna feels well. Patient describes her lochia less than menses. Pain is well controlled Objective Temp: Temp: [97.5 ??F (36.4 ??C)-99 ??F (37.2 ??C)] 97.5 ??F (36.4 ??C) Temp src: Oral BP: BP: (103-168)/(56-102) 124/87 Pulse: Heart Rate: [65-106] 76 RR: Resp: [16-18] 18 General: No acute distress Abdomen: Fundus firm and beneath umbilicus Pelvis: deferred Lab Results Component Value Date WBC 3.77 04/23/2025 HGB 12.8 04/25/2025 HCT 37.2 04/25/2025 MCV 88.3 04/23/2025 PLT 138 (L) 04/23/2025 HEPBSAG Non-Reactive 10/23/2024 Results from last 7 days Lab Units 04/23/259 TREPONEMA PALLIDUM AB TOTAL Non-Reactive Assessment PPD# 1 after vaginal delivery, doing well; hemodynamically stable Rh neg; baby Rh neg--- Rhogam not indicated Plan Routine care. This note has been electronically signed. Caryn Mccoy APRN April 25, 2025 * John Bolton MD - 04/24/2025 5:50 PM EDT June Vaginal Delivery Note Delivery details Gestational age: 37w2d Delivery: Vaginal, Spontaneous Date of : 04/24/2025 Time of : 5:30 PM Anesthesia: Epidural Delivering clinician: John Bolton Forceps? No Vacuum? No Shoulder dystocia present: No Delivery narrative: Second-degree midline episiotomy created. Spontaneous delivery from occiput anterior. Right shoulder anterior. Shoulder dystocia not present. Infant somewhat sluggish on perineum.Mouth and nose once again bulb suction. taken to the delivery bed. team called but by the time they arrived the infant was much more vigorous and crying spontaneously. Placenta delivered spontaneously intact with normal three-vessel cord. Repair second-degree midline episiotomy without extension with 3-0 chromic in standard fashion. details Findings: male observations: Weight: 2760 g (6 lb 1.4 oz) Length: 20.25 in Apgars: 6 @ 1 minute / @ 5 minutes Placenta, Cord, and Fluid Placenta delivered Spontaneous at 04/24/2025 5:38 PM Cord: 3 vessels present. Nuchal Cord? no Cord blood obtained: Yes Repair Episiotomy: Median Estimated Blood Loss: Est. Blood Loss (mL): 100 mL (Filed from Delivery Summary) (04/24/25 1730) Complications none Disposition Mother to Mother Baby/ in stable condition currently. Baby to remains with mom in stable condition currently. John Bolton MD 04/24/25 17:50 EDT * John Bolton MD - 04/24/2025 4:42 PM EDT June Vesna Murry : 1995 CSN: [id number] Labor progress note Subjective CC: hospital follow-up She is having no problems and is comfortable with the epidural. Objective Min/max vitals past 24 hours: Temp Min: 97.8 ??F (36.6 ??C) Max: 98.8 ??F (37.1 ??C) BP Min: 102/69 Max: 155/79 Pulse Min: 61 Max: 98 Resp Min: 16 Max: 16 FHT's: reassuring and category 2 Cervix: was checked (by me): 10 cm / 100 % / +1 and ROP Contractions: regular Assessment IUP at 37w2d status reassuring Malposition Plan Begin to push John Bolton MD 04/24/2025 16:42 EDT * John Bolton MD - 04/24/2025 3:38 PM EDT June Vesna Murry : 1995 CSN: [id number] Labor progress note Subjective CC: hospital follow-up She has been having late decelerations and I was called to evaluate. Epidural just redosed and she is some numb that she cannot move any of her lower extremities Objective Min/max vitals past 24 hours: Temp Min: 97.8 ??F (36.6 ??C) Max: 98.8 ??F (37.1 ??C) BP Min: 102/69 Max: 155/79 Pulse Min: 61 Max: 98 Resp Min: 16 Max: 16 FHT's (prior to FSE): reassuring and category 2 with intermittent late decels Cervix: was checked (by me): 9.5 cm / 100 % / +1 Contractions: regular every 2 minutes Assessment IUP at 37w2d Intermittent late decels with possible tachysystole Plan FSE applied Need to start O2 Would consider brethine for intrauterine resuscitation while we are working to improve BP after epidural redose John Bolton MD 04/24/2025 15:38 EDT * John Bolton MD - 04/24/2025 12:42 PM EDT June Murry : 1995 CSN: [id number] Labor progress note Subjective CC: hospital follow-up She is having no problems and is comfortable with the epidural. Pitocin is now off Objective Min/max vitals past 24 hours: Temp Min: 97.8 ??F (36.6 ??C) Max: 98 ??F (36.7 ??C) BP Min: 102/69 Max: 155/79 Pulse Min: 61 Max: 93 Resp Min: 16 Max: 16 FHT's: reassuring and category 1 Cervix: was checked (by me): 9-10 cm / 100 % / 0 Contractions: regular Assessment IUP at 37w2d Progressing in labor status reassuring Plan Expectant management John Bolton MD 04/24/2025 12:42 EDT * Barrington Vasquez DO - 04/24/2025 11:47 AM EDT Laborist Called to place iuypc Sve 8+/100/-1 Iupc placed to 45cm * John Bolton MD - 04/24/2025 7:57 AM EDT June Murry : 1995 CSN: [id number] Labor progress note Subjective CC: hospital follow-up She is having no problems and is comfortable with the epidural. Objective Min/max vitals past 24 hours: Temp Min: 98 ??F (36.7 ??C) Max: 98 ??F (36.7 ??C) BP Min: 102/69 Max: 127/66 Pulse Min: 63 Max: 80 Resp Min: 16 Max: 16 FHT's: reassuring and category 1 Cervix: was checked (by me): 4 cm / 90 % / -1 Contractions: none Assessment IUP at 37w2d IOL for ICP Progressing in labor status reassuring Plan Continue with induction AROM - clear fluid seen John Bolton MD 04/24/2025 07:57 EDT documented in this encounter H&P Notes * John Bolton MD - 04/23/2025 9:38 PM EDT H&P reviewed. The patient was examined and there are no changes to the H&P. Source Note - John Bolton MD - 04/23/2025 8:01 PM EDT Vesna Murry : 1995 CSN: [id number] History and Physical Subjective Vesna Murry is a 29 y.o. year old with an Estimated Date of Delivery: 05/13/25 presenting for induction of labor for mild intrahepatic cholestasis of . EFW is AGA and pelvis is clinically adequate. Risks of labor induction including prolongation of labor, increased risks for both sectionand operative vaginal have been discussed at length. care has been with Dr. Bolton. It has been noted for mild anemia and preeclampsia prophylaxis given prior history. OB History Para Term AB Living 3 1 0 1 1 1 SAB IAB Ectopic Molar Multiple Live Births 1 0 0 0 0 1 # Outcome Date GA Lbr Harinder/2nd Weight Sex Type Anes PTL Lv 3 Current 2 10/05/23 36w2d 41:30 / 01:43 1972 g (4 lb 5.5 oz) F Vag-Vacuum EPI Y JESSICA Complications: Intrahepatic cholestasis of , IUGR (intrauterine growth restriction) affecting care of mother, Preeclampsia Name: Irena Apgar1: 8 Apgar5: 9 1 SAB 2020 Obstetric Comments 2022 - Irena Past 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: Diagnosis Date Palpitations 2007 Endometriosis 2016 Cholestasis during 2022 Preeclampsia in period 10/2023 Past Surgical History: Procedure Laterality Date DIAGNOSTIC LAPAROSCOPY 2015 Dr. Thomas - Dx with endometriosis DIAGNOSTIC LAPAROSCOPY 2019 Dr. Yi Christopher - Dx with endometriosis HYSTEROSCOPY 2020 Dr. Ley - Resection of septum Current Outpatient Medications: aspirin 81 MG EC tablet, Take 1 tablet by mouth Daily., Disp: , Rfl: ferrous sulfate 325 (65 FE) MG tablet, Take 1 tablet by mouth 2 (Two) Times a Day Before Meals for 150 days., Disp: 60 tablet, Rfl: 4 fluticasone (FLONASE) 50 MCG/ACT nasal spray, 2 sprays into the nostril(s) as directed by provider Daily for 10 days., Disp: 16 g, Rfl: 0 metoprolol succinate XL (TOPROL-XL) 25 MG 24 hr tablet, Take 1 tablet by mouth Daily., Disp: , Rfl: Vit-Fe Fumarate-FA ( ) 27-1 MG tablet tablet, , Disp: , Rfl: ursodiol (ACTIGALL) 300 MG capsule, Take 1 capsule by mouth 2 (Two) Times a Day., Disp: 60 capsule,Rfl: 2 Allergies Allergen Reactions Penicillins Hives Social History Tobacco Use Smoking status: Never Smokeless tobacco: Never Review of Systems Constitutional: Negative for unexpected weight change. Respiratory: Negative for cough and shortness of breath. Cardiovascular: Negative for chest pain. Gastrointestinal: Negative for abdominal distention, constipation and diarrhea. No persistent bloating Genitourinary: Negative for difficulty urinating, dysuria, hematuria and urgency. No significant incontinence Skin: Negative for rash. Neurological: Negative for headaches. Objective LMP 08/07/2024 (Approximate) General: well developed; well nourished no acute distress mentation appropriate Abdomen: soft, non-tender; no masses no umbilical or inguinal hernias are present no hepato-splenomegaly Cervix: At last visit - 1 cm / 30 % / -2 / medium / middle Presentation: At last visit - cephalic Labs Lab Results Component Value Date HGB 11.8 (L) 02/23/2025 RUBELLAABIGG <0.90 (L) 10/23/2024 HEPBSAG Non-Reactive 10/23/2024 ABSCRN Negative 02/23/2025 [id number] Non-Reactive 10/23/2024 HEPCVIRUSABY Non-Reactive 10/23/2024 GCT 93 02/23/2025 URINECX No growth 10/23/2024 CHLAMNAA Negative 10/23/2024 NGONORRHON Negative 10/23/2024 Assessment IUP with an Estimated Date of Delivery: 05/13/25 Induction of labor because of intrahepatic cholestasis of Group B strep status: unknown Unfavorable cervix Plan Cervical andrea and Cytotec upon admission Pitocin induction in am if not in labor already Will manage group B strep status by risk factor approach Explained the potential for this to be a serial day process John Bolton MD documented in this encounter Procedure Notes * Lam Ortiz MD - 04/23/2025 10:56 PM EDTAssociated Order(s): ANDREA BULB CERVICAL RIPENING Pre-Procedure Diagnose(s): 37 weeks gestation of ; Cholestasis of in third trimester; Rigid cervix (uteri) affecting , third trimester Post-Procedure Diagnose(s): 37 weeks gestation of ; Cholestasis of in third trimester; Rigid cervix (uteri) affecting , third trimester Transcervical Andrea placed per physician request. FHT's class 1. Patient tolerated well. 24 saudi arabian,60ml. Lam Ortiz MD 04/23/2025 22:57 EDT documented in this encounter Nursing Notes * Mona Forman RN - 04/25/2025 12:35 PM EDT 04/25/25 1235 Maternal Information Person Making Referral human resource consultant (courtesy visit, newly ; pt reports she wants to exclusively pump (also pumped for 6 months with first child), no questions at this time (visitor and older child in room)) Infant Reason for Referral 35-37 weeks gestation Maternal Infant Feeding Maternal Emotional State independent;receptive Milk Expression/Equipment Breast Pump Type double electric, personal (Medela at bedside) Breast Pumping Breast Pumping Interventions early pumping promoted;frequent pumping encouraged Referrals Referrals outpatient program Outpatient Program Follow-up Date/Time As Needed Pumping encouraged every three hours, or at baby's feeding times for optimal milk initiation/production. All questions answered at this time, PRN Operational Intelligence Officer/Clinic contact encouraged * Yudelka Camargo RN - 04/24/2025 8:25 AM EDT Problem: Adult Inpatient Plan of Care Goal: Plan of Care Review Outcome: Progressing Goal: Patient-Specific Goal (Individualized) Outcome: Progressing Goal: Absence of Hospital-Acquired Illness or Injury Outcome: Progressing Intervention: Identify and Manage Fall Risk Recent Flowsheet Documentation Taken 04/24/2025 07 by Yudelka Camargo RN Safety Promotion/Fall Prevention: clutter free environment maintained safety round/check completed Goal: Optimal Comfort and Wellbeing Outcome: Progressing Intervention: Provide Person-Centered Care Recent Flowsheet Documentation Taken 04/24/2025 07 by Yudelka Camargo RN Trust Relationship/Rapport: care explained choices provided emotional support provided empathic listening provided questions answered questions encouraged reassurance provided thoughts/feelings acknowledged Goal: Readiness for Transition of Care Outcome: Progressing Problem: Labor Goal: Hemostasis Outcome: Progressing Goal: Stable Wellbeing Outcome: Progressing Goal: Effective Progression to Delivery Outcome: Progressing Goal: Absence of Infection Signs and Symptoms Outcome: Progressing Goal: Acceptable Pain Control Outcome: Progressing Goal: Normal Uterine Contraction Pattern Outcome: Progressing Goal Outcome Evaluation: documented in this encounter Plan of Treatment Upcoming Encounters Date Type Department Care Team (Late st Contact Info) Description 06/09/2025 1:40 PM EDT Visit [facility] O[facility] [address] [id number] John Bolton MD [address] [facility] [address] [place] [id number] documented as of this encounter Procedures Procedure Name Priority Date/Time Associated Diagnosis Comments HEMOGLOBIN AND HEMATOCRIT, BLOOD Timed 04/25/2025 4:54 AM EDT CBC (NO DIFF) STAT 04/23/2025 10:58 PM EDT ANDREA BULB CERVICAL RIPENING Routine 04/23/2025 10:56 PM EDT TREPONEMA PALLIDUM AB W/REFLEX RPR Routine 04/23/2025 10:29 PM EDT ANTIBODY IDENTIFICATION STAT 04/23/20 10:18 PM EDT TYPE AND SCREEN STAT 04/23/2025 10:18 PM EDT documented in this encounter Results * Hemoglobin & Hematocrit, Blood (04/25/2025 4:54 AM EDT) Hemoglobin 12.8 12.0 - 15.9 g/dL 04/25/2025 5:51 AM EDT [facility] Hematocrit 37.2 34.0 - 46.6 % 04/25/2025 5:51 AM EDT [facility] Blood Venipuncture / Unknown 04/25/2025 4:54 AM EDT 04/25/2025 5:39 AM EDT John Bolton MD LAB BLOOD ORDERABLES Final Result [facility]
[address] [place] [address], * (ABNORMAL) CBC (No Diff) (04/23/2025 10:58 PM EDT) WBC 3.77 3.40 - 10.80 10*3/mm3 04/23/2025 11:06 PM EDT [facility] RBC 4.10 3.77 - 5.28 10*6/mm3 04/23/2025 11:06 PM EDT [facility] Hemoglobin 12.7 12.0 - 15.9 g/dL 04/23/2025 11:06 PM EDT [facility] Hematocrit 36.2 34.0 - 46.6 % 04/23/2025 11:06 PM EDT [facility] MCV 88.3 79.0 - 97.0 fL 04/23/2025 11:06 PM EDT [facility] MCH 31.0 26.6 - 33.0 pg 04/23/2025 11:06 PM EDT [facility] MCHC 35.1 31.5 - 35.7 g/dL 04/23/2025 11:06 PM EDT [facility] RDW 12.6 12.3 - 15.4 % 04/23/2025 11:06 PM EDT [facility] RDW-SD 41.1 37.0 - 54.0 fl 04/23/2025 11:06 PM EDT [facility] MPV 11.0 6.0 - 12.0 fL 04/23/2025 11:06 PM EDT [facility] Platelets 138(L) 140 - 450 10*3/mm3 04/23/2025 11:06 PM EDT [facility] Blood Venipuncture / Unknown 04/23/2025 10:58 PM EDT 04/23/2025 10:58 PM EDT us John Bolton MD LAB BLOOD ORDERABLES Final Result [facility]
[address] [place] [address], * Andrea Bulb Cervical Ripening (04/23/2025 10:56 PM EDT) Narrative Lam Ortiz MD - 04/23/2025 10:56 PM EDT Lam Ortiz MD 04/23/2025 10:57 PM Transcervical Andrea placed per physician request. FHT's class 1. Patient tolerated well. 24 saudi arabian, 60ml. Lam Ortiz MD 04/23/2025 22:57 EDT us John Bolton MD OB GYNE ORDERABLES Final R esult * Treponema pallidum AB w/Reflex RPR (04/23/2025 10:29 PM EDT) Pathologist [facility] Treponemal AB Total Non-Reacti ve Non-React adrianne 04/24/2025 9:19 AM EDT [facility] Blood Venipuncture / Unknown 04/23/2025 10:29 PM EDT 04/23/2025 10:29 PM EDT Narrative [facility] - 04/24/2025 9:19 AM EDT Reactive results will reflex RPR testing. us John Bolton MD LAB BLOOD ORDERABLES Final Result [facility]
[address] [place] [address], [place] [phone] * Antibody Identification (04/23/2025 10:18 PM EDT) Pathologist [facility] Residual RhIG Detected RESIDUAL RHIG DETECTED 04/23/2025 11:46 PM EDT [facility] Blood Venipuncture / Unknown 04/23/2025 10:18 PM EDT 04/23/2025 10:33 PM EDT us John Bolton MD BLOOD BANK TEST ORDERABLES Final Result [facility]
[address] [place] [address], [place] [phone] * Type & Screen (04/23/2025 10:18 PM EDT) Pathologist [facility] ABO Type A 04/23/2025 11:07 PM EDT [facility] RH type Negative 04/23/2025 11:07 PM EDT [facility] Antibody Screen Positive 04/23/2025 11:07 PM EDT [facility] T&S Expiration Date 04/26/2025 11:59:59 PM 04/23/2025 11:07 PM EDT [facility] Blood Venipuncture / Unknown 04/23/2025 10:18 PM EDT 04/23/2025 10:33 PM EDT us John Bolton MD BLOOD BANK TEST ORDERABLES Edited Result - Final [facility]
[address] [place] [address], documented in this encounter Visit Diagnoses Diagnosis care following 04/24/2025 - Mazin- Primary Encounter for induction of labor 04/23/2025 @ 20:00 Intrahepatic cholestasis of , third trimester Rh (-) Other specified complication of , unspecified as to episode of care care, subsequent in third trimester documented in this encounter Admitting Diagnoses Diagnosis Encounter for elective induction of labor documented in this encounter Administered Medications Inactive Administered Medications - up to 3 most recent administrations Medication Order MAR Action Action Date Dose Rate Site acetaminophen (TYLENOL) tablet 650 mg 650 mg, Oral, Every 4 Hours PRN, Mild Pain, Headache, Starting on Sydney 04/23/25 at 2132, If given for fever, use fever parameter: fever greater than 100.4 F Based on patient request - if ordered for moderate or severe pain, provider allows for administration of a medication prescribed for a lower pain scale. Do not exceed 4 grams of acetaminophen in a 24 hr period. Max dose of 2gm for AST/ALT greater than 120 units/L. If given for pain, use the following pain scale: Mild Pain = Pain Score of 1-3, CPOT 1-2 Moderate Pain = Pain Score of 4-6, CPOT 3-4 Severe Pain = Pain Score of 7-10, CPOT 5-8 Given 04/24/2025 6:24 PM EDT 650 mg benzocaine-menthol (DERMOPLAST) 20-0.5 % topical spray Topical, As Needed, Mild Pain, perineal pain, Starting on 04/24/25 at 2014, May leave at bedside. If given for pain, use the following pain scale: Mild Pain = Pain Score of 1-3, CPOT 1-2 Moderate Pain = Pain Score of 4-6, CPOT 3-4 Severe Pain = Pain Score of 7-10, CPOT 5-8 Given 04/24/2025 9:31 PM EDT butorphanol (STADOL) injection 1 mg 1 mg, Intravenous, Every 2 Hours PRN, Moderate Pain, Starting on Sydney 04/23/25 at 2132, (KOBI) If given for pain, use the following pain scale: Mild Pain = Pain Score of 1-3, CPOT 1-2 Moderate Pain = Pain Score of 4-6, CPOT 3-4 Severe Pain = Pain Score of 7-10, CPOT 5-8 Given 04/24/2025 1:03 AM EDT 1 mg Given 04/24/2025 12:43 AM EDT 1 mg butorphanol (STADOL) injection 2 mg 2 mg, Intravenous, Every 2 Hours PRN, Severe Pain, Starting on Sydney 04/23/25 at 2132, (KOBI) If given for pain, use the following pain scale: Mild Pain = Pain Score of 1-3, CPOT 1-2 Moderate Pain = Pain Score of 4-6, CPOT 3-4 Severe Pain = Pain Score of 7-10, CPOT 5-8 Given 04/24/2025 6:46 AM EDT 2 mg Given 04/24/2025 4:45 AM EDT 2 mg docusate sodium (COLACE) capsule 100 mg 100 mg, Oral, 2 Times Daily, First dose on Sun04/24/25 at 2100, Swallow whole. Do not open, crush, or chew capsule. Given 04/26/2025 8:43 AM EDT 100 mg Given 04/25/2025 8:06 PM EDT 100 mg Given 04/25/2025 9:06 AM EDT 100 mg famotidine (PEPCID) injection 20 mg 20 mg, Intravenous, Once As Needed, nausea, Starting on Sun04/24/25 at 0646, For 1 dose, Give IV push over 2 minutes. Given 04/24/2025 2:53 PM EDT 20 mg HYDROcodone-acetaminophen (NORCO) 10-325 MG per tablet 1 tablet 1 tablet, Oral, Every 4 Hours PRN, Severe Pain, Starting on Sun04/24/25 at 2014, For 3 days, Based on patient request - if ordered for moderate or severe pain, provider allows for administration of a medication prescribed for a lower pain scale. [KOBI] Do not exceed 4 grams of acetaminophen in a 24 hr period. Max dose of 2gm for AST/ALT greater than 120 units/L If given for pain, use the following pain scale: Mild Pain = Pain Score of 1-3, CPOT 1-2 Moderate Pain = Pain Score of 4-6, CPOT 3-4 Severe Pain = Pain Score of 7-10, CPOT 5-8 HYDROcodone-acetaminophen (NORCO) 5-325 MG per tablet 1 tablet 1 tablet, Oral, Every 4 Hours PRN, Moderate Pain, Starting on Sun04/24/25 at 2013, For 3 days, Based on patient request - if ordered for moderate or severe pain, provider allows for administration of a medication prescribed for a lower pain scale. [KOBI] Do not exceed 4 grams of acetaminophen in a 24 hr period. Max dose of 2gm for AST/ALT greater than 120 units/L If given for pain, use the following pain scale: Mild Pain = Pain Score of 1-3, CPOT 1-2 Moderate Pain = Pain Score of 4-6, CPOT 3-4 Severe Pain = Pain Score of 7-10, CPOT 5-8 ibuprofen (ADVIL,MOTRIN) tablet 600 mg 600 mg, Oral, Every 6 Hours PRN, Mild Pain, First Line: Mild pain., Starting on Sun04/24/25 at 2013, Based on patient request - if ordered for moderate or severe pain, provider allows for administration of a medication prescribed for a lower pain scale. Mucous membrane irritant. Do not crush or chew tablet or capsule unless administered through a feeding tube. If given for pain, use the following pain scale: Mild Pain = Pain Score of 1-3, CPOT 1-2 Moderate Pain = Pain Score of 4-6, CPOT 3-4 Severe Pain = Pain Score of 7-10, CPOT 5-8 Given 04/26/2025 8:43 AM EDT 600 mg Given 04/25/2025 5:17 PM EDT 600 mg Given 04/25/2025 9:06 AM EDT 600 mg ibuprofen (ADVIL,MOTRIN) tablet 600 mg 600 mg, Oral, Every 6 Hours PRN, Mild Pain, Starting on Sun04/24/25 at 1740, If given for pain, use the following pain scale: Mild Pain = Pain Score of 1-3, CPOT 1-2 Moderate Pain = Pain Score of 4-6, CPOT 3-4 Severe Pain = Pain Score of 7-10, CPOT 5-8 Given 04/24/2025 6:24 PM EDT 600 mg lactated ringers bolus 1,000 mL 1,000 mL, Intravenous, at 2,000 mL/hr, Administer over 0.5 Hours, Once, On [place] 04/23/25 at 2230, For 1 dose, Preload for epidural New Bag 04/24/2025 6:48 AM EDT 1,000 mL 2000 mL/hr lactated ringers infusion 125 mL/hr, Intravenous, Continuous, Starting on [place] 04/23/25 at 2230, For 24 hours New Bag 04/24/2025 3:52 PM EDT 125 mL/hr 125 mL/hr New Bag 04/24/2025 1:10 PM EDT 125 mL/hr 125 mL/hr New Bag 04/24/2025 1:07 AM EDT 125 mL/hr 125 mL/hr miSOPROStol (CYTOTEC) split tablet 50 mcg 50 mcg, Oral, Every 4 Hours Scheduled, First dose on Sun04/24/25 at 0000, For 2 doses, Group 2 ([place]) Hazardous Drug - Reproductive Risk Only - See Handling Guide, Indications: Cervical RipeningIndications:Cervical Ripening Given 04/24/2025 3:57 AM EDT 50 mcg Given 04/23/2025 11:56 PM EDT 50 mcg ondansetron (ZOFRAN) injection 4 mg 4 mg, Intravenous, Once As Needed, Nausea, Vomiting, Starting on Sun04/24/25 at 0646, For 1 dose Given 04/24/2025 11:50 AM EDT 4 mg oxytocin (PITOCIN) 30 units in 0.9% sodium chloride 500 mL (premix) 2-24 cynthia-units/min (2-24 mL/hr), Intravenous, Titrated, Starting on Sun04/24/25 at 0600, Start at 2 cynthia-units/min and titrate up or down by 2 cynthia-units every 30 min to a max of 20 cynthia-units/min. Titrate to maternal/ tolerance, with a goal of achieving an adequate labor pattern defined by progressive cervical effacement and cervical dilation of approximately 0.5 cm/hr to 1 cm/hr once active labor is achieved. Contractions should not be more frequent than every 2 minutes. If tachysystole occurs with either FHR category III or FHR category III develops without tachysystole, stop oxytocin infusion and notify physician. Notify physician for tachysystole regardless of FHR category. If oxytocin has been stopped for less than 30 minutes, FHR is reassuring and no uterine tachysystole present, oxytocin may be restarted at half the rate that caused tachysystole. If oxytocin has been stopped for 30 minutes or longer, oxytocin must be restarted at the initial dose. Group 2 ([place]) Hazardous Drug - Reproductive Risk Only - See Handling Guide Rate/Dose Change 04/24/2025 2:54 PM EDT 6 cynthia-units/min 6 mL/hr Rate/Dose Change 04/24/2025 2:21 PM EDT 4 cynthia-units/min 4 mL/hr Restarted 04/24/2025 1:51 PM EDT 2 cynthia-units/min 2 mL/h r oxytocin (PITOCIN) 30 units in 0.9% sodium chloride 500 mL (premix) 999 mL/hr, Intravenous, Once, On Sun04/24/25 at 1830, For 1 dose, Infuse 250 ml at 999 ml/hr. If patient has a previous bag with remaining volume, please use remainder of that bag to avoid waste. Goal is to give no more than one total 500 mL bag to conserve product. Additional bags only to be used if indicated for bleeding. Group 2 ([place]) Hazardous Drug - Reproductive Risk Only - See Handling Guide New Bag 04/24/2025 5:38 PM EDT 999 mL/hr 999 mL/hr oxytocin (PITOCIN) 30 units in 0.9% sodium chloride 500 mL (premix) 250 mL/hr, Intravenous, Continuous, Starting on Sun04/24/25 at 1845, For 1 hour, Infuse at 250 ml/hr for remaining volume in bag. Group 2 ([place]) Hazardous Drug - Reproductive Risk Only - See Handling Guide New Bag 04/24/2025 5:53 PM EDT 250 mL/hr 250 mL/hr witch eliazar-glycerin (TUCKS) pad Topical, As Needed, Irritation, Hemorrhoids, Starting on Sun04/24/25 at 2014, May leave at bedside. Given 04/24/2025 9:31 PM EDT documented in this encounter Active and Recently Administered Medications Times are shown in EDT. Scheduled Medication Order 04/24/2025 04/25/2025 04/26/2025 docusate sodium (COLACE) capsule 100 mg 100 mg, Oral, 2 Times Daily, First dose on Sun04/24/25 at 2100, Swallow whole. Do not open, crush, or chew capsule. 2127 (Given - Provider: Sofi Buck, RN) 905 (Given - Provider: Natacha Dupont, RN)2005 (Given - Provider: Sofi Buck, RN) 0843 (Given - Provider: Georgia Delgado, BG) lactated ringers bolus 1,000 mL (COMPLETED) 1,000 mL, Intravenous, at 2,000 mL/hr, Administer over 0.5 Hours, Once, On [place] 04/23/25 at 2230, For 1 dose, Preload for epidural 0648 (New Bag - Provider: Casi Stephen, BG) miSOPROStol (CYTOTEC) split tablet 50 mcg (COMPLETED) 50 mcg, Oral, Every 4 Hours Scheduled, First dose on Sun04/24/25 at 0000, For 2 doses, Group 2 ([place]) Hazardous Drug - Reproductive Risk Only - See Handling Guide, Indications: Cervical Ripening 0357 (Given - Provider: Casi Stephen, BG) oxytocin (PITOCIN) 30 units in 0.9% sodium chloride 500 mL (premix) (COMPLETED)(Linked Group 1) 999 mL/hr, Intravenous, Once, On Sun04/24/25 at 1830, For 1 dose, Infuse 250 ml at 999 ml/hr. If patient has a previous bag with remaining volume, please use remainder of that bag to avoid waste. Goal is to give no more than one total 500 mL bag to conserve product. Additional bags only to be used if indicated for bleeding. Group 2 ([place]) Hazardous Drug - Reproductive Risk Only - See Handling Guide 9578 (New Bag - Provider: Yudelka Camargo, BG) Continuous Medication Order 04/24/2025 04/25/2025 04/26/2025 lactated ringers infusion (CANCELED) 125 mL/hr, Intravenous, Continuous, Starting on [place] 04/23/25 at 2230, For 24 hours 0107 (New Bag - Provider: Casi Stephen RN)1310 (New Bag - Provider: Yudelka Camargo RN)1552 (New Bag - Provider: Yudelka Camargo RN)2013 (Due: Order Ending - Provider: John Bolton MD - Comment: [Order ends at this time. Document the following action when infusion is complete: Stopped]) oxytocin (PITOCIN) 30 units in 0.9% sodium chloride 500 mL (premix) (CANCELED) 2-24 cynthia-units/min (2-24 mL/hr), Intravenous, Titrated, Starting on Sun04/24/25 at 0600, Start at 2 cynthia-units/min and titrate up or down by 2 cynthia-units every 30 min to a max of 20 cynthia-units/min. Titrate to maternal/ tolerance, with a goal of achieving an adequate labor pattern defined by progressive cervical effacement and cervical dilation of approximately 0.5 cm/hr to 1 cm/hr once active labor is achieved. Contractions should not be more frequent than every 2 minutes. If tachysystole occurs with either FHR category III or FHR category III develops without tachysystole, stop oxytocin infusion and notify physician. Notify physician for tachysystole regardless of FHR category. If oxytocin has been stopped for less than 30 minutes, FHR is reassuring and no uterine tachysystole present, oxytocin may be restarted at half the rate that caused tachysystole. If oxytocin has been stopped for 30 minutes or longer, oxytocin must be restarted at the initial dose. Group 2 ([place]) Hazardous Drug - Reproductive Risk Only - See Handling Guide 0808 (New Bag - Provider: Yudelka Camargo RN)0936 (Stopped - Provider: Yudelka Camargo RN)1351 (Restarted - Provider: Yudelka Camargo RN)1421 (Rate/Dose Change - Provider: Kyleigh Bertrand RN)1454 (Rate/Dose Change - Provider: Yudelka Camargo RN)2004 (Due: Order Ending - Provider: Automatic Transfer Provider - Comment: [Order ends at this time. Document the following action when infusion is complete: Stopped]) oxytocin (PITOCIN) 30 units in 0.9% sodium chloride 500 mL (premix) ()(Linked Group 1) 250 mL/hr, Intravenous, Continuous, Starting on Sun04/24/25 at 1845, For 1 hour, Infuse at 250 ml/hr for remaining volume in bag. Group 2 ([place]) Hazardous Drug - Reproductive Risk Only - See Handling Guide 1753 (New Bag - Provider: Yudelka Camagro RN)1919 (Stopped - Provider: Delicia Ruby RN - Comment: [Order ends at this time. Document the following action when infusion is complete: Stopped]) ropivacaine (NAROPIN) 0.2 % injection (CANCELED) 15 mL/hr, Epidural, Continuous, Starting on Sun04/24/25 at 0745, Anesthesiologist To Adjust Rate As Needed. RN May Replace Epidural Infusion Fluids As Ordered 0652 (Due)0708 (New Bag - Provider: Erlin De La Cruz MD)0709 (Rate/Dose Change - Provider: Erlin De La Cruz MD)0745 (Due)1651 (Due: Order Ending - Provider: Kaitlynn Sharma DO - Comment: [Order ends at this time. Document the following action when infusion is complete: Stopped]) ropivacaine (NAROPIN) 0.2 % injection (CANCELED) 15 mL/hr, Epidural, Continuous, Starting on Sun04/24/25 at 1745, Anesthesiologist To Adjust Rate As Needed. RN May Replace Epidural Infusion Fluids As Ordered 1653 (New Bag - Provider: Kaitlynn Sharma, DO - Comment: decreased per nursing request. pt is pushing and is very numb.)2013 (Due: Order Ending - Provider: John Bolton MD - Comment: [Order ends at this time. Document the following action when infusion is complete: Stopped]) PRN Medication Order 04/24/2025 04/25/2025 04/26/2025 acetaminophen (TYLENOL) tablet 650 mg (CANCELED) 650 mg, Oral, Every 4 Hours PRN, Mild Pain, Headache, Starting on [place] 04/23/25 at 2132, If given for fever, use fever parameter: fever greater than 100.4 F Based on patient request - if ordered for moderate or severe pain, provider allows for administration of a medication prescribed for a lower pain scale. Do not exceed 4 grams of acetaminophen in a 24 hr period. Max dose of 2gm for AST/ALT greater than 120 units/L. If given for pain, use the following pain scale: Mild Pain = Pain Score of 1-3, CPOT 1-2 Moderate Pain = Pain Score of 4-6, CPOT 3-4 Severe Pain = Pain Score of 7-10, CPOT 5-8 4244 (Given - Provider: Yudelka Camargo RN) acetaminophen (TYLENOL) tablet 650 mg 650 mg, Oral, Every 6 Hours PRN, Mild Pain, Second Line: Mild pain unrelieved by ibuprofen. Stagger doses 3 hours after dose of ibuprofen., Starting on Sun04/24/25 at 2013, If given for fever, use fever parameter: fever greater than 100.4 F Based on patient request - if ordered for moderate or severe pain, provider allows for administration of a medication prescribed for a lower pain scale. Do not exceed 4 grams of acetaminophen in a 24 hr period. Max dose of 2gm for AST/ALT greater than 120 units/L. If given for pain, use the following pain scale: Mild Pain = Pain Score of 1-3, CPOT 1-2 Moderate Pain = Pain Score of 4-6, CPOT 3-4 Severe Pain = Pain Score of 7-10, CPOT 5-8 benzocaine (AMERICAINE) 20 % rectal ointment 1 Application 1 Application, Rectal, As Needed, Hemorrhoids, Starting on Sun04/24/25 at 2013, May leave at bedside. (SP) benzocaine-menthol (DERMOPLAST) 20-0.5 % topical spray Topical, As Needed, Mild Pain, perineal pain, Starting on Sun04/24/25 at 2013, May leave at bedside. If given for pain, use the following pain scale: Mild Pain = Pain Score of 1-3, CPOT 1-2 Moderate Pain = Pain Score of 4-6, CPOT 3-4 Severe Pain = Pain Score of 7-10, CPOT 5-8 6581 (Given - Provider: Sofi Buck RN) bisacodyl (DULCOLAX) suppository 10 mg 10 mg, Rectal, Daily PRN, Constipation, Starting on 04/25/25 at 0000, Begin on day 1 if no BM Hold for diarrhea butorphanol (STADOL) injection 1 mg (CANCELED) 1 mg, Intravenous, Every 2 Hours PRN, Moderate Pain, Starting on [place] 04/23/25 at 2132, (KOBI) If given for pain, use the following pain scale: Mild Pain = Pain Score of 1-3, CPOT 1-2 Moderate Pain = Pain Score of 4-6, CPOT 3-4 Severe Pain = Pain Score of 7-10, CPOT 5-8 0043 (Given - Provider: Casi Stephen RN)0103 (Given - Provider: Casi Stephen RN) butorphanol (STADOL) injection 2 mg (CANCELED) 2 mg, Intravenous, Every 2 Hours PRN, Severe Pain, Starting on [place] 04/23/25 at 2132, (KOBI) If given for pain, use the following pain scale: Mild Pain = Pain Score of 1-3, CPOT 1-2 Moderate Pain = Pain Score of 4-6, CPOT 3-4 Severe Pain = Pain Score of 7-10, CPOT 5-8 0445 (Given - Provider: Casi Stephen RN)0646 (Given - Provider: Casi Stephen RN) calcium carbonate (TUMS) chewable tablet 500 mg (200 mg elemental) 1 tablet, Oral, 3 Times Daily PRN, Heartburn, Starting on Sun04/24/25 at 2013, One tablet contains 200 mg elemental calcium. Take with food. carboprost (HEMABATE) injection 250 mcg 250 mcg, Intramuscular, Once As Needed, Heavy bleeding, Starting on Sun04/24/25 at 2013, For 1 dose, DO NOT administer IV Refrigerate. Use filter needle to withdraw dose., Indications: Hemorrhage famotidine (PEPCID) injection 20 mg (COMPLETED) 20 mg, Intravenous, Once As Needed, nausea, Starting on Sun04/24/25 at 0646, For 1 dose, Give IV push over 2 minutes. 1453 (Given - Provider: Yudelka Camargo RN) HYDROcodone-acetaminophen (NORCO) 10-325 MG per tablet 1 tablet(Linked Group 2) 1 tablet, Oral, Every 4 Hours PRN, Severe Pain, Starting on Sun04/24/25 at 2013, For 3 days, Based on patient request - if ordered for moderate or severe pain, provider allows for administration of a medication prescribed for a lower pain scale. [KOBI] Do not exceed 4 grams of acetaminophen in a 24 hr period. Max dose of 2gm for AST/ALT greater than 120 units/L If given for pain, use the following pain scale: Mild Pain = Pain Score of 1-3, CPOT 1-2 Moderate Pain = Pain Score of 4-6, CPOT 3-4 Severe Pain = Pain Score of 7-10, CPOT 5-8 HYDROcodone-acetaminophen (NORCO) 5-325 MG per tablet 1 tablet(Linked Group 2) 1 tablet, Oral, Every 4 Hours PRN, Moderate Pain, Starting on Sun04/24/25 at 2013, For 3 days, Based on patient request - if ordered for moderate or severe pain, provider allows for administration of a medication prescribed for a lower pain scale. [KOBI] Do not exceed 4 grams of acetaminophen in a 24 hr period. Max dose of 2gm for AST/ALT greater than 120 units/L If given for pain, use the following pain scale: Mild Pain = Pain Score of 1-3, CPOT 1-2 Moderate Pain = Pain Score of 4-6, CPOT 3-4 Severe Pain = Pain Score of 7-10, CPOT 5-8 Hydrocortisone (Perianal) (ANUSOL-HC) 2.5 % rectal cream 1 Application 1 Application, Rectal, As Needed, Hemorrhoids, Starting on Sun04/24/25 at 2013, May leave at bedside hydrOXYzine (ATARAX) tablet 50 mg 50 mg, Oral, Nightly PRN, Sleep, Starting on Sun04/24/25 at 2013, Caution: Look alike/sound alike drug alert ibuprofen (ADVIL,MOTRIN) tablet 600 mg 600 mg, Oral, Every 6 Hours PRN, Mild Pain, First Line: Mild pain., Starting on Sun04/24/25 at 2013, Based on patient request - if ordered for moderate or severe pain, provider allows for administration of a medication prescribed for a lower pain scale. Mucous membrane irritant. Do not crush or chew tablet or capsule unless administered through a feeding tube. If given for pain, use the following pain scale: Mild Pain = Pain Score of 1-3, CPOT 1-2 Moderate Pain = Pain Score of 4-6, CPOT 3-4 Severe Pain = Pain Score of 7-10, CPOT 5-8 0027 (Given - Provider: Sofi Buck RN)0906 (Given - Provider: Natacha Dupont RN)1717 (Given - Provider: Natacha Dupont RN) 0843 (Given - Provider: Georgia Delgado RN) ibuprofen (ADVIL,MOTRIN) tablet 600 mg (CANCELED) 600 mg, Oral, Every 6 Hours PRN, Mild Pain, Starting on Sun04/24/25 at 1740, If given for pain, use the following pain scale: Mild Pain = Pain Score of 1-3, CPOT 1-2 Moderate Pain = Pain Score of 4-6, CPOT 3-4 Severe Pain = Pain Score of 7-10, CPOT 5-8 1824 (Given - Provider: Yudelka Camargo RN) lanolin topical 1 Application 1 Application, Topical, Every 1 Hour PRN, Dry Skin, nipple pain, Starting on Sun04/24/25 at 2013, May keep at bedside. magnesium hydroxide (MILK OF MAGNESIA) suspension 10 mL 10 mL, Oral, Daily PRN, Constipation, Starting on Sun04/24/25 at 2013 methylergonovine (METHERGINE) injection 200 mcg 200 mcg, Intramuscular, Once As Needed, Heavy bleeding, Starting on Sun04/24/25 at 2013, For 1 dose, Group 2 ([place]) Hazardous Drug - Reproductive Risk Only - See Handling Guide, Indications: Hemorrhage miSOPROStol (CYTOTEC) tablet 600 mcg 600 mcg, Oral, Once As Needed, Heavy bleeding, Starting on Sun04/24/25 at 2013, For 1 dose, Group 2 ([place]) Hazardous Drug - Reproductive Risk Only - See Handling Guide, Indications: Hemorrhage ondansetron (ZOFRAN) injection 4 mg (COMPLETED) 4 mg, Intravenous, Once As Needed, Nausea, Vomiting, Starting on Sun04/24/25 at 0646, For 1 dose 1150 (Given - Provider: Yudelka Camargo RN)1156 (Due) oxytocin (PITOCIN) 30 units in 0.9% sodium chloride 500 mL (premix) 125 mL/hr, Intravenous, Once As Needed, PRN Bleeding for 1 Bag, Starting on Sun04/24/25 at 2013, For 1 dose, Consider 2nd agent prophylactically. Only order if patient is at high risk of bleeding and will need an additional bag (2 total). Group 2 ([place]) Hazardous Drug - Reproductive Risk Only - See Handling Guide sodium chloride 0.9 % flush 1-10 mL 1-10 mL, Intravenous, As Needed, Line Care, Starting on Sun04/24/25 at 2013 witch eliazar-glycerin (TUCKS) pad Topical, As Needed, Irritation, Hemorrhoids, Starting on Sun04/24/25 at 2013, May leave at bedside. 2130 (Given - Provider: Sofi Buck RN) Linked Groups Order Group 1: oxytocin (PITOCIN) 30 units in 0.9% sodium chloride 500 mL (premix) (COMPLETED)Jump to med 999 mL/hr, Intravenous, Once, On Sun04/24/25 at 1830, For 1 dose, Infuse 250 ml at 999 ml/hr. If patient has a previous bag with remaining volume, please use remainder of that bag to avoid waste. Goal is to give no more than one total 500 mL bag to conserve product. Additional bags only to be used if indicated for bleeding. Group 2 ([place]) Hazardous Drug - Reproductive Risk Only - See Handling Guide Followed by oxytocin (PITOCIN) 30 units in 0.9% sodium chloride 500 mL (premix) ()Jump to med 250 mL/hr, Intravenous, Continuous, Starting on Sun04/24/25 at 1845, For 1 hour, Infuse at 250 ml/hr for remaining volume in bag. Group 2 ([place]) Hazardous Drug - Reproductive Risk Only - See Handling Guide Group 2: HYDROcodone-acetaminophen (NORCO) 5-325 MG per tablet 1 tabletJump to med 1 tablet, Oral, Every 4 Hours PRN, Moderate Pain, Starting on Sun04/24/25 at 2013, For 3 days, Based on patient request - if ordered for moderate or severe pain, provider allows for administration of a medication prescribed for a lower pain scale. [KOBI] Do not exceed 4 grams of acetaminophen in a 24 hr period. Max dose of 2gm for AST/ALT greater than 120 units/L If given for pain, use the following pain scale: Mild Pain = Pain Score of 1-3, CPOT 1-2 Moderate Pain = Pain Score of 4-6, CPOT 3-4 Severe Pain = Pain Score of 7-10, CPOT 5-8 Or HYDROcodone-acetaminophen (NORCO) 10-325 MG per tablet 1 tabletJump to med 1 tablet, Oral, Every 4 Hours PRN, Severe Pain, Starting on Sun04/24/25 at 2013, For 3 days, Based on patient request - if ordered for moderate or severe pain, provider allows for administration of a medication prescribed for a lower pain scale. [KOBI] Do not exceed 4 grams of acetaminophen in a 24 hr period. Max dose of 2gm for AST/ALT greater than 120 units/L If given for pain, use the following pain scale: Mild Pain = Pain Score of 1-3, CPOT 1-2 Moderate Pain = Pain Score of 4-6, CPOT 3-4 Severe Pain = Pain Score of 7-10, CPOT 5-8 documented in this encounter Care Teams Type Photography Supervisor Relationship Specialty Start Date End Date Gabriel Lynch MD [facility] [place] [address] [place] [id number] PCP - General Family Medicine 07/09/23 documented as of this encounter
--- OUTSIDE RECORDS SUMMARY | 2025-04-24 06:53 | XMS_ITS | Encounter Summary ---
Author Organization [facility] Address [address] [place] [address] Care Team Providers Care Early Childhood Associate Name Role Phone Gabriel Lynch MD Primary Care Provider [phone] [phone] Reason for Visit * Auth/Cert (Routine) Specialty Diagnoses / Procedures Referred By Contac t Referred To Contact Diagnoses Encounter for elective induction of labor Referral ID Status Reason Start Date Expiration Date Visits Re quested Visits Authorized 1 1 Encounter Details Date Type Department Care Team (Late st Contact Info) Description 04/24/2025 6:53 AM EDT Anesthesia Event [facility] LABOR DELIVERY [address] [place] [address] Kaitlynn Jacinto DO [address] [place] [address] Erlin De La Cruz MD [address] [place] [address] Anesthesia Record Procedure Summary Procedure Name Responsible Anesthesiologist Anesthesia Start Time Anesthesia Stop Time LABOR ANALGESIA Nolan Jacinto DO 04/24/25 0653 04/24/25 1738 Events Date Time Event Comment 04/24/2025 0650 0653 An Start The patient was reevaluated immediately before moderate or deep sedation use and before anesthesia induction. 0653 Face Time 1738 An Stop Meds Name Total lidocaine 1.5%-EPINEPHrine PF 1:200,000 (XYLOCAINE W/EPI) injection 8 mL fentaNYL (SUBLIMAZE) injection 100 mcg ropivacaine (NAROPIN) 0.2 % injection 15 4.77 mL ropivacaine (NAROPIN) 0.2 % injection 6. 75 mL * Agents No agents on file. * Blood No blood administrations on file. Lines, Drains, and Airways Type Details Placement Removal Peripheral IV Placement Date: 04/23/25; Placement Time: 2201; Orientation: Left, Posterior; Location: Forearm; Removal Date: 04/25/25; Removal Time: 130804/23/252201 by Casi Stephen RN 04/25/251308 by Natacha Dupont RN Epidural Placement Date: 04/24/25; Placement Time: 718 (created via procedure documentation); Removal Date: 04/24/25; Removal Time: 183904/24/25718 by Erlin De La Cruz MD 04/24/25 184 by Yudelka Ruiz RN Urethral Catheter Placement Date: 04/24/25; Placement Time: 804; Inserted by: Byron ruiz Rn; Type: Double-lumen, Non-latex; Size: 16 Fr.; Balloon Size: 10 mL; Urine Returned: Yes; Removal Date: 04/24/25; Removal Time: 1644; Removal Reason: Per order 04/24/25 0805 by Yudelka Ruiz RN 04/24/25 164 by Yudelka Ruiz RN documented in this encounter Social History Tobacco Use Types Packs/Day Years Used Date Smoking Tobacco: Never Smokeless Tobacco: Never Alcohol Use Standard Drinks/Week Comments Not Currently 0 (1 standard drink = 0.6 oz pur e alcohol) [facility] Utilities Answer Date Recorded In the past 12 months has [email or web address], gas, oil, or water dscovered threatened to shut off services in your [...] and heating? Not hard at all 04/24/2025 [facility] of Occupat ional Health - Occupational Stress [...] things needed for daily living? No 04/24/2025 [employer] Depression Scale Answer Date Recorded [employer] Depression Scale Total 0 04/24/2025 The thought [...] GED or equivalent No 04/24/2025 Preferred Language Slovak 04/24/2025 PHQ-2 Answer Date Recorded Patient Health [...] R N documented as of this encounter OR Notes * Anesthesia Postprocedure Evaluation - Sina Slater DO - 04/25/2025 3:38 PM EDT Patient: Vesna Murry Procedure Summary Date: 04/24/25 Room / Location: Anesthesia Start: 652 Anesthesia Stop: 1737 Procedure: LABOR ANALGESIA Diagnosis: Scheduled Providers: Provider: Kaitlynn Jacinto DO Anesthesia Type: epidural ASA Status: 2 Anesthesia Type: epidural Vitals Vitals Value Taken Time BP 124/87 04/25/25 07:42 Temp 97.5 ??F (36.4 ??C) 04/25/25 07:42 Pulse 76 04/25/25 07:42 Resp 18 04/25/25 07:42 SpO2 91 % 04/24/25 18:07 Vitals shown include unfiled device data. Post Anesthesia Care and Evaluation Patient location during evaluation: bedside Patient participation: complete - patient participated Level of consciousness: awake Pain score: 0 Pain management: satisfactory to patient Airway patency: patent Anesthetic complications: No anesthetic complications PONV Status: none Cardiovascular status: acceptable and hemodynamically stable Respiratory status: acceptable Hydration status: acceptable Post Neuraxial Block status: Motor and sensory function returned to baseline and No signs or symptoms of PDPH * Anesthesia Procedure Notes - Erlin De La Cruz MD - 04/24/2025 7:18 AM EDT Associated Order(s): Labor Epidural Labor Epidural Pre-sedation assessment completed: 04/24/2025 6:53 AM Patient reassessed immediately prior to procedure Patient location during procedure: OB Start Time: 04/24/2025 6:53 AM Performed By Anesthesiologist: Erlin De La Cruz MD Preanesthetic Checklist Completed: patient identified, IV checked, risks and benefits discussed, surgical consent, monitorsand equipment checked, pre-op evaluation and timeout performed Prep: Pt Position:sitting [place] Drawer:cap, gloves, mask and sterile barrier Prep:chlorhexidine gluconate and isopropyl alcohol Monitoring:blood pressure monitoring Epidural Block Procedure: Approach:midline Guidance:palpation technique Location:L3-L4 Needle Type:Tuohy Needle Gauge:17 G Loss of Resistance Medium: saline Loss of Resistance: 5cm Cath Depth at skin:11 cm Paresthesia: none Aspiration:negative Test Dose:negative Number of Attempts: 1 Post Assessment: Dressing:occlusive dressing applied and secured with tape Pt Tolerance:patient tolerated the procedure well with no apparent complications Complications:no * Anesthesia Preprocedure Evaluation - Erlin De La Cruz MD - 04/24/2025 6:49 AM EDT Anesthesia Evaluation Patient summary reviewed and Nursing notes reviewed Airway Mallampati: II TM distance: >3 FB Neck ROM: full No difficulty expected Dental - normal exam Pulmonary - negative pulmonary ROS Cardiovascular - negative cardio ROS Rhythm: regular Rate: normal Neuro/Psych- negative ROS GI/Hepatic/Renal/Endo (+) liver disease (cholestasis) Musculoskeletal (-) negative ROS Abdominal Substance History - negative use CONFERENCE MANAGER (+) , Preeclampsia (with prior ), induced hypertension (with prior ) Other - negative ROS Phys Exam Other: Lab Results Component Value Date PLT 138 (L) 04/23/2025 Anesthesia Plan ASA 2 epidural Anesthetic plan, risks, benefits, and alternatives have been provided, discussed and informed consent has been obtained with: patient. Use of blood products discussed with patient Consented to blood products. CODE STATUS: Code Status (Patient has no pulse and is not breathing): CPR (Attempt to Resuscitate) Medical Interventions (Patient has pulse or is breathing): Full Support documented in this encounter Plan of Treatment Upcoming Encounters Date Type Department Care Team (Late st Contact Info) Description 06/09/2025 1:40 PM EDT Visit [facility] OBGYN [address] [place] [address] John Bolton MD [address] [place] [address] documented as of this encounter Procedures Procedure Name Priority Date/Time Associated Diagnosis Comments HC AN LABOR EPIDURAL KIT Routine 04/24/2025 6:53 AM EDT documented in this encounter Results * HC BH AN LABOR EPIDURAL KIT (04/24/2025 6:53 AM EDT) Narrative Erlin De La Cruz MD - 04/24/2025 6:53 AM EDT Erlin De La Cruz MD 04/24/2025 7:19 AM Labor Epidural Pre-sedation assessment completed: 04/24/2025 6:53 AM Patient reassessed immediately prior to procedure Patient location during procedure: OB Start Time: 04/24/2025 6:53 AM Performed By Anesthesiologist: Erlin De La Cruz MD Preanesthetic Checklist Completed: patient identified, IV checked, risks and benefits discussed, surgical consent, monitors and equipment checked, pre-op evaluation and timeout performed Prep: Pt Position:sitting [place] Drawer:cap, gloves, mask and sterile barrier Prep:chlorhexidine gluconate and isopropyl alcohol Monitoring:blood pressure monitoring Epidural Block Procedure: Approach:midline Guidance:palpation technique Location:L3-L4 Needle Type:Tuohy Needle Gauge:17 G Loss of Resistance Medium: saline Loss of Resistance: 5cm Cath Depth at skin:11 cm Paresthesia: none Aspiration:negative Test Dose:negative Number of Attempts: 1 Post Assessment: Dressing:occlusive dressing applied and secured with tape Pt Tolerance:patient tolerated the procedure well with no apparent complications Complications:no Erlin De La Cruz MD ANESTHESIA ORDERABLES Final Result documented in this encounter Visit Diagnoses Not on filedocumented in this encounter Administered Medications Inactive Administered Medications - up to 3 most recent administrations Medication Order MAR Action Action Date Dose Rate Site fentaNYL citrate (PF) (SUBLIMAZE) injection Epidural, As Needed, Starting on Sun04/24/25 at 0707 Given 04/24/2025 7:07 AM EDT 100 mcg Lidocaine-EPINEPHrine (PF) (XYLOCAINE W/EPI) 1.5 %-1:495995 injection Epidural, As Needed, Starting on Sun04/24/25 at 0703 Given 04/24/2025 2:51 PM EDT 5 mL Given 04/24/2025 7:03 AM EDT 3 mL ropivacaine (NAROPIN) 0.2 % injection 15 mL/hr, Epidural, Continuous, Starting on Sun04/24/25 at 0745, Anesthesiologist To Adjust Rate As Needed. RN May Replace Epidural Infusion Fluids As Ordered Rate/Dose Change 04/24/2025 7:09 AM EDT 14 mL/hr 14 mL/hr New Bag 04/24/2025 7:08 AM EDT 8 mL ropivacaine (NAROPIN) 0.2 % injection 15 mL/hr, Epidural, Continuous, Starting on Sun04/24/25 at 1745, Anesthesiologist To Adjust Rate As Needed. RN May Replace Epidural Infusion Fluids As Ordered New Bag 04/24/2025 4:53 PM EDT 9 mL/hr 9 mL /hr documented in this encounter Care Teams Early Childhood Associate Relationship Specialty Start Date End Date Gabriel Lynch MD [facility] [address] [facility] [address] PCP - General Family Medicine 07/09/23 documented as of this encounter
--- OUTSIDE RECORDS SUMMARY | 2025-05-29 10:00 | XMS_ITS ---
Author Organization [facility] Address [address] [facility] [address] [place] [id number] Care Team Providers Care Key Sander Name Role Phone Uriah Lynch Primary Care Provider Selma Khan [phone] Allergies Allergen (clinical drug ingredient) Drug/Non Drug Allergy documented on EMR Reaction Allergy Type Onset Date Status Penicillin Unknown Drug Allergy Active REASON FOR VISIT stomach pain Encounters Encounter Location Date Provider Diagnosis [facility] [address] [facility] [address] [place] [id number] 05/29/2025 Selma Khan Plan Of Treatment No Information Progress Notes * ADILENE IGNACIODOB: 4 (29 yo F)Acc No.[id number]:05/29/2025 Progress Notes Patient: ADILENE RAY Provider: CHALO Doan :1995 A ge:29 Y S ex:Female Date:05/29/2025 Address:[address] [facility] [id number] Pcp:Uriah Lynch Subjective: * Chief Complaints: * 1 . Stomach pain. * HPI: G astroenterology: 29 year old female presents with c/o Abdominal Pain. * ROS: D ERMATOLOGY: no R flakito. [...] Laproscopy and septal excision - Dr. Ley [facility] Nov 15, 2020. * Hospitalization/Major Diagno stic Procedure: [facility] ER- Dehydration 06/03/2020. * Family History: F ather: alive 63 yrs. M other: , hypertension, diabetes. 2 brother(s) - healthy. . * Social History: C URRENT TOBACCO USE S moking Status: Patient does NOT smoke. C affeine: yes, frequency:. Home smoke detector use: yes. Marital Status: Single. 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 Past smoking status: no, Smoking status: Does not smoke. Recreational drug use: no. Alcohol: no. * Allergies: P enicillin. Objective: * Vitals: Assessment: Plan: * Treatment: * Images: Billing Information: * Visit Code: * Procedure Codes: * Electronic signature of CHALO Tolliver on 05/30/2025 at 05:07 AM EDT Sign off status: Pending * Provider: CHALO Doan Date: 0 05/29/2025 Generated for Ananya cruz/Lew/eTransmitting on: 05/30/2025 05:07 AM EDT History and Physical Notes * HPI (History of Present Illness) Category Sub-Category Detail Notes Category Not es Gastroenterology Abdominal Pain
--- OUTSIDE RECORDS SUMMARY | 2025-05-30 04:00 | XMS_ITS | Encounter Summary ---
Author Organization [facility] Address [address] [place] [address] Care Team Providers Care Construction Scheduler Name Role Phone Gabriel Lycnh MD Primary Care Provider [phone] Encounter Details Date Type Department Care Team (Late st Contact Info) Description 05/30/2025 4:00 AM EDT Telemedicine [facility] [address] [address] Catherine Velasquez, PUBLICITY DIRECTOR [address] [facility] [address] [place] [id number] Dysuria (Primary Dx); Nausea Social History Tobacco Use Types Packs/Day Years Used Date Smoking Tobacco: Never Smokeless Tobacco: Never Tobacco Cessation:Counseling Given: Yes Alcohol Use Standard Drinks/Week Comments Not Currently 0 (1 standard drink = 0.6 oz pur e alcohol) [facility] Utilities Answer Date Recorded In the past 12 months has [employer], gas, oil, or water [employer] threatened to shut off services in your [...] and heating? Not hard at all 04/24/2025 [facility] [place] of Occupat ional Health - Occupational Stress [...] things needed for daily living? No 04/24/2025 [place] Depression Scale Answer Date Recorded [place] Depression Scale Total 0 05/05/2025 The thought [...] GED or equivalent No 04/24/2025 Preferred Language Tajik 04/24/2025 PHQ-2 Answer Date Recorded Patient Health Questionnaire-2 Score 0 04/24/2025 Comments No Sex and Gender Information Value Date Recorded Sex Assigned at Female 02/02/2025 12:05 PM EDT Legal Sex Female 1:00 PM EST Gender Identity Not on file Sexual Orientation Straight 02/02/2025 12 :05 PM EDT documented as of this encounter Patient Instructions * Patient Instructions* Catherine Velasquez APRN - 05/30/2025 4:00 AM EDT Go to ER for in person evaluation documented in this encounter Progress Notes * Catherine Velasquez APRN - 05/30/2025 4:00 AM EDT You have chosen to receive care through a telehealth visit. Do you consent to use a video/audio connection for your medical care today? Yes CHIEF COMPLAINT No chief complaint on file. HPI Vesna Murry is a 29 y.o. female presents with complaint of UTI. Reports symptoms started 2days ago. + back pain a couple days ago but denies today. Urine is dark yellow. Reports no fever orchills. + nausea. Vomited a couple days ago x 1. Mild burning. No frequency or urgency. Reports shehas taken tylenol for her symptoms. Reports she recently gave 3 weeks ago to her son and has her first OB followup on 06-09-25. Reports she has not taken any medications for her symptoms. Review of Systems Constitutional: Negative for chills, fatigue and fever. HENT: Negative for congestion, ear discharge, ear pain, sinus pressure, sinus pain and sore throat. Respiratory: Negative for cough, chest tightness, shortness of breath and wheezing. Cardiovascular: Negative for chest pain. Gastrointestinal: Positive for nausea and vomiting (vomited x 1 a couple days ago). Negative for abdominal pain and diarrhea. Genitourinary: Positive for dysuria. Negative for frequency, hematuria and urgency. Musculoskeletal: Positive for back pain (a couple days ago denies now). Negative for myalgias. Neurological: Negative for dizziness and headaches. Psychiatric/Behavioral: Negative. Past 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: Diagnosis Date Cholestasis during 2022 Endometriosis 2016 Palpitations 2008 Preeclampsia in period 10/2023 Family History Problem Relation Age of Onset Hypertension Mother Atrial fibrillation Father Social History Socioeconomic History Marital status: Spouse name: Christian Number of children: 0 Tobacco Use Smoking status: Never Smokeless tobacco: Never Vaping Use Vaping status: Never Used Substance and Sexual Activity Alcohol use: Not Currently Drug use: Never Sexual activity: Yes Partners: Male control/protection: OCP Vesna Murry reports that she has never smoked. She has never used smokeless tobacco. I have educated her on the risk of diseases from using tobacco products such as cancer, COPD, and heart disease. I spent 1 minutes counseling the patient. LMP 08/07/2024 (Approximate) Yes PHYSICAL EXAM Physical Exam Constitutional: She is oriented to person, place, and time. She appears well- developed and well-nourished. She does not appear ill. No distress. HENT: Head: Normocephalic and atraumatic. Right Ear: Hearing normal. Left Ear: Hearing normal. Mouth/Throat: Mouth/Lips are normal. Eyes: Conjunctivae and lids are normal. Pulmonary/Chest: Effort normal. No respiratory distress. Abdominal: There is no abdominal tenderness. Patient directed exam No abdominal pain with deep palpation No back pain with deep palpation Neurological: She is alert and oriented to person, place, and time. Psychiatric: She has a normal mood and affect. Her speech is normal and behavior is normal. Diagnoses and all orders for this visit: 1. Dysuria (Primary) 2. Nausea Comments: vomited x 1 couple days ago Advised patient to go to ER for in person evaluation of her symptoms to rule out pyelonephritis, UTI, or other diagnoses. Patient understands she needs vitals, labs to diagnose her symptoms. Patient had a recent vaginal delivery 3 weeks ago. Advised patient since she recently delivered that she need to be seen for in person exam. Patient declines to go to ER at this time. Advised patient of the risk of not going to a higher level care for an in person evaluation includes sepsis. Patient reportsshe [facility] this am. Agrees if symptoms worsen such as high fever, abdominal or back pain or nausea vomiting she will go to ER. Catherine Velasquez APRN 05/30/2025 04:14 EDT Mode of Visit: Video Location of patient: -HOME- Location of provider: +HOME+ You have chosen to receive care through a telehealth visit. The patient has signed the video visit consent form. The visit included audio and video interaction. No technical issues occurred during this visit. The use of a video visit has been reviewed with the patient and verbal informed consent has been obtained. Myself and Vesna Murry participated in this visit. The patient is located in [address] [place] [address]. I am located in [place], [place]. [employer] and [employer] were utilized. I spent 5 minutes in the patient's chart for this visit. Note Disclaimer: At [facility], we believe that sharing information builds trust and better relationships. You are receiving this note because you recently visited [facility]. It is possible you will see health information before a provider has talked with you about it. This kind of information can be easy to misunderstand. To help you fully understand what it means for your health, we urge you to discuss this note with your provider. documented in this encounter Plan of Treatment Upcoming Encounters Date Type Department Care Team (Late st Contact Info) Description 06/09/2025 1:40 PM EDT Visit [facility] OBGYN [address] [place] [address] John Bolton MD [address] [facility] [address] [place] [address] documented as of this encounter Visit Diagnoses Diagnosis Dysuria- Primary Nausea Nausea alone documented in this encounter Care Teams Construction Scheduler Relationship Specialty Start Date End Date Gabriel Lynch MD [address] [facility] [address] [place] [address] PCP - General Family Medicine 07/09/23 documented as of this encounter
--- OUTSIDE RECORDS SUMMARY | 2025-05-30 05:07 | XMS_ITS | Continuity of Care Document ---
Author Organization [facility] Address [address] [place] [address] Insurance Providers Payer Plan Claims Address Claims Phone Policy Number Group Number Relation Employer Guarantor Name Guarantor Guarantor Address Guarantor Phone Warner Abdalla Acces s [id number] Self Vesna Murry [address] [place] [address], [place] [address] Warner Abdalla Card Progr am Out [id number] Jose Murry [address] [place] [address], [place] [address] Medic aid [id number] Jose Murry [address] [place] [address] [place] [address] Problems Unknown Problems Results No Results Allergies, adverse reactions, alerts No known allergies and adverse reactions Medications No administered medications reported Vital Signs Date Vital Result Comment 01/16/2024 Body Height 1.0345447102952 m Body Weight 58.498345174374 kg Body Mass Index 26.26 kg/m2 Social History No smoking Hx information available
--- OUTSIDE RECORDS SUMMARY | 2025-05-30 05:07 | XMS_ITS | Encounter Summary ---
Author Organization [facility] Address [address] [place] [address] Care Team Providers Care Wood Lather Name Role Phone Gabriel Lynch MD Primary Care Provider [phone] Encounter Details Date Type Department Care Team (Late st Contact Info) Description 03/06/2025 Results Follow-Up [facility] OBGYN [address] [place] [phone] John Bolton MD [address] [place] [address] Social History Tobacco Use Types Packs/Day Years Used Date Smoking Tobacco: Never Smokeless Tobacco: Never Alcohol Use Standard Drinks/Week Comments Not Currently 0 (1 standard drink = 0.6 oz pur e alcohol) [facility] Utilities Answer Date Recorded In the past 12 months has [employer], gas, oil, or water [employer] threatened to shut off services in your [...] and heating? Not hard at all 10/03/2023 [facility] - Occupational Stress Questionnaire Answer Date Recorded [...] things needed for daily living? No 10/03/2023 [place] Depression Scale Answer Date Recorded Retired [place] Depression Score 2 10/06/2023 Retired EPD Scale: [...] GED or equivalent No 10/03/2023 Preferred Language Welsh 10/03/2023 PHQ-2 Answer Date Recorded Retired PHQ-9: Brief Depression Severity Measure Score 0 10/03/2023 Comments Yes Sex and Gender Information Value Date Recorded Sex Assigned at Female 02/02/2025 12:05 PM EDT Legal Sex Female 1:00 PM EST Gender Identity Not on file Sexual Orientation Straight 02/02/2025 12 :05 PM EDT documented as of this encounter Plan of Treatment Upcoming Encounters Date Type Department Care Team (Late st Contact Info) Description 06/09/2025 1:40 PM EDT Visit [facility] OBGYN [address] [phone] John Bolton MD [address] [place] [phone] documented as of this encounter Visit Diagnoses Diagnosis Intrahepatic cholestasis of , third trimester- Primary documented in this encounter Care Teams Wood Lather Relationship Specialty Start Date End Date Gabriel Lynch MD [address] [facility] [address] [place] [address] PCP - General Family Medicine 07/09/23 documented as of this encounter
--- OUTSIDE RECORDS SUMMARY | 2025-05-30 05:08 | XMS_ITS | Encounter Summary ---
Author Organization [facility] Address [address] [place] [address] Care Team Providers Care Trailer Park Manager Name Role Phone Gabriel Lynch MD Primary Care Provider [phone] Encounter Details Date Type Department Care Team (Latest Contact Info) Description 04/02/2025 Travel Social History Tobacco Use Types Packs/Day Years Used Date Smoking Tobacco: Never Smokeless Tobacco: Never Alcohol Use Standard Drinks/Week Comments Not Currently 0 (1 standard drink = 0.6 oz pur e alcohol) [facility] Utilities Answer Date Recorded In the past 12 months has [employer] electric, gas, oil, or water company threatened [...] and heating? Not hard at all 10/03/2023 [facility] [place] [facility] Occupat ional [facility] - Occupational Stress [...] things needed for daily living? No 10/03/2023 [place] Depression Scale Answer Date Recorded Retired [place] Depression Score 2 10/06/2023 Retired EPD Scale: [...] GED or equivalent No 10/03/2023 Preferred Language Sierra Leonean 10/03/2023 PHQ-2 Answer Date Recorded Retired PHQ-9: [...] Info) Description 06/09/2025 1:40 PM EDT Visit [facility] [address] [facility] [address] [place] [id number] John Bolton MD [address] [place] [address] documented as of this encounter Visit Diagnoses Not on filedocumented in this encounter Care Teams Trailer Park Manager Relationship Specialty Start Date End Date Gabriel Lynch MD [address] [facility] [address] [facility] [address] [place] [address] PCP - General Family Medicine 07/09/23 documented as of this encounter
--- OUTSIDE RECORDS SUMMARY | 2025-05-30 05:08 | XMS_ITS | Patient Health Record ---
Author Organization [facility] Address [address] [place] [id number] Care Team Providers Care Leather Polisher Name Role Phone Uriah Lynch Primary Care Provider [phone] Gavi Robert Unavailable [phone] Selma Khan Unavailable [phone] Allergies Allergen (clinical drug ingredient) Drug/Non Drug Allergy documented on EMR Reaction Allergy Type Onset Date Status Penicillin Unknown Drug Allergy Active Results Component Value Reference Range Notes P-Comprehensive Metabolic Pa marie (CMP) Reviewed date:01/13/2025 09:00:46 AM Interpretation: Performing Lab: Notes/Report: CLIA: [id number] Paras Yanes MD, [employer] [address] [facility] , [address], [place] [address] Test performed by [place], [facility] Sodium 138 135-145 mmol/L Potassium 3.9 3.5-5.3 [...] 0.2 <0.2-1.2 mg/dL A/G Ratio 1.5 1.1-2.5 Bile Acids, Total Reviewed date:01/13/2025 08:59:48 AM Interpretation:6 Performing Lab: Notes/Report: Test performed by [facility] [address] [place] [address] , [address], [place] [address] Paras Yanes MD, Seed Sorter CLIA: [id number] Bile Acids, Total 6 <1-10 umol/L P-CBC with Diff plus Absolut e Counts Reviewed date:01/13/2025 09:00:08 AM Interpretation: Performing Lab: Notes/Report: Test performed by [facility] [address] [place] [address] , [address], [place] [address] Paras Yanes MD, Seed Sorter CLIA: [id number] WBC 8.0 3.8-11.5 K/uL Red Blood Cell [...] Absolute Immature Granulocyte 0.02 0.00-0.03 K /uL Medications Medication SIG (Take, Route, Frequency, Duration) Notes Start Date End Date Status Metoprolol Succinate ER 25 MG 1 tablet orally once daily; Duration: 90 days Active Immunizations Vaccine Route Administration Date Status Comme nts Varivax Unknown 01/25/1998 Administered Tetanus Tdap-Adacel (over 7yrs) Unknown 05/10/2006 Admi nistered MMR Unknown 01/25/1998 Administered Fluzone PF Quad (6-35 months) Unknown 08/04/2021 Admini stered Fluzone PF Quad (6-35 months) Unknown 08/15/2022 Admini stered COVID 19 Pfizer Unknown 01/05/2021 Administered Problems Problem Type SNOMED Code ICD Code Onset Dates Problem Status W/U Status Risk Notes Problem Polyarthralgia (10722502) Polyarthralgia (719.49) Active confirmed Problem Vitamin D deficiency (26077746) Vitamin D deficiency NOS (268.9) Active confirmed Problem Palpitations (57553442) Palpitations (785.1) Active confirmed Problem Mixed anxiety and depressive disorder (968926571) Depression with anxiety (300.4) Active confirmed Problem Palpitations (54129232) Palpitations (R00.2) Active confirmed Problem Essential hypertension (94175956) Essential hypertension (I10) Active confirmed Problem Hypoglycemia (937535117) Hypoglycemia (E16.2) Active confirmed Problem Mixed anxiety and depressive disorder (760926428) Depression with anxiety (F41.8) Active confirmed Problem Primary insomnia (3454846) Primary insomnia (F51.01) Active confirmed Problem Low back pain (347067174) Midline low back pain without sciatica (M54.5) Active confirmed Problem Neuralgia (89447315) Neuralgia (M79.2) Active confirmed Problem Hyperlipidaemia (06849548) Hyperlipidemia, unspecified hyperlipidemia type (E78.5) Active confirmed Problem Allergic rhinitis caused by pollen (84919599) Seasonal allergic rhinitis due to pollen (J30.1) Active confirmed Problem Endometriosis (510482136) Endometriosis determined by laparoscopy (N80.9) Active confirmed Problem Hand dermatitis (844022003) Hand dermatitis (L30.9) Active confirmed Vital Signs Heart Rate 111 /min 01/12/2025 Blood pressure diastolic 68 mm Hg 01/12/2025 Height 59.50 in 01/12/2025 Blood pressure systolic 110 mm Hg 01/12/2025 Weight 138.6 lbs 01/12/2025 BMI 27.52 kg/m2 01/12/2025 Encounters Encounter Location Date Provider Diagnosis [facility] [address] [place] [id number] 12/05/2024 [facility] Palpitations R00.2 a nd TMJ dysfunction M26.609 [facility] [address] [place] [id number] 01/12/2025 Gavi Robert Itching L29.9 and IU P (intrauterine ), incidental Z34.90 Assessments Encounter Date Diagnosis (ICD Code) Assessment Notes Treatment Notes Treatment Clinical Notes Section Notes 01/12/2025 Itching (ICD-10 - L29.9) OTC antihistamine of choice which she has; also bile acids were drawn today 01/12/2025 IUP (intrauterine ), incidental (ICD-10 - Z34.90) 12/05/2024 Palpitations (ICD-10 - R00.2) 12/05/2024 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 She can avoid chewing gum and wear a mouth guard at night. Can take tylenol. 01/12/2025 Other she is worried about her bile acid #; she sees her OB next week and will need a copy of lab results drawn today to take with her Plan Of Treatment No Information Insurance Providers Payer Name Payer Address Payer Phone Subscriber Number Group Number Insured Name Patient Relationship to Insured Coverage Start Date Coverage End Date [facility] [address] [place] [address] [id number] SETHI Self - patient is the insured Medical (General) History 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 History ICD Code Vitamin D deficiency Abnormal IHSAN 2011, repeat normal, seen a t Rheumatology clinic Hypoglycemia Holter 2010 Echo 2011 history of Cholestasis ICP with last pre gnancy Surgical History Surgery Date(Month/Year) tooth extraction 2008 laparoscopy - Dr. Thomas 01/2016 laparoscopy, endometriosis- Dr. Christopher Laproscopy and septal excision - Dr. Rigoberto Watkins Nov 15, 2020 Hospitalization History Reason Date(Month/Year) [facility] ER- Dehydration 06/03/2020
--- OUTSIDE RECORDS SUMMARY | 2025-05-30 05:08 | XMS_ITS | Clinical Summary ---
Author Organization [facility] Address [address] [place] [address] Care Team Providers Care Therapeutic Strategy Lead Name Role Phone Gabriel Lynch MD Primary Care Provider [phone] Allergies Active Allergy Reactions Criticality Noted Date Comments Penicillins Hives,Other (See Comments) High 10/08/19 21 Medications ibuprofen (ADVIL,MOTRIN) 600 MG tablet Take 1 tablet by mouth Every 6 (Six) Hours As Needed for Mild Pain 30 tablet 04/26/2025 10:22 AM EDT 5 Active Additional Information Patient not taking.Reported on 05/30/2025 metoprolol succinate XL (TOPROL-XL) 25 MG 24 hr tablet 5 Active Sodium Fluoride 5000 PPM 1.1 % paste USE 1 TO 2 TIMES A DAY DIRECTED. 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 Other info: Cervical smear, as part of r outine gynecological examination 01/19/2021 Resolved Problems Problem Noted Date Diagnosed Date Resolved Date Encounter for induction of l abor 04/23/2025 @ 20:00 04/02/2025 04/24/2025 Intrahepatic cholestasis of , third trimester 03/06/2025 04/24/2025 Maternal anemia in , antepartum 02/23/2025 04/23/2025 Rh (-) 10/23/2024 04/24/2025 Overview (02/23/2025): Rhogam given on 02/23/25 @ 28w5d Prior IUGR 10/23/2024 04/23/2025 Overview (04/02/2025): EFW's Gestational Age (wks) 30w5d 34w1d EFW 29% 43% AC 24% 29% Baseline 24 hour urine = care, subsequent pr egnancy in third trimester 10/18/2024 04/24/2025 Overview (03/26/2025): gender: boy classes discussed: Circumcision (y / n / na): yes Packaging Coordinator: Baby's name: Mazin Breast/bottle feeding: breast Placental location: Anterior Postdates discussed: Tdap discussed: 03/20/25 Tdap vaccine received: 03/26/25 Flu vaccine discussed: 10/23/24 Flu vaccine received: Covid vaccine discussed: 10/23/24 Covid vaccine received: Hx of preeclampsia, prior pr egnancy, currently 10/18/2024 04/23/2025 care following va cuum delivery 10/05/23 - [facility] 10/06/2023 11/20/2023 Intrahepatic cholestasis of 10/03/2023 10/03/2023 Encounter for induction of labor 09/21/2023 10/06/2023 IUGR (AC < 1%) 09/06/2023 10/06/2023 Overview (10/03/2023): EFW's Gestational Age (wks) 32w1d 34w1d EFW 24% 12% AC < 1% < 1 % Cord Doppler 3.17 Assessment & Plan (09/24/2023 9:19 PM EST): AC continues to be at <1st%ile Otherwise normal appearing testing Follow up 1 week with MFM for repeat UA dopplers/BPP/TG with testing in your office on the contralateral end of the week Delivery at 37 weeks GA appropriate in the setting of IUGR and cholestasis Assessment & Plan (09/06/2023 1:53 PM EST): There is considerable variability in the definition of what constitutes a growth-restricted fetus. Definitions have included estimated weight below the 3rd percentile, below the 5th percentile or below the 10th percentile for gestational age. Subnormal growth may be a consequence of error in dating criteria or result from chronic uteroplacental insufficiency, exposure to drugs or environmental agents, congenital infections or intrinsic genetic limitations of growth potential. Early or symmetric IUGR can suggest chromosomal abnormalities such as trisomies, triploidies or maternal uniparental disomy. Asymmetrical IUGR may result from nutritional compromise with sparing of head growth and be associated with tobacco abuse, chronic placental abnormalities such as abruption or as a harbinger of preeclampsia. Current recommendations by Copel and Bahtiyar for the management of growth restriction, (Obstet Gynecol February 2014) suggest for patients at term (37 0/7 weeks' gestation or more) that delivery be affected if the estimated weight is less than the 5th percentile, or oligohydramnios is present with an estimated weight of less than the 10th percentile, or with worsening testing results. Otherwise, delivery can be delayed as long as testing is reassuring with plans for elective delivery at 39 weeks' gestation. Induction of labor can be attempted depending on the indication for delivery. If the diagnosis of IUGR is (before 37 weeks' gestation), it is not possible to make absolute recommendations on timing unless other testing is reassuring based on the data from the Growth Restriction Intervention Trial (GRIT), a multinational prospective randomized study (Lancet 2004). It is suggested that growth be monitored every two weeks with consideration for delivery if no growth occurs over the course of 14 days. The patient should receive twice weekly nonstress testing with amniotic fluid volume assessment. Further, the literature would support weekly Doppler ultrasonography of the umbilical artery in the setting of intrauterine growth retardation with hospitalization for evidence of absent or reverse end-diastolic velocities. Delivery should also be considered for worsening testing (biophysical profile score less than 6/8 or nonreassuring heart rate tracing). When delivery before 32 weeks' gestation is imminent, consider intravenous magnesium sulfate administration for neuroprotection. On scan today the fetus itself is at approximately 22nd percentile for overall growth abdominal circumference is between the first and 2nd percentile. This probably represents early intrauterine growth restriction. Amniotic fluid volume and umbilical artery Dopplers are normal. We recommend increased rest and nutrition to the patient. We would recommend twice-weekly testing. As amniotic fluid volume and umbilical artery Dopplers are normal and the overall weight is well above the 10th percentile I believe this testing could be done at Dr. Knowles's office. We will rescan again in 2 weeks time to assess growth and umbilical artery Dopplers. Third trimester 08/31/2023 Intrahepatic cholestasis of in third trimester 08/28/2023 10/06/2023 Overview (09/10/2023): Gestational Age (wks) 30w6d 32w5d Bile Acids 47 13 Assessment & Plan (09/06/2023 1:50 PM EST): Intrahepatic cholestasis of (ICP) is a reversible type of hormonally influenced cholestasis. Approximately 0.5% of pregnancies in the [place] are affected by this condition. It most often presents in the late second or early third trimester of in individuals who are genetically predisposed. It is characterized by generalized itching, often commencing with pruritus of the palms of the hands and soles of the feet with no other skin manifestation. The diagnosis is based on physical examination and laboratory findings. Affected individual may have a defect involving the excretion of bile salts which leads to increased serum bile acids. These are deposited within the skin, causing intense pruritus. Seasonal variation is noted with more severe cases in the winter months. From a maternal viewpoint, the main consideration is intense pruritus which may become so intolerable that delivery is considered as early as 35-37 weeks. The viewpoint is more concerning as even with modern treatment the risk for demise can range from 2-11%. Thus, many would advocate delivery at 37 weeks. A possible explanation for the risk of an IUFD is taurocholate crossing into the compartment and causing arrhythmias and decreased cardiac contractility. Steatorrhea and vitamin K deficiency may also occur due to fat malabsorption. If the vitamin K deficiency is not corrected by the time of delivery, a hemorrhage may ensue. Multiple laboratory abnormalities can be seen in ICP. The most specific and sensitive marker of ICP is total serum bile acid levels greater than 10 micromol/L. The elevation of aminotransferases associated with ICP varies from a mild increase to a 10- to 25-fold increase. Total bilirubin levels are also increased but usually the values are less than 5 mg/dL. Alkaline phosphatase is elevated in ICP up to 4- fold, but this is not helpful for diagnosis of the disorder since alkaline phosphatase is elevated in due to production by the placenta. Recommended laboratory studies for the diagnosis of ICP include total serum bile acid levels, cholic acid, total bilirubin, transaminases, PT, PTT and INR. Once a diagnosis of ICP has been made, total bile acid levels can be followed every 2-3 weeks to guide therapy and timing of delivery. Delivery is suggested at 37 weeks' without need of an amniocentesis for lung maturity due to increased risk of mortality or after an amniocentesis for delivery prior to 37 weeks' gestation. If meconium is present at the time of amniocentesis, delivery is indicated regardless of the lung maturity results. Delivery can proceed without an amniocentesis if the monitoring is nonreassuring. Many pharmacological agents have been used in the treatment of intrahepatic cholestasis of (ICP). These include Phenobarbital (100 mg qd), hydroxyzine (25-50 mg qd), cholestyramine (8-16 g/d) and dexamethasone (12 mg 4 times daily for 7 days followed by a tapering dose). Vitamin K deficiency has been observed with the use of cholestyramine in high doses. Ursodeoxycholic acid (Actigall) remains the drug of choice for the treatment of ICP. A daily dose ranging from 600-2100 mg is effective at reducing pruritus, decreasing the total serum bile acid levels, ALT values and bilirubin levels and allowing delivery closer to term. Cholestasis recurs during subsequent pregnancies in 60-70% of women with ICP. Recurrent episodes are variable in severity compared with the index . In cases of family history for ICP, there may be up to a 92% rate of incidence in planned . A genetic etiology may underlie these recurrent statistics. We would recommend testing until delivery. Patient was counseled extensively regarding movement and will contact Dr. Knowles immediately if she notices any decreased movement. 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 Patient had a hysteroscopically excised uterine septum. Majority of time this does not create any complications for ongoing . Occasionally there can be an eschar tissue that may need to poor growth of the fetus and growth needs to be monitored. Also the time uterine septum excision does not extend deep into the myometrium and vaginal delivery is a reasonable option. The operative report is not available to me today but it should be reviewed and as long as no evidence of deep myometrial incision is found patient should be able to consider vaginal delivery if desired. Supervision of high-risk pre gnancy, third trimester 03/31/2023 10/06/2023 Overview (09/10/2023): gender: female classes discussed: 07/23/23 Circumcision (y / n / na): N/a Packaging Coordinator: Baby's name: Irena Breast/bottle feeding: breast Placental location: posterior Postdates discussed: Tdap discussed: 08/06/23 Tdap vaccine received: Flu vaccine discussed: 06/21/23 08/06/23 Flu vaccine received: yes Covid vaccine discussed: Covid vaccine received: Sinus tachycardia 10/08/2007 04/24/2025 Encounters Date Type Department Care Team Description 05/30/2025 4:00 AM EDT Telemedicine [facility] [address] [facility] [address] [place] [id number] Catherine Velasquez APRN Dysuria (Primary Dx); Nausea 05/05/2025 Maternal Screening [facility] [address] [place] [address] Jens Soliman, RN 04/27/2025 Maternal Screening [facility] [address] [place] [address] Shawna Christianson RN 04/24/2025 6:53 AM EDT Anesthesia Event [facility] [address] [place] [address] Kaitlynn Jacinto DO Borders, Jonathan, MD 04/23/2025 9:19 PM EDT - 04/26/2025 12:50 PM EDT Hospital Encounter [facility] 4A [address] [place] [address] Moise Knowles MD Discharge Disposition: Home or Self Care 04/23/2025 8:00 PM EDT - 04/23/2025 11:59 PM EDT Hospital Encounter [facility] AND DELIVERY PROCEDURES [address] [place] [address] Discharge Disposition: Home or Self Care 04/23/2025 Travel 04/23/2025 Prep for Surgery [facility] ORDERS ONLY [address] [place] [address] Moise Knowles MD care, subsequent in third trimester (Primary Dx); Intrahepatic cholestasis of , third trimester; Encounter for induction of labor 04/23/2025 @ 20:00 04/16/2025 11:00 AM EDT Routine [facility] [address] [place] [address] Moise Knowles MD GA: 36w1d 04/16/2025 Travel 04/07/2025 2:20 PM EDT Routine [facility] [address] [facility] [address] [place] [address] Moise Knowles MD GA: 34w6d 04/07/2025 1:27 PM EDT Hospital Encounter [facility] [phone] 04/07/2025 Travel 04/02/2025 11:10 AM EDT Routine [facility] [address] [facility] [address] [place] [phone] Moise Knowles MD GA: 34w1d 04/02/2025 10:16 AM EDT Hospital Encounter [facility] [phone] Prior IUGR; Intrahepatic cholestasis of , third trimester 04/02/2025 Travel 03/26/2025 11:20 AM EDT Routine [facility] [address] [place] [address] Moise Knowles MD GA: 33w1d 03/26/2025 10:56 AM EDT Hospital Encounter [facility] [phone] 03/26/2025 Travel 03/20/2025 2:20 PM EDT Routine [facility] [address] [facility] [address] [place] [address] Moise Knowles MD GA: 32w2d 03/20/2025 Travel 03/09/2025 11:10 AM EDT Routine [facility] [address] [facility] [facility] [address] [place] [address] Moise Knowles MD GA: 30w5d 03/09/2025 11:00 AM EDT Hospital Encounter [facility] [phone] Prior IUGR 03/09/2025 Travel 03/06/2025 Results Follow-Up [facility] [address] [facility] [address] [place] [address] Moise Knowles MD 03/05/2025 3:05 PM EDT Lab [facility] [address] [place] [address] Pruritus of in third trimester 03/05/2025 Travel 03/03/2025 Telephone [facility] [address] [facility] [address] [place] [phone] Moise Knowles MD from Last 3 Months Immunizations Immunization Administration Dates Next Due Influenza Injectable Mdck Pf Quad 08/21/2023 Rho (D) Immune Globulin 02/23/2025,08/06/2023 Tdap 03/26/2025,05/10/2006 Varicella 01/25/1998 Family History 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 Relation Name Comments Atrial fibrillation Father Hypertension Mother Relation Name Status Comments Father Alive Mother Social History Tobacco Use Types Packs/Day Years Used Date Smoking Tobacco: Never Smokeless Tobacco: Never Tobacco Cessation:Counseling Given: Yes Alcohol Use Standard Drinks/Week Comments Not Currently 0 (1 standard drink = 0.6 oz pur e alcohol) [facility] Utilities Answer Date Recorded In the past 12 months has [employer], gas, oil, or water [employer] threatened to shut off services in your [...] and heating? Not hard at all 04/24/2025 [facility] - Occupational Stress Questionnaire Answer Date [...] things needed for daily living? No 04/24/2025 Chase Depression Scale Answer Date Recorded Chase Depression Scale Total 0 05/05/2025 The thought [...] GED or equivalent No 04/24/2025 Preferred Language Finnish 04/24/2025 PHQ-2 Answer Date Recorded Patient Health Questionnaire-2 Score 0 04/24/2025 Comments No Sex and Gender Information Value Date Recorded Sex Assigned at Female 02/02/2025 12:05 PM EDT Legal Sex Female 1:00 PM EST Gender Identity Not on file Sexual Orientation Straight 02/02/2025 12 :05 PM EDT Last Filed Vital Signs Vital Sign Reading Time Taken Comments Blood Pressure 107/62 04/26/2025 7:42 AM EDT Pulse 74 04/26/2025 7:42 AM EDT Temperature 36.6 C (97.9 F) 04/26/2025 7:42 AM EDT Respiratory Rate 18 04/26/2025 7:42 AM EDT Oxygen Saturation 100% 10/05/2023 2:36 PM EST Inhaled Oxygen Concentration - - Weight 68.1 kg (150 lb 3.2 oz) 04/16/2025 11:49 AM EDT Height 152.4 cm (5') 10/05/2023 7:43 PM EST Body Mass Index 29.33 10/05/2023 7:43 PM EST Plan of Treatment Upcoming Encounters Date Type Department Care Team (Late st Contact Info) Description 06/09/2025 1:40 PM EDT Visit [facility] [address] [place] [address] Moise Knowles MD [address] [facility] [address] [place] [address] Health Maintenance Due Date Last Done Comments ANNUAL PHYSICAL 05/15/2022 Annual Gynecologic Pelvic an d Breast Exam 05/16/2023 05/15/2022 COVID-19 Vaccine (3 - 2023-2 5 season) 2024 01/05/2021, 12/11/2020 PAP SMEAR 05/15/2025 05/15/2022 INFLUENZA VACCINE 07/08/2025 08/21/2023 TDAP/TD VACCINES (3 - Td or Tdap) 03/26/2035 03/26/2025, 05/10/2006 HEPATITIS C SCREENING Completed 10/23/2024 , 04/03/2023 Pneumococcal Vaccine 0-49 Aged Out No longer eligible based on patient's age to complete this topic Procedures Procedure Name Priority Date/Time Associated Diagnosis Comments HEMOGLOBIN AND HEMATOCRIT, BLOOD Timed 04/25/2025 4:54 AM EDT HC BH AN LABOR EPIDURAL KIT Routine 04/24/2025 6:53 AM EDT CBC (NO DIFF) STAT 04/23/2025 10:58 PM EDT ANDREA BULB CERVICAL RIPENING Routine 04/23/2025 10:56 PM EDT TREPONEMA PALLIDUM AB W/REFLEX RPR Routine 04/23/2025 10:29 PM EDT ANTIBODY IDENTIFICATION STAT 04/23/2025 10:18 PM EDT TYPE AND SCREEN STAT 04/23/2025 10:18 PM EDT POCT URINALYSIS DIPSTICK, MANUAL Routine 04/16/2025 2:37 PM EDT US BIOPHYSICAL PROFILE;WITHOUT NON-STRESS TESTING Routine 04/16/2025 10:34 AM EDT Intrahepatic cholestasis of , third trimester GROUP B STREP, PCR (MDL) Routine 04/16/2025 care, subsequent in third trimester US BIOPHYSICAL PROFILE;WITHOUT NON-STRESS TESTING Routine 04/07/2025 2:01 PM EDT Intrahepatic cholestasis of , third trimester US OB FOLLOW UP TRANSABDOMINAL APPROACH Routine 04/02/2025 10:45 AM EDT Prior IUGR Intrahepatic cholestasis of , third trimester US BIOPHYSICAL PROFILE;WITHOUT NON-STRESS TESTING Routine 04/02/2025 10:45 AM EDT Intrahepatic cholestasis of , third trimester US BIOPHYSICAL PROFILE;WITHOUT NON-STRESS TESTING Routine 03/26/2025 11:24 AM EDT Intrahepatic cholestasis of , third trimester US BIOPHYSICAL PROFILE;WITHOUT NON-STRESS TESTING Routine 03/20/2025 1:58 PM EDT Intrahepatic cholestasis of , third trimester US OB FOLLOW UP TRANSABDOMINAL APPROACH Routine 03/09/2025 11:32 AM EDT Prior IUGR COMPREHENSIVE METABOLIC PANEL Routine 03/05/2025 2:49 PM EDT Pruritus of in third trimester BILE ACIDS, TOTAL Routine 03/05/2025 2:4 9 PM EDT Pruritus of in third trimester HEPATITIS C ANTIBODY Routine 10/23/2024 9:49 AM EST care, subsequent in first trimester LIQUID-BASED PAP SMEAR, [facility] ([facility]) Routine 05/15/2022 10:44 AM EDT Routine gynecological examination from Last 3 Months or Most Recently Relevant to Health Maintenance Results * Hemoglobin & Hematocrit, Blood (04/25/2025 4:54 AM EDT) Hemoglobin 12.8 12.0 - 15.9 g/dL 04/25/2025 5:51 AM EDT [facility] Hematocrit 37.2 34.0 - 46.6 % 04/25/2025 5:51 AM EDT [facility] Blood Venipuncture / Unknown 04/25/2025 4:54 AM EDT 04/25/2025 5:39 AM EDT Moise Knowles MD LAB BLOOD ORDERABLES Final Result [facility]
[address] [place] [address], * HC BH AN LABOR EPIDURAL KIT [...] evaluation and timeout performed Prep: Pt Position:sitting Bank Appraiser:cap, gloves, mask and sterile barrier Prep:chlorhexidine gluconate [...] La Cruz MD ANESTHESIA ORDERABLES Final Result * (ABNORMAL) CBC (No Diff) (04/23/2025 10:58 [...] PM EDT 04/23/2025 10:58 PM EDT us Moise Knowles MD LAB BLOOD ORDERABLES Final Result [facility]
[address] [place] [address], * Andrea Bulb Cervical Ripening (04/23/2025 10:56 PM EDT) Narrative Lam Ortiz MD - 04/23/2025 10:56 PM EDT Lam Ortiz MD 04/23/2025 10:57 PM Transcervical Andrea placed per physician request. FHT's class 1. Patient tolerated well. 24 frisian, 60ml. Lam Ortiz MD 04/23/2025 22:57 EDT us Moise Knowles MD OB GYNE ORDERABLES Final R esult * Treponema pallidum AB w/Reflex RPR (04/23/2025 10:29 PM EDT) [facility] Treponemal AB Total Non-Reacti ve Non-React adrianne 04/24/2025 9:19 AM EDT [facility] Blood Venipuncture / Unknown 04/23/2025 10:29 PM EDT 04/23/2025 10:29 PM EDT Narrative [facility] - 04/24/2025 9:19 AM EDT Reactive results will reflex RPR testing. us Moise Knowles MD LAB BLOOD ORDERABLES Final Result [facility]
[address] [place] [address], [place] [phone] * Antibody Identification (04/23/2025 10:18 PM EDT) [facility] Residual RhIG Detected RESIDUAL RHIG DETECTED 04/23/2025 11:46 PM EDT [facility] Blood Venipuncture / Unknown 04/23/2025 10:18 PM EDT 04/23/2025 10:33 PM EDT us Moise Knowles MD BLOOD BANK TEST ORDERABLES Final Result [facility]
[address] [place] [address], [place] [phone] * Type & Screen (04/23/2025 10:18 PM EDT) [facility] ABO Type A 04/23/2025 11:07 PM EDT [facility] RH type Negative 04/23/2025 11:07 PM EDT [facility] Antibody Screen Positive 04/23/2025 11:07 PM EDT [facility] T&S Expiration Date 04/26/2025 11:59:59 PM 04/23/2025 11:07 PM EDT [facility] Blood Venipuncture / Unknown 04/23/2025 10:18 PM EDT 04/23/2025 10:33 PM EDT Moise Knowles MD BLOOD BANK TEST ORDERABLES Edited Result - Final [facility]
[address] [place] [address], * (ABNORMAL) POC Urinalysis Dipstick (04/16/2025 2:37 PM EDT) Color Yellow Yellow, Straw, Dark Yellow, Leanne Clarity, UA Clear Clear Glucose, UA Negative Negative mg/dL Protein, POC Trace(A) Negative mg/dL Leukocytes Negative Negative Nitrite, UA Negative Negative Urine 04/16/2025 2:37 PM EDT Moise Knowles MD POINT OF CARE TEST ORDERAB LES Final Result * US Biophysical Profile;Without Non-Stress Testing (04/16/2025 10:34 AM EDT) Only the most recent of5 resultswithin the time period is included. Anatomical Region Laterality Modality Body Radiographic Neelima ging 04/16/2025 10:3 7 AM EDT Narrative 04/23/2025 7:55 PM EDT PAT NAME: ADILENE IGNACIO MED REC#: [id number] DA: 1995 PAT GEND: F PAT TYPE: O EXAM SVEN: [id number] REF PHYS MOISE KNOWLES Indication ======== Intrahepatic [...] of testing for the condition being monitored. Mathematics Academic Chair: MIHAELA Martin Physician: Moise Knowles MD Electronically signed by: Moise Knowles MD at: 19:55 Procedure Note Moise Knowles MD - 07/17/2025 PAT NAME: ADILENE IGNACIO MED REC#: [id number] DA: 1995 PAT GEND: F PAT TYPE: O EXAM SVEN: [id number] REF PHYS MOISE KNOWLES Indication ======== Intrahepatic cholestasis of Dx: Intrahepatic cholestasis of , third trimester [O26.643(ICD-10-CM)] Comparison Studies There are no relevant prior studies to which this study is beingcompared Method ======= Voluson E6, Transabdominal ultrasound examination. View: Sufficient ========= Nava . Number of fetuses: 1 Dating ====== GA by prior [id number] w + 1 d HENNA by prior assessment:05/13/2025 Method of dating:Restore dating from previous exam Previous dating:based on ultrasound (CRL), selected on 10/23/2024 Agreed HENNA of previous datin05/13/2025 Assigned:based on ultrasound (CRL), selected on 10/23/2024 Assigned GA36 w + 1 d Assigned HENNA:05/13/2025 [id number] d General Evaluation Cardiac activity present. FHR [...] schedule of testing for the condition beingmonitored. Mathematics Academic Chair: MIHAELA Martin Physician: Moise Knowles MD Electronically signed by: Moise Knowles MD at: 19:55 us Moise Knowles MD IMG US ORDERABLES Final Re sult * Strep B Screen - Swab, Vagina (04/16/2025) Swab Vaginal structure / Unknown us Moise Knowles MD MICROBIOLOGY - GENERAL ORD ERABLES Final Result [facility] [place], [place] [id number] * US Ob Follow Up Transabdominal Approach (04/02/2025 10:45 AM EDT) Only the most recent of2 resultswithin the time period is included. Anatomical Region Laterality Modality Body Ultrasound 04/02/2025 10:2 9 AM EDT Narrative 04/06/2025 11:08 PM EDT PAT NAME: ADILENE IGNACIO MED REC#: [id number] DA: 1995 PAT GEND: F PAT TYPE: O EXAM SVEN: <OBR.7.1>[id number]</OBR.7.1><OBR.7.1>[id number]</OBR.7.1> REF PHYS MOISE KNOWLES Indication ======== Intrahepatic [...] EFW (oz) 3 oz EFW by: Hadlock ([id number]) Other: An ultrasound for weight has a [...] EFW (oz) 3 oz EFW by: Hadlock ([id number]) Other: An ultrasound for weight has a [...] of testing for the condition being monitored. Mathematics Academic Chair: Azra Bridges RDMS Physician: Moise Knowles MD Electronically signed by: Moise Knowles MD at: 23:08 Procedure Note Moise Knowles MD - 04/06/2025 PAT NAME: ADILENE IGNACIO MED REC#: [id number] DA: 1995 PAT GEND: F PAT TYPE: O EXAM SVEN:<OBR.7.1>[id number]</OBR.7.1><OBR.7.1>[id number]</OBR.7.1> REF PHYS MOISE KNOWLES Indication ======== Intrahepatic cholestasis of Dx: Intrahepatic cholestasis of , third trimester [O26.643(ICD-10-CM)] Comparison Studies There are no relevant prior studies to which this study is beingcompared History ====== General History Nslicz195 cm Height (ft)5 ft Height (in)0 in Previous Outcomes Gravida2 Para1 Method ======= Voluson E6, Transabdominal ultrasound examination ========= Nava . Number of fetuses: 1 Dating ====== GA by prior [id number] w + 1 d HENNA by prior [...] GA34 w + 1 d Assigned HENNA:05/13/2025 [id number] d General Evaluation Cardiac activity present. FHR [...] Standard BPD86.8 mm 35w 0d 74% Hadlock QIP436.3 mm 37w 2d 95% Amarilis HC315.8 mm 35w 3d 48% Hadlock AC296.7 mm 33w 5d 39% Hadlock Femur66.3 mm 34w 1d 40% Hadlock HC / AC1.06 EFW2,350 g 33w 6d 43% Hadlock EFW (lb)5 lb EFW (oz)3 oz EFW by:Hadlock ([id number]) Other:An ultrasound for weight has a margin of error of up totwenty percent. Head / Face / Neck Cephalic index0.78 24% Nicolaides Extremities / Bony Struc FL / BPD0.76 FL / HC0.21 FL / AC0.22 Other Structures OIQ266 bpm Anatomy Lateral ventricles:Appears normal 4-chamber view:Appears normal Stomach:Appears normal Bladder:Appears normal Gender:male Wants to know gender:yes Impression ========= Normal BPP Recommendation Continue the routine schedule of testing for the condition beingmonitored. Indication ======== Intrahepatic cholestasis of Dx: Intrahepatic cholestasis of , third trimester [O26.643(ICD-10-CM)] Comparison Studies There are no relevant prior studies to which this study is beingcompared History ====== General History Holveq625 cm Height (ft)5 ft Height (in)0 in Previous Outcomes Gravida2 Para1 Method ======= Voluson E6, Transabdominal ultrasound examination ========= Nava . Number of fetuses: 1 Dating ====== GA by prior [id number] w + 1 d HENNA by prior [...] GA34 w + 1 d Assigned HENNA:05/13/2025 [id number] d General Evaluation Cardiac activity present. FHR [...] Standard BPD86.8 mm 35w 0d 74% Hadlock BRI407.3 mm 37w 2d 95% Amarilis HC315.8 mm 35w 3d 48% Hadlock AC296.7 mm 33w 5d 39% Hadlock Femur66.3 mm 34w 1d 40% Hadlock HC / AC1.06 EFW2,350 g 33w 6d 43% Hadlock EFW (lb)5 lb EFW (oz)3 oz EFW by:Hadlock ([id number]) Other:An ultrasound for weight has a margin of error of up totwenty percent. Head / Face / Neck Cephalic index0.78 24% Nicolaides Extremities / Bony Struc FL / BPD0.76 FL / HC0.21 FL / AC0.22 Other Structures QVJ415 bpm Anatomy Lateral ventricles:Appears normal 4-chamber view:Appears normal Stomach:Appears normal Bladder:Appears normal Gender:male Wants to know gender:yes Impression ========= Normal BPP Recommendation Continue the routine schedule of testing for the condition beingmonitored. Mathematics Academic Chair: Azra Bridges [facility] Physician: Moise Knowles MD Electronically signed by: Moise Knowles MD at: 23:08 us Moise Knowles MD G US ORDERABLES Final Re sult * (ABNORMAL) Bile Acids, Total (03/05/2025 2:49 PM EDT) Bile Acids Total 14(H) 0 - 10 umol/L 03/06/2025 12:04 AM EDT [facility] Blood Venipuncture / Unknown 03/05/2025 2:49 PM EDT 03/05/2025 2:49 PM EDT Moise Knowles MD LAB BLOOD ORDERABLES Final Result [facility]
[address] [place] [address], * (ABNORMAL) Comprehensive Metabolic Panel (03/05/2025 2:49 PM EDT) Glucose 86 65 - 99 mg/dL 03/06/2025 12:03 AM [facility] BUN 9.0 6.0 - 20.0 mg/dL 03/06/2025 12:03 AM [facility] Creatinine 0.45(L) 0.57 - 1.00 mg/dL 03/06/2025 12:03 AM [facility] Sodium 135(L) 136 - 145 mmol/L 03/06/2025 12:03 AM [facility] Potassium 4.0 3.5 - 5.2 mmol/L 03/06/2025 12:03 AM [facility] Chloride 99 98 - 107 mmol/L 03/06/2025 12:03 AM [facility] CO2 22.5 22.0 - 29.0 mmol/L 03/06/2025 12:03 AM [facility] Calcium 9.1 8.6 - 10.5 mg/dL 03/06/2025 12:03 AM [facility] Total Protein 7.1 6.0 - 8.5 g/dL 03/06/2025 12:03 AM [facility] Albumin 3.6 3.5 - 5.2 g/dL 03/06/2025 12:03 AM [facility] ALT (SGPT) 27 1 - 33 U/L 03/06/2025 12:03 AM [facility] AST (SGOT) 22 1 - 32 U/L 03/06/2025 12:03 AM [facility] Alkaline Phosphatase 129(H) 39 - 117 U/L 03/06/2025 12:03 AM [facility] Total Bilirubin 0.3 0.0 - 1.2 mg/dL 03/06/2025 12:03 AM [facility] Globulin 3.5 gm/dL 03/06/2025 12:03 AM [facility] A/G Ratio 1.0 g/dL 03/06/2025 12:03 AM [facility] BUN/Creatinine Ratio 20.0 7.0 - 25.0 03/06/2025 12:03 AM [facility] Anion Gap 13.5 5.0 - 15.0 mmol/L 03/06/2025 12:03 AM [facility] eGFR 132.1 >60.0 mL/min/1.7 3 03/06/2025 12:03 AM [facility] Blood Venipuncture / Unknown 03/05/2025 2:49 PM EDT 03/05/2025 2:49 PM [facility] - 03/06/2025 12:03 AM EDT GFR Categories in Chronic Kidney Disease (CKD) GFR Category GFR (mL/min/1.73) Interpretation G1 90 or greater Normal or high (1) G2 60-89 Mild decrease (1) G3a 45-59 Mild to moderate decrease G3b 30-44 Moderate to severe decrease G4 15-29 Severe decrease G5 14 or less Kidney failure (1)In the absence of evidence of kidney disease, neither GFR category G1 or G2 fulfill the criteria for CKD. eGFR calculation 2020 CKD-EPI creatinine equation, which does not include race as a factor us Moise Knowles MD LAB BLOOD ORDERABLES Final Result [facility]
[address] [place] [address], * Hepatitis C Antibody (10/23/2024 9:49 AM EST) Hepatitis C Ab Non-Reacti ve Non-Reacti ve 10/23/2024 3:30 PM EST [facility] Blood Venipuncture / Unknown 10/23/2024 9:49 AM EST 10/23/2024 9:52 AM EST us Moise Knowles MD LAB BLOOD ORDERABLES Final Result [facility]
[address] [place] [address], * LIQUID-BASED PAP SMEAR, [facility] (ITA,COR,MAD) (05/15/2022 10:44 AM EDT) Pathologist [facility] Reference Lab Report [facility] [address] [place] [address] or [phone] Zia Apple M.D., Foreign Student Adviser PATIENT NAME LABORATORY NO. 127 ADILENE IGNACIO [id number] AGE SEX SSN CLIENT REF # [facility] 26 1995 F [id number] [address] [place] [address] [address] REQUESTING Joe [place] [address] FEDERICO WALKER DATE COLLECTED DATE RECEIVED DATE REPORTED 05/15/2022 05/15/2022 05/17/2022 ThinPrep Pap with Cytyc Imaging DIAGNOSIS: Negative for intraepithelial lesion or malignancy Multiple factors can influence accuracy of Pap tests; therefore, screening at regular intervals is necessary for early cancer detection. SPECIMEN ADEQUACY: SATISFACTORY FOR EVALUATION Transformation zone is absent or insufficient. Data is conflicting on the significance of ECC/TZ elements, an annual repeat Pap smear is suggested. SOURCE OF SPECIMEN: CERVICAL/ENDOCERV ICAL SLIDES: 1 CLINICAL HISTORY: Last pap 12/2020-negative Routine gynecological examination control pills HUMAN RESOURCES BENEFITS ADMINISTRATOR: PFD, CT (ASCP) CPT CODES: [id number] 05/17/2022 12:35 PM EDT [facility] ThinPrep Vial Cervix uteri structure / Unknown Collection / Unknown 05/15/2022 10:44 AM EDT 05/15/2022 10:49 AM EDT us Federico Walker APRN PATHOLOGY/CYTOLOGY O RDERABLES Final Result [facility]
[address] [place] [address], from Last 3 Months or Most Recently Relevant to Health Maintenance Insurance PPO Advance Directives * CPR (Attempt to Resuscitate) (Latest Code Status on File) Date Activated Date Inactivated Comments 04/24/2025 8:14 PM 04/26/2025 2:50 PM Question Answer Comments Code Status (Patient has no pulse and is not breathing): CPR (Attempt to Resuscitate) Medical Interventions (Patie nt has pulse or is breathing): Full * CPR (Attempt to Resuscitate) Date Activated Date Inactivated Comments 04/23/2025 9:32 PM 04/24/2025 8:14 PM Question Answer Comments Code Status (Patient has no pulse and is not breathing): CPR (Attempt to Resuscitate) Medical Interventions (Patie nt has pulse or is breathing): Full Support * CPR (Attempt to Resuscitate) Date Activated Date Inactivated Comments 10/05/2023 9:59 PM 10/07/2023 4:19 PM Question Answer Comments Code Status (Patient has no pulse and is not breathing): CPR (Attempt to Resuscitate) Medical Interventions (Patie nt has pulse or is breathing): Full * CPR (Attempt to Resuscitate) Date Activated Date Inactivated Comments 10/03/2023 9:53 PM 10/05/2023 9:59 PM Question Answer Comments Code Status (Patient has no pulse and is not breathing): CPR (Attempt to Resuscitate) Medical Interventions (Patie nt has pulse or is breathing): Full Support Level Of Support Discussed With: Patient Care Teams Therapeutic Strategy Lead Relationship Specialty Start Date End Date Gabriel Lynch MD [address] [facility] [address] [facility] [address] [place] [address] PCP - General Family Medicine 07/09/23
--- OUTSIDE RECORDS SUMMARY | 2025-05-30 05:08 | XMS_ITS | Clinical Summary ---
Author Organization Healthcare Address [address] [place] [address] Care Team Providers Care Audioprosthologist Name Role Phone Gabriel Lynch MD Primary Care Provider [phone] Social History Tobacco Use Types Packs/Day Years Used Date Smoking Tobacco: Never Alcohol Use Standard Drinks/Week Comments No 0 (1 standard drink = 0.6 oz pur e alcohol) Comments Unknown Sex and Gender Information Value Date Recorded Sex Assigned at Not on file Legal Sex Female 8:12 PM EDT Gender Identity Not on file Sexual Orientation Not on file Last Filed Vital Signs Vital Sign Reading Time Taken Comments Blood Pressure 117/77 09/29/2020 2:13 PM EST Pulse 93 09/29/2020 2:13 PM EST Temperature 37 C (98.6 F) 09/29/2020 2:13 PM EST Respiratory Rate - - Oxygen Saturation - - Inhaled Oxygen Concentration - - Weight 60.3 kg (133 lb 0.1 oz) 09/29/2020 2:13 P M EST Height 152.4 cm (5') 09/29/2020 2:13 PM EST Body Mass Index 25.98 09/29/2020 2:13 PM EST Plan of Treatment Health Maintenance Due Date Last Done Comments [facility]-Depression Screening 1993 [facility]-HIV Screening 1993 [facility]-Hepatitis C Screening 1993 [facility]-/Child/Adol SDOH Screenings 1993 [facility]-Varicella Vaccines (2 of 2 - 2-dose childhood series) 04/19/1998 01/25/1998 [facility]- SDOH Screenings 2011 [facility]-Adult SDOH Screenings 2011 [facility]-Hepatitis B Vaccines (1 of 3 - 19+ 3-dose series) 2012 [facility]-Pap Smear 2014 [facility]-DTaP,Tdap,and Td Vaccines (2 - Td or Tdap) 05/10/2016 05/10/2006 HPV Vaccines (1 - 3-dose SCDM series) 2020 [facility]-Cervical Cancer Screening 2023 [facility]-HPV/Cotest 2023 TFR-ONPJR-22 Vaccine (3 - 2023- season) 2024 01/05/2021, 12/11/2020 [facility]-Influenza Vaccine (#1) 06/08/202508/15, 08/04/2021, 08/15/2020 [facility]-Zoster Vaccines (1 of 2) 2043 01/25/1998 [facility]-HIB Vaccines Aged Out No longer e ligible based on patient's age to complete this topic [facility]-Hepatitis A Vaccines Aged Out No longer eligible based on patient's age to complete this topic [facility]-IPV Vaccines Aged Out No longer e ligible based on patient's age to complete this topic [facility]-Pneumococcal Vaccine: Pediatrics (0 to 5 Years) and At-Risk Patients (6 to 49 Years) Aged Out No longer eligible b ased on patient's age to complete this topic [facility]-Rotavirus Vaccines Aged Out No lo nger eligible based on patient's age to complete this topic Insurance Care Teams Audioprosthologist Relationship Specialty Start Date End Date Gabriel Lynch MD [address] [place] [address] [facility] - General 02/18/21
--- OUTSIDE RECORDS SUMMARY | 2025-05-30 05:08 | XMS_ITS | Clinical Summary ---
Author Organization [facility] Address [address] [place] [address] Care Team Providers Care Animal Nurse Name Role Phone Pcp, No Primary Care Provider [phone] Source Comments This information has been disclosed to you from confidential records protectedfrom disclosure by state law. You shall make no further disclosure of thisinformation without the specific, written, and informed release of theindividual to whom it pertains, or as otherwise permitted by law. A generalauthorization for the release of medical or other information is not sufficientfor the purposes of therelease of HIV test results or diagnoses. [id number] Allergies Active Allergy Reactions Criticality Noted Date Comments Penicillins Hives 10/08/2020 Medications metoprolol succinate (TOPROL-XL) 25 MG 24 hr tablet Take 1 tablet (25 mg total) by mouth daily. Active ergocalciferol, vitamin D2, (VITAMIN D ORAL) Take by mouth. Active PNV,calcium 41-dehd-vbmcs acid ( PLUS) 27 mg iron- 1 mg Tab tablet Take 1 tablet by mouth daily. 90 tablet 3 10/04/2022 Active aspirin 81 MG chewable tablet Chew 1 tablet (81 mg total) by mouth daily. Active PNV,calcium 77-ijxi-vjxjt acid ( PLUS) 27 mg iron- 1 mg Tab tablet Take 1 tablet by mouth daily. 90 tablet 3 06/03/2024 Active Active Problems Problem Noted Date Diagnosed Date Female infertility 09/05/2024 Overview (09/05/2024): ART Checklist for FET #1 (created 07/09/2024) [] Consents [x] Type & Screen (06/03/2024 A+/ Negative) [x] CBC (06/03/2024) [x] CMP (06/03/2024) [x] Prolactin (06/03/2024 15.6) [x] TSH (06/03/2024 0.807) [] Rubella/varicella (04/17/2022 Non-immune- recommend vaccination vs waiver) plans to sign waiver per [facility] message on 07/17/2024 [x] STDs (06/03/2024 NR x 4) [] Cavity assessment/TT (NEED) [] Delivered 10/05/2023- recommend 18 month, but OK with 12 months (patient wants FET in early 2024) Partner: Joe Ignacio : 11/23/2023 [] STDs (NEED) [x] Embryos onsite- per database on 07/09/2024 Estimated Date of Delivery Comme nts Yes 05/13/2025 Based on last me nstrual period of 08/06/2024 Family History 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 Relation Comments Heart disease Father Diabetes Mother Heart disease Mother Relation Status Comments Father Mother Social History Tobacco Use Types Packs/Day Years Used Date Smoking Tobacco: Never Smokeless Tobacco: Never Tobacco Cessation:Counseling Given: Not Answered Alcohol Use Standard Drinks/Week Comments Not Currently 0 (1 standard drink = 0.6 oz pur e alcohol) Estimated Date of Delivery Comme nts Yes 05/13/2025 Based on last me nstrual period of 08/06/2024 Sex and Gender Information Value Date Recorded Sex Assigned at Female 02/15/2022 1:02 AM EDT Legal Sex Female 2:25 PM EDT Gender Identity Female 02/15/2022 1:02 AM EDT Sexual Orientation Straight 02/15/2022 1: 02 AM EDT Last Filed Vital Signs Vital Sign Reading Time Taken Comments Blood Pressure 104/66 06/03/2024 11:17 AM EDT Pulse 86 02/07/2023 8:45 AM EDT Temperature 36.6 C (97.9 F) 02/02/2023 8:18 AM EDT Respiratory Rate 18 02/07/2023 8:45 AM EDT Oxygen Saturation 98% 02/07/2023 8:45 AM EDT Inhaled Oxygen Concentration 98% 02/07/2023 8 :45 AM EDT Weight 59.9 kg (132 lb) 10/02/2024 7:35 AM EST Height 152.4 cm (5') 10/02/2024 7:35 AM EST Body Mass Index 25.78 10/02/2024 7:35 AM EST Plan of Treatment Health Maintenance Due Date Last Done Comments Depression Screening 2011 HIV Screening 2011 Immunization: Hepatitis B (1 of 3 - 19+ 3-dose series) 2012 Immunization: DTaP/Tdap/Td (3 - Td or Tdap) 05/10/2016 05/10/2006, 01/25/1998 Cervical Cancer Screening/Pap Smear ([facility]) 2023 Immunization: COVID-19 ( season) 2024 01/05/2021, 12/11/2020 Immunization: Influenza ([employer] [employer] [facility]) (#1) 2025 08/21/2023, 08/15/2022, 08/04/2021, Additional history exists Hepatitis C Screening ([employer] [facility]) Completed 06/03/2024, 04/17/2022 Immunization: Pneumococcal Aged Out N o longer eligible based on patient's age to complete this topic Immunization: RSV (Adult) (No Doses Required) Completed Procedures Procedure Name Priority Date/Time Associated Diagnosis Comments HEPATITIS C AB W/REFLEX TO HCV RNA, QN, PCR Routine 06/03/2024 11:42 AM EDT from Last 3 Months or Most Recently Relevant to Health Maintenance Results * Hepatitis C Ab w/reflex to HCV RNA, QN, PCR (06/03/2024 11:42 AM EDT) HCV Ab Non Reactive Non Reactive [facility] 1 06/03/2024 11:4 2 AM EDT 06/03/2024 Narrative [facility] - 06/04/2024 6:08 AM EDT Performed at: 01 - [facility] [address] [id number] [employer] Attendant: Lazaro Hart PhD, Phone: [phone] us Kyleigh Tran MD LAB BLOOD ORDERABLES Final R esult [facility] 1 from Last 3 Months or Most Recently Relevant to Health Maintenance [place] [address] [place] [address] [employer] [facility] Care Teams Animal Nurse Relationship Specialty Start Date End Date Pcp, No No Address PCP - General 02/14/22
--- OUTSIDE RECORDS SUMMARY | 2025-05-30 05:09 | XMS_ITS | Encounter Summary ---
Author Organization [facility] Address [address] [place] [address] Care Team Providers Care Planing Machine Operator Name Role Phone Gabriel Lynch MD Primary Care Provider [phone] Encounter Details Date Type Department Care Team (Late st Contact Info) Description 05/05/2025 Maternal Screening [facility] [address] [place] [phone] Jens Soliman, RN Social History Tobacco Use Types Packs/Day Years Used Date Smoking Tobacco: Never Smokeless Tobacco: Never Alcohol Use Standard Drinks/Week Comments Not Currently 0 (1 standard drink = 0.6 oz pur e alcohol) [facility] Utilities Answer Date Recorded In the past 12 months has [facility] electric, gas, oil, or water company threatened [...] and heating? Not hard at all 04/24/2025 [facility] Occupat ional [facility] - Occupational Stress [...] things needed for daily living? No 04/24/2025 [place] Depression Scale Answer Date Recorded [place] Depression Scale Total 0 05/05/2025 The thought [...] GED or equivalent No 04/24/2025 Preferred Language Romanian 04/24/2025 PHQ-2 Answer Date Recorded Patient Health Questionnaire-2 Score 0 04/24/2025 Comments No Sex and Gender Information Value Date Recorded Sex Assigned at Female 02/02/2025 12:05 PM EDT Legal Sex Female 1:00 PM EST Gender Identity Not on file Sexual Orientation Straight 02/02/2025 12 :05 PM EDT documented as of this encounter Miscellaneous Notes * Outreach Note - Jens Soliman RN - 05/05/2025 10:30 AM EDT Maternal Screening Survey Flowsheet Row [facility] Yes Call start time 1031 Call end time 1034 Person spoke with today (if not patient) and relationship Patient I have been able to laugh and see the funny side of things. 0 I have looked forward with enjoyment to things. 0 I have blamed myself unnecessarily when things went wrong. 0 I have been anxious or worried for no good reason. 0 I have felt scared or panicky for no good reason. 0 Things have been getting on top of me. 0 I have been so unhappy that I have had difficulty sleeping. 0 I have felt sad or miserable. 0 I have been so unhappy that I have been crying. 0 The thought of harming myself has occurred to me. 0 [place] Depression Scale Total 0 Did any of your parents have problems with alcohol or drug use? No Do any of your peers have problems with alcohol or drug use? No Does your partner have problems with alcohol or drug use? No Before you were did you have problems with alcohol or drug use? (past) No In the past month, did you drink beer, wine, liquor or use any other drugs? () No Maternal Screening call completed Yes Jens Burk - Registered Nurse documented in this encounter Plan of Treatment Upcoming Encounters Date Type Department Care Team (Late st Contact Info) Description 06/09/2025 1:40 PM EDT Visit [facility] [address] [facility] [address] [place] [phone] John Bolton MD [address] [place] [place] [phone] documented as of this encounter Visit Diagnoses Not on filedocumented in this encounter Care Teams Planing Machine Operator Relationship Specialty Start Date End Date Gabriel Lynch MD [address] [facility] [address] [facility] [address] [place] [address] PCP - General Family Medicine 07/09/23 documented as of this encounter
--- OUTSIDE RECORDS SUMMARY | 2025-05-30 05:09 | XMS_ITS | Encounter Summary ---
Author Organization [facility] Address [address] [place] [address] Care Team Providers Care Shoe Cutter Name Role Phone Gabriel Lynch MD Primary Care Provider [phone] Encounter Details Date Type Department Care Team (Late st Contact Info) Description 04/27/2025 Maternal Screening [facility] [address] [place] [phone] Shawna Christianson, RN Social History Tobacco Use Types Packs/Day Years Used Date Smoking Tobacco: Never Smokeless Tobacco: Never Alcohol Use Standard Drinks/Week Comments Not Currently 0 (1 standard drink = 0.6 oz pur e alcohol) [facility] Utilities Answer Date Recorded In the past 12 months has [employer] electric, gas, oil, or water company threatened [...] and heating? Not hard at all 04/24/2025 [facility] [place] of Occupat ional Health - Occupational Stress [...] things needed for daily living? No 04/24/2025 [place] Depression Scale Answer Date Recorded [place] Depression Scale Total 0 04/24/2025 The thought [...] GED or equivalent No 04/24/2025 Preferred Language Thai 04/24/2025 PHQ-2 Answer Date Recorded Patient Health Questionnaire-2 Score 0 04/24/2025 Comments No Sex and Gender Information Value Date Recorded Sex Assigned at Female 02/02/2025 12:05 PM EDT Legal Sex Female 1:00 PM EST Gender Identity Not on file Sexual Orientation Straight 02/02/2025 12 :05 PM EDT documented as of this encounter Miscellaneous Notes * Outreach Note - Shawna Christianson RN - 04/27/2025 7:56 AM EDT Maternal Screening Survey Flowsheet Row Responses Eligibility Eligible Prep survey completed? Yes Facility patient discharged from? [facility] - Registered Nurse documented in this encounter Plan of Treatment Upcoming Encounters Date Type Department Care Team (Late st Contact Info) Description 06/09/2025 1:40 PM EDT Visit [facility] OBGYN [address] [phone] John Bolton MD [address] [place] [id number] documented as of this encounter Visit Diagnoses Not on filedocumented in this encounter Care Teams Shoe Cutter Relationship Specialty Start Date End Date Gabriel Lynch MD [address] [facility] [address] [place] [address] PCP - General Family Medicine 07/09/23 documented as of this encounter
--- OUTSIDE RECORDS SUMMARY | 2025-05-30 05:09 | XMS_ITS | Encounter Summary ---
Author Organization [facility] Address [address] [place] [address] Care Team Providers Care Reinforcing Bar Setter Name Role Phone Gabriel yLnch MD Primary Care Provider [phone] Encounter Details Date Type Department Care Team (Latest Contact Info) Description 04/16/2025 Travel Social History Tobacco Use Types Packs/Day Years Used Date Smoking Tobacco: Never Smokeless Tobacco: Never Alcohol Use Standard Drinks/Week Comments Not Currently 0 (1 standard drink = 0.6 oz pur e alcohol) [facility] Utilities Answer Date Recorded In the past 12 months has [employer] electric, gas, oil, or water company threatened [...] and heating? Not hard at all 10/03/2023 [facility] [place] of Occupat ional Health - Occupational Stress [...] things needed for daily living? No 10/03/2023 [place] Depression Scale Answer Date Recorded Retired [place] Depression Score 2 10/06/2023 Retired EPD Scale: [...] GED or equivalent No 10/03/2023 Preferred Language Monegasque 10/03/2023 PHQ-2 Answer Date Recorded Retired PHQ-9: [...] Info) Description 06/09/2025 1:40 PM EDT Visit [facility] OBGYN [address] [facility] [address] [place] [phone] John Bolton MD [address] [place] [address] documented as of this encounter Visit Diagnoses Not on filedocumented in this encounter Care Teams Reinforcing Bar Setter Relationship Specialty Start Date End Date Gabriel Lynch MD [address] [facility] [address] [facility] [address] [place] [address] PCP - General Family Medicine 07/09/23 documented as of this encounter
--- OUTSIDE RECORDS SUMMARY | 2025-05-30 05:09 | XMS_ITS | Encounter Summary ---
Author Organization [facility] Address [address] [place] [address] Care Team Providers Care Section Hand Helper Name Role Phone Gabriel Lynch MD Primary Care Provider [phone] Encounter Details Date Type Department Care Team (Latest Contact Info) Description 04/07/2025 Travel Social History Tobacco Use Types Packs/Day Years Used Date Smoking Tobacco: Never Smokeless Tobacco: Never Alcohol Use Standard Drinks/Week Comments Not Currently 0 (1 standard drink = 0.6 oz pur e alcohol) [facility] Utilities Answer Date Recorded In the past 12 months has [employer] electric, gas, oil, or water company threatened [...] and heating? Not hard at all 10/03/2023 [facility] [place] of Occupat ional Health - Occupational Stress [...] things needed for daily living? No 10/03/2023 [place] Depression Scale Answer Date Recorded Retired [place] Depression Score 2 10/06/2023 Retired EPD Scale: [...] GED or equivalent No 10/03/2023 Preferred Language Portuguese 10/03/2023 PHQ-2 Answer Date Recorded Retired PHQ-9: [...] Info) Description 06/09/2025 1:40 PM EDT Visit [facility] OBGYN 1700 [facility] [address] [place] [phone] John Bolton MD [address] [place] [address] documented as of this encounter Visit Diagnoses Not on filedocumented in this encounter Care Teams Section Hand Helper Relationship Specialty Start Date End Date Gabriel Lynch MD [address] [facility] [address] [facility] [address] [facility] [place] [address] PCP - General Family Medicine 07/09/23 documented as of this encounter
--- OUTSIDE RECORDS SUMMARY | 2025-05-30 05:09 | XMS_ITS | Patient Health Record ---
Author Organization [facility] Address [address] 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 Name Role Phone Riky Rod Unavailable [phone] Allergies Allergen (clinical drug ingredient) Drug/Non Drug Allergy documented on EMR Reaction Allergy Type Onset Date Status PENICILLIN V POTASSIUM (PENICILLIN V POTASSIUM TAB Unspecified Drug Allergy 01/19/2021 Active Reason For Referral No Information Social History Social History Additional Details Category Social Info Options Details Miscellaneous: Sexually active: SEXUAL AC TIV: Current Problems Problem Type SNOMED Code ICD Code Onset Dates Problem Status W/U Status Risk Notes Problem Cervical smear, as part of routine gynecological examination (Z01.419) Active confirmed Annual without abnormal findings Plan Of Treatment No Information Medical (General) History 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 History ICD Code acid relfux endometriosis infertility PROGESTERONE MICRONIZED 200 MG ORAL CAPS ULE, ORAL METOPROLOL TARTRATE 25 MG ORAL TABLET, O RAL Surgical History Surgery Date(Month/Year) dx lap 2019 laparoscopy w. septum removal 2020
--- OUTSIDE RECORDS SUMMARY | 2025-05-30 05:09 | XMS_ITS | Encounter Summary ---
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 Not hard at all 04/24/2025 [facility] [place] of Occupat ional Health - Occupational Stress [...] things needed for daily living? No 04/24/2025 [place] Depression Scale Answer Date Recorded [place] Depression Scale Total 0 04/24/2025 The thought [...] GED or equivalent No 04/24/2025 Preferred Language Turkmen 04/24/2025 PHQ-2 Answer Date Recorded Patient Health [...] 9:57 PM EDT Casi Stephen RN * [place] Suicide Severity Rating Scale (Screener/Recent Self-Report) Question Answer Date of Assessment Author 6. Suicidal Behavior (Lifetime) No 9:57 PM EDT Casi Stephen RN documented as of this encounter Plan of Treatment Upcoming Encounters Date Type Department Care Team (Late st Contact Info) Description 06/09/2025 1:40 PM EDT Visit [facility] OBGYN 17[address] [facility] [address] [place] [address] John Bolton MD [address] [facility] [address] [place] [address] documented as of this encounter Visit Diagnoses Not on filedocumented in this encounter Care Teams Link Wire Fabric Machine Tender Relationship Specialty Start Date End Date Gabriel Lynch MD 12[address] [facility] [address] [place] [address] PCP - General Family Medicine 07/09/23 documented as of this encounter
--- OUTSIDE RECORDS SUMMARY | 2025-05-30 05:09 | XMS_ITS | Encounter Summary ---
Author Organization [facility] Address [address] [place] [address] Care Team Providers Care Senior Research Fellow Name Role Phone Gabriel Lynch MD Primary Care Provider [phone] [phone] Encounter Details Date Type Department Care Team (Late st Contact Info) Description 04/23/2025 Prep for Surgery [facility] ORDERS ONLY [address] [place] [address] John Bolton MD [address] [facility] [address] [place] [address] care, subsequent in third trimester (Primary Dx); Intrahepatic cholestasis of , third trimester; Encounter for induction of labor 04/23/2025 @ 20:00 Social History Tobacco Use Types Packs/Day Years Used Date Smoking Tobacco: Never Smokeless Tobacco: Never Alcohol Use Standard Drinks/Week Comments Not Currently 0 (1 standard drink = 0.6 oz pur e alcohol) [facility] Utilities Answer Date Recorded In the past 12 months has [employer] electric, gas, oil, or water company threatened [...] and heating? Not hard at all 04/24/2025 [facility] [place] of Occupat ional Health - Occupational Stress [...] things needed for daily living? No 04/24/2025 [place] Depression Scale Answer Date Recorded [place] Depression Scale Total 0 04/24/2025 The thought [...] GED or equivalent No 04/24/2025 Preferred Language Vietnamese 04/24/2025 PHQ-2 Answer Date Recorded Patient Health Questionnaire-2 Score 0 04/24/2025 Comments Yes Sex and Gender Information Value Date Recorded Sex Assigned at Female 02/02/2025 12:05 PM EDT Legal Sex Female 1:00 PM EST Gender Identity Not on file Sexual Orientation Straight 02/02/2025 12 :05 PM EDT documented as of this encounter H&P Notes * John Bolton MD - 04/23/2025 8:01 PM EDT Vesna Murry : 1995 CSN: [id number] History and Physical Subjective Vesna Murry is [...] Name: Irena Apgar1: 8 Apgar5: 9 1 2020 Obstetric Comments 2022 - Irena Past 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: Diagnosis Date Palpitations 2007 Endometriosis 2015 Cholestasis during 2022 Preeclampsia in period 10/2023 [...] Daily., Disp: , Rfl: Vit-Fe Fumarate-FA ( -) 27-1 MG tablet tablet, , Disp: , [...] 10/23/2024 HEPBSAG Non-Reactive 10/23/2024 ABSCRN Negative 02/23/2025 [id number] Non-Reactive 10/23/2024 HEPCVIRUSABY Non-Reactive 10/23/2024 GCT 93 02/23/2025 URINECX No growth 10/23/2024 CHLAMNAA Negative 10/23/2024 NGONORRHON Negative 10/23/2024 Assessment IUP with an Estimated Date of Delivery: 05/13/25 Induction of labor because of intrahepatic cholestasis of Group B strep status: unknown Unfavorable cervix Plan Cervical higuera and Cytotec upon admission Pitocin induction in am if not in labor already Will manage group B strep status by risk factor approach Explained the potential for this to be a serial day process John Bolton MD documented in this encounter Plan of Treatment Upcoming Encounters Date Type Department Care Team (Late st Contact Info) Description 06/09/2025 1:40 PM EDT Visit [facility] OBGYN [address] [phone] John Bolton MD [address] [place] [id number] documented as of this encounter Visit Diagnoses Diagnosis care, subsequent in third trimester- Primary Intrahepatic cholestasis of , third trimester Encounter for induction of labor 04/23/2025 @ 20:00 documented in this encounter Care Teams Senior Research Fellow Relationship Specialty Start Date End Date Gabriel Lynch MD [address] [facility] [address] [place] [address] PCP - General Family Medicine 07/09/23 documented as of this encounter
[2025-05-30 05:11] VITALS: BP 128/87; PULSE 63; RESP 16; TEMP 36.9; O2SAT 98; BMI 26.2
[2025-05-30 05:24] LABS: Microscopic, Urine URINE MICROSCOPIC (MICROSCOPIC)
[2025-05-30 05:26] LABS: Color,Urine YELLOW (Yellow); Glucose,Urine (UA) TRACE (Negative); Ketones,Urine 1+ (Negative); Leukocyte Esterase,Urine Negative (Negative); PH,Urine 6.5 (5.0-8.5); Protein,Urine 1+ (Negative); Specific Gravity, Urine 1.025 (1.005-1.030); Urobilinogen,Urine 4.0 EU/dl (0.2)
[2025-05-30 05:28] LABS: Bilirubin,Urine 2+ (Negative)
[2025-05-30 05:29] LABS: Urine Pregnancy, HCG Qual. Negative (Negative)
[2025-05-30 05:38] LABS: Squamous Epithelial Cell,Urine Occasional #/hpf (0-5); WBC,Urine Occasional #/hpf (0-3)
[2025-05-30 05:41] LABS: Bacteria,Urine Trace /lpf
[2025-05-30] MEDS: ONDANSETRON 4MG ODT 4 MG SL (05:55)
[2025-05-30] MEDS: CEFDINIR 300MG CAPSULE 300 MG PO (05:56)
--- NOTE | 2025-05-30 06:01 | ED_ITS ---
Discharge Plan Disposition Patient Disposition: Home, Self-Care Condition: Good Prescriptions Prescriptions: New cefdinir 300 mg capsule 300 mg PO BID 5 Days Qty: 10 0RF ondansetron 4 mg tablet,disintegrating 4 mg PO Q6H PRN (Reason: nausea and vomiting) Qty: 10 0RF No Action phenazopyridine [Pyridium] 200 mg tablet 200 mg PO Q8H 2 Days Qty: 6 0RF nitrofurantoin monohyd/m-cryst [Macrobid] 100 mg Capsule 100 mg PO BID Qty: 10 0RF Rx Instructions: must administer with a meal/food ondansetron 4 mg Tablet,Disintegrating 4 mg PO Q8H PRN (Reason: Nausea) Qty: 9 0RF tamsulosin 0.4 mg capsule 0.4 mg PO HS Qty: 10 0RF sulfamethoxazole-trimethoprim [Bactrim DS] 800-160 mg tablet 1 tab PO BID 10 Days Qty: 20 0RF clindamycin HCl 150 mg capsule 450 mg PO Q8H 7 Days Qty: 63 0RF fluticasone propionate 50 mcg/actuation spray,suspension 2 spray INTRANASAL DAILY Patient Comments: 2 SPRAYS INTO THE NOSTRIL(S) DIRECTED BY PROVIDER DAILY FOR 10 DAYS. metoprolol tartrate 25 mg Tablet 25 mg PO DAILY cephalexin 500 mg capsule 500 mg PO QID 5 Days Qty: 20 0RF Referrals Follow up/Referrals: Ravi Lynch MD [Primary Care Provider, Medical] - See instructions Activity Restrictions/Add. Instructions Additional Instructions/Restrictions: You were evaluated in the ER and are believed to be appropriate for discharge at this time. Take the prescribed antibiotics as directed, do not skip doses, do not stop taking them early. Take the prescribed Zofran (ondansetron) if needed for nausea and vomiting. Drink plenty of water to maintain good hydration. You can also drink cranberry juice or take a cranberry supplement to help maintain urinary health. Make an appointment with your primary care doctor for reevaluation in 2 to 3 days. Return to the ER with any new, worsening, or otherwise concerning symptoms. Clinical Impressions Clinical Impression: UTI (urinary tract infection) Instructions Patient Instructions: DI for Urinary Tract Infection (UTI), DI for Urinary Tract Infection in Children Print Language Print Language: Korean Discharge ED Provider: Acevedo,Mikalah General Adult HPI General Chief complaint: Urogenital-Female Stated complaint: back pain, dark urine Time Seen by Provider: 05/30/25 05:18 Mode of Arrival: Ambulatory Source of Information: Patient Description of Symptoms (Recalled from ER Triage Doc. by RN): PT presents to the ED for evaluation of s/s of Kidney infection. PT stated two days ago she woke up with flank pain and vomited x1. PT stated her urine has now became darker in color. PT stated her last dose of Tylenol at 1700 05/29/2025. PT 1 month PP, stated her had a 2nd degree episiotomy History of Present Illness HPI narrative: 29-year-old female presents to the ER complaining of possible kidney and urinary tract infection. Patient reports 2 days ago she had flank pain and vomited once. She states her urine is dark in color. She reports very mild dysuria. She states her flank pain is actually significantly improved and she now only has very mild low back pain. She states she took Tylenol yesterday. She otherwise feels well and has no fevers or chills, no chest pain or difficulty breathing, no vomiting or diarrhea today. No other complaints or concerns. Related Data Home Medications ?Medication ?Instructions ?Recorded ?Confirmed fluticasone propionate 50 2 spray intranasal DAILY 02/04/24 mcg/actuation nasal spray,suspension metoprolol tartrate 25 mg tablet 25 mg PO DAILY 02/04/24 Previous Rx's ?Medication ?Instructions ?Recorded nitrofurantoin 100 mg PO BID #10 caps 02/03 monohydrate/macrocrystals 100 mg capsule (Macrobid) ondansetron 4 mg disintegrating 4 mg PO Q8H PRN Nausea #9 tabs 02/04/24 tablet phenazopyridine 200 mg tablet 200 mg PO Q8H 2 days #6 tabs 02/04/24 (Pyridium) sulfamethoxazole 800 1 tab PO BID 10 days #20 tab s 02/06/24 mg-trimethoprim 160 mg tablet (Bactrim DS) tamsulosin 0.4 mg capsule 0.4 mg PO HS #10 caps cephalexin 500 mg capsule 500 mg PO QID 5 days #20 cap s 09/25/24 clindamycin HCl 150 mg capsule 450 mg (3 x 150 mg) PO Q8H 7 days 02/08/25 #63 caps cefdinir 300 mg capsule 300 mg PO BID 5 days #10 cap s 05/30/25 ondansetron 4 mg disintegrating 4 mg PO Q6H PRN nausea and 05/30/25 tablet vomiting #10 tabs Allergies Allergy/AdvReac Type Severity Reaction Status Date / Time Penicillins Allergy Intermediate I-HIVES Verified 02/04/24 14:44 [facility] Disclaimer: The information contained in this section may have been updated after the patient was seen, as this information can be updated by other users. 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) Status post vaginal delivery Family History , JEWEL OLIVING MACHINE OPERATOR) No significant family history Social History Smoking Status: Never smoker alcohol intake: never substance use type: denies use current occupational status: other Travel in the last 8 weeks?: None household members: spouse housing: house current occupation: [employer] caffeine: No Have you lived/traveled outside US in past 30 days?: No Contact w/someone who lives/traveled outside US past 30 days?: No Exposure to someone with infectious disease in past 14 days?: No Do you have a fever (greater than 100.4 F or 38 C)?: No Have you tested positive for COVID-19?: No Exposed to someone with COVID-19 in past 14 days?: No Do you have a sore throat?: No Do you have a cough?: No Do you have any weakness?: No Do you have any diarrhea?: No Are you experiencing any unusual bleeding?: No Do you have any muscle aches/pain?: No Do you have any abdominal pain?: No Are you experiencing loss of taste or smell?: No Other 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 Have you received the Flu Vaccine for this season: No Have you received the Pneumonia Vaccine: No ROS Obtained: Yes Systems reviewed as appropriate & no additional complaints except as documented per HPI Physical Exam General General appearance: alert and in no apparent distress Head Head exam: atraumatic and normocephalic Eye Eye exam: Present PERRL and EOMI ENT ENT exam: Present mucous membranes moist Neck Neck exam: Present normal inspection and full ROM Chest Chest inspection: Present symmetric chest wall rise Respiratory Respiratory exam: Absent respiratory distress or stridor Cardiovascular Cardiovascular exam: Present regular rate and normal rhythm Abdominal Exam Abdominal exam: Present soft; Absent distention, tenderness, guarding or rebound Extremities Exam Extremities exam: Present full ROM Back Exam Comment: Patient has only trace very low back discomfort with percussion, no true CVA tenderness, no midline tenderness, no evidence of trauma Neurological Exam Neurological exam: Present alert and oriented X3; Absent motor sensory deficit Psychiatric Psychiatric exam: Present normal affect and normal mood Skin Skin exam: Present warm and dry Medical Decision Making Medical Records Medical records reviewed: Yes I reviewed the patient's medical records. Screening: Per USPSTF and CDC recommendations, given the prevalence of disease in our region, it is our hospital?s policy to screen for HIV and viral Hepatitis for all patients aged 18 and over and those with ongoing risk factors. Will Inquiry Pt receiving controlled substance: No Vital Signs: 05/30/25 05:11 Temperature 98.4 F Temperature Source Oral Pulse Rate [Right] 63 Respiratory Rate 16 Blood Pressure [Right Arm] 128/87 Blood Pressure Mean [Right Arm] 100 02 Sat by Pulse Oximetry 98 Oxygen Delivery Method Room Air Lab Data Lab Results 05/30/25 05:07: Urine Color Yellow, Urine Appearance Clear, Urine pH 6.5, Ur Specific [place] 1.025, Urine Protein 1+ A, Urine Glucose (UA) Trace, Urine Ketones 1+, Urine Blood 3+ A, Urine Nitrate Negative, Urine Bilirubin 2+ A, Urine Urobilinogen 4.0, Ur Leukocyte Esterase Negative, Urine RBC 10-20, Urine WBC Occasional, Ur Squamous Epith Cells Occasional, Urine Bacteria Trace, Urine HCG, Qual Negative Orders (Tests/Meds): ED MEDICATIONS Discontinued Medications Generic Name Dose Route Start Last Admin Trade Name Freq PRN Reason Stop Dose Admin Cefdinir 300 mg 05/30/25 05:46 05/30/25 05:56 Cefdinir 300mg Capsule PO 05/30/25 05:47 300 mg ONCE ONE Administration Ondansetron HCl 4 mg 05/30/25 05:45 05/30/25 05:55 Ondansetron 4mg Odt SL 05/30/25 05:46 4 mg ONCE ONE Administration ORDERS Category Date Time Status Urinalysis and Microscopic Stat Lab 05/30/25 05:07 Completed Urine , HCG Qual. Stat Lab 05/30/25 05:07 Completed Urine Culture Stat Micro 05/30/25 05:51 Ordered Medical Decision Narrative: In summary, this 29-year-old female presents to the emergency department today with concerns of urinary tract infection. On initial evaluation patient is hemodynamically stable, afebrile, overall well-appearing, she has a benign abdominal exam, she has only the slightest of very low back tenderness with percussion, no true CVA tenderness, she reports only scant hematuria but increased frequency. No other complaints or concerns and exam otherwise benign. Differential diagnosis includes but is not limited to urinary tract infection, pyelonephritis, cystitis, considered kidney stone as well but patient does not have severe pain by any means and no unilateral tenderness which is reassuring. Based on these concerns, I ordered urinalysis, urine hCG. Labs reviewed by me demonstrate negative test, UA with only slight contamination but trace bacteria, some blood and some protein which could be related to possible early kidney infection though the few WBCs and only trace bacteria decreases my suspicion for this. Proteinuria could be concerning for preeclampsia, however patient has normal blood pressure, no headaches, no other associated symptoms or concerns. Out of an abundance of caution due to patient's symptoms, will treat for urinary tract infection with cefdinir. She also received a dose of Zofran in the ER. Cefdinir and Zofran prescribed for outpatient management. Reassured the patient about her symptoms and instructed to follow-up about her culture. Gave her instructions for symptomatic monitoring and management, follow-up including with PCP, as well as strict turn precautions for the ER. She indicated understanding and the patient was discharged in stable condition. Critical Care Critical Care Time Critical Care Time: No
[2025-05-30 06:09] VITALS: BP 133/88; PULSE 57; RESP 16; TEMP 36.9; O2SAT 99
== END 2025-05-30 06:10 | disposition home or self-care (01) ==
PROVIDERS: Emergency Provider Emergency Medicine; PCP Family Medicine
DX: O86.29 Other urinary tract infection following delivery (principal); M54.50 Low back pain, unspecified; R30.0 Dysuria
CPT/HCPCS: 81001; 81025; 99283; Q0162